=== PATIENT | male | born 1965 | race Caucasian/White ===

== ENCOUNTER → 2017-03-05 | Outpatient (CLI) | payer BC, OTHER ==
--- NOTE | 2017-03-05 16:08 | XR ---
EXAMINATION TYPE: XR chest 2V DATE OF EXAM: 03/05/2017 COMPARISON: None HISTORY: 51 year-old male shortness of breath and cough TECHNIQUE: Frontal and lateral views FINDINGS: Heart is normal size. Aorta within normal limits. There is severe diffuse confluent nodular interstit ial opacities. Possible 4.1 cm mass in the right upper lobe. No pleural effusion. IMPRESSION: Severe diffuse nodular interstitial lung disease. Some differential considerations include diffuse me tastatic disease, acute pneumoconiosis/silicosis, and atypical infections including fungal infections and TB.
== END | disposition home or self-care (01) ==
LOC: RADXRYALE 15:21
PROVIDERS: ATTEND Internal Medicine Sleep Medicine
DX: J84.9 Interstitial pulmonary disease, unspecified (principal)
CPT/HCPCS: 71020

== ENCOUNTER 2017-03-27 09:54 | Day surgery (SDC) | payer BC, OTHER ==
[2017-03-26 10:23] VITALS: BMI 23.4
[~2017-03-27 09:54] MED LIST: LACTATED RINGERS 1,000 ML IV SCH
[2017-03-27 10:10] VITALS: TEMP 98.3
[2017-03-27] MEDS ORDERED: LIDOCAINE 1% 20 ML VIAL (10MG/ML) FOR IV START INTRADERMA ONE (10:20)
[2017-03-27] MEDS ORDERED: PROPOFOL 10 MG/ML 20 ML VIAL IV ONE (10:27)
[2017-03-27 10:44] LABS: Glucose,Whole Blood 105 mg/dL (75-99)
[2017-03-27] MEDS ORDERED: LIDOCAINE 2% INJ 20 MG/ML INTRATRACH ONE (10:55)
[2017-03-27] MEDS ORDERED: LIDOCAINE 2%-EPI 1:100,000 20 ML VIAL SUBMUCOSAL ONE (10:57)
--- NOTE | 2017-03-27 11:22 | XR ---
EXAMINATION TYPE: XR chest 1V, FL bronchoscopy DATE OF EXAM: 03/27/2017 HISTORY: Status post of bronchoscopy COMPARISON: None. TECHNIQUE: Single view of the chest is submitted. FINDINGS: There is no evidence for pneumothorax. Diffuse airspace infiltrates persist throughout both lung parker which could be related to diffuse pn eumonia however sarcoidosis is an additional possibility. The heart is stable. Hilar and mediastinal structures are within normal limits. Degenerative changes are seen of the dorsal spine. IMPRESSION: 1. No evidence for pneumothorax. Fluoroscopy: 1MIN12 SEC FL, 1 FILM SCANNED
[2017-03-27 11:27] VITALS: RESP 24
[2017-03-27 11:53] VITALS: BP 146/90; PULSE 120
--- NOTE | 2017-04-20 10:22 | P.PCN ---
Date of Procedure: 03/27/17 (late entry note) Preoperative Diagnosis: ILD, Sarcoidosis, Neoplasm/lung cancer Postoperative Diagnosis: as above Procedure(s) Performed: Bronchoscopy, BAL, Transbronchial lung biopsy under fluroscopy Surgeon: Masood Cheung Estimated Blood Loss (ml): 5 Condition: stable Disposition: same day Indications for Procedure: Abnormal cxr, ILD, Operative Findings: DIFFUSE EDEMA AND ERYTHEMA NOTED ALLOVER TRACHEOBRONCHIAL TREE Description of Procedure: FOB passed thru right nares, vocal cords normal, both right and left broncial tree and subsegments inspected no endobronchial mass noted, but diffuse bilateral edema noted with erythema. BAL performed RUL and RLL followed by lung biopsy of RUL under fluroscopy, pt. tolerated well no complication noted
== END 2017-03-27 12:21 | disposition home or self-care (01) ==
LOC: ORWHC2ENDO 09:54
PROVIDERS: ATTEND Internal Medicine Sleep Medicine
DX: C34.11 Malignant neoplasm of upper lobe, right bronchus or lung (principal); Z87.01 Personal history of pneumonia (recurrent); D86.9 Sarcoidosis, unspecified; J96.01 Acute respiratory failure with hypoxia; Z83.6 Family history of other diseases of the respiratory system; Z79.52 Long term (current) use of systemic steroids; Z79.899 Other long term (current) drug therapy; Z91.040 Latex allergy status
CPT/HCPCS: 87798 ×5; 87541; 87496; 87498; 87529 ×2; 88108; 88305; 88342; 87252; 87502; 88341; 87070; 87205; 87116; 87102; 87206; 87299; 71010; 31628; 31624; J2001; J2704; 31622

== ENCOUNTER → 2017-04-14 | Outpatient (CLI) | payer BC, OTHER ==
--- NOTE | 2017-04-14 22:20 | PE ---
EXAMINATION TYPE: PET CT fusion skull to thigh DATE OF EXAM: 04/14/2017 COMPARISON: Chest x-ray March 27, 2017 HISTORY: Lung cancer initial staging study after bronchosco py positive bilateral biopsy 2 weeks ago per patient. TECHNIQUE: Following the intravenous administration of 12.82 mCi of F-18 FDG, whole body images are performed from the skull base to the midthigh. Images are reviewed on the computer in the coronal, a xial, and sagittal planes. Reconstructed rotating images are created on independent workstation and reviewed on the computer. A noncontrast CT is performed in conjunction with the PET scan. SCAN: Initial Scan FINDINGS: SKULL BASE AND NECK: There is suspicious right supraclavicular subcentimeter hypermetabolic focus axi al image 65, max SUV is 3.96 adjacent to right thyroid lobe. CHEST, MEDIASTINUM, AND HILAR REGION: Correlating with x-ray there is irregular consolidation bilater ally involving upper and lower lungs with abnormal hypermetabolic uptake throughout. Areas of nodular ity are present seen better in the lower lungs. Due to confluent appearance accurate measurements are and possible. Max SUV is 6.09 posterior right lung base axial image 117. Max SUV right upper lung is 7.54 near axial image 85. Max SUV anterior left upper lobe is 5.64 on axial image 92. Max SUV in the left lower lobe is 5.32 axial image 114. There is no suspicious hypermetabolic thoracic lymph nodes clearly seen. There are borderline in size ametabolic prevascular lymph node lymph nodes for reference near axial image 87 there is 11 x 9 mm l ymph node noted. There is some abnormal hypermetabolic uptake in the posterior inferior diaphragmatic crux for referen ce axial image 151. Max SUV is 4.6 at this level. Etiology uncertain? ABDOMEN AND PELVIS: No suspicious hypermetabolic uptake is seen in the abdomen or pelvis. No concerni ng adrenal masses are noted. OSSEOUS STRUCTURES: No suspicious hypermetabolic uptake is seen. OTHER CT: There is 2 cm mucous retention cyst or polyp posterior inferior right maxillary sinus. Ther e is suspicious air-fluid level seen superior to this. Some mild coronary artery calcification is present which is noted marker for coronary artery disease. There are scattered pelvic phleboliths. Prostate gland is enlarged underlying BPH is suspected. Arsalan elate clinically. There is multilevel facet arthropathy in the mid to lower lumbar spine. IMPRESSION: Very unusual study with diffuse consolidation and hypermetabolic uptake in both lungs, ne oplastic involvement involving bilateral upper and lower lungs cannot be excluded. Combination of inf lammatory/infectious etiology and neoplasm is possible. Nonspecific right supraclavicular lymph node otherwise no adenopathy identified. No metastatic disease otherwise is seen.
== END | disposition home or self-care (01) ==
LOC: RADPETMAIN 12:04
PROVIDERS: ATTEND Internal Medicine Hematology & Oncology
DX: C34.11 Malignant neoplasm of upper lobe, right bronchus or lung (principal)
CPT/HCPCS: 78815; A9552

== ENCOUNTER 2017-04-23 10:31 | Day surgery (SDC) | payer BC, OTHER ==
[2017-04-20 09:04] VITALS: BMI 22.6
[~2017-04-23 10:31] MED LIST changes: -LACTATED RINGERS 1,000 ML IV SCH; +Pre Op ABX Message 1 EACH MISC MISCELLANE ONE
[2017-04-23 11:03] VITALS: PULSE 110; RESP 20; TEMP 98
[2017-04-23 12:55] VITALS: BP 152/91
--- NOTE | 2017-04-23 13:34 | IR ---
PICC LINE PLACEMENT: HISTORY: Infection requiring long-term antibiotic therapy PROCEDURE: Ultrasound and fluoroscopic guidance of PICC line placement. COMPLICATIONS: None ANESTHESIA: 1. 1% Lidocaine locally. FINDINGS/TECHNIQUE: The procedure was explained to the patient. The risks, complications, benefits and alternatives were discussed and any questions were answered. Informed consent was obtained. The patient was placed supine on the fluoroscopic table and prepped and draped in the usual sterile [facility] ion. Utilizing a 21 gauge needle and sonographic and fluoroscopic guidance, access in the vein was achieved and there is placement of a 0.018 guidewire. The vein is patent. A 4-F sheath was placed o bebe the guidewire. The guidewire and dilator were removed and a 4-F. PICC line was placed through th e sheath with the tip at the level of the SVC. The sheath was removed, the catheter was flushed and sutured into position. The patient was stable throughout the procedure and remained stable upon disc harge from the Department of Radiology. The vein puncture was patent under ultrasound. A schrader scale image was obtained to document patency of the vein punctured. All elements of the maximal barrier technique were utilized. FLUOROSCOPY TIME: 0.8 minutes and one image submitted IMPRESSION: Successful PICC line placement under ultrasound and fluoroscopic guidance.
== END 2017-04-23 12:35 | disposition home or self-care (01) ==
LOC: CATHCVL 10:31
PROVIDERS: ATTEND Radiology Diagnostic Radiology
DX: C34.81 Malignant neoplasm of overlapping sites of right bronchus and lung (principal); I87.2 Venous insufficiency (chronic) (peripheral)
CPT/HCPCS: 36569; 76937; 77001; C1751; C1769

== ENCOUNTER → 2017-06-11 | Outpatient (CLI) | payer OTHER ==
--- NOTE | 2017-06-11 12:10 | XR ---
EXAMINATION TYPE: XR chest 2V DATE OF EXAM: 06/11/2017 COMPARISON: PET/CT April 14, 2017. Chest x-ray March 27, 2017 HISTORY: Lung carcinoma. TECHNIQUE: Frontal and lateral views of the chest are obtained. FINDINGS: There is new right-sided PICC line with tip in SVC. Bilateral reticulonodular opacities re main present correlate with diffuse hypermetabolic uptake on PET/CT. Some improvement in bilateral op acities since prior chest x-ray is identified particularly towards the periphery. Cardiac silhouette size is stable and within normal limits. Osseous structures are intact. IMPRESSION: Improving bilateral hypermetabolic reticulonodular infiltrates.
== END | disposition home or self-care (01) ==
LOC: RADXRMAIN 11:45
PROVIDERS: ATTEND Internal Medicine Hematology & Oncology
DX: C34.81 Malignant neoplasm of overlapping sites of right bronchus and lung (principal); R91.8 Other nonspecific abnormal finding of lung field
CPT/HCPCS: 71046

== ENCOUNTER 2017-07-15 17:11 | Inpatient (IN) | payer OTHER ==
[2017-07-15] MEDS ORDERED: methylPREDNISolone SOD SUCCI 125 MG/2 ML VIAL IV STA (17:36)
--- NOTE | 2017-07-15 17:51 | XR ---
EXAMINATION TYPE: XR chest 1V portable DATE OF EXAM: 07/15/2017 COMPARISON: 06/11/2017 INDICATION: Pain, respiratory distress TECHNIQUE: Single frontal view of the chest is obtained. FINDINGS: The heart size is normal. . There may be some shift of the mediastinum towards the right with trache al deviation. There is a complete collapse of the left lung with a very large pneumothorax. Correlate for tension pneumothorax. Report was medially called to the emergency room physician by Dr. Amador. Patient is being treated for the suspected tension pneumothorax. The pulmonary vasculature is normal. There is likely some underlying pulmonary fibrosis. IMPRESSION: 1. Left-sided tension pneumothorax. This was being treated at the time of notification. 1740 hours 07/15/2017.
[2017-07-15 18:06] LABS: Anisocytosis Slight; Basophils % (A) 0 %; Eosinophils % (A) 0 %; HCT 41.1 % (39.0-53.0); HGB 13.7 gm/dL (13.0-17.5); Lymphocytes # (A) 0.8 k/uL (1.0-4.8); Lymphocytes % (A) 5 %; MCH 32.1 pg (25.0-35.0); MCHC 33.3 g/dL (31.0-37.0); MCV 96.3 fL (80.0-100.0); Macrocytosis Slight; Mean Platelet Volume 7.1; Monocytes # (A) 0.9 k/uL (0-1.0); Monocytes % (A) 5 %; Neutrophils # (A) 14.8 k/uL (1.3-7.7); Neutrophils % (A) 89 %; Platelet Count 225 k/uL (150-450); RBC 4.27 m/uL (4.30-5.90); RDW 16.3 % (11.5-15.5); WBC 16.7 k/uL (3.8-10.6)
[2017-07-15 18:15] LABS: ALT 59 U/L (21-72); AST 35 U/L (17-59); Albumin 4.1 g/dL (3.5-5.0); Alkaline Phosphatase 61 U/L (38-126); Anion Gap 16 mmol/L; Blood Urea Nitrogen 14 mg/dL (9-20); Calcium 9.8 mg/dL (8.4-10.2); Carbon Dioxide 21 mmol/L (22-30); Chloride 99 mmol/L (98-107); Glucose 211 mg/dL (74-99); Potassium 5.1 mmol/L (3.5-5.1); Sodium 136 mmol/L (137-145); Total Bilirubin 0.9 mg/dL (0.2-1.3); Total Protein 7.3 g/dL (6.3-8.2)
[2017-07-15 18:25] LABS: Creatine Kinase 59 U/L (55-170)
--- NOTE | 2017-07-15 18:30 | P.HPIM ---
History of Present Illness 51-year-old gentleman with known history of non-metastatic lung cancer and history of smoking possibly history of COPD came in with complaints of shortness of breath started today morning progressively gotten worse and the she came to ER found to have aches tensive pneumothorax on the left side of the chest with mediastinal shift patient had a thoravent with the significant relief in his shortness of breath patient although still tachypneic I do not have any full lab data available at this point of time. Patient has some chronic changes in the right lung from his lung cancer. For which she recently completed chemotherapy about 10 days ago. Patient appears to have history of COPD and emphysema may have had a bladder rupture. Patient denied any fever chills no significant pneumonic process. Patient the chest x-ray on the right side is actually better compared to his previous x-rays. Review of Systems REVIEW OF SYSTEMS: CONSTITUTIONAL: No fever, no malaise, no fatigue. HEENT: No recent visual problems or hearing problems. Denied any sore throat. CARDIOVASCULAR: No chest pain, orthopnea, PND, no palpitations, no syncope. PULMONARY: As mentioned in HPI GASTROINTESTINAL: No diarrhea, no nausea, no vomiting, no abdominal pain. Normoactive bowel sounds. NEUROLOGICAL: No headaches, no weakness, no numbness. HEMATOLOGICAL: Denies any bleeding or petechiae. GENITOURINARY: Denies any burning micturition, frequency, or urgency. MUSCULOSKELETAL/RHEUMATOLOGICAL: Denies any joint pain, swelling, or any muscle pain. ENDOCRINE: Denies any polyuria or polydipsia. The rest of the 14-point review of systems is negative. Past Medical History Past Medical History: Cancer, Hypertension Additional Past Medical History / Comment(s): LUNG CA; O2 @5 L NC ATC,increased SOB,sinus tachycardia (states resting heart rate is 125 -130),does not take anything for heart rate or b/p,current steroids History of Any Multi-Drug Resistant Organisms: None Reported Past Surgical History: Adenoidectomy, Tonsillectomy Past Anesthesia/Blood Transfusion Reactions: No Reported Reaction Past Psychological History: No Psychological Hx Reported Smoking Status: Former smoker Past Alcohol Use History: None Reported Past Drug Use History: None Reported - Past Family History Mother Family Medical History: COPD Medications and Allergies Home Medications Medication Instructions Recorded Confirmed Type Ipratropium-Albuterol Nebulize 3 ml INHALATION RT-Q4H PRN 03/26/17 07/15/17 History [Duoneb 0.5 mg-3 mg/3 ml Soln] predniSONE 20 mg PO DAILY 03/26/17 07/15/17 History Budesonide/Formoterol Fumarate 2 puff INHALATION RT-BID 07/15/17 07/15/17 History [Symbicort 160-4.5 Mcg Inhaler] Codeine Phosphate/Guaifenesin 5 ml PO QID PRN 07/15/17 07/15/17 History [Cheratussin AC Syrup] Erlotinib HCl [Tarceva] 150 mg PO DAILY 07/15/17 07/15/17 History Folic Acid 1 mg PO DAILY 07/15/17 07/15/17 History Ibuprofen [Motrin] 600 mg PO BID PRN 07/15/17 07/15/17 History Nystatin 100,000 Unit/ml Susp 5 ml PO QID 07/15/17 07/15/17 History [Mycostatin Oral Susp] Omeprazole 20 mg PO DAILY 07/15/17 07/15/17 History Allergies Allergy/AdvReac Type Severity Reaction Status Date / Time latex Allergy itching Verified 07/15/17 18:08 eyes Physical Exam Vitals: Vital Signs Temp Pulse Resp BP Pulse Ox 07/15/17 17:53 131 H 26 H 146/99 99 07/15/17 17:46 30 H 96 07/15/17 17:40 84 L 07/15/17 17:13 97.6 F 135 H 34 H 206/110 76 L Intake and Output 07/15/17 07/15/17 07/15/17 06:59 14:59 22:59 Other: Weight 72.575 kg PHYSICAL EXAMINATION: GENERAL: The patient is alert and oriented x3, not in any acute distress. Well developed, well nourished. HEENT: Pupils are round and equally reacting to light. EOMI. No scleral icterus. No conjunctival pallor. Normocephalic, atraumatic. No pharyngeal erythema. No thyromegaly. CARDIOVASCULAR: S1 and S2 present. No murmurs, rubs, or gallops. PULMONARY: Mildly diminished air entry into bilateral lung parker no wheezing or crackles were appreciated ABDOMEN: Soft, nontender, nondistended, normoactive bowel sounds. No palpable organomegaly. MUSCULOSKELETAL: No joint swelling or deformity. EXTREMITIES: No cyanosis, clubbing, or pedal edema. NEUROLOGICAL: Gross neurological examination did not reveal any focal deficits. SKIN: No rashes. Results CBC & Chem 7: 07/15/17 17:30 07/15/17 17:30 Labs: Abnormal Lab Results - Last 24 Hours (Table) 07/15/17 07/15/17 Range/Units 17:30 17:30 WBC 16.7 H (3.8-10.6) k/uL RBC 4.27 L (4.30-5.90) m/uL RDW 16.3 H (11.5-15.5) % Neutrophils # 14.8 H (1.3-7.7) k/uL Lymphocytes # 0.8 L (1.0-4.8) k/uL Sodium 136 L (137-145) mmol/L Carbon Dioxide 21 L (22-30) mmol/L Glucose 211 H (74-99) mg/dL Assessment and Plan Plan: -Tension pneumothorax on the left side status post Thoravent placement. Probably secondary to bleeding or rupture. His [employer] this is Dr. Boucher who will be consulted. -COPD without any significant exacerbation -lung cancer recently completed chemotherapy. And patient is presently on biologic agents
--- NOTE | 2017-07-15 18:30 | XR ---
EXAMINATION TYPE: XR chest 1V portable DATE OF EXAM: 07/15/2017 COMPARISON: 07/15/2017 INDICATION: Tension pneumothorax post catheter placement TECHNIQUE: Single frontal view of the chest is obtained. FINDINGS: The heart size is normal. Mediastinal silhouette is in normal position. The pulmonary vasculature is normal. Tension pneumothorax has largely resolved. There is a moderate left apical pneumothorax remaining pre sent. Catheter is directed into the left apex. A large consolidation is in the right upper lobe. There is tenting of the right diaphragm. Some subse gmental atelectasis may be at the left base. IMPRESSIONS: 1. Resolution of the tension pneumothorax. Small to moderate residual left apical pneumothorax is pre sent. 2. Large consolidation right upper lobe. 3. Bibasilar atelectasis
[2017-07-15 18:37] LABS: Creatine Kinase MB 1.1 ng/mL (0.0-2.4); Troponin I <0.012 ng/mL (0.000-0.034)
[2017-07-15] MEDS ORDERED: NALOXONE 0.4 MG/ML 1 ML VIAL IV PRN (19:08)
--- NOTE | 2017-07-15 19:22 | ED ---
General Adult HPI - General Chief complaint: Shortness of Breath Stated complaint: DENISE Time Seen by Provider: 07/15/17 17:22 Source: patient, family, RN notes reviewed, old records reviewed Mode of arrival: wheelchair Limitations: no limitations - History of Present Illness Initial comments: 51-year-old male presenting in severe respiratory distress. History obtained from patient's friend who states that since approximately lunchtime patient has had progressively worsening dyspnea. There was concern for ALLERGIC reaction to a medication that was started in the past 4 days. No history obtained from the patient secondary to severe respiratory distress. - Related Data Home Medications Medication Instructions Recorded Confirmed Ipratropium-Albuterol Nebulize 3 ml INHALATION RT-Q4H PRN 03/26/17 07/15/17 [Duoneb 0.5 mg-3 mg/3 ml Soln] predniSONE 20 mg PO DAILY 03/26/17 07/15/17 Budesonide/Formoterol Fumarate 2 puff INHALATION RT-BID 07/15/17 07/15/17 [Symbicort 160-4.5 Mcg Inhaler] Codeine Phosphate/Guaifenesin 5 ml PO QID PRN 07/15/17 07/15/17 [Cheratussin AC Syrup] Erlotinib HCl [Tarceva] 150 mg PO DAILY 07/15/17 07/15/17 Folic Acid 1 mg PO DAILY 07/15/17 07/15/17 Ibuprofen [Motrin] 600 mg PO BID PRN 07/15/17 07/15/17 Nystatin 100,000 Unit/ml Susp 5 ml PO QID 07/15/17 07/15/17 [Mycostatin Oral Susp] Omeprazole 20 mg PO DAILY 07/15/17 07/15/17 Allergies Allergy/AdvReac Type Severity Reaction Status Date / Time latex Allergy itching Verified 07/15/17 18:08 eyes Review of Systems ROS Statement: Those systems with pertinent positive or pertinent negative responses have been documented in the HPI. ROS Other: All systems not noted in ROS Statement are negative. Past Medical History Past Medical History: Cancer, Hypertension Additional Past Medical History / Comment(s): LUNG CA; O2 @5 L NC ATC,increased SOB,sinus tachycardia (states resting heart rate is 125 -130),does not take anything for heart rate or b/p,current steroids History of Any Multi-Drug Resistant Organisms: None Reported Past Surgical History: Adenoidectomy, Tonsillectomy Past Anesthesia/Blood Transfusion Reactions: No Reported Reaction Past Psychological History: No Psychological Hx Reported Smoking Status: Former smoker Past Alcohol Use History: None Reported Past Drug Use History: None Reported - Past Family History Mother Family Medical History: COPD General Exam Limitations: no limitations General appearance: alert, in distress Head exam: Present: atraumatic, normocephalic Eye exam: Present: normal appearance, PERRL ENT exam: Present: normal exam Respiratory exam: Present: accessory muscle use, decreased breath sounds ( Decreased breath sounds over the left lung field). Absent: respiratory distress Cardiovascular Exam: Present: normal rhythm, tachycardia GI/Abdominal exam: Present: soft. Absent: distended, tenderness Extremities exam: Present: normal inspection, normal capillary refill. Absent: pedal edema, calf tenderness Neurological exam: Present: alert, oriented X3, CN II-XII intact. Absent: motor sensory deficit Psychiatric exam: Present: normal affect, normal mood Skin exam: Present: cyanosis, diaphoretic. Absent: warm, normal color Course Vital Signs 07/15/17 07/15/17 07/15/17 17:13 17:21 17:30 Temperature 97.6 F Pulse Rate 135 H 138 H 140 H Respiratory 34 H 36 H 36 H Rate Blood Pressure 206/110 206/129 208/120 O2 Sat by Pulse 76 L 82 L 96 Oximetry 07/15/17 07/15/17 07/15/17 17:40 17:46 17:53 Temperature Pulse Rate 131 H Respiratory 30 H 26 H Rate Blood Pressure 146/99 O2 Sat by Pulse 84 L 96 99 Oximetry 07/15/17 18:42 Temperature Pulse Rate 115 H Respiratory 20 Rate Blood Pressure 144/100 O2 Sat by Pulse 100 Oximetry EKG Findings - EKG Comments: EKG Findings:: EKG obtained at 1848, sinus tachycardia, ventricular rate 113, [place] interval 226, QRS duration 78, QTC 4:30, peaked T waves in the precordium no ST segment elevation Procedures - Chest Tube Insertion Consent Obtained: verbal consent Time Out Performed: Yes Side of Procedure: right Indication: Pneumothorax Placed on monitor/pulse oximetry: Yes Site Prep: Chloroprep Local Anesthesia: Lidocaine 1% Insertion Site: Other (Midclavicular, second intercostal space) Scalpel: #11 Open into Pleural Space Using: Trocar Tube Size (Slovak): Other (Thoravent) Returns: Air Sutured in Place: No Repeat X-ray Results: Lung Inflated Patient Tolerated Procedure: well Medical Decision Making - Medical Decision Making 51-year-old male presenting in severe respiratory distress. Patient is hypoxic , cyanotic tachycardic with tracheal deviation and decreased lung sounds on the left. Portal chest x-ray obtained, does show tension pneumothorax. Thoravent is placed, repeat chest x-ray shows small to moderate residual pneumothorax. Patient's vital signs improved significant, color improves, he is 100% on 6 L nasal cannula. Laboratory studies reveal white blood cell count 16.7 may be reactive, will trend. Hemoglobin stable. Alleged lites within normal limits. Case discussed with Dr. Sloan who will accept admission and is able to evaluate the patient emergency department. Patient's account analyst will be placed on consult. - Lab Data Result diagrams: 07/15/17 17:30 07/15/17 17:30 Lab Results 07/15/17 07/15/17 07/15/17 Range/Units 17:30 17:30 17:30 WBC 16.7 H (3.8-10.6) k/uL RBC 4.27 L (4.30-5.90) m/uL Hgb 13.7 (13.0-17.5) gm/dL Hct 41.1 (39.0-53.0) % MCV 96.3 (80.0-100.0) fL MCH 32.1 (25.0-35.0) pg MCHC 33.3 (31.0-37.0) g/dL RDW 16.3 H (11.5-15.5) % Plt Count 225 (150-450) k/uL Neutrophils % 89 % Lymphocytes % 5 % Monocytes % 5 % Eosinophils % 0 % Basophils % 0 % Neutrophils # 14.8 H (1.3-7.7) k/uL Lymphocytes # 0.8 L (1.0-4.8) k/uL Monocytes # 0.9 (0-1.0) k/uL Eosinophils # 0.0 (0-0.7) k/uL Basophils # 0.0 (0-0.2) k/uL Anisocytosis Slight Macrocytosis Slight Sodium 136 L (137-145) mmol/L Potassium 5.1 (3.5-5.1) mmol/L Chloride 99 (98-107) mmol/L Carbon Dioxide 21 L (22-30) mmol/L Anion Gap 16 mmol/L BUN 14 (9-20) mg/dL Creatinine 0.80 (0.66-1.25) mg/dL Est GFR (CKD-EPI)AfAm >90 (>60 ml/min/1.73 sqM) Est GFR (CKD-EPI)NonAf >90 (>60 ml/min/1.73 sqM) Glucose 211 H (74-99) mg/dL Calcium 9.8 (8.4-10.2) mg/dL Total Bilirubin 0.9 (0.2-1.3) mg/dL AST 35 (17-59) U/L ALT 59 (21-72) U/L Alkaline Phosphatase 61 (38-126) U/L Total Creatine Kinase 59 (55-170) U/L CK-MB (CK-2) 1.1 (0.0-2.4) ng/mL CK-MB (CK-2) Rel Index 1.9 Troponin I <0.012 (0.000-0.034) ng/mL Total Protein 7.3 (6.3-8.2) g/dL Albumin 4.1 (3.5-5.0) g/dL Critical Care Time Critical Care Time: Yes Total Critical Care Time: 35 Disposition Clinical Impression: Spontaneous tension pneumothorax Disposition: ADMITTED IP TO THIS [facility] Condition: Serious Referrals: Althea Jimenes MD [Primary Care Provider] - 1-2 days Decision to Admit Reason: Admit from EC Decision Date: 07/15/17 Decision Time: 19:22
[2017-07-15] MEDS: SYMBICORT 160-4.5 MCG INHALER INHALATION SCH (20:14)
[2017-07-15] MEDS: IPRATROPIUM-ALBUTEROL 3 ML NEB INHALATION PRN (20:14)
[2017-07-15 20:17] LABS: Prothrombin Time 10.2 sec (9.0-12.0)
[2017-07-15 20:21] LABS: Partial Thromboplastin Time 18.5 sec (22.0-30.0)
[2017-07-15] MEDS: guaiFENesin-Coden 100-10MG/5ML 10 ML CUP PO PRN (23:25)
[2017-07-16] MEDS: IBUPROFEN 600 MG TAB PO PRN ×3 (00:41→21:14)
--- NOTE | 2017-07-16 07:28 | XR ---
EXAMINATION TYPE: XR chest 1V DATE OF EXAM: 07/16/2017 HISTORY: Follow-up pneumothorax. COMPARISON: 07/15/2017 TECHNIQUE: Single view of the chest is submitted. FINDINGS: There is an enlarging left-sided pneumothorax estimated at least 50%. Left pleural catheter appears s omewhat changed in position although this may be related to overall patient positioning. Persistent a irspace consolidation throughout the right lung as well as the left compressed perihilar and left bas ilar regions. There is tracheal deviation from left to right and tension component is not excluded. IMPRESSION: 1. Enlarging left-sided pneumothorax estimated at least 50% with underlying tension component suspec miryam. A [place] level critical message alert has been initiated for Braeden Sloan via the [facility] Critical Results System on 07/16/2017 7:25 AM. This message alert has been sent to Braeden Sloan v ia the preferences provided by the clinician for the receipt of Radiology Critical Findings. Message ID [id number].
[2017-07-16] MEDS: SYMBICORT 160-4.5 MCG INHALER INHALATION SCH (08:09)
[2017-07-16] MEDS: IPRATROPIUM-ALBUTEROL 3 ML NEB INHALATION PRN ×4 (08:09→21:21)
[2017-07-16] MEDS: FOLIC ACID 1 MG TAB PO SCH (10:02)
[2017-07-16] MEDS: predniSONE 20 MG TAB PO SCH (10:02)
[2017-07-16] MEDS: PANTOPRAZOLE 40 MG TABLET PO SCH ×2 (10:02→10:05)
[2017-07-16] MEDS: ERLOTINIB HCL 150 MG PO SCH (10:03)
[2017-07-16] MEDS: NYSTATIN 100,000 UNIT/ML SUSP 500,000 UNIT/5 ML CUP PO SCH ×4 (10:03→23:14)
[2017-07-16] MEDS: guaiFENesin-Coden 100-10MG/5ML 10 ML CUP PO PRN (10:07)
--- NOTE | 2017-07-16 14:29 | P.PN ---
Subjective 51-year-old that admitted after tension pneumothorax patient's permanent is nonfunctional today chest tube will be placed on the left side today. Patient respiratory status is fairly stable., Denied any pain in the chest today. -Constitutional: Denied any fatigue denied any fever. Cardio vascular: denied any chest pain, palpitations Gastrointestinal denied any nausea vomiting Pulmonary: as mentioned in HPI Neurologic denied any new focal deficits Objective - Vital Signs Vital signs: Vital Signs Temp 97.3 F L 07/16/17 04:00 Pulse 120 H 07/16/17 12:15 Resp 18 07/16/17 12:15 BP 139/89 07/16/17 12:15 Pulse Ox 98 07/16/17 12:15 Intake & Output 07/15/17 07/16/17 07/16/17 18:59 06:59 18:59 Intake Total 480 Balance 480 Weight 72.575 kg 69.3 kg Intake: Oral 480 Other: Voiding Method Toilet Toilet # Voids 1 1 - Exam PHYSICAL EXAMINATION: GENERAL: The patient is alert and oriented x3, not in any acute distress. Well developed, well nourished. HEENT: Pupils are round and equally reacting to light. EOMI. No scleral icterus. No conjunctival pallor. Normocephalic, atraumatic. No pharyngeal erythema. No thyromegaly. CARDIOVASCULAR: S1 and S2 present. No murmurs, rubs, or gallops. PULMONARY: Mildly diminished air entry into bilateral lung parker no wheezing or crackles were appreciated ABDOMEN: Soft, nontender, nondistended, normoactive bowel sounds. No palpable organomegaly. MUSCULOSKELETAL: No joint swelling or deformity. EXTREMITIES: No cyanosis, clubbing, or pedal edema. NEUROLOGICAL: Gross neurological examination did not reveal any focal deficits. SKIN: No rashes. - Labs CBC & Chem 7: 07/15/17 17:30 07/15/17 17:30 Labs: Abnormal Lab Results - Last 24 Hours (Table) 07/15/17 07/15/17 07/15/17 Range/Units 17:30 17:30 19:51 WBC 16.7 H (3.8-10.6) k/uL RBC 4.27 L (4.30-5.90) m/uL RDW 16.3 H (11.5-15.5) % Neutrophils # 14.8 H (1.3-7.7) k/uL Lymphocytes # 0.8 L (1.0-4.8) k/uL APTT 18.5 L (22.0-30.0) sec Sodium 136 L (137-145) mmol/L Carbon Dioxide 21 L (22-30) mmol/L Glucose 211 H (74-99) mg/dL Assessment and Plan Plan: -Tension pneumothorax on the left side status post Thoravent placement. Probably secondary to bleeding or rupture. at bedtime she will probably place a today -COPD without any significant exacerbation -lung cancer recently completed chemotherapy. And patient is presently on biologic agents -acute hypoxic respiratory failure secondary to tension pneumothorax patient is still on 6 L of patient has 50% resolution in his pneumothorax. His respiratory status is expected to improve after chest tube -Leukocytosis reactive
[2017-07-16] MEDS ORDERED: MORPHINE SULFATE 4MG/4ML SYRG IVP STA (17:10)
[2017-07-16] MEDS ORDERED: MORPHINE SULF 5MG/10ML VL IVP STA (17:19)
[2017-07-16] MEDS ORDERED: LIDOCAINE 2% INJ 20 MG/ML (20 ML MDV) ONE (17:39)
--- NOTE | 2017-07-16 17:41 | P.CNPUL ---
History of Present Illness Consult date: 07/16/17 Reason for consult: dyspnea, cough, chest pain, pneumothorax Chief complaint: Shortness of breath and severe chest pain and progressive for the2 days History of present illness: 51-year-old male who was seen evaluated examined patient has a history of the adenocarcinoma of the lung has been on chemotherapy with Tarceva patient for the last 2 or 3 days has been having increasing shortness of breath and left- sided chest pain came into the hospital was found to her tension pneumothorax on the left side a left thoracic vent has been placed in the emergency department some expansion of the lung was noted and pain was relieved but however today x-ray shows worsening of pneumothorax on the left side with the some component of early tension and evaluated this patient this morning he is on 6 L oxygen he is short of breath complaining of left-sided chest pain he was eating his supper plan is to reevaluate later on today continued to have similar symptoms the chest x-rays and radiographic studies is been reviewed and plan is to put a left-sided chest tube procedure has been explained to the patient at length including risk alternative and complications. This patient has been found to have a lung cancer on transbronchial lung biopsy patient has bilateral interstitial lung disease Petrin biopsy came back positive for adenocarcinoma patient is being treated with chemotherapy he has chronic hypoxic respirator failure he has been on home oxygen as well as nebulizer therapy with history of severe COPD emphysema Review of Systems All systems: negative Past Medical History Past Medical History: Cancer, Hypertension Additional Past Medical History / Comment(s): LUNG CA; O2 @5 L NC ATC,increased SOB,sinus tachycardia (states resting heart rate is 125 -130),does not take anything for heart rate or b/p,current steroids History of Any Multi-Drug Resistant Organisms: None Reported Past Surgical History: Adenoidectomy, Tonsillectomy Past Anesthesia/Blood Transfusion Reactions: No Reported Reaction Past Psychological History: No Psychological Hx Reported Smoking Status: Former smoker Past Alcohol Use History: None Reported Additional Past Alcohol Use History / Comment(s): quit smoking 2013,smoked approx on and off since age 27,1ppd Past Drug Use History: None Reported - Past Family History Mother Family Medical History: COPD Medications and Allergies Home Medications Medication Instructions Recorded Confirmed Type Ipratropium-Albuterol Nebulize 3 ml INHALATION RT-Q4H PRN 03/26/17 07/15/17 History [Duoneb 0.5 mg-3 mg/3 ml Soln] predniSONE 20 mg PO DAILY 03/26/17 07/15/17 History Budesonide/Formoterol Fumarate 2 puff INHALATION RT-BID 07/15/17 07/15/17 History [Symbicort 160-4.5 Mcg Inhaler] Codeine Phosphate/Guaifenesin 5 ml PO QID PRN 07/15/17 07/15/17 History [Cheratussin AC Syrup] Erlotinib HCl [Tarceva] 150 mg PO DAILY 07/15/17 07/15/17 History Folic Acid 1 mg PO DAILY 07/15/17 07/15/17 History Ibuprofen [Motrin] 600 mg PO BID PRN 07/15/17 07/15/17 History Nystatin 100,000 Unit/ml Susp 5 ml PO QID 07/15/17 07/15/17 History [Mycostatin Oral Susp] Omeprazole 20 mg PO DAILY 07/15/17 07/15/17 History Allergies Allergy/AdvReac Type Severity Reaction Status Date / Time latex Allergy itching Verified 07/15/17 18:08 eyes Physical Exam Vitals: Vital Signs Temp Pulse Pulse Resp BP BP Pulse Ox 07/16/17 16:33 116 H 07/16/17 16:23 121 H 07/16/17 15:25 97 F L 125 H 18 143/88 93 L 07/16/17 12:15 120 H 18 139/89 98 07/16/17 11:37 100 07/16/17 11:26 104 H 07/16/17 08:26 100 07/16/17 08:11 108 H 94 L 07/16/17 08:00 110 H 18 134/95 96 07/16/17 04:00 97.3 F L 105 H 22 134/96 94 L 07/16/17 00:00 97.2 F L 117 H 22 163/107 96 07/15/17 21:15 117 H 20 163/107 96 07/15/17 20:25 112 H 07/15/17 20:20 97.2 F L 117 H 22 134/82 94 L 07/15/17 20:16 108 H 07/15/17 19:11 98.7 F 110 H 18 147/98 97 07/15/17 18:42 115 H 20 144/100 100 07/15/17 17:53 131 H 26 H 146/99 99 07/15/17 17:46 30 H 96 07/15/17 17:40 84 L Intake and Output 07/16/17 07/16/17 07/16/17 06:59 14:59 22:59 Intake Total 480 Balance 480 Intake: Oral 480 Other: Voiding Method Toilet Toilet Toilet # Voids 1 1 Weight 69.3 kg GENERAL: The patient is alert and oriented x3, mild respiratory acute distress. Well developed, well nourished. HEENT: Pupils are round and equally reacting to light. EOMI. No scleral icterus. No conjunctival pallor. Normocephalic, atraumatic. No pharyngeal erythema. No thyromegaly. CARDIOVASCULAR: S1 and S2 present. No murmurs, rubs, or gallops. PULMONARY: Mildly diminished air entry into bilateral lung parker no wheezing or crackles were appreciated very poor air entry on the left side with tympanic resonance on percussion ABDOMEN: Soft, nontender, nondistended, normoactive bowel sounds. No palpable organomegaly. MUSCULOSKELETAL: No joint swelling or deformity. EXTREMITIES: No cyanosis, clubbing, or pedal edema. NEUROLOGICAL: Gross neurological examination did not reveal any focal deficits. SKIN: Early rash on shoulder have been noted likely Tarceva related chronic rash Results - Laboratory Findings CBC and BMP: 07/15/17 17:30 07/15/17 17:30 PT/INR, D-dimer PT 10.2 sec (9.0-12.0) 07/15/17 19:51 INR 1.0 (<1.2) 07/15/17 19:51 Abnormal lab findings: Abnormal Labs 07/15/17 07/15/17 07/15/17 17:30 17:30 19:51 WBC 16.7 H RBC 4.27 L RDW 16.3 H Neutrophils # 14.8 H Lymphocytes # 0.8 L APTT 18.5 L Sodium 136 L Carbon Dioxide 21 L Glucose 211 H - Diagnostic Findings Chest x-ray: report reviewed, image reviewed (All serial chest x-ray reviewed and compared worsening of left-sided pneumothorax with early tension component is noted) Assessment and Plan Assessment: Acute on chronic hypoxic respirator failure Large left-sided 50% pneumothorax with tension component with nonfunctioning Thoravent 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 Adenocarcinoma of the lung Leukocytosis likely related to stress response and Sirs-like process versus related to chronic use of steroids Plan: Bronchodilators in the form of nebulizer therapy Pulmicort Duo neb Continue maintenance prednisone Continue home medications including Tarceva Procedure left-sided tube thoracostomy and chest tube placement explained to the patient will proceed Time with Patient: Greater than 30
[2017-07-16] MEDS: oxyCODONE-APAP 7.5-325MG 1 EACH TAB PO PRN ×2 (18:45→23:13)
--- NOTE | 2017-07-16 18:47 | P.PCN ---
Date of Procedure: 07/16/17 Preoperative Diagnosis: Left-sided pneumothorax, tension pneumothorax, adenocarcinoma lung, acute on chronic hypoxic respirator failure Postoperative Diagnosis: As above Procedure(s) Performed: Left tube thoracostomy and left-sided chest tube placement Anesthesia: local Surgeon: Masood Cheung Estimated Blood Loss (ml): 10 Pathology: none sent Condition: stable Disposition: floor Indications for Procedure: As above Operative Findings: As below Description of Procedure: Procedure explained to the patient at length side effect complication and alternative explained he understood and would like to proceed with the procedure. 2 mg of morphine were given prior to the procedure IV, 2 cm incision was done at posterior axillary line at eighth intercostal level followed by blunt dissection into the intercostal muscles and fascia which was escalated up worse one percent lidocaine was infiltrated periodically and adequate anesthesia obtained pleural space was approached stab incision was done with the Kellys clamp and #28-Macanese chest tube was inserted imaging up towards backwards trocar was withdrawn chest tube was secured with #3 in #1 silk Vaseline and dry gauze 4 x 4 applied followed by placement of a dry dressing chest tube was connected to November 20 centimeters suction, post procedure chest x-ray reviewed chest tube in a stable position in pleural VAC intermittent bubbles were noted suggestive of air leak no effusion drained patient tolerated procedure well no complication noted
--- NOTE | 2017-07-16 18:55 | XR ---
EXAMINATION TYPE: XR chest 1V portable DATE OF EXAM: 07/16/2017 COMPARISON: 07/16/2017, 6:00 AM. HISTORY: Chest tube placement TECHNIQUE: Single frontal view of the chest is obtained. FINDINGS: There is a left chest tube that appears in good position. There is clearing of the pneumot horax compared to exam earlier today at 6:00 AM. There are extensive bilateral pulmonary infiltrates in the right upper lobe and left lung. There is no gross heart failure. IMPRESSION: Significant clearing of the left pneumothorax. Extensive bilateral pulmonary infiltrates are unchanged.
[2017-07-16] MEDS: BUDESONIDE 0.5 MG/2 ML NEBU INHALATION SCH (21:20)
[2017-07-17] MEDS: oxyCODONE-APAP 7.5-325MG 1 EACH TAB PO PRN ×5 (05:22→23:17)
[2017-07-17] MEDS: IBUPROFEN 600 MG TAB PO PRN ×3 (06:05→21:55)
[2017-07-17] MEDS: PANTOPRAZOLE 40 MG TABLET PO SCH (06:05)
[2017-07-17 06:41] LABS: Anion Gap 10 mmol/L; Anisocytosis Slight; Blood Urea Nitrogen 19 mg/dL (9-20); Carbon Dioxide 32 mmol/L (22-30); Chloride 100 mmol/L (98-107); Glucose 87 mg/dL (74-99); HCT 34.5 % (39.0-53.0); HGB 11.4 gm/dL (13.0-17.5); MCH 32.2 pg (25.0-35.0); MCHC 33.1 g/dL (31.0-37.0); MCV 97.4 fL (80.0-100.0); Macrocytosis Slight; Mean Platelet Volume 6.8; Platelet Count 171 k/uL (150-450); Potassium 4.1 mmol/L (3.5-5.1); RBC 3.54 m/uL (4.30-5.90); RDW 16.9 % (11.5-15.5); Sodium 142 mmol/L (137-145); WBC 8.3 k/uL (3.8-10.6)
[2017-07-17 06:42] LABS: Calcium 9.5 mg/dL (8.4-10.2)
[2017-07-17] MEDS: IPRATROPIUM-ALBUTEROL 3 ML NEB INHALATION PRN ×4 (08:07→19:33)
--- NOTE | 2017-07-17 08:07 | XR ---
EXAMINATION TYPE: XR chest 1V portable DATE OF EXAM: 07/17/2017 Comparison: 07/16/2017 Clinical History: 51-year-old male left chest Tube placement/pneumothorax Findings: Apically directed left-sided chest tube remains in place. No appreciable pneumothorax. Multifocal con solidation remains, greatest in the right upper lobe. There is some tenting of the right hemidiaphrag m and upward retraction of the right hilum suggesting right upper lung volume loss. There may be a tr azeem right effusion. Impression: 1. Left-sided chest tube in place without appreciable pneumothorax. 2. Consolidation and volume loss particularly in the right upper lobe but with additional multifocal infiltrates remaining stable.
[2017-07-17] MEDS: BUDESONIDE 0.5 MG/2 ML NEBU INHALATION SCH ×2 (08:08→19:33)
[2017-07-17] MEDS: ERLOTINIB HCL 150 MG PO SCH ×2 (08:14→22:03)
[2017-07-17] MEDS: FOLIC ACID 1 MG TAB PO SCH (08:16)
[2017-07-17] MEDS: NYSTATIN 100,000 UNIT/ML SUSP 500,000 UNIT/5 ML CUP PO SCH ×4 (08:16→22:03)
[2017-07-17] MEDS: predniSONE 20 MG TAB PO SCH (08:16)
[2017-07-17] MEDS ORDERED: HYDROCORTISONE 1% CREAM 30 GM TUBE TOPICAL PRN (11:02)
[2017-07-17] MEDS ORDERED: PETROLATUM, WHITE OINT 50 GM TUBE TOPICAL PRN (11:02)
--- NOTE | 2017-07-17 11:11 | P.CONS ---
History of Present Illness - Reason for Consult Consult date: 07/17/17 Adenocarcinoma of lung Requesting physician: Alanis Davis - Chief Complaint Spontaneous Pneumothorax - History of Present Illness Ritesh originally presented to see Dr. morales with rapidly progressive SOB, R shoulder pain, weight loss (50 lbs in 4-6 months). He had CXR with bilateral lungs reticulododular interstitial pattern confirmed by CT Scan without definate mediastinal lymphadenopathy. He had bronchoscopy with washings fro RUL and RLL revealing poorly-differentiated Adenocarcinoma. 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 PET Scan : Bilateral upper & lower lungs involvements, no mediastinal disease nor distant mets. 05/16/17: Tolerated cycle#1 of Carboplatinum+Alimta well > NO side effects. he is breathing a bit easier. 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 After he completed his intial IV chemotherapy he was switched to Tarceva for his EGFR mutation. He started this on July 08. He presented to the Emergency department on July 15 with complaints of increasing Shortness of Breath that continued to become progressively worse. He was taking the Tarcea for approx 4- 5 days when he noted his SOB was starting to become more difficult, he was concerned this was a side effect or caused from new Tarceva treatment so he stopped the tarceva, although the breathing continued to worsen and now he is present for further assessment of the dyspnea. Diagnostic testing showed left sided-tensive pneumothorax with mediastinal shift. He is status Post left thoracostomy and chest tube. He did have some chronic changes noted on the scan in his right lung. He is due to have restaging scans at the end of this month or early August. He still eels his breathing is labored but has improved since admission. Review of Systems A 14 point review of systems assessed and completed and all negative except HPI Past Medical History Past Medical History: Cancer, Hypertension Additional Past Medical History / Comment(s): LUNG CA; O2 @5 L NC ATC,increased SOB,sinus tachycardia (states resting heart rate is 125 -130),does not take anything for heart rate or b/p,current steroids History of Any Multi-Drug Resistant Organisms: None Reported Past Surgical History: Adenoidectomy, Tonsillectomy Past Anesthesia/Blood Transfusion Reactions: No Reported Reaction Past Psychological History: No Psychological Hx Reported Smoking Status: Former smoker Past Alcohol Use History: None Reported Additional Past Alcohol Use History / Comment(s): quit smoking 2013,smoked approx on and off since age 27,1ppd Past Drug Use History: None Reported - Past Family History Mother Family Medical History: COPD Medications and Allergies Home Medications Medication Instructions Recorded Confirmed Type Ipratropium-Albuterol Nebulize 3 ml INHALATION RT-Q4H PRN 03/26/17 07/15/17 History [Duoneb 0.5 mg-3 mg/3 ml Soln] predniSONE 20 mg PO DAILY 03/26/17 07/15/17 History Budesonide/Formoterol Fumarate 2 puff INHALATION RT-BID 07/15/17 07/15/17 History [Symbicort 160-4.5 Mcg Inhaler] Codeine Phosphate/Guaifenesin 5 ml PO QID PRN 07/15/17 07/15/17 History [Cheratussin AC Syrup] Erlotinib HCl [Tarceva] 150 mg PO DAILY 07/15/17 07/15/17 History Folic Acid 1 mg PO DAILY 07/15/17 07/15/17 History Ibuprofen [Motrin] 600 mg PO BID PRN 07/15/17 07/15/17 History Nystatin 100,000 Unit/ml Susp 5 ml PO QID 07/15/17 07/15/17 History [Mycostatin Oral Susp] Omeprazole 20 mg PO DAILY 07/15/17 07/15/17 History Allergies Allergy/AdvReac Type Severity Reaction Status Date / Time latex Allergy itching Verified 07/15/17 18:08 eyes Physical Exam Vitals: Vital Signs Temp Pulse Pulse Resp BP Pulse Ox 07/17/17 08:19 100 07/17/17 08:08 92 96 07/17/17 08:05 16 07/17/17 08:04 97.7 F 92 16 139/91 96 07/17/17 04:10 97.5 F L 93 18 139/100 98 07/17/17 00:00 98.0 F 110 H 20 136/90 97 07/16/17 21:43 112 H 07/16/17 21:22 116 H 07/16/17 20:00 98.2 F 116 H 22 136/98 97 07/16/17 18:56 114 H 20 137/91 98 07/16/17 16:33 116 H 07/16/17 16:23 121 H 07/16/17 15:25 97 F L 125 H 18 143/88 93 L 07/16/17 12:15 120 H 18 139/89 98 07/16/17 11:37 100 07/16/17 11:26 104 H Intake and Output 07/16/17 07/17/17 07/17/17 22:59 06:59 14:59 Intake Total 120 Output Total 95 45 Balance -95 75 Intake: Oral 120 Output: Chest Tube Drainage 50 45 Chest Tube Left Lateral 50 45 Chest Drainage 45 Left Chest 45 Other: Voiding Method Toilet Toilet Toilet # Voids 1 1 Weight 69.9 kg - Constitutional General appearance: cooperative, mild distress, thin - EENT Eyes: EOMI, poor dentition, normal appearance ENT: NA/AT, normal oropharynx - Neck Supple, Trachea Midline Neck: lymphadenopathy - Respiratory Respiratory: bilateral: diminished (Diminished throughout left greater right), wheezing (Throughout) - Cardiovascular Heart rate: 112 Rhythm: regular - Gastrointestinal General gastrointestinal: normal bowel sounds, soft - Integumentary Integumentary: pale - Neurologic No focal Defects Neurologic: CNII-XII intact - Musculoskeletal Musculoskeletal: generalized weakness - Psychiatric Psychiatric: A&O x's 3, appropriate affect, intact judgment & insight Results CBC & Chem 7: 07/17/17 06:01 07/17/17 06:01 Labs: Abnormal Lab Results - Last 24 Hours (Table) 07/17/17 07/17/17 Range/Units 06:01 06:01 RBC 3.54 L (4.30-5.90) m/uL Hgb 11.4 L (13.0-17.5) gm/dL Hct 34.5 L (39.0-53.0) % RDW 16.9 H (11.5-15.5) % Carbon Dioxide 32 H (22-30) mmol/L Chest x-ray: report reviewed Assessment and Plan (1) Adenocarcinoma of lung Current Visit: Yes Status: Acute Code(s): C34.90 - MALIGNANT NEOPLASM OF UNSP PART OF UNSP BRONCHUS OR LUNG SNOMED Code(s): 532842016 (2) EGFR-related lung cancer Current Visit: Yes Status: Acute Code(s): C34.90 - MALIGNANT NEOPLASM OF UNSP PART OF UNSP BRONCHUS OR LUNG SNOMED Code(s): 324413637 Plan: Assessment and Recommendations: 1. Spontaneous Left sided Pneumothorax Status Post Thoracotomy and Left Chest Tube 2. Adenocarcinoma of Bilateral Lungs:EGFR Positive Mutation - Status Post 4 cycles of Carboplatin and Almta, completed 07/03/17 - Continue Folic Acid PO daily - Recently started Tarceva (PO anti-EGFR cancer therapy on July 08, 2017) - Patient took for 5 days and stopped as he thought it may have contributed to his increased SOB, discussed in detail again with patient and ok to restart while inpatient. - Common side effects on Tarceva include hand-foot, acne like facial and scalp rash: Will order aquaphor and hydrocortisone cream to bedside for patient to assist in prevention. May also give prophylactic doxycycline. - Will Follow-up as outpatient for continue treatment plan. May benefit from CT while inpatient, will have PET in August Physician Attest: I have completed the full history and physical of this patient, discussed in detail and agree with above dictation by Leslie Marie NP. Documented as a scribe.
--- NOTE | 2017-07-17 13:14 | P.PN ---
Subjective Progress Note Date: 07/17/17 Principal diagnosis: Right upper lobe pneumonia, tension pneumothorax on the left side, stage IV lung cancer adenocarcinoma, severe COPD and acute on chronic hypoxic respirator failure 07/17/2017, patient seen eval evaluated examined during the rounds clinically has been doing well in terms of breathing is still remains on 6 L oxygen shortness was stable some discomfort locally a chest tube site is present otherwise tolerating very well, chest x-ray from today reviewed there is more confluence and developing infiltrate in the right upper lobe is seen which has evolved in the last 24 hours patient does have cough unable to produce any sputum, pleural VAC. Revealed presence of very intermittent air leak about 100 mL of clear transparent pleural fluid has been noted Objective - Vital Signs Vital signs: Vital Signs Temp 97.7 F 07/17/17 08:04 Pulse 102 H 07/17/17 11:50 Resp 16 07/17/17 11:50 BP 141/98 07/17/17 11:50 Pulse Ox 98 07/17/17 11:50 Intake & Output 07/16/17 07/17/17 07/17/17 18:59 06:59 18:59 Intake Total 480 360 Output Total 95 45 Balance 480 -95 315 Weight 69.9 kg Intake: Oral 480 360 Output: Chest Tube Drainage 50 45 Chest Tube Left Lateral 50 45 Chest Drainage 45 Left Chest 45 Other: Voiding Method Toilet Toilet Toilet # Voids 1 1 - Exam GENERAL: The patient is alert and oriented x3, mild respiratory acute distress. Well developed, well nourished. HEENT: Pupils are round and equally reacting to light. EOMI. No scleral icterus. No conjunctival pallor. Normocephalic, atraumatic. No pharyngeal erythema. No thyromegaly. CARDIOVASCULAR: S1 and S2 present. No murmurs, rubs, or gallops. PULMONARY: Mildly diminished air entry into bilateral lung parker no wheezing or crackles were appreciated relatively improved bilateral air entry has been noted ABDOMEN: Soft, nontender, nondistended, normoactive bowel sounds. No palpable organomegaly. MUSCULOSKELETAL: No joint swelling or deformity. EXTREMITIES: No cyanosis, clubbing, or pedal edema. NEUROLOGICAL: Gross neurological examination did not reveal any focal deficits. SKIN: Early rash on shoulder have been noted likely Tarceva related chronic rash - Labs CBC & Chem 7: 07/17/17 06:01 07/17/17 06:01 Labs: Abnormal Lab Results - Last 24 Hours (Table) 07/17/17 07/17/17 Range/Units 06:01 06:01 RBC 3.54 L (4.30-5.90) m/uL Hgb 11.4 L (13.0-17.5) gm/dL Hct 34.5 L (39.0-53.0) % RDW 16.9 H (11.5-15.5) % Carbon Dioxide 32 H (22-30) mmol/L Assessment and Plan Assessment: Acute on chronic hypoxic respirator failure Right upper lobe pneumonia Large left-sided 50% pneumothorax with tension component with nonfunctioning Thoravent, status post left-sided 28-Citizen Of [place] chest tube with evacuation of pneumothorax 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 Adenocarcinoma of the lung Leukocytosis likely related to stress response and Sirs-like process versus related to chronic use of steroids Plan: Bronchodilators in the form of nebulizer therapy Pulmicort Duo neb Continue maintenance prednisone Continue home medications including Tarceva Status post left-sided tube thoracostomy and chest tube placement Initiate antibiotics with Zosyn 3.375 every 8 hourly patient may need a bronchoscopy if unable to obtain a sputum Time with Patient: Greater than 30
--- NOTE | 2017-07-17 14:17 | P.PN ---
Subjective 51-year-old that admitted after tension pneumothorax patient's permanent is nonfunctional today chest tube will be placed on the left side today. Patient respiratory status is fairly stable., Denied any pain in the chest today. 07/17/2017 Patient is breathing well still on 6 L of oxygen patient was started on antibiotics by pulmonology and maintenance steroids with pulmonology as they believe patient has a right upper lobe pneumonia. Patient has a left chest tube in place. -Constitutional: Denied any fatigue denied any fever. Cardio vascular: denied any chest pain, palpitations Gastrointestinal denied any nausea vomiting Pulmonary: as mentioned in HPI Neurologic denied any new focal deficits Objective - Vital Signs Vital signs: Vital Signs Temp 97.7 F 07/17/17 08:04 Pulse 102 H 07/17/17 11:50 Resp 16 07/17/17 11:50 BP 141/98 07/17/17 11:50 Pulse Ox 98 07/17/17 11:50 Intake & Output 07/16/17 07/17/17 07/17/17 18:59 06:59 18:59 Intake Total 480 360 Output Total 95 70 Balance 480 -95 290 Weight 69.9 kg Intake: Oral 480 360 Output: Chest Tube Drainage 50 70 Chest Tube Left Lateral 50 70 Chest Drainage 45 Left Chest 45 Other: Voiding Method Toilet Toilet Toilet # Voids 1 1 2 - Exam PHYSICAL EXAMINATION: GENERAL: The patient is alert and oriented x3, not in any acute distress. Well developed, well nourished. HEENT: Pupils are round and equally reacting to light. EOMI. No scleral icterus. No conjunctival pallor. Normocephalic, atraumatic. No pharyngeal erythema. No thyromegaly. CARDIOVASCULAR: S1 and S2 present. No murmurs, rubs, or gallops. PULMONARY: Mildly diminished air entry into bilateral lung parker no wheezing or crackles were appreciated, left-sided chest tube in place ABDOMEN: Soft, nontender, nondistended, normoactive bowel sounds. No palpable organomegaly. MUSCULOSKELETAL: No joint swelling or deformity. EXTREMITIES: No cyanosis, clubbing, or pedal edema. NEUROLOGICAL: Gross neurological examination did not reveal any focal deficits. SKIN: No rashes. - Labs CBC & Chem 7: 07/17/17 06:01 07/17/17 06:01 Labs: Abnormal Lab Results - Last 24 Hours (Table) 07/17/17 07/17/17 Range/Units 06:01 06:01 RBC 3.54 L (4.30-5.90) m/uL Hgb 11.4 L (13.0-17.5) gm/dL Hct 34.5 L (39.0-53.0) % RDW 16.9 H (11.5-15.5) % Carbon Dioxide 32 H (22-30) mmol/L Assessment and Plan Plan: -Tension pneumothorax on the left side status post Thoravent placement. Probably secondary to bullae rupture. Patient had a chest tube in place -Possible right upper lobe pneumonia patient was started on antibiotics possibility of COPD exacerbation -COPD with exacerbation -lung cancer recently completed chemotherapy. And patient is presently on biologic agents -acute hypoxic respiratory failure secondary to tension pneumothorax patient is still on 6 L of patient has 50% resolution in his pneumothorax. His respiratory status is expected to improve after chest tube -Leukocytosis reactive
[2017-07-17] MEDS: PIPERACILLIN-TAZOBACTAM 3.375 GM in DEXTROSE/WATER 1 50ML.BAG IVPB SCH ×2 (15:26→21:57)
[2017-07-18] MEDS: IPRATROPIUM-ALBUTEROL 3 ML NEB INHALATION PRN ×4 (00:22→16:17)
[2017-07-18] MEDS: oxyCODONE-APAP 7.5-325MG 1 EACH TAB PO PRN ×4 (04:11→22:16)
[2017-07-18] MEDS: PIPERACILLIN-TAZOBACTAM 3.375 GM in DEXTROSE/WATER 1 50ML.BAG IVPB SCH ×3 (06:03→22:20)
[2017-07-18] MEDS: PANTOPRAZOLE 40 MG TABLET PO SCH (06:09)
[2017-07-18] MEDS: IBUPROFEN 600 MG TAB PO PRN ×3 (06:10→19:52)
[2017-07-18] MEDS: BUDESONIDE 0.5 MG/2 ML NEBU INHALATION SCH ×2 (08:12→20:14)
--- NOTE | 2017-07-18 08:57 | XR ---
EXAMINATION TYPE: XR chest 1V portable DATE OF EXAM: 07/18/2017 COMPARISON: 07/17/2017 INDICATION: Left pneumothorax, previous abnormal chest TECHNIQUE: Single frontal view of the chest is obtained. FINDINGS: The heart size is normal. The pulmonary vasculature is indistinct. Consolidations are within the right upper lobe and through the left lung. Left lung findings. Similar to slightly increased. Right basilar atelectasis evident with tenting of the diaphragm. There is min imal blunting of the right costophrenic angle which could indicate very minimal fluid. There is a left-sided chest tube. Small residual left medial apical pneumothorax may be present. IMPRESSION: 1. Minimal residual left apical pneumothorax. Left-sided chest tube remains stable in position. 2. Scattered infiltrates in the left lung and in the right upper lobe. Continued follow-up is recomme nded
[2017-07-18] MEDS: FOLIC ACID 1 MG TAB PO SCH (09:53)
[2017-07-18] MEDS: NYSTATIN 100,000 UNIT/ML SUSP 500,000 UNIT/5 ML CUP PO SCH ×4 (09:53→22:16)
[2017-07-18] MEDS: predniSONE 20 MG TAB PO SCH (09:53)
--- NOTE | 2017-07-18 11:50 | P.PN ---
Subjective Progress Note Date: 07/18/17 Principal diagnosis: Right upper lobe pneumonia, tension pneumothorax on the left side, stage IV lung cancer adenocarcinoma, severe COPD and acute on chronic hypoxic respirator failure 07/18/2017, patient seen eval reexamined during on's care plan discussed with the patient at length patient remains on broad-spectrum antibiotics E a episode of congestion and difficulty breathing last night and resolved and improved patient remains on supplemental oxygen x-rays laboratory data and medications reviewed very is minimal a small apical pneumo thorax on the left side questionable may be present however lungs are fully well expanded pleural VAC shows another 100 mL of clear yellow pleural fluid no air leak has been noted plan is to DC the thoracic vent leave the left-sided chest tube in for now 07/17/2017, patient seen eval evaluated examined during the rounds clinically has been doing well in terms of breathing is still remains on 6 L oxygen shortness was stable some discomfort locally a chest tube site is present otherwise tolerating very well, chest x-ray from today reviewed there is more confluence and developing infiltrate in the right upper lobe is seen which has evolved in the last 24 hours patient does have cough unable to produce any sputum, pleural VAC. Revealed presence of very intermittent air leak about 100 mL of clear transparent pleural fluid has been noted Objective - Vital Signs Vital signs: Vital Signs Temp 97.5 F L 07/18/17 04:00 Pulse 100 07/18/17 08:38 Resp 18 07/18/17 08:00 BP 129/88 07/18/17 08:00 Pulse Ox 95 07/18/17 04:00 Intake & Output 07/17/17 07/18/17 07/18/17 18:59 06:59 18:59 Intake Total 600 340 240 Output Total 70 65 Balance 530 275 240 Weight 69.8 kg Intake: Intake, IV Titration 100 Amount Piperacillin-Tazobactam 3 100 .375 gm In Dextrose/Water 1 50ml.bag @ 12.5 mls/hr IVPB Q8H [facility] Rx#: [id number] Oral 600 240 240 Output: Chest Tube Drainage 70 Chest Tube Left Lateral 70 Chest Drainage 65 Left Chest 65 Other: Voiding Method Toilet Toilet Toilet # Voids 2 0 - Exam GENERAL: The patient is alert and oriented x3, mild respiratory acute distress. Well developed, well nourished. HEENT: Pupils are round and equally reacting to light. EOMI. No scleral icterus. No conjunctival pallor. Normocephalic, atraumatic. No pharyngeal erythema. No thyromegaly. CARDIOVASCULAR: S1 and S2 present. No murmurs, rubs, or gallops. PULMONARY: Mildly diminished air entry into bilateral lung parker no wheezing or crackles were appreciated relatively improved bilateral air entry has been noted ABDOMEN: Soft, nontender, nondistended, normoactive bowel sounds. No palpable organomegaly. MUSCULOSKELETAL: No joint swelling or deformity. EXTREMITIES: No cyanosis, clubbing, or pedal edema. NEUROLOGICAL: Gross neurological examination did not reveal any focal deficits. 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
--- NOTE | 2017-07-18 11:56 | P.PCN ---
Date of Procedure: 07/18/17 Preoperative Diagnosis: Spontaneous tension pneumothorax left side, chest pain, stage IV adenocarcinoma of the lung Postoperative Diagnosis: As above Procedure(s) Performed: Removal of thoracic vent/chest tube Anesthesia: none Surgeon: Masood Cheung Estimated Blood Loss (ml): 1 Condition: stable Disposition: floor Indications for Procedure: As above Operative Findings: As below Description of Procedure: Procedure explained to the patient at length, the area was cleaned the tape which was covering the thoracic vent removed, the chest tube pulled out without any difficulty pressure applied to the area and dry dressing applied patient lost 1 mL of blood during removal of tube otherwise tolerated the procedure well no complication noted denies any pain or shortness of breath
[2017-07-18] MEDS ORDERED: predniSONE 20 MG TAB PO ONE (12:30)
--- NOTE | 2017-07-18 12:34 | P.PN ---
Subjective Progress Note Date: 07/18/17 Principal diagnosis: EGFR Lung Cancer Ritesh seen in follow-up today, he remains on 6L of oxygen, breathing appears about the same. He is getting ready to have chest tube vent removed. He complains of some local pain in area of tube. Objective - Vital Signs Vital signs: Vital Signs Temp 97.5 F L 07/18/17 04:00 Pulse 100 07/18/17 12:02 Resp 18 07/18/17 08:00 BP 129/88 07/18/17 08:00 Pulse Ox 95 07/18/17 04:00 Intake & Output 07/17/17 07/18/17 07/18/17 18:59 06:59 18:59 Intake Total 600 340 240 Output Total 70 65 Balance 530 275 240 Weight 69.8 kg Intake: Intake, IV Titration 100 Amount Piperacillin-Tazobactam 3 100 .375 gm In Dextrose/Water 1 50ml.bag @ 12.5 mls/hr IVPB Q8H [facility] Rx#: [id number] Oral 600 240 240 Output: Chest Tube Drainage 70 Chest Tube Left Lateral 70 Chest Drainage 65 Left Chest 65 Other: Voiding Method Toilet Toilet Toilet # Voids 2 0 - Constitutional General appearance: Present: cooperative, mild distress, thin - EENT Eyes: Present: dentition normal, normal appearance ENT: Present: NA/AT, normal oropharynx - Neck Details: Supple, Trachea midline Neck: Present: normal ROM - Respiratory Respiratory: bilateral: diminished (Mild increased effort) - Cardiovascular Heart rate: 114 Rhythm: regular - Gastrointestinal General gastrointestinal: Present: normal bowel sounds, soft, tenderness - Neurologic Neurologic: Present: CNII-XII intact - Musculoskeletal Musculoskeletal: Present: generalized weakness - Psychiatric Psychiatric: Present: A&O x's 3, appropriate affect, intact judgment & insight - Labs CBC & Chem 7: 07/17/17 06:01 07/17/17 06:01 Assessment and Plan (1) Adenocarcinoma of lung Current Visit: Yes Status: Acute Code(s): C34.90 - MALIGNANT NEOPLASM OF UNSP PART OF UNSP BRONCHUS OR LUNG SNOMED Code(s): 355119110 (2) EGFR-related lung cancer Current Visit: Yes Status: Acute Code(s): C34.90 - MALIGNANT NEOPLASM OF UNSP PART OF UNSP BRONCHUS OR LUNG SNOMED Code(s): 823631058 Plan: Assessment and Recommendations: 1. Spontaneous Left sided Pneumothorax Status Post Thoracotomy and Left Chest Tube insertion and about to undergo removal 2. Adenocarcinoma of Bilateral Lungs:EGFR Positive Mutation - Status Post 4 cycles of Carboplatin and Alm[place], completed 07/03/17 - Continue Folic Acid PO daily - Recently started Tarceva (PO anti-EGFR cancer therapy on July 08, 2017) - Patient took for 5 days and stopped as he thought it may have contributed to his increased SOB, discussed in detail again with patient and ok to restart while inpatient. - Common side effects on Tarceva include hand-foot, acne like facial and scalp rash: Will order aquaphor and hydrocortisone cream to bedside for patient to assist in prevention. May also give prophylactic doxycycline. - Will Follow-up as outpatient for continue treatment plan. May benefit from CT while inpatient, will have PET in August - Would check CBC and renal function in morning, recently started tarceva Physician Attest: I have completed the full history and physical of this patient, discussed in detail and agree with above dictation by Leslie Marie NP. Documented as a scribe.
--- NOTE | 2017-07-18 14:48 | P.PN ---
Subjective 51-year-old that admitted after tension pneumothorax patient's permanent is nonfunctional today chest tube will be placed on the left side today. Patient respiratory status is fairly stable., Denied any pain in the chest today. 07/17/2017 Patient is breathing well still on 6 L of oxygen patient was started on antibiotics by pulmonology and maintenance steroids with pulmonology as they believe patient has a right upper lobe pneumonia. Patient has a left chest tube in place. 07/18/2017 Patient remains in 6 infarction patient does have significant wheezing on the right side actually bilaterally. Patient was started on systemic steroids patient on antibiotics but the patient has this infiltrate on the right side which is chronic actually bilateral infiltrate which is chronic appears to be better than before compared to previous x-rays. -Constitutional: Denied any fatigue denied any fever. Cardio vascular: denied any chest pain, palpitations Gastrointestinal denied any nausea vomiting Pulmonary: as mentioned in HPI Neurologic denied any new focal deficits Objective - Vital Signs Vital signs: Vital Signs Temp 97.5 F L 07/18/17 04:00 Pulse 100 07/18/17 12:02 Resp 18 07/18/17 08:00 BP 129/88 07/18/17 08:00 Pulse Ox 95 07/18/17 04:00 Intake & Output 07/17/17 07/18/17 07/18/17 18:59 06:59 18:59 Intake Total 600 340 480 Output Total 70 65 Balance 530 275 480 Weight 69.8 kg Intake: Intake, IV Titration 100 Amount Piperacillin-Tazobactam 3 100 .375 gm In Dextrose/Water 1 50ml.bag @ 12.5 mls/hr IVPB Q8H [facility] Rx#: [id number] Oral 600 240 480 Output: Chest Tube Drainage 70 Chest Tube Left Lateral 70 Chest Drainage 65 Left Chest 65 Other: Voiding Method Toilet Toilet Toilet # Voids 2 0 1 - Exam PHYSICAL EXAMINATION: GENERAL: The patient is alert and oriented x3, not in any acute distress. Well developed, well nourished. HEENT: Pupils are round and equally reacting to light. EOMI. No scleral icterus. No conjunctival pallor. Normocephalic, atraumatic. No pharyngeal erythema. No thyromegaly. CARDIOVASCULAR: S1 and S2 present. No murmurs, rubs, or gallops. PULMONARY: Mildly diminished air entry into bilateral lung pakrer no wheezing or crackles were appreciated, left-sided chest tube in place ABDOMEN: Soft, nontender, nondistended, normoactive bowel sounds. No palpable organomegaly. MUSCULOSKELETAL: No joint swelling or deformity. EXTREMITIES: No cyanosis, clubbing, or pedal edema. NEUROLOGICAL: Gross neurological examination did not reveal any focal deficits. SKIN: No rashes. - Labs CBC & Chem 7: 07/17/17 06:01 07/17/17 06:01 Assessment and Plan Plan: -Tension pneumothorax on the left side status post Thoravent placement. Probably secondary to bullae rupture. Patient had a chest tube in place -Possible right upper lobe pneumonia patient was started on antibiotics possibility of COPD exacerbation -COPD with exacerbation -lung cancer recently completed chemotherapy. And patient is presently on biologic agents -acute hypoxic respiratory failure secondary to tension pneumothorax patient is still on 6 L of patient has 50% resolution in his pneumothorax. His respiratory status is expected to improve after chest tube -Leukocytosis reactive
[2017-07-18] MEDS: ERLOTINIB HCL 150 MG PO SCH (19:53)
[2017-07-19] MEDS: IBUPROFEN 600 MG TAB PO PRN ×4 (03:58→17:00)
[2017-07-19 06:03] LABS: Anisocytosis Slight; HCT 29.6 % (39.0-53.0); HGB 10.4 gm/dL (13.0-17.5); MCH 32.9 pg (25.0-35.0); MCHC 34.9 g/dL (31.0-37.0); MCV 94.3 fL (80.0-100.0); Macrocytosis Slight; Platelet Count 147 k/uL (150-450); RBC 3.14 m/uL (4.30-5.90); RDW 17.1 % (11.5-15.5); WBC 4.7 k/uL (3.8-10.6)
[2017-07-19 06:10] LABS: Anion Gap 8 mmol/L; Blood Urea Nitrogen 14 mg/dL (9-20); Calcium 8.9 mg/dL (8.4-10.2); Carbon Dioxide 30 mmol/L (22-30); Chloride 102 mmol/L (98-107); Glucose 106 mg/dL (74-99); Potassium 3.8 mmol/L (3.5-5.1); Sodium 140 mmol/L (137-145)
[2017-07-19] MEDS: PANTOPRAZOLE 40 MG TABLET PO SCH (06:52)
[2017-07-19] MEDS: oxyCODONE-APAP 7.5-325MG 1 EACH TAB PO PRN ×5 (06:52→23:23)
[2017-07-19] MEDS: PIPERACILLIN-TAZOBACTAM 3.375 GM in DEXTROSE/WATER 1 50ML.BAG IVPB SCH ×3 (06:54→21:35)
--- NOTE | 2017-07-19 07:19 | XR ---
EXAMINATION TYPE: XR chest 1V portable DATE OF EXAM: 07/19/2017 CLINICAL HISTORY: Difficulty breathing and left-sided chest tube progress study. TECHNIQUE: Single AP portable upright view of the chest is obtained. COMPARISON: Chest x-ray from one day earlier and older studies. FINDINGS: There is persistent left apical chest tube with tiny left apical pneumothorax. There is ch ronic parenchymal change bilaterally with diffuse right upper lung and patchy left lung opacities red emonstrated. Cardiac silhouette size is stable and mildly enlarged. Tracheal deviation to the right d ue to ectatic aorta is redemonstrated. Right apical lateral pleural thickening is redemonstrated. Vis ualized osseous structures are intact. IMPRESSION: Overall stable findings, persistent tiny left apical pneumothorax despite chest tube pl acement. Chronic parenchymal change and cardiomegaly with multifocal areas of infiltrate and/or atele ctasis redemonstrated most prominent in the right lung apex.
[2017-07-19] MEDS: BUDESONIDE 0.5 MG/2 ML NEBU INHALATION SCH ×2 (08:22→20:39)
[2017-07-19] MEDS: IPRATROPIUM-ALBUTEROL 3 ML NEB INHALATION PRN ×3 (08:22→20:39)
[2017-07-19] MEDS: predniSONE 20 MG TAB PO SCH (09:15)
[2017-07-19] MEDS: FOLIC ACID 1 MG TAB PO SCH (09:16)
[2017-07-19] MEDS: NYSTATIN 100,000 UNIT/ML SUSP 500,000 UNIT/5 ML CUP PO SCH ×4 (09:16→21:35)
--- NOTE | 2017-07-19 10:30 | P.PN ---
Subjective Progress Note Date: 07/19/17 Principal diagnosis: Right upper lobe pneumonia, tension pneumothorax on the left side, stage IV lung cancer adenocarcinoma, severe COPD and acute on chronic hypoxic respirator failure 07/19/2017, patient seen eval examined during the rounds his cuff congestion shortness of breath slightly better patient has been on 4 L oxygen and terms to lower down the oxygen to 3 L has been unsuccessful he still have dry nonproductive cough but severity has improved today's chest x-ray reviewed and compared with the prior x-ray, the chest tube is being clamped we'll do a chest x-ray after one hour and then released the clamp and keep the chest tube on suction, discussed with nursing staff at length 07/18/2017, patient seen eval reexamined during on's care plan discussed with the patient at length patient remains on broad-spectrum antibiotics E a episode of congestion and difficulty breathing last night and resolved and improved patient remains on supplemental oxygen x-rays laboratory data and medications reviewed very is minimal a small apical pneumo thorax on the left side questionable may be present however lungs are fully well expanded pleural VAC shows another 100 mL of clear yellow pleural fluid no air leak has been noted plan is to DC the thoracic vent leave the left-sided chest tube in for now 07/17/2017, patient seen eval evaluated examined during the rounds clinically has been doing well in terms of breathing is still remains on 6 L oxygen shortness was stable some discomfort locally a chest tube site is present otherwise tolerating very well, chest x-ray from today reviewed there is more confluence and developing infiltrate in the right upper lobe is seen which has evolved in the last 24 hours patient does have cough unable to produce any sputum, pleural VAC. Revealed presence of very intermittent air leak about 100 mL of clear transparent pleural fluid has been noted Objective - Vital Signs Vital signs: Vital Signs Temp 96.5 F L 07/19/17 08:00 Pulse 112 H 07/19/17 08:42 Resp 24 07/19/17 08:00 BP 161/97 07/19/17 08:00 Pulse Ox 96 07/19/17 08:00 Intake & Output 07/18/17 07/19/17 07/19/17 18:59 06:59 18:59 Intake Total 720 50 240 Output Total 0 30 Balance 720 50 210 Weight 73.2 kg Intake: IV 50 Piperacillin-Tazobactam 3 50 .375 gm In Dextrose/Water 1 50ml.bag @ 12.5 mls/hr IVPB Q8H [facility] Rx#: [id number] Oral 720 240 Output: Chest Tube Drainage 0 30 Chest Tube Left Lateral 0 30 Chest Other: Voiding Method Toilet Toilet Toilet # Voids 1 1 # Bowel Movements 0 - Exam GENERAL: The patient is alert and oriented x3, mild respiratory acute distress. Well developed, well nourished. HEENT: Pupils are round and equally reacting to light. EOMI. No scleral icterus. No conjunctival pallor. Normocephalic, atraumatic. No pharyngeal erythema. No thyromegaly. CARDIOVASCULAR: S1 and S2 present. No murmurs, rubs, or gallops. PULMONARY: Mildly diminished air entry into bilateral lung parker no wheezing or crackles were appreciated relatively improved bilateral air entry has been noted ABDOMEN: Soft, nontender, nondistended, normoactive bowel sounds. No palpable organomegaly. MUSCULOSKELETAL: No joint swelling or deformity. EXTREMITIES: No cyanosis, clubbing, or pedal edema. NEUROLOGICAL: Gross neurological examination did not reveal any focal deficits. SKIN: Early rash on shoulder have been noted likely Tarceva related chronic rash - Labs CBC & Chem 7: 07/19/17 05:47 07/19/17 05:47 Labs: Abnormal Lab Results - Last 24 Hours (Table) 07/19/17 07/19/17 Range/Units 05:47 05:47 RBC 3.14 L (4.30-5.90) m/uL Hgb 10.4 L (13.0-17.5) gm/dL Hct 29.6 L (39.0-53.0) % RDW 17.1 H (11.5-15.5) % Plt Count 147 L (150-450) k/uL Glucose 106 H (74-99) mg/dL Assessment and Plan Assessment: Acute on chronic hypoxic respirator failure Right upper lobe pneumonia, left lower lobe pneumonia Large left-sided 50% pneumothorax with tension component with nonfunctioning Thoravent, status post left-sided 28-Malay chest tube with evacuation of pneumothorax 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 Adenocarcinoma of the lung Leukocytosis likely related to stress response and Sirs-like process versus related to chronic use of steroids Plan: Chest x-ray after one hour of clamping chest tube then released the clamp and connected to the suction if no recurrent pneumothorax is seen likely chest tube to be removed later on today or tomorrow Bronchodilators in the form of nebulizer therapy Pulmicort Duo neb Continue maintenance prednisone Continue home medications including Tarceva Status post left-sided tube thoracostomy and chest tube placement will DC the thoracic went Initiate and maintain antibiotics with Zosyn 3.375 every 8 hourly patient may need a bronchoscopy if unable to obtain a sputum Time with Patient: Greater than 30
--- NOTE | 2017-07-19 10:51 | P.PN ---
Subjective Progress Note Date: 07/19/17 Principal diagnosis: EGFR Lung Cancer Ritesh is feeling better today, he appears to be breathing with less efort and doing well. Objective - Vital Signs Vital signs: Vital Signs Temp 96.5 F L 07/19/17 08:00 Pulse 112 H 07/19/17 08:42 Resp 24 07/19/17 08:00 BP 161/97 07/19/17 08:00 Pulse Ox 96 07/19/17 08:00 Intake & Output 07/18/17 07/19/17 07/19/17 18:59 06:59 18:59 Intake Total 720 50 240 Output Total 0 30 Balance 720 50 210 Weight 73.2 kg Intake: IV 50 Piperacillin-Tazobactam 3 50 .375 gm In Dextrose/Water 1 50ml.bag @ 12.5 mls/hr IVPB Q8H [facility] Rx#: [id number] Oral 720 240 Output: Chest Tube Drainage 0 30 Chest Tube Left Lateral 0 30 Chest Other: Voiding Method Toilet Toilet Toilet # Voids 1 1 # Bowel Movements 0 - Constitutional General appearance: Present: cooperative, no acute distress, thin - EENT Eyes: Present: EOMI, dentition normal, normal appearance ENT: Present: NA/AT, normal oropharynx - Neck Details: Supple, Trachea Midline Neck: Present: normal ROM - Respiratory Respiratory: right: CTA, left: diminished (Chest tube intact) - Cardiovascular Heart rate: 112 Rhythm: regular Heart sounds: normal: S1, S2 - Gastrointestinal General gastrointestinal: Present: normal bowel sounds, soft - Integumentary Integumentary: Present: normal - Neurologic Neurologic Comment(s): No focal Defects Neurologic: Present: CNII-XII intact - Musculoskeletal Musculoskeletal: Present: gait normal, generalized weakness, strength equal bilaterally - Psychiatric Psychiatric: Present: A&O x's 3, appropriate affect, intact judgment & insight - Labs CBC & Chem 7: 07/19/17 05:47 07/19/17 05:47 Labs: Abnormal Lab Results - Last 24 Hours (Table) 07/19/17 07/19/17 Range/Units 05:47 05:47 RBC 3.14 L (4.30-5.90) m/uL Hgb 10.4 L (13.0-17.5) gm/dL Hct 29.6 L (39.0-53.0) % RDW 17.1 H (11.5-15.5) % Plt Count 147 L (150-450) k/uL Glucose 106 H (74-99) mg/dL Assessment and Plan (1) Adenocarcinoma of lung Current Visit: Yes Status: Acute Code(s): C34.90 - MALIGNANT NEOPLASM OF UNSP PART OF UNSP BRONCHUS OR LUNG SNOMED Code(s): 797770754 (2) EGFR-related lung cancer Current Visit: Yes Status: Acute Code(s): C34.90 - MALIGNANT NEOPLASM OF UNSP PART OF UNSP BRONCHUS OR LUNG SNOMED Code(s): 884875118 Plan: Assessment and Recommendations: 1. Spontaneous Left sided Pneumothorax Status Post Thoracotomy and Left Chest Tube insertion 2. Adenocarcinoma of Bilateral Lungs:EGFR Positive Mutation - Status Post 4 cycles of Carboplatin and Almta, completed 07/03/17 - Continue Folic Acid PO daily - Recently started Tarceva (PO anti-EGFR cancer therapy on July 08, 2017) - Patient took for 5 days and stopped as he thought it may have contributed to his increased SOB, discussed in detail again with patient and ok to restart while inpatient. - Common side effects on Tarceva include hand-foot, acne like facial and scalp rash: Will order aquaphor and hydrocortisone cream to bedside for patient to assist in prevention. May also give prophylactic doxycycline. - Will Follow-up as outpatient for continue treatment plan. May benefit from CT while inpatient, will have PET in August - Would check CBC and renal function in morning, recently started tarceva - RE-discussed and education on possible side effects, tolerating the tarceva well since restarting. Physician Attest: I have completed the full history and physical of this patient, discussed in detail and agree with above dictation by Leslie Marie NP. Documented as a scribe.
--- NOTE | 2017-07-19 11:13 | XR ---
EXAMINATION TYPE: XR chest 1V DATE OF EXAM: 07/19/2017 CLINICAL HISTORY: Left-sided chest tube progress study, clamping the tube noted TECHNIQUE: Single AP portable upright view of the chest is obtained. COMPARISON: Chest x-ray from earlier today and older studies FINDINGS: Left apical projecting chest tube is redemonstrated perhaps slightly retracted in the inte rval. There is tiny residual apical pneumothorax not significantly changed in size after clamping. There is persistent mild cardiomegaly with ectatic aorta and tracheal deviation to the right. There i s chronic parenchymal change with right hemidiaphragm juxtaphrenic peaking, diffuse left lung and mor e prominent right upper lung opacities. No large pleural effusion is present bilaterally. Visualized osseous structures are intact. IMPRESSION: Slight retraction of chest tube. Tiny apical pneumothorax redemonstrated without change i n size after chest tube clamping. Other findings stable as there is cardiomegaly with chronic parench ymal change and scattered areas of scarring and/or infiltrate most prominent right upper lung all red emonstrated.
--- NOTE | 2017-07-19 13:46 | P.PN ---
Subjective 51-year-old that admitted after tension pneumothorax patient's permanent is nonfunctional today chest tube will be placed on the left side today. Patient respiratory status is fairly stable., Denied any pain in the chest today. 07/17/2017 Patient is breathing well still on 6 L of oxygen patient was started on antibiotics by pulmonology and maintenance steroids with pulmonology as they believe patient has a right upper lobe pneumonia. Patient has a left chest tube in place. 07/18/2017 Patient remains in 6 infarction patient does have significant wheezing on the right side actually bilaterally. Patient was started on systemic steroids patient on antibiotics but the patient has this infiltrate on the right side which is chronic actually bilateral infiltrate which is chronic appears to be better than before compared to previous x-rays. 07/19/2017 Patient is saturating 90% on 4 L patient up and uses 5 L at home patient appears to have some anxiety episodes his wheezing completely resolved and the patient the chest tube was clamped without any significant worsening of pneumothorax. -Constitutional: Denied any fatigue denied any fever. Cardio vascular: denied any chest pain, palpitations Gastrointestinal denied any nausea vomiting Pulmonary: as mentioned in HPI Neurologic denied any new focal deficits Objective - Vital Signs Vital signs: Vital Signs Temp 96.6 F L 07/19/17 11:06 Pulse 102 H 07/19/17 11:08 Resp 20 07/19/17 11:08 BP 161/97 07/19/17 08:00 Pulse Ox 99 07/19/17 11:06 Intake & Output 07/18/17 07/19/17 07/19/17 18:59 06:59 18:59 Intake Total 720 50 480 Output Total 0 350 Balance 720 50 130 Weight 73.2 kg Intake: IV 50 Piperacillin-Tazobactam 3 50 .375 gm In Dextrose/Water 1 50ml.bag @ 12.5 mls/hr IVPB Q8H [facility] Rx#: [id number] Oral 720 480 Output: Chest Tube Drainage 0 50 Chest Tube Left Lateral 0 50 Chest Urine 300 Other: Voiding Method Toilet Toilet Toilet # Voids 1 1 1 # Bowel Movements 0 1 - Exam PHYSICAL EXAMINATION: GENERAL: The patient is alert and oriented x3, not in any acute distress. Well developed, well nourished. HEENT: Pupils are round and equally reacting to light. EOMI. No scleral icterus. No conjunctival pallor. Normocephalic, atraumatic. No pharyngeal erythema. No thyromegaly. CARDIOVASCULAR: S1 and S2 present. No murmurs, rubs, or gallops. PULMONARY: Good air entry into bilateral lung parker no wheezing was appreciated today. ABDOMEN: Soft, nontender, nondistended, normoactive bowel sounds. No palpable organomegaly. MUSCULOSKELETAL: No joint swelling or deformity. EXTREMITIES: No cyanosis, clubbing, or pedal edema. NEUROLOGICAL: Gross neurological examination did not reveal any focal deficits. SKIN: No rashes. - Labs CBC & Chem 7: 07/19/17 05:47 07/19/17 05:47 Labs: Abnormal Lab Results - Last 24 Hours (Table) 07/19/17 07/19/17 Range/Units 05:47 05:47 RBC 3.14 L (4.30-5.90) m/uL Hgb 10.4 L (13.0-17.5) gm/dL Hct 29.6 L (39.0-53.0) % RDW 17.1 H (11.5-15.5) % Plt Count 147 L (150-450) k/uL Glucose 106 H (74-99) mg/dL Assessment and Plan Plan: -Tension pneumothorax on the left side status post Thoravent placement. Probably secondary to bullae rupture. Patient had a chest tube in place -Possible right upper lobe pneumonia patient was started on antibiotics possibility of COPD exacerbation -COPD with exacerbation patient was started on systemic steroids significant improvement saturating 100% on 4 L of oxygen, chest tube still in place which is clamped -lung cancer recently completed chemotherapy. And patient is presently on biologic agents -acute hypoxic respiratory failure secondary to tension pneumothorax -Leukocytosis reactive
[2017-07-19] MEDS: ERLOTINIB HCL 150 MG PO SCH (20:29)
[2017-07-20] MEDS: oxyCODONE-APAP 7.5-325MG 1 EACH TAB PO PRN ×5 (03:23→21:29)
[2017-07-20] MEDS: PIPERACILLIN-TAZOBACTAM 3.375 GM in DEXTROSE/WATER 1 50ML.BAG IVPB SCH ×3 (05:52→21:30)
--- NOTE | 2017-07-20 07:22 | XR ---
EXAMINATION TYPE: XR chest 1V portable DATE OF EXAM: 07/20/2017 HISTORY: Shortness of breath. COMPARISON: 07/19/2017 TECHNIQUE: Single view of the chest is submitted. FINDINGS: Left-sided chest tube is in place. Small left apical pneumothorax persists. Demonstrated are scattered senescent parenchymal change. Left perihilar and upper lobe infiltrates are unchanged. The heart is stable. Hilar and mediastinal structures are within normal limits. Degenerative changes are seen of the dorsal spine. IMPRESSION: 1. Stable chest.
[2017-07-20 07:45] LABS: Anisocytosis Slight; Basophils % (A) 0 %; Eosinophils % (A) 1 %; HCT 30.5 % (39.0-53.0); HGB 10.2 gm/dL (13.0-17.5); Lymphocytes # (A) 0.9 k/uL (1.0-4.8); Lymphocytes % (A) 22 %; MCH 32.5 pg (25.0-35.0); MCHC 33.4 g/dL (31.0-37.0); MCV 97.2 fL (80.0-100.0); Macrocytosis Slight; Mean Platelet Volume 7.1; Monocytes # (A) 0.4 k/uL (0-1.0); Monocytes % (A) 10 %; Neutrophils # (A) 2.5 k/uL (1.3-7.7); Neutrophils % (A) 64 %; Platelet Count 164 k/uL (150-450); RBC 3.14 m/uL (4.30-5.90)
[2017-07-20 08:13] LABS: ALT 37 U/L (21-72); AST 16 U/L (17-59); Alkaline Phosphatase 41 U/L (38-126); Anion Gap 7 mmol/L; Blood Urea Nitrogen 17 mg/dL (9-20); Calcium 9.1 mg/dL (8.4-10.2); Carbon Dioxide 34 mmol/L (22-30); Chloride 99 mmol/L (98-107); Glucose 87 mg/dL (74-99); Magnesium 1.7 mg/dL (1.6-2.3); Potassium 3.7 mmol/L (3.5-5.1); Sodium 140 mmol/L (137-145); Total Bilirubin 0.4 mg/dL (0.2-1.3); Total Protein 5.4 g/dL (6.3-8.2)
[2017-07-20] MEDS: NYSTATIN 100,000 UNIT/ML SUSP 500,000 UNIT/5 ML CUP PO SCH ×4 (08:23→21:30)
[2017-07-20] MEDS: FOLIC ACID 1 MG TAB PO SCH (08:23)
[2017-07-20] MEDS: predniSONE 20 MG TAB PO SCH (08:23)
[2017-07-20] MEDS: BUDESONIDE 0.5 MG/2 ML NEBU INHALATION SCH ×2 (08:50→20:33)
[2017-07-20] MEDS: IPRATROPIUM-ALBUTEROL 3 ML NEB INHALATION PRN ×4 (08:50→20:33)
[2017-07-20] MEDS: IBUPROFEN 600 MG TAB PO PRN (11:35)
--- NOTE | 2017-07-20 12:36 | P.PN ---
Subjective 51-year-old that admitted after tension pneumothorax patient's permanent is nonfunctional today chest tube will be placed on the left side today. Patient respiratory status is fairly stable., Denied any pain in the chest today. 07/17/2017 Patient is breathing well still on 6 L of oxygen patient was started on antibiotics by pulmonology and maintenance steroids with pulmonology as they believe patient has a right upper lobe pneumonia. Patient has a left chest tube in place. 07/18/2017 Patient remains in 6 infarction patient does have significant wheezing on the right side actually bilaterally. Patient was started on systemic steroids patient on antibiotics but the patient has this infiltrate on the right side which is chronic actually bilateral infiltrate which is chronic appears to be better than before compared to previous x-rays. 07/19/2017 Patient is saturating 90% on 4 L patient up and uses 5 L at home patient appears to have some anxiety episodes his wheezing completely resolved and the patient the chest tube was clamped without any significant worsening of pneumothorax. 07/20/2017 Patient can use to have chest 2 no cigarette and change in his esophagus after compared to yesterday patient solids and requirements have come down patient is presently on 3 L of oxygen saturating well. -Constitutional: Denied any fatigue denied any fever. Cardio vascular: denied any chest pain, palpitations Gastrointestinal denied any nausea vomiting Pulmonary: as mentioned in HPI Neurologic denied any new focal deficits Objective - Vital Signs Vital signs: Vital Signs Temp 97.5 F L 07/20/17 11:33 Pulse 102 H 07/20/17 12:08 Resp 20 07/20/17 11:33 BP 165/99 07/20/17 11:33 Pulse Ox 93 L 07/20/17 11:33 Intake & Output 07/19/17 07/20/17 07/20/17 18:59 06:59 18:59 Intake Total 1180 550 340 Output Total 370 10 320 Balance 810 540 20 Weight 74.8 kg 74.8 kg Intake: Intake, IV Titration 100 50 100 Amount Piperacillin-Tazobactam 3 100 50 100 .375 gm In Dextrose/Water 1 50ml.bag @ 12.5 mls/hr IVPB Q8H [facility] Rx#: [id number] Oral 1080 500 240 Output: Chest Tube Drainage 70 10 20 Chest Tube Left Lateral 70 10 20 Chest Urine 300 300 Other: Voiding Method Toilet Toilet Toilet # Voids 1 1 1 # Bowel Movements 1 - Exam PHYSICAL EXAMINATION: GENERAL: The patient is alert and oriented x3, not in any acute distress. Well developed, well nourished. HEENT: Pupils are round and equally reacting to light. EOMI. No scleral icterus. No conjunctival pallor. Normocephalic, atraumatic. No pharyngeal erythema. No thyromegaly. CARDIOVASCULAR: S1 and S2 present. No murmurs, rubs, or gallops. PULMONARY: Good air entry into bilateral lung parker no wheezing was appreciated today. ABDOMEN: Soft, nontender, nondistended, normoactive bowel sounds. No palpable organomegaly. MUSCULOSKELETAL: No joint swelling or deformity. EXTREMITIES: No cyanosis, clubbing, or pedal edema. NEUROLOGICAL: Gross neurological examination did not reveal any focal deficits. SKIN: No rashes. - Labs CBC & Chem 7: 07/20/17 07:24 07/20/17 07:24 Labs: Abnormal Lab Results - Last 24 Hours (Table) 07/20/17 07/20/17 Range/Units 07:24 07:24 RBC 3.14 L (4.30-5.90) m/uL Hgb 10.2 L (13.0-17.5) gm/dL Hct 30.5 L (39.0-53.0) % RDW 17.0 H (11.5-15.5) % Lymphocytes # 0.9 L (1.0-4.8) k/uL Carbon Dioxide 34 H (22-30) mmol/L AST 16 L (17-59) U/L Total Protein 5.4 L (6.3-8.2) g/dL Albumin 3.0 L (3.5-5.0) g/dL Assessment and Plan Plan: -Tension pneumothorax on the left side status post Thoravent placement. Probably secondary to bullae rupture. Patient had a chest tube in place -Possible right upper lobe pneumonia patient was started on antibiotics possibility of COPD exacerbation -COPD with exacerbation patient was started on systemic steroids significant improvement saturating 100% on 4 L of oxygen, chest tube still in place which is clamped -lung cancer recently completed chemotherapy. And patient is presently on biologic agents -acute hypoxic respiratory failure secondary to tension pneumothorax -Leukocytosis reactive
--- NOTE | 2017-07-20 13:05 | P.PN ---
Subjective Progress Note Date: 07/20/17 Principal diagnosis: Right upper lobe pneumonia, tension pneumothorax on the left side, stage IV lung cancer adenocarcinoma, severe COPD and acute on chronic hypoxic respirator failure 07/20/2017, patient seen eval examined during the rounds care plan discussed with the primary service as well as nursing staff at length as well as the patient. He has a sudden episode of shortness breath earlier this morning resolve and improve still left cough which is dry and nonproductive the chest x- rays performed this morning reviewed and compared with the prior x-ray overall infiltrate remains stable and very minimal to apical questionable pneumothorax is present chest tube is in a stable condition no air leak is present in the last 24 hour less than 110 220 mL of pleural fluid came out in the chest tube 07/19/2017, patient seen eval examined during the rounds his cuff congestion shortness of breath slightly better patient has been on 4 L oxygen and terms to lower down the oxygen to 3 L has been unsuccessful he still have dry nonproductive cough but severity has improved today's chest x-ray reviewed and compared with the prior x-ray, the chest tube is being clamped we'll do a chest x-ray after one hour and then released the clamp and keep the chest tube on suction, discussed with nursing staff at length 07/18/2017, patient seen eval reexamined during on's care plan discussed with the patient at length patient remains on broad-spectrum antibiotics E a episode of congestion and difficulty breathing last night and resolved and improved patient remains on supplemental oxygen x-rays laboratory data and medications reviewed very is minimal a small apical pneumo thorax on the left side questionable may be present however lungs are fully well expanded pleural VAC shows another 100 mL of clear yellow pleural fluid no air leak has been noted plan is to DC the thoracic vent leave the left-sided chest tube in for now 07/17/2017, patient seen eval evaluated examined during the rounds clinically has been doing well in terms of breathing is still remains on 6 L oxygen shortness was stable some discomfort locally a chest tube site is present otherwise tolerating very well, chest x-ray from today reviewed there is more confluence and developing infiltrate in the right upper lobe is seen which has evolved in the last 24 hours patient does have cough unable to produce any sputum, pleural VAC. Revealed presence of very intermittent air leak about 100 mL of clear transparent pleural fluid has been noted Objective - Vital Signs Vital signs: Vital Signs Temp 97.5 F L 07/20/17 11:33 Pulse 102 H 07/20/17 12:08 Resp 20 07/20/17 11:33 BP 165/99 07/20/17 11:33 Pulse Ox 93 L 07/20/17 11:33 Intake & Output 07/19/17 07/20/17 07/20/17 18:59 06:59 18:59 Intake Total 1180 550 580 Output Total 370 10 320 Balance 810 540 260 Weight 74.8 kg 74.8 kg Intake: Intake, IV Titration 100 50 100 Amount Piperacillin-Tazobactam 3 100 50 100 .375 gm In Dextrose/Water 1 50ml.bag @ 12.5 mls/hr IVPB Q8H [facility] Rx#: [id number] Oral 1080 500 480 Output: Chest Tube Drainage 70 10 20 Chest Tube Left Lateral 70 10 20 Chest Urine 300 300 Other: Voiding Method Toilet Toilet Toilet # Voids 1 1 1 # Bowel Movements 1 - Exam GENERAL: The patient is alert and oriented x3, mild respiratory acute distress. Well developed, well nourished. HEENT: Pupils are round and equally reacting to light. EOMI. No scleral icterus. No conjunctival pallor. Normocephalic, atraumatic. No pharyngeal erythema. No thyromegaly. CARDIOVASCULAR: S1 and S2 present. No murmurs, rubs, or gallops. PULMONARY: Mildly diminished air entry into bilateral lung parker no wheezing or crackles were appreciated relatively improved bilateral air entry has been noted ABDOMEN: Soft, nontender, nondistended, normoactive bowel sounds. No palpable organomegaly. MUSCULOSKELETAL: No joint swelling or deformity. EXTREMITIES: No cyanosis, clubbing, or pedal edema. NEUROLOGICAL: Gross neurological examination did not reveal any focal deficits. SKIN: Early rash on shoulder have been noted likely Tarceva related chronic rash - Labs CBC & Chem 7: 07/20/17 07:24 07/20/17 07:24 Labs: Abnormal Lab Results - Last 24 Hours (Table) 07/20/17 07/20/17 Range/Units 07:24 07:24 RBC 3.14 L (4.30-5.90) m/uL Hgb 10.2 L (13.0-17.5) gm/dL Hct 30.5 L (39.0-53.0) % RDW 17.0 H (11.5-15.5) % Lymphocytes # 0.9 L (1.0-4.8) k/uL Carbon Dioxide 34 H (22-30) mmol/L AST 16 L (17-59) U/L Total Protein 5.4 L (6.3-8.2) g/dL Albumin 3.0 L (3.5-5.0) g/dL Assessment and Plan Assessment: Acute on chronic hypoxic respirator failure Right upper lobe pneumonia, left lower lobe pneumonia Large left-sided 50% pneumothorax with tension component with nonfunctioning Thoravent, status post left-sided 28-Danish chest tube with evacuation of pneumothorax 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 Adenocarcinoma of the lung Leukocytosis likely related to stress response and Sirs-like process versus related to chronic use of steroids Plan: We will proceed with discontinuation/volar the chest tube from the left side Chest x-ray after removal of chest tube, procedure explained to the patient at length Bronchodilators in the form of nebulizer therapy Pulmicort Duo neb Continue maintenance prednisone Continue home medications including Tarceva Status post left-sided tube thoracostomy and chest tube placement will DC the thoracic went Initiate and maintain antibiotics with Zosyn 3.375 every 8 hourly patient may need a bronchoscopy if unable to obtain a sputum prescription provided for oral Augmentin can be discharged home later on today or tomorrow Time with Patient: Greater than 30
--- NOTE | 2017-07-20 13:10 | P.PCN ---
Date of Procedure: 07/20/17 Preoperative Diagnosis: Left-sided tension pneumothorax, stage IV adenocarcinoma of the lung, right upper lobe aspiration pneumonia Postoperative Diagnosis: As above Procedure(s) Performed: Removal of left-sided chest tube Anesthesia: none Surgeon: Masood Cheung Estimated Blood Loss (ml): 0 Pathology: none sent Condition: stable Disposition: floor Indications for Procedure: As above Operative Findings: As below Description of Procedure: Procedure explained to the patient, the dressing removed from the chest tube insertion site the sutures anchoring the chest U Zhao removed area was thoroughly cleaned the 28-Armenian chest tube removed without any difficulty dry dressing applied taped post procedure chest x-ray checked no significant change noted compared to pre-removal the right upper lobe infiltrate have improved significantly in no sizable pneumothorax seen ocean able left apical pneumothorax remains unchanged and cannot be excluded
--- NOTE | 2017-07-20 13:11 | XR ---
EXAMINATION TYPE: XR chest 1V DATE OF EXAM: 07/20/2017 HISTORY: Shortness of breath. COMPARISON: 07/20/2017 TECHNIQUE: Single view of the chest is submitted. FINDINGS: Left-sided chest tube has been removed. Tiny left apical pneumothorax persists. Stable postinflammato ry changes within the perihilar and upper lobe regions with hilar retraction and probable underlying fibrosis. The heart is stable. Hilar and mediastinal structures are within normal limits. Degenerative changes are seen of the dorsal spine. IMPRESSION: 1. Removal of left-sided chest tube. Otherwise stable examination.
[2017-07-20] MEDS: ERLOTINIB HCL 150 MG PO SCH (20:14)
[2017-07-21] MEDS: PIPERACILLIN-TAZOBACTAM 3.375 GM in DEXTROSE/WATER 1 50ML.BAG IVPB SCH ×3 (06:02→21:16)
--- NOTE | 2017-07-21 06:52 | XR ---
EXAMINATION TYPE: XR chest 1V portable DATE OF EXAM: 07/21/2017 HISTORY: left chest Tube placement/pntx. REFERENCE: Previous study dated 07/20/2017. FINDINGS: There are worsening changes of pulmonary edema. There are small, bilateral effusions. A def inite pneumothorax is not seen at this time. Heart size is upper limits of normal. IMPRESSION: WORSENING CHANGES OF PULMONARY EDEMA.
[2017-07-21] MEDS: NYSTATIN 100,000 UNIT/ML SUSP 500,000 UNIT/5 ML CUP PO SCH ×4 (07:51→21:14)
[2017-07-21] MEDS: predniSONE 20 MG TAB PO SCH (07:51)
[2017-07-21] MEDS: FOLIC ACID 1 MG TAB PO SCH (07:51)
[2017-07-21] MEDS: oxyCODONE-APAP 7.5-325MG 1 EACH TAB PO PRN ×3 (07:58→21:15)
[2017-07-21] MEDS: IPRATROPIUM-ALBUTEROL 3 ML NEB INHALATION PRN ×4 (08:56→19:55)
[2017-07-21] MEDS: BUDESONIDE 0.5 MG/2 ML NEBU INHALATION SCH ×2 (08:56→19:55)
--- NOTE | 2017-07-21 13:47 | CT ---
EXAMINATION TYPE: CT chest and abdomen wo con DATE OF EXAM: 07/21/2017 COMPARISON: NONE HISTORY: Possbile pneumothorax. Shortness of breath CT DLP: 261.3 mGycm. Automated Exposure Control for Dose Reduction was Utilized. TECHNIQUE: CT scan of the thorax and abdomen is performed without IV contrast. FINDINGS: There is a left-sided pneumothorax approximately 30% by volume. There is confluent perihila r airspace disease present bilaterally, worse on the right than the left and coarse interstitial beth ge in the lower lobes bilaterally. No parenchymal mass is seen. There is no significant axillary, mediastinal or hilar adenopathy. There are small, bilateral effusions, slightly larger on the left than right. There is no pericardial fluid seen. The heart is not enlarged. Within the abdomen, the liver and gallbladder appear normal. The spleen is unremarkable. Both adrenal glands are normal. There is no evidence of hydronephrosis or nephrolithiasis. Limited views of the pancreas are normal. Visualized portions of the large and small bowel are unremarkable. No bony destructive lesion is seen. IMPRESSION: 1. 30% BY VOLUME PNEUMOTHORAX ON THE LEFT. 2. CONFLUENT PERIHILAR AIRSPACE DISEASE MAY REPRESENT ATYPICAL EDEMA OR PNEUMONIA. 3. COARSE INTERSTITIAL CHANGE IN THE LUNG BASES BILATERALLY. 4. SMALL, BILATERAL EFFUSIONS, LARGER ON THE LEFT THAN THE RIGHT.
--- NOTE | 2017-07-21 14:50 | P.PN ---
Subjective 51-year-old that admitted after tension pneumothorax patient's permanent is nonfunctional today chest tube will be placed on the left side today. Patient respiratory status is fairly stable., Denied any pain in the chest today. 07/17/2017 Patient is breathing well still on 6 L of oxygen patient was started on antibiotics by pulmonology and maintenance steroids with pulmonology as they believe patient has a right upper lobe pneumonia. Patient has a left chest tube in place. 07/18/2017 Patient remains in 6 infarction patient does have significant wheezing on the right side actually bilaterally. Patient was started on systemic steroids patient on antibiotics but the patient has this infiltrate on the right side which is chronic actually bilateral infiltrate which is chronic appears to be better than before compared to previous x-rays. 07/19/2017 Patient is saturating 90% on 4 L patient up and uses 5 L at home patient appears to have some anxiety episodes his wheezing completely resolved and the patient the chest tube was clamped without any significant worsening of pneumothorax. 07/20/2017 Patient can use to have chest 2 no cigarette and change in his esophagus after compared to yesterday patient solids and requirements have come down patient is presently on 3 L of oxygen saturating well. 07/21/2017 Patient had a CAT scan of the chest today which did show continued 30% of pneumothorax although there is good air entry into bilateral lung parker no wheezing was appreciated some bibasilar crackles were appreciated CT also showed some bilateral pleural effusions and nonspecific bilateral diffuse infiltrate which I believe was present On the previous chest x-rays -Constitutional: Denied any fatigue denied any fever. Cardio vascular: denied any chest pain, palpitations Gastrointestinal denied any nausea vomiting Pulmonary: as mentioned in HPI Neurologic denied any new focal deficits Objective - Vital Signs Vital signs: Vital Signs Temp 97.4 F L 07/21/17 11:18 Pulse 88 07/21/17 12:15 Resp 18 07/21/17 11:18 BP 163/107 07/21/17 11:18 Pulse Ox 98 07/21/17 11:18 Intake & Output 07/20/17 07/21/17 07/21/17 18:59 06:59 18:59 Intake Total 700 480 Output Total 320 Balance 380 480 Weight 74.8 kg 73.9 kg Intake: Intake, IV Titration 100 Amount Piperacillin-Tazobactam 3 100 .375 gm In Dextrose/Water 1 50ml.bag @ 12.5 mls/hr IVPB Q8H [facility] Rx#: [id number] Oral 600 480 Output: Chest Tube Drainage 20 Chest Tube Left Lateral 20 Chest Urine 300 Other: Voiding Method Toilet Toilet # Voids 1 4 - Exam PHYSICAL EXAMINATION: GENERAL: The patient is alert and oriented x3, not in any acute distress. Well developed, well nourished. HEENT: Pupils are round and equally reacting to light. EOMI. No scleral icterus. No conjunctival pallor. Normocephalic, atraumatic. No pharyngeal erythema. No thyromegaly. CARDIOVASCULAR: S1 and S2 present. No murmurs, rubs, or gallops. PULMONARY: Good air entry into bilateral lung parker no wheezing was appreciated today. Chest tube was removed ABDOMEN: Soft, nontender, nondistended, normoactive bowel sounds. No palpable organomegaly. MUSCULOSKELETAL: No joint swelling or deformity. EXTREMITIES: No cyanosis, clubbing, or pedal edema. NEUROLOGICAL: Gross neurological examination did not reveal any focal deficits. SKIN: No rashes. - Labs CBC & Chem 7: 07/20/17 07:24 07/20/17 07:24 Assessment and Plan Plan: -Tension pneumothorax on the left side status post Thoravent placement. Probably secondary to bullae rupture. Patient had a chest tube in place CAT scan showing 30% of pneumothorax -Possible right upper lobe pneumonia patient was started on antibiotics possibility of COPD exacerbation -COPD with exacerbation patient was started on systemic steroids significant improvement saturating well on 3 L -lung cancer recently completed chemotherapy. And patient is presently on biologic agents -acute hypoxic respiratory failure secondary to tension pneumothorax -Leukocytosis reactive
--- NOTE | 2017-07-21 14:53 | PN ---
PROGRESS NOTE DATE OF SERVICE: 07/21/17 He was seen on July2017. He is hemodynamically stable. He has been complaining of increasing shortness of breath. He had a chest tube on the left side, which was removed yesterday. He denies any fever or chills. PHYSICAL EXAMINATION: Blood pressure is 163/107, respiratory rate of 18, pulse rate of 116, temperature 97.4 degrees Fahrenheit. HEENT reveals pupils equal. Chest reveals decrease in breath sounds on the left side compared to the right side with poor air entry. Cardiovascular system is S1, S2. ABDOMEN: Soft. There is no pedal edema. LABS: Revealed a white count of 4, hemoglobin of 10.2. IMPRESSION: 1. Stage IV adenocarcinoma of the lung. 2. Chronic obstructive pulmonary disease. 3. Pneumothorax on the left. At this point in time. CT scan of the chest was ordered. Subsequently, a CT of the chest was reviewed which showed the left-sided pneumothorax 30% by volume. Coarse interstitial changes with small bilateral effusions, larger on the left than the right. At this point in time from a pulmonary standpoint, would have thoracic surgery to further evaluate the patient. Continue bronchodilators, aerosolized steroids and antibiotics. May require reinstitution of the chest tube by thoracic surgery. Depending on how he does, we should make further changes to his care. MMODL / IJN: [id number] /
[2017-07-21] MEDS ORDERED: FUROSEMIDE 10 MG/ML 4 ML VIAL IV STA (17:29)
[2017-07-21] MEDS: ALPRAZolam 0.25 MG TAB PO STA ×2 (17:34→17:35)
[2017-07-21] MEDS: ERLOTINIB HCL 150 MG PO SCH (20:52)
[2017-07-22] MEDS: PIPERACILLIN-TAZOBACTAM 3.375 GM in DEXTROSE/WATER 1 50ML.BAG IVPB SCH ×3 (06:04→22:59)
--- NOTE | 2017-07-22 06:32 | XR ---
EXAMINATION TYPE: XR chest 1V portable DATE OF EXAM: 07/22/2017 HISTORY: shortness of breath. REFERENCE: Previous study dated 07/21/2017. FINDINGS: Heart size upper limits of normal. There is slight improved aeration in both lungs. I could not exclude a small right effusion. IMPRESSION: SLIGHT IMPROVEMENT IN THE PATIENT'S PULMONARY EDEMA.
[2017-07-22] MEDS: IPRATROPIUM-ALBUTEROL 3 ML NEB INHALATION PRN ×2 (07:38→17:18)
[2017-07-22] MEDS: BUDESONIDE 0.5 MG/2 ML NEBU INHALATION SCH ×2 (07:38→21:17)
[2017-07-22] MEDS: predniSONE 20 MG TAB PO SCH (07:40)
[2017-07-22] MEDS: FOLIC ACID 1 MG TAB PO SCH (07:40)
[2017-07-22] MEDS: NYSTATIN 100,000 UNIT/ML SUSP 500,000 UNIT/5 ML CUP PO SCH ×4 (07:40→22:35)
[2017-07-22] MEDS: oxyCODONE-APAP 7.5-325MG 1 EACH TAB PO PRN ×3 (07:44→22:58)
--- NOTE | 2017-07-22 12:27 | P.PN ---
Subjective 51-year-old that admitted after tension pneumothorax patient's permanent is nonfunctional today chest tube will be placed on the left side today. Patient respiratory status is fairly stable., Denied any pain in the chest today. 07/17/2017 Patient is breathing well still on 6 L of oxygen patient was started on antibiotics by pulmonology and maintenance steroids with pulmonology as they believe patient has a right upper lobe pneumonia. Patient has a left chest tube in place. 07/18/2017 Patient remains in 6 infarction patient does have significant wheezing on the right side actually bilaterally. Patient was started on systemic steroids patient on antibiotics but the patient has this infiltrate on the right side which is chronic actually bilateral infiltrate which is chronic appears to be better than before compared to previous x-rays. 07/19/2017 Patient is saturating 90% on 4 L patient up and uses 5 L at home patient appears to have some anxiety episodes his wheezing completely resolved and the patient the chest tube was clamped without any significant worsening of pneumothorax. 07/20/2017 Patient can use to have chest 2 no cigarette and change in his esophagus after compared to yesterday patient solids and requirements have come down patient is presently on 3 L of oxygen saturating well. 07/21/2017 Patient had a CAT scan of the chest today which did show continued 30% of pneumothorax although there is good air entry into bilateral lung parker no wheezing was appreciated some bibasilar crackles were appreciated CT also showed some bilateral pleural effusions and nonspecific bilateral diffuse infiltrate which I believe was present On the previous chest x-rays 07/22/2017 Patient appears to have pneumothorax about 30% on the left side because of which cardio thoracic surgery was consulted. Chest x-ray is being obtain for tomorrow depending on the chest x-ray results cardiothoracic surgery will decide about further intervention although. Patient is clinically doing much better is only on 2 L of oxygen saturating well. Patient requested to be DO NOT RESUSCITATE today after discussion with the patient today no aggressive measures or interventions. -Constitutional: Denied any fatigue denied any fever. Cardio vascular: denied any chest pain, palpitations Gastrointestinal denied any nausea vomiting Pulmonary: as mentioned in HPI Neurologic denied any new focal deficits Objective - Vital Signs Vital signs: Vital Signs Temp 98 F 07/22/17 11:05 Pulse 108 H 07/22/17 11:05 Resp 18 07/22/17 11:05 BP 154/102 07/22/17 11:05 Pulse Ox 97 04/15/18 11:05 Intake & Output 07/21/17 07/22/17 07/22/17 18:59 06:59 18:59 Intake Total 350 290 585 Balance 350 290 585 Intake: IV 50 Piperacillin-Tazobactam 3 50 .375 gm In Dextrose/Water 1 50ml.bag @ 12.5 mls/hr IVPB Q8H COUNTS INCLUDE 234 BEDS AT THE [facility] Rx#: [id number] Oral 350 240 585 Other: Voiding Method Toilet # Voids 1 3 # Bowel Movements 1 - Exam PHYSICAL EXAMINATION: GENERAL: The patient is alert and oriented x3, not in any acute distress. Well developed, well nourished. HEENT: Pupils are round and equally reacting to light. EOMI. No scleral icterus. No conjunctival pallor. Normocephalic, atraumatic. No pharyngeal erythema. No thyromegaly. CARDIOVASCULAR: S1 and S2 present. No murmurs, rubs, or gallops. PULMONARY: Good air entry into bilateral lung parker no wheezing was appreciated today. Chest tube was removed ABDOMEN: Soft, nontender, nondistended, normoactive bowel sounds. No palpable organomegaly. MUSCULOSKELETAL: No joint swelling or deformity. EXTREMITIES: No cyanosis, clubbing, or pedal edema. NEUROLOGICAL: Gross neurological examination did not reveal any focal deficits. SKIN: No rashes. - Labs CBC & Chem 7: 07/20/17 07:24 07/20/17 07:24 Assessment and Plan Plan: -Tension pneumothorax on the left side status post Thoravent placement. Probably secondary to bullae rupture. Patient had a chest tube in place CAT scan showing 30% of pneumothorax. Lasix surgery was consulted for any further intervention. Patient's lungs are clear today -Possible right upper lobe pneumonia patient was started on antibiotics possibility of COPD exacerbation -COPD with exacerbation patient was started on systemic steroids significant improvement saturating well on 2 L -lung cancer recently completed chemotherapy. And patient is presently on biologic agents -acute hypoxic respiratory failure secondary to tension pneumothorax , improved now still has 30% pneumothorax as mentioned above -Leukocytosis reactive
[2017-07-22] MEDS ORDERED: ceFAZolin IN SWFI 2 GM/20 ML SYRINGE IVP ONE (13:00)
--- NOTE | 2017-07-22 13:36 | P.GSCN ---
History of Present Illness Consult date: 07/22/17 Reason for Consult: Left pneumothorax. Requesting physician: Erik Ruiz History of present illness: This is a 64-year-old gentleman who is followed by Dr. Jimenes on an outpatient basis. The patient has a medical history significant for adenocarcinoma of the lung which was diagnosed in December 2016, hypertension, history of remote nicotine dependence quit smoking 3-4 years ago, and GERD. He was recently diagnosed with adenocarcinoma of his lungs and has been undergoing treatment with Traceva for 2-3 days prior to his presentation to the emergency department. After taking the Traceva the patient became progressively more short of breath and felt he was having a side effect from the medication. On presentation to the emergency department he reports that he was so short of breath he couldn't complete a sentence. He denies any complaints of pain, nausea, vomiting, dizziness or syncope. He does report that he did lose bladder and bowel function at home. In the emergency room a chest x-ray was completed which revealed a left-sided tension pneumothorax. Subsequently a left -sided Thoravent was placed in the emergency department. A follow-up chest x- ray was completed which demonstrated a persistent left-sided 50% pneumothorax with tension component and the patient underwent a left-sided chest tube placement performed by Dr. Cheung from pulmonary medicine. On 07/20/2017 the chest tube removed by Dr. Cheung due to resolution of the pneumothorax. A computed tomography scan of his chest was completed on 07/21/2017 which demonstrated a persistent left-sided pneumothorax of 30%. Due to the persistent left-sided pneumothorax a consult was placed for Dr. Menard from cardiothoracic surgery to see the patient for recommendations on treatment of the left pneumothorax. Review of Systems A 14 point review of system was completed and was negative except as mentioned in the HPI. Past Medical History Past Medical History: Cancer, GERD/Reflux, Hypertension Additional Past Medical History / Comment(s): Adenocarcinoma of the lung; home oxygen use @5 L [place] ATC,increased SOB, sinus tachycardia (states resting heart rate is 125 -130),does not take anything for heart rate or b/p, takes prednisone 20 mg by mouth daily at home. History of Any Multi-Drug Resistant Organisms: None Reported Past Surgical History: Adenoidectomy, Tonsillectomy Additional Past Surgical History / Comment(s): History of bronchoscopy. Past Anesthesia/Blood Transfusion Reactions: No Reported Reaction Past Psychological History: No Psychological Hx Reported Smoking Status: Former smoker (Quit 3-4 years ago.) Past Alcohol Use History: None Reported Additional Past Alcohol Use History / Comment(s): quit smoking 2013,smoked approx on and off since age 27,1ppd Past Drug Use History: None Reported - Past Family History Mother Family Medical History: COPD Medications and Allergies Home Medications Medication Instructions Recorded Confirmed Type Ipratropium-Albuterol Nebulize 3 ml INHALATION RT-Q4H PRN 03/26/17 07/15/17 History [Duoneb 0.5 mg-3 mg/3 ml Soln] predniSONE 20 mg PO DAILY 03/26/17 07/15/17 History Budesonide/Formoterol Fumarate 2 puff INHALATION RT-BID 07/15/17 07/15/17 History [Symbicort 160-4.5 Mcg Inhaler] Codeine Phosphate/Guaifenesin 5 ml PO QID PRN 07/15/17 07/15/17 History [Cheratussin AC Syrup] Erlotinib HCl [Tarceva] 150 mg PO DAILY 07/15/17 07/15/17 History Folic Acid 1 mg PO DAILY 07/15/17 07/15/17 History Ibuprofen [Motrin] 600 mg PO BID PRN 07/15/17 07/15/17 History Nystatin 100,000 Unit/ml Susp 5 ml PO QID 07/15/17 07/15/17 History [Mycostatin Oral Susp] Omeprazole 20 mg PO DAILY 07/15/17 07/15/17 History Allergies Allergy/AdvReac Type Severity Reaction Status Date / Time latex Allergy itching Verified 07/15/17 18:08 eyes Surgical - Exam Vital Signs Temp Pulse Resp BP Pulse Ox 97.6 F 135 H 34 H 206/110 76 L 07/15/17 17:13 07/15/17 17:13 07/15/17 17:13 07/15/17 17:13 07/15/17 17:13 - General no distress, no pain, cachectic - Eyes PERRL, normal ocular movement - ENT normal pinna, normal nares, normal mucosa, no hearing loss, no congestion, poor mcc - Neck No lymphadenopathy. no masses, no bruits, trachea midline, no venous distension - Respiratory Lungs sounds essentially clear to his bilateral upper lobes, diminished to his bilateral bases. Respirations are symmetrical and nonlabored. Oxygen saturation is 97%. - Cardiovascular Regular rhythm with tachycardic rate. S1 and S2 present, negative for S3, gallop or murmur. Remote telemetry showing sinus tachycardia heart rate 122. No edema present. - Abdomen Abdomen is soft, nontender nondistended. Active bowel sounds all 4 abdominal quadrants. No guarding or rigidity. No organomegaly. - Genitourinary Deferred - Rectum Deferred - Integumentary no rash, no growths, no abnormal pigmentation - Neurologic normal coordination, normal sensation - Musculoskeletal normal gait, normal posture - Psychiatric oriented to time, oriented to person, oriented to place, speech is normal, memory intact Results - Labs 07/20/17 07:24 07/20/17 07:24 - Imaging Chest x-ray: report reviewed, image reviewed CT scan - chest: report reviewed, image reviewed Assessment and Plan (1) GERD (gastroesophageal reflux disease) Current Visit: Yes Status: Acute Code(s): K21.9 - GASTRO-ESOPHAGEAL REFLUX DISEASE WITHOUT ESOPHAGITIS SNOMED Code(s): 461293329 (2) Hypertension Current Visit: Yes Status: Acute Code(s): I10 - ESSENTIAL (PRIMARY) HYPERTENSION SNOMED Code(s): 85102594 (3) Adenocarcinoma of lung Current Visit: Yes Status: Acute Code(s): C34.90 - MALIGNANT NEOPLASM OF UNSP PART OF UNSP BRONCHUS OR LUNG SNOMED Code(s): 442139051 (4) EGFR-related lung cancer Current Visit: Yes Status: Acute Code(s): C34.90 - MALIGNANT NEOPLASM OF UNSP PART OF UNSP BRONCHUS OR LUNG SNOMED Code(s): 471654001 (5) Spontaneous tension pneumothorax Current Visit: Yes Status: Acute Code(s): J93.0 - SPONTANEOUS TENSION PNEUMOTHORAX SNOMED Code(s): 963908712 Plan: The patient was seen and examined. His chart and diagnostics were reviewed. His case was discussed with Dr. Menard. He will be placed nothing by mouth after midnight, and he will be scheduled for a left-sided VATS with talc pleurodesis tomorrow 07/23/2017. Consent will be obtained. Pulmonary recommendations per Dr. Cheung. Further recommendations to follow based on his clinical course. Thank you Dr. BAO Ruiz for this consult and we look forward to working with you in the care of your patient. Time with Patient: Greater than 30
--- NOTE | 2017-07-22 21:20 | PN ---
PROGRESS NOTE He continues to have shortness of breath. He was seen by cardiothoracic surgery and is being scheduled for a VATS pleurodesis tomorrow on the left side. He continues to have shortness of breath. On physical examination vital is stable. He is afebrile. His chest reveals decreased breath sounds on the left. Fair air entry on the right. Occasional scattered Velcro type crackles. Cardiovascular system is S1, S2. Abdomen is soft. There is no pedal edema. IMPRESSION: At this time is: 1. Left-sided pneumothorax. 2. Stage IV lung cancer. 3. Bilateral interstitial infiltrates, most likely secondary to Tarceva versus other etiology. 4. Doubt primary infectious disease. At this point in time, would agree with consideration for VATS pleurodesis. I would have ID further evaluate the patient and would recommend considering Oncology evaluation to decide if he would require Tarceva. Depending on how he does, further workup may need to be done. His prognosis is guarded. MMODL / IJN: [id number] /
[2017-07-22] MEDS: ERLOTINIB HCL 150 MG PO SCH (22:34)
[2017-07-23 06:23] LABS: Anisocytosis Slight; HCT 32.6 % (39.0-53.0); HGB 10.8 gm/dL (13.0-17.5); MCH 32.6 pg (25.0-35.0); MCHC 33.2 g/dL (31.0-37.0); MCV 98.2 fL (80.0-100.0); Macrocytosis Slight; Platelet Count 186 k/uL (150-450); RBC 3.32 m/uL (4.30-5.90); RDW 17.3 % (11.5-15.5); WBC 4.4 k/uL (3.8-10.6)
[2017-07-23 06:34] LABS: Anion Gap 8 mmol/L; Blood Urea Nitrogen 20 mg/dL (9-20); Calcium 9.5 mg/dL (8.4-10.2); Carbon Dioxide 33 mmol/L (22-30); Chloride 99 mmol/L (98-107); Glucose 92 mg/dL (74-99); Potassium 3.9 mmol/L (3.5-5.1); Sodium 140 mmol/L (137-145)
[2017-07-23] MEDS: PIPERACILLIN-TAZOBACTAM 3.375 GM in DEXTROSE/WATER 1 50ML.BAG IVPB SCH ×3 (07:03→21:43)
--- NOTE | 2017-07-23 07:24 | XR ---
EXAMINATION TYPE: XR chest 1V portable DATE OF EXAM: 07/23/2017 Comparison: 07/22/2017 Clinical History: 51-year-old male shortness of breath Findings: Heart upper limits of normal in size. Elongation/ectasia of the thoracic aorta. Some volume loss note d along the right suprahilar region. Interstitial densities persist throughout the left mid and lower lung and in the right upper and midlung. Small left apical pneumothorax redemonstrated. The pleural edge is difficult to clearly delineate but estimated at approximately 3.0 cm from the apical margin. Impression: 1. Thickened continued diffuse interstitial lung disease and multifocal patchy infiltrates. 2. Redemonstrated small left apical pneumothorax. This measures 3.0 cm from the apical margin.
[2017-07-23] MEDS: IPRATROPIUM-ALBUTEROL 3 ML NEB INHALATION PRN ×3 (08:12→21:28)
[2017-07-23] MEDS: BUDESONIDE 0.5 MG/2 ML NEBU INHALATION SCH ×2 (08:13→21:29)
[2017-07-23] MEDS: predniSONE 20 MG TAB PO SCH (09:10)
[2017-07-23] MEDS: FOLIC ACID 1 MG TAB PO SCH (09:10)
[2017-07-23] MEDS: NYSTATIN 100,000 UNIT/ML SUSP 500,000 UNIT/5 ML CUP PO SCH ×4 (09:11→20:41)
--- NOTE | 2017-07-23 11:38 | P.PN ---
Subjective Progress Note Date: 07/23/17 Principal diagnosis: Right upper lobe pneumonia, tension pneumothorax on the left side, stage IV lung cancer adenocarcinoma, severe COPD and acute on chronic hypoxic respirator failure 07/23/2017, patient seen eval examined during the rounds patient continued to have problems associated with shortness of breath which is not much different from baseline does have cough congestion cough is predominantly and dry and nonproductive patient had a CAT scan done over the weekend which revealed a small left-sided pneumothorax cardiothoracic surgery is following this patient plan is for VATS procedure later on today and chemical pleurodesis for more definitive resolution of residual pneumothorax 07/20/2017, patient seen eval examined during the rounds care plan discussed with the primary service as well as nursing staff at length as well as the patient. He has a sudden episode of shortness breath earlier this morning resolve and improve still left cough which is dry and nonproductive the chest x- rays performed this morning reviewed and compared with the prior x-ray overall infiltrate remains stable and very minimal to apical questionable pneumothorax is present chest tube is in a stable condition no air leak is present in the last 24 hour less than 110 220 mL of pleural fluid came out in the chest tube 07/19/2017, patient seen eval examined during the rounds his cuff congestion shortness of breath slightly better patient has been on 4 L oxygen and terms to lower down the oxygen to 3 L has been unsuccessful he still have dry nonproductive cough but severity has improved today's chest x-ray reviewed and compared with the prior x-ray, the chest tube is being clamped we'll do a chest x-ray after one hour and then released the clamp and keep the chest tube on suction, discussed with nursing staff at length 07/18/2017, patient seen eval reexamined during on's care plan discussed with the patient at length patient remains on broad-spectrum antibiotics E a episode of congestion and difficulty breathing last night and resolved and improved patient remains on supplemental oxygen x-rays laboratory data and medications reviewed very is minimal a small apical pneumo thorax on the left side questionable may be present however lungs are fully well expanded pleural VAC shows another 100 mL of clear yellow pleural fluid no air leak has been noted plan is to DC the thoracic vent leave the left-sided chest tube in for now 07/17/2017, patient seen eval evaluated examined during the rounds clinically has been doing well in terms of breathing is still remains on 6 L oxygen shortness was stable some discomfort locally a chest tube site is present otherwise tolerating very well, chest x-ray from today reviewed there is more confluence and developing infiltrate in the right upper lobe is seen which has evolved in the last 24 hours patient does have cough unable to produce any sputum, pleural VAC. Revealed presence of very intermittent air leak about 100 mL of clear transparent pleural fluid has been noted Objective - Vital Signs Vital signs: Vital Signs Temp 97.7 F 07/23/17 04:30 Pulse 102 H 07/23/17 08:25 Resp 18 07/23/17 04:30 BP 167/100 07/23/17 04:30 Pulse Ox 96 07/23/17 04:30 Intake & Output 07/22/17 07/23/17 07/23/17 18:59 06:59 18:59 Intake Total 825 530 0 Balance 825 530 0 Weight 72.8 kg Intake: IV 50 Piperacillin-Tazobactam 3 50 .375 gm In Dextrose/Water 1 50ml.bag @ 12.5 mls/hr IVPB Q[facility]H [facility] Rx#: [id number] Oral 825 480 0 Other: Voiding Method Toilet Toilet # Voids 3 3 # Bowel Movements 1 - Exam GENERAL: The patient is alert and oriented x3, mild respiratory acute distress. Well developed, well nourished. HEENT: Pupils are round and equally reacting to light. EOMI. No scleral icterus. No conjunctival pallor. Normocephalic, atraumatic. No pharyngeal erythema. No thyromegaly. CARDIOVASCULAR: S1 and S2 present. No murmurs, rubs, or gallops. PULMONARY: Mildly diminished air entry into bilateral lung parker no wheezing or crackles were appreciated relatively improved bilateral air entry has been noted ABDOMEN: Soft, nontender, nondistended, normoactive bowel sounds. No palpable organomegaly. MUSCULOSKELETAL: No joint swelling or deformity. EXTREMITIES: No cyanosis, clubbing, or pedal edema. NEUROLOGICAL: Gross neurological examination did not reveal any focal deficits. SKIN: Early rash on shoulder have been noted likely Tarceva related chronic rash - Labs CBC & Chem 7: 07/23/17 06:04 07/23/17 06:04 Labs: Abnormal Lab Results - Last 24 Hours (Table) 04/16/18 04/16/18 Range/Units 06:04 06:04 RBC 3.32 L (4.30-5.90) m/uL Hgb 10.8 L (13.0-17.5) gm/dL Hct 32.6 L (39.0-53.0) % RDW 17.3 H (11.5-15.5) % Carbon Dioxide 33 H (22-30) mmol/L - Imaging and Cardiology Chest x-ray: report reviewed, image reviewed CT scan - chest: report reviewed, image reviewed (Hard copies reviewed, small residual pneumothorax on the left side, patchy bilateral infiltrate more so on the right upper lobe) Assessment and Plan Assessment: Persistent the residual small left-sided pneumothorax Acute on chronic hypoxic respirator failure Right upper lobe pneumonia, left lower lobe pneumonia Large left-sided 50% pneumothorax with tension component with nonfunctioning Thoravent, status post left-sided 28-Moroccan chest tube with evacuation of pneumothorax 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 Adenocarcinoma of the lung Leukocytosis likely related to stress response and Sirs-like process versus related to chronic use of steroids Plan: VATS and pleurodesis later on today Continue Bronchodilators in the form of nebulizer therapy Pulmicort Duo neb Continue maintenance prednisone Continue home medications including Tarceva Status post left-sided tube thoracostomy and chest tube placement will DC the thoracic went Initiate and maintain antibiotics with Zosyn 3.375 every 8 hourly patient may need a bronchoscopy if unable to obtain a sputum prescription provided for oral Augmentin can be discharged home later on today or tomorrow Time with Patient: Greater than 30
[2017-07-23] MEDS ORDERED: ceFAZolin IN SWFI 2 GM/20 ML SYRINGE IVP ONE (13:00)
[2017-07-23] MEDS ORDERED: ceFAZolin 2,000 MG in DEXTROSE/WATER 1 50ML.BAG IVPB ONE (13:00)
[2017-07-23] MEDS ORDERED: LACTATED RINGERS 1,000 ML IV ONE (13:41)
--- NOTE | 2017-07-23 13:51 | P.PN ---
Subjective 51-year-old that admitted after tension pneumothorax patient's permanent is nonfunctional today chest tube will be placed on the left side today. Patient respiratory status is fairly stable., Denied any pain in the chest today. 07/17/2017 Patient is breathing well still on 6 L of oxygen patient was started on antibiotics by pulmonology and maintenance steroids with pulmonology as they believe patient has a right upper lobe pneumonia. Patient has a left chest tube in place. 07/18/2017 Patient remains in 6 infarction patient does have significant wheezing on the right side actually bilaterally. Patient was started on systemic steroids patient on antibiotics but the patient has this infiltrate on the right side which is chronic actually bilateral infiltrate which is chronic appears to be better than before compared to previous x-rays. 07/19/2017 Patient is saturating 90% on 4 L patient up and uses 5 L at home patient appears to have some anxiety episodes his wheezing completely resolved and the patient the chest tube was clamped without any significant worsening of pneumothorax. 07/20/2017 Patient can use to have chest 2 no cigarette and change in his esophagus after compared to yesterday patient solids and requirements have come down patient is presently on 3 L of oxygen saturating well. 07/21/2017 Patient had a CAT scan of the chest today which did show continued 30% of pneumothorax although there is good air entry into bilateral lung parker no wheezing was appreciated some bibasilar crackles were appreciated CT also showed some bilateral pleural effusions and nonspecific bilateral diffuse infiltrate which I believe was present On the previous chest x-rays 07/22/2017 Patient appears to have pneumothorax about 30% on the left side because of which cardio thoracic surgery was consulted. Chest x-ray is being obtain for tomorrow depending on the chest x-ray results cardiothoracic surgery will decide about further intervention although. Patient is clinically doing much better is only on 2 L of oxygen saturating well. Patient requested to be DO NOT RESUSCITATE today after discussion with the patient today no aggressive measures or interventions. 07/23/2017 Patient will undergo pleurodesis procedure patient the has mild worsening in pneumothorax with tachycardia today. -Constitutional: Denied any fatigue denied any fever. Cardio vascular: denied any chest pain, palpitations Gastrointestinal denied any nausea vomiting Pulmonary: as mentioned in HPI Neurologic denied any new focal deficits Objective - Vital Signs Vital signs: Vital Signs Temp 98.6 F 07/23/17 13:34 Pulse 107 H 07/23/17 13:34 Resp 16 07/23/17 13:34 BP 135/95 07/23/17 13:34 Pulse Ox 99 07/23/17 13:34 Intake & Output 07/22/17 07/23/17 07/23/17 18:59 06:59 18:59 Intake Total 825 530 0 Output Total 300 Balance 825 530 -300 Weight 72.8 kg Intake: IV 50 Piperacillin-Tazobactam 3 50 .375 gm In Dextrose/Water 1 50ml.bag @ 12.5 mls/hr IVPB Q8H [facility] Rx#: [id number] Oral 825 480 0 Output: Urine 300 Other: Voiding Method Toilet Toilet Toilet # Voids 3 3 3 # Bowel Movements 1 - Exam PHYSICAL EXAMINATION: GENERAL: The patient is alert and oriented x3, not in any acute distress. Well developed, well nourished. HEENT: Pupils are round and equally reacting to light. EOMI. No scleral icterus. No conjunctival pallor. Normocephalic, atraumatic. No pharyngeal erythema. No thyromegaly. CARDIOVASCULAR: S1 and S2 present. No murmurs, rubs, or gallops. PULMONARY: Good air entry into bilateral lung parker no wheezing was appreciated today. Chest tube was removed ABDOMEN: Soft, nontender, nondistended, normoactive bowel sounds. No palpable organomegaly. MUSCULOSKELETAL: No joint swelling or deformity. EXTREMITIES: No cyanosis, clubbing, or pedal edema. NEUROLOGICAL: Gross neurological examination did not reveal any focal deficits. SKIN: No rashes. - Labs CBC & Chem 7: 07/23/17 06:04 07/23/17 06:04 Labs: Abnormal Lab Results - Last 24 Hours (Table) 07/23/17 07/23/17 Range/Units 06:04 06:04 RBC 3.32 L (4.30-5.90) m/uL Hgb 10.8 L (13.0-17.5) gm/dL Hct 32.6 L (39.0-53.0) % RDW 17.3 H (11.5-15.5) % Carbon Dioxide 33 H (22-30) mmol/L Assessment and Plan Plan: -Tension pneumothorax on the left side status post Thoravent placement. Probably secondary to bullae rupture. Patient had a chest tube in place CAT scan showing 30% of pneumothorax. Possible pleurodesis today -Possible right upper lobe pneumonia patient was started on antibiotics possibility of COPD exacerbation -COPD with exacerbation patient was started on systemic steroids significant improvement saturating well on 2 L -lung cancer recently completed chemotherapy. And patient is presently on biologic agents -acute hypoxic respiratory failure secondary to tension pneumothorax , worsening pneumothorax -Pulmonary infiltrate is probably related to Tarceva
[2017-07-23] MEDS ORDERED: HYDROCORTISONE SUCCINATE 100 MG/2 ML VIAL IV ONE (14:04)
[2017-07-23] MEDS ORDERED: ONDANSETRON 4 MG/2 ML VIAL ONE (14:08)
[2017-07-23] MEDS ORDERED: ONDANSETRON 4 MG/2 ML VIAL IVP ONE (14:19)
[2017-07-23] MEDS ORDERED: ROCURONIUM BROMIDE 10 MG/ML 10 ML VIAL IV ONE (14:21)
[2017-07-23] MEDS ORDERED: PROPOFOL 10 MG/ML 20 ML VIAL IV ONE (14:21)
[2017-07-23] MEDS ORDERED: fentaNYL (PF) 50 MCG/ML 2 ML AMP ONE (14:21)
[2017-07-23] MEDS ORDERED: MIDAZOLAM 2 MG/2 ML VIAL ONE (14:21)
[2017-07-23] MEDS ORDERED: NEOSTIGMINE 1 MG/ML 10 ML VIAL ONE (14:21)
[2017-07-23] MEDS ORDERED: LIDOCAINE 1% INJ 10MG/ML (20 ML MDV) ONE (14:21)
[2017-07-23] MEDS ORDERED: GLYCOPYRROLATE 0.2 MG/ML 2 ML VIAL ONE (14:21)
[2017-07-23] MEDS ORDERED: SUCCINYLCHOLINE CHLORIDE 100 MG/5 ML SYR IV ONE (14:21)
[2017-07-23] MEDS ORDERED: TALC POWDER 30 GM AERO.POWD INTRAPLEUR ONE (14:50)
[2017-07-23] MEDS ORDERED: MORPHINE SULFATE 4MG/4ML SYRG IVP ONE (15:22)
[2017-07-23] MEDS: fentaNYL (PF) 50 MCG/ML 2 ML AMP IVP ONE ×4 (15:29→16:00)
--- NOTE | 2017-07-23 16:02 | XR ---
EXAMINATION TYPE: XR chest 1V portable DATE OF EXAM: 07/23/2017 Comparison: 07/23/2017, earlier today Clinical History: 51-year-old male chest tube insertion Findings: Interval placement of apical redirect a left-sided chest tube and reexpansion of the left lung. Bilat eral patchy interstitial and airspace opacifications show slight interval worsening. Heart upper limi ts of normal in size with elongation/ectasia of the thoracic aorta. Impression: 1. Interval placement of left-sided chest tube. Resolution of previous left sided pneumothorax. 2. Worsening bilateral diffuse interstitial and airspace disease.
[2017-07-23] MEDS: oxyCODONE-APAP 7.5-325MG 1 EACH TAB PO PRN ×2 (16:40→20:41)
[2017-07-23] MEDS: IBUPROFEN 600 MG TAB PO PRN ×2 (16:40→21:30)
--- NOTE | 2017-07-23 19:40 | OP ---
OPERATIVE REPORT DATE OF THE OPERATION: 07/23/2017. ATTENDING SURGEON: Dr. Kennedy Menard. PREOP DIAGNOSIS: Left recurrent apical pneumothorax. POSTOPERATIVE: Left recurrent apical pneumothorax. PROCEDURE PERFORMED: 1. Video-assisted thoracoscopy of the left pleural space. 2. Talc pleurodesis using aerosolized talc. 3. Placement of a chest tube. ANESTHESIA: General. BLOOD LOSS: Scant. SUMMARY: The patient brought to the operative room and placed in supine position. Administration of a general endotracheal anesthetic and a placement of arterial line adequate IV access, Ross catheter. The patient was positioned in the right lateral decubitus position exposing the left chest. The left chest was then prepped and draped in normal sterile fashion using Betadine paint and sterile towels. The previous chest tube insertion site was identified, was very clean. This was cleaned again using Betadine solution. At this point, the video-assisted thoracoscopy was then performed through this opening after port was placed. The pleura appeared to be within normal limits as did the visceral pleura. At this point, the lung was deflated. 8 g of sterile talc were used to spray on the parietal pleura at which point, the lung was then reinflated. At this point a #32-Slovak chest tube was placed through the same opening up to the apex. It was then secured at skin level. This was confirmed by thoracoscopy. The incision was then closed. Chest tube placed to suction. The patient was extubated and taken to the recovery room in stable condition. MMODL / IJN: [id number] /
[2017-07-23] MEDS: ERLOTINIB HCL 150 MG PO SCH (20:37)
[2017-07-24] MEDS: oxyCODONE-APAP 7.5-325MG 1 EACH TAB PO PRN ×2 (00:28→04:41)
[2017-07-24] MEDS: HEPARIN SODIUM,PORCINE 5,000 UNIT/ML 1 ML VIAL SQ SCH ×4 (00:28→21:56)
[2017-07-24] MEDS: PIPERACILLIN-TAZOBACTAM 3.375 GM in DEXTROSE/WATER 1 50ML.BAG IVPB SCH ×3 (06:05→21:56)
[2017-07-24] MEDS: IBUPROFEN 600 MG TAB PO PRN (06:08)
--- NOTE | 2017-07-24 06:29 | CONS ---
CONSULTATION DATE OF SERVICE: 07/23/2017 REASON FOR CONSULTATION: Infection versus inflammation and need for antibiotic therapy. HISTORY OF PRESENT ILLNESS: The patient is a 51-year-old male with past medical history significant for adenocarcinoma of the lung and has been on chemotherapy, presenting to the ER at [facility] on 07/15/2017 with chief complaints of increasing shortness of breath, left-sided chest pain. The patient noticed to have a tension pneumothorax on the left side and the patient did have a left placed in the emergency department: Subsequently did have a chest tube placement by Pulmonary that was subsequently discontinued. The patient has been afebrile throughout his hospital stay: Did have slightly elevated white count on admission of 16.7 that has subsequently normalized. The patient have no cultures done during this admission, neither blood nor sputum. Patient did have a CT of the chest on the that has been suggestive of a 30% by volume pneumothorax on the left, confluent perihilar airspace disease may represent atypical edema or pneumonia and coarse interstitial changes bilaterally. Infectious Disease was consulted last evening for further recommendation regarding the need for antibiotic therapy as the patient has been on piperacillin tazobactam since the 17 of July. The patient when seen on rounds this morning has been afebrile. He seemed to be breathing slightly comfortably. He did have very minimal cough, but not bringing up any sputum. Minimal chest pain, more of a dull aching pain 2 to 3 out of 10, and no radiation. Denies having any choking on the food. No nausea, no vomiting. No abdominal pain. No diarrhea. REVIEW OF SYSTEMS: CONSTITUTIONAL: Positive for weakness with no fever. EYES: No complaint. ENT: No complaint. RESPIRATORY: As per HPI. CARDIOVASCULAR: No complaint. GENITOURINARY: No complaint. GASTROINTESTINAL: No complaint. MUSCULOSKELETAL: No complaint. INTEGUMENTARY: No complaint. PSYCHOLOGICAL: No complaint. ENDOCRINE: No complaint. NEUROLOGICAL: No complaint. PAST MEDICAL HISTORY: Significant for adenocarcinoma of the lung and hypertension. PAST SURGICAL HISTORY: Adenoidectomy, tonsillectomy, bronchoscopy with biopsy. SOCIAL HISTORY: Remote history of smoking. No drinking or drug use. FAMILY HISTORY: Mother with history of COPD. ALLERGIES: LATEX. MEDICATIONS: Medications include the patient is currently on DuoNeb, Pulmicort, folic acid, Robitussin, heparin, hydrocortisone cream, Motrin, Narcan, Percocet, Aquaphor, piperacillin tazobactam and prednisone. PHYSICAL EXAMINATION: On examination, blood pressure is 140/97 with a pulse of 104, temperature 97.5. He is 96% on 6 L nasal cannula. General description is a middle-aged male lying in bed in no distress. No tachypnea or accessory muscle of respiration use. HEENT examination shows pallor, no scleral icterus. Oral mucous membrane is dry. NECK: Trachea central. No thyromegaly. LUNGS: Unlabored breathing, decreased breath sounds in the bases. No wheeze or crackle. HEART: S1, S2. Regular rate and rhythm. ABDOMEN: Soft, no tenderness. No guarding or rigidity. EXTREMITIES: No edema of feet. SKIN EXAMINATION: No rashes or masses palpable. NEUROLOGICAL: Patient is awake, alert, oriented x3. Mood and affect normal. LABS: Hemoglobin is 10.8, white count 4.4. BUN of 20, creatinine 0.80. Electrolytes have been normal. Liver enzymes are normal. No culture during this admission. CT and x-ray report as mentioned above. DIAGNOSTIC IMPRESSION AND PLAN: Patient admitted to the hospital, a patient who does has a history of adenocarcinoma of the lung and the patient presented to the hospital with increasing shortness of breath diagnosed with tension pneumothorax status post chest tube placement, has subsequently discontinued now with repeat CT did show evidence of 30% of the pneumothorax as well as some confluent areas of consolidation with question of possible pneumonia versus atypical edema. most atypical edema. As patient currently not behaving like a pneumonia in a patient who did not have any fever during this morning or no elevated white count. PLAN: 1. Recommend antibiotic can be safely discontinued as clinical remains to be low for underlying pneumonia. 2. If the patient spikes any fever or any change in clinical condition to obtain appropriate cultures before starting him on any antibiotic therapy. Thank you for this consultation. Will follow this patient along with you. MMODL / IJN: [id number] /
--- NOTE | 2017-07-24 07:18 | XR ---
EXAMINATION TYPE: XR chest 1V DATE OF EXAM: 07/24/2017 CLINICAL HISTORY: Post VATS with chest tube progress study. TECHNIQUE: Single AP portable upright view of the chest is obtained. COMPARISON: Chest x-ray from one day earlier and older studies. CT chest from 3 days ago. FINDINGS: There is persistent left apical chest tube. No sizable pneumothorax is seen. There is background chronic emphysematous change with bilateral central opacities with right basilar scarring. Cardiac silhouette size is stable and upper limits of normal. There is ectatic thoracic aor ta causing tracheal deviation redemonstrated. Visualized osseous structures are intact. IMPRESSION: Overall stable findings, chronic emphysematous change with bilateral multifocal centra l areas of infiltrate and/or edema. Persistent left sided chest tube without sizable pneumothorax.
[2017-07-24] MEDS ORDERED: HYDROcodone/APAP 7.5-325MG 1 EACH TAB PO PRN (07:53)
[2017-07-24] MEDS: FOLIC ACID 1 MG TAB PO SCH (08:40)
[2017-07-24] MEDS: predniSONE 20 MG TAB PO SCH (08:41)
[2017-07-24] MEDS: KETOROLAC 30 MG/ML 1 ML VIAL IVP SCH ×3 (08:53→17:04)
[2017-07-24] MEDS: HYDROcodone/APAP 7.5-325MG 1 EACH TAB PO PRN ×4 (08:54→21:48)
[2017-07-24] MEDS: IPRATROPIUM-ALBUTEROL 3 ML NEB INHALATION PRN ×3 (09:15→19:35)
[2017-07-24] MEDS: BUDESONIDE 0.5 MG/2 ML NEBU INHALATION SCH ×2 (09:15→19:35)
[2017-07-24] MEDS: NYSTATIN 100,000 UNIT/ML SUSP 500,000 UNIT/5 ML CUP PO SCH ×4 (09:54→21:56)
--- NOTE | 2017-07-24 11:34 | P.PN ---
Subjective Progress Note Date: 07/24/17 Principal diagnosis: Left-sided recurrent apical pneumothorax. Previous medical history and no carcinoma of the lung, hypertension, remote nicotine dependence, GERD. POD #9 placement of thoravent by emergency room physicians. POD #8 placement of left-sided chest tube by Dr. Cheung POD #1 video-assisted thoracoscopy of the left pleural space. Talc pleurodesis using aerosolized talc. Placement of chest tube. The patient is currently sitting up in bed. Complains of significant pain uncontrolled with current medications. Unable to take deep breaths because of the pain. Objective - Vital Signs Vital signs: Vital Signs Temp 97.5 F L 07/24/17 07:23 Pulse 108 H 07/24/17 09:29 Resp 18 07/24/17 07:23 BP 150/99 07/24/17 07:23 Pulse Ox 94 L 07/24/17 09:15 Intake & Output 07/23/17 07/24/17 07/24/17 18:59 06:59 18:59 Intake Total 990 200 120 Output Total 305 1010 Balance 685 -810 120 Weight 76.5 kg Intake: IV 750 Oral 240 200 120 Output: Chest Tube Drainage 60 Chest Tube Left Lateral 60 Chest Urine 300 950 Estimated Blood Loss 5 Other: Voiding Method Toilet Urinal # Voids 3 1 - Constitutional General appearance: Present: cooperative, mild distress - Respiratory Details: Lungs sounds diminished bilaterally. Respirations even but shallow. Currently on 5 L nasal cannula with oxygen saturation 98%. Left-sided pleural chest tube to continuous wall suction, 30 mL serous drainage overnight, 320 mL since surgery. Minimal air leak present with coughing. - Cardiovascular Details: S1, S2 present. Regular rate and rhythm, sinus rhythm to sinus tach on telemetry. Palpable peripheral pulses bilaterally. No edema present. No calf pain or tenderness noted. - Gastrointestinal Gastrointestinal Comment(s): Abdomen soft, nontender, nondistended. Active bowel sounds 4 quadrants. Tolerating diet. - Genitourinary Genitourinary Comment(s): Continues to void clear, yellow urine. - Integumentary Integumentary Comment(s): Skin is warm and dry with evidence of good perfusion. - Neurologic Neurologic: Present: CNII-XII intact - Musculoskeletal Musculoskeletal: Present: gait normal, strength equal bilaterally - Psychiatric Psychiatric: Present: A&O x's 3, appropriate affect, intact judgment & insight - Allied health notes Allied health notes reviewed: nursing - Labs CBC & Chem 7: 07/23/17 06:04 07/23/17 06:04 - Imaging and Cardiology Chest x-ray: report reviewed, image reviewed Assessment and Plan (1) Tobacco dependence in remission Current Visit: No Status: Resolved Code(s): F17.201 - NICOTINE DEPENDENCE, UNSPECIFIED, IN REMISSION SNOMED Code(s): 691510275 (2) Adenocarcinoma of lung Current Visit: Yes Status: Chronic Code(s): C34.90 - MALIGNANT NEOPLASM OF UNSP PART OF UNSP BRONCHUS OR LUNG SNOMED Code(s): 019338816 (3) GERD (gastroesophageal reflux disease) Current Visit: Yes Status: Chronic Code(s): K21.9 - GASTRO-ESOPHAGEAL REFLUX DISEASE WITHOUT ESOPHAGITIS SNOMED Code(s): 988400331 (4) Hypertension Current Visit: Yes Status: Chronic Code(s): I10 - ESSENTIAL (PRIMARY) HYPERTENSION SNOMED Code(s): 03827288 (5) Spontaneous tension pneumothorax Current Visit: Yes Status: Acute Code(s): J93.0 - SPONTANEOUS TENSION PNEUMOTHORAX SNOMED Code(s): 261202650 Plan: 1. Continue pleural chest tube to continuous suction for another 24 hours. Will monitor for suspicion of air leak and drainage amounts. 2. Encourage continued smoking cessation. 3. Encourage incentive spirometry use 10 times every hour. 4. GI/DVT prophylaxis. SCDs ordered, patient refusing to wear despite adequate teaching. 5. Toradol added, oral pain medication increased for better pain control. 6. Steroids, bronchodilators per pulmonology. 7. Daily chest x-rays. 8. More recommendations to follow. Time with Patient: Greater than 30
--- NOTE | 2017-07-24 15:42 | P.PN ---
Subjective 51-year-old that admitted after tension pneumothorax patient's permanent is nonfunctional today chest tube will be placed on the left side today. Patient respiratory status is fairly stable., Denied any pain in the chest today. 07/17/2017 Patient is breathing well still on 6 L of oxygen patient was started on antibiotics by pulmonology and maintenance steroids with pulmonology as they believe patient has a right upper lobe pneumonia. Patient has a left chest tube in place. 07/18/2017 Patient remains in 6 infarction patient does have significant wheezing on the right side actually bilaterally. Patient was started on systemic steroids patient on antibiotics but the patient has this infiltrate on the right side which is chronic actually bilateral infiltrate which is chronic appears to be better than before compared to previous x-rays. 07/19/2017 Patient is saturating 90% on 4 L patient up and uses 5 L at home patient appears to have some anxiety episodes his wheezing completely resolved and the patient the chest tube was clamped without any significant worsening of pneumothorax. 07/20/2017 Patient can use to have chest 2 no cigarette and change in his esophagus after compared to yesterday patient solids and requirements have come down patient is presently on 3 L of oxygen saturating well. 07/21/2017 Patient had a CAT scan of the chest today which did show continued 30% of pneumothorax although there is good air entry into bilateral lung parker no wheezing was appreciated some bibasilar crackles were appreciated CT also showed some bilateral pleural effusions and nonspecific bilateral diffuse infiltrate which I believe was present On the previous chest x-rays 07/22/2017 Patient appears to have pneumothorax about 30% on the left side because of which cardio thoracic surgery was consulted. Chest x-ray is being obtain for tomorrow depending on the chest x-ray results cardiothoracic surgery will decide about further intervention although. Patient is clinically doing much better is only on 2 L of oxygen saturating well. Patient requested to be DO NOT RESUSCITATE today after discussion with the patient today no aggressive measures or interventions. 07/23/2017 Patient will undergo pleurodesis procedure patient the has mild worsening in pneumothorax with tachycardia today. 07/24/2017 Patient underwent talc pleurodesis patient is clinically doing well is on file is causing patient is just in place. Infectious disease evaluated the patient and medics were discontinued. -Constitutional: Denied any fatigue denied any fever. Cardio vascular: denied any chest pain, palpitations Gastrointestinal denied any nausea vomiting Pulmonary: as mentioned in HPI Neurologic denied any new focal deficits Objective - Vital Signs Vital signs: Vital Signs Temp 98.8 F 07/24/17 11:30 Pulse 108 H 07/24/17 11:30 Resp 16 07/24/17 12:00 BP 134/90 07/24/17 11:30 Pulse Ox 97 07/24/17 11:30 Intake & Output 07/23/17 07/24/17 07/24/17 18:59 06:59 18:59 Intake Total 990 200 360 Output Total 305 1010 455 Balance 685 -810 -95 Weight 76.5 kg Intake: IV 750 Oral 240 200 360 Output: Chest Tube Drainage 60 80 Chest Tube Left Lateral 60 80 Chest Urine 300 950 375 Estimated Blood Loss 5 Other: Voiding Method Toilet Urinal Urinal # Voids 3 1 1 - Exam PHYSICAL EXAMINATION: GENERAL: The patient is alert and oriented x3, not in any acute distress. Well developed, well nourished. HEENT: Pupils are round and equally reacting to light. EOMI. No scleral icterus. No conjunctival pallor. Normocephalic, atraumatic. No pharyngeal erythema. No thyromegaly. CARDIOVASCULAR: S1 and S2 present. No murmurs, rubs, or gallops. PULMONARY: Good air entry into bilateral lung parker no wheezing was appreciated today. Chest tube was removed ABDOMEN: Soft, nontender, nondistended, normoactive bowel sounds. No palpable organomegaly. MUSCULOSKELETAL: No joint swelling or deformity. EXTREMITIES: No cyanosis, clubbing, or pedal edema. NEUROLOGICAL: Gross neurological examination did not reveal any focal deficits. SKIN: No rashes. - Labs CBC & Chem 7: 07/23/17 06:04 07/23/17 06:04 Assessment and Plan Plan: -Tension pneumothorax on the left side status post Thoravent placement on admission followed by a chest tube placement followed by talc pleurodesis postoperative day 1 tab pleurodesis. Patient has a chest tube in place -Possibility of pneumonia is low, and medics were discontinued infectious disease evaluated the patient -COPD with exacerbation patient was started on systemic steroids, patient doesn' t have any COPD exacerbation now lungs are clear to auscultation patient on 5 L status post talc pleurodesis -lung cancer recently completed chemotherapy. And patient is presently on biologic agents -Pulmonary infiltrate is probably related to Tarceva
--- NOTE | 2017-07-24 18:51 | P.PN ---
Subjective Progress Note Date: 07/24/17 Principal diagnosis: Right upper lobe pneumonia, tension pneumothorax on the left side, stage IV lung cancer adenocarcinoma, severe COPD and acute on chronic hypoxic respirator failure 07/24/2017, patient seen and evaluated examined during the rounds patient is status post VATS procedure and chemical pleurodesis postop day #1 left-sided chest tube is present no significant air leak has been noted some pleural fluid is and pleural VAC which is clear. 07/23/2017, patient seen eval examined during the rounds patient continued to have problems associated with shortness of breath which is not much different from baseline does have cough congestion cough is predominantly and dry and nonproductive patient had a CAT scan done over the weekend which revealed a small left-sided pneumothorax cardiothoracic surgery is following this patient plan is for VATS procedure later on today and chemical pleurodesis for more definitive resolution of residual pneumothorax 07/20/2017, patient seen eval examined during the rounds care plan discussed with the primary service as well as nursing staff at length as well as the patient. He has a sudden episode of shortness breath earlier this morning resolve and improve still left cough which is dry and nonproductive the chest x- rays performed this morning reviewed and compared with the prior x-ray overall infiltrate remains stable and very minimal to apical questionable pneumothorax is present chest tube is in a stable condition no air leak is present in the last 24 hour less than 110 220 mL of pleural fluid came out in the chest tube 07/19/2017, patient seen eval examined during the rounds his cuff congestion shortness of breath slightly better patient has been on 4 L oxygen and terms to lower down the oxygen to 3 L has been unsuccessful he still have dry nonproductive cough but severity has improved today's chest x-ray reviewed and compared with the prior x-ray, the chest tube is being clamped we'll do a chest x-ray after one hour and then released the clamp and keep the chest tube on suction, discussed with nursing staff at length 07/18/2017, patient seen eval reexamined during on's care plan discussed with the patient at length patient remains on broad-spectrum antibiotics E a episode of congestion and difficulty breathing last night and resolved and improved patient remains on supplemental oxygen x-rays laboratory data and medications reviewed very is minimal a small apical pneumo thorax on the left side questionable may be present however lungs are fully well expanded pleural VAC shows another 100 mL of clear yellow pleural fluid no air leak has been noted plan is to DC the thoracic vent leave the left-sided chest tube in for now 07/17/2017, patient seen eval evaluated examined during the rounds clinically has been doing well in terms of breathing is still remains on 6 L oxygen shortness was stable some discomfort locally a chest tube site is present otherwise tolerating very well, chest x-ray from today reviewed there is more confluence and developing infiltrate in the right upper lobe is seen which has evolved in the last 24 hours patient does have cough unable to produce any sputum, pleural VAC. Revealed presence of very intermittent air leak about 100 mL of clear transparent pleural fluid has been noted Objective - Vital Signs Vital signs: Vital Signs Temp 98.8 F 07/24/17 11:30 Pulse 115 H 07/24/17 16:00 Resp 16 07/24/17 17:25 BP 144/88 07/24/17 16:00 Pulse Ox 95 07/24/17 17:25 Intake & Output 07/23/17 07/24/17 07/24/17 18:59 06:59 18:59 Intake Total 990 200 720 Output Total 305 1010 555 Balance 685 -810 165 Weight 76.5 kg Intake: IV 750 Oral 240 200 720 Output: Chest Tube Drainage 60 180 Chest Tube Left Lateral 60 180 Chest Urine 300 950 375 Estimated Blood Loss 5 Other: Voiding Method Toilet Urinal Urinal # Voids 3 1 1 - Exam GENERAL: The patient is alert and oriented x3, mild respiratory acute distress. Well developed, well nourished. HEENT: Pupils are round and equally reacting to light. EOMI. No scleral icterus. No conjunctival pallor. Normocephalic, atraumatic. No pharyngeal erythema. No thyromegaly. CARDIOVASCULAR: S1 and S2 present. No murmurs, rubs, or gallops. PULMONARY: Mildly diminished air entry into bilateral lung parker no wheezing or crackles were appreciated relatively improved bilateral air entry has been noted, clear pale yellow pleural fluid present and pleural VAC no air bubble or air leak has been noted ABDOMEN: Soft, nontender, nondistended, normoactive bowel sounds. No palpable organomegaly. MUSCULOSKELETAL: No joint swelling or deformity. EXTREMITIES: No cyanosis, clubbing, or pedal edema. NEUROLOGICAL: Gross neurological examination did not reveal any focal deficits. SKIN: Early rash on shoulder have been noted likely Tarceva related chronic rash - Labs CBC & Chem 7: 07/23/17 06:04 07/23/17 06:04 Assessment and Plan Assessment: Persistent the residual small left-sided pneumothorax status post VATS and pleurodesis postop day #1 Acute on chronic hypoxic respirator failure Right upper lobe pneumonia, left lower lobe pneumonia Large left-sided 50% pneumothorax with tension component with nonfunctioning Thoravent, status post left-sided 28-Thai chest tube with evacuation of pneumothorax 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 Adenocarcinoma of the lung Leukocytosis likely related to stress response and Sirs-like process versus related to chronic use of steroids Plan: VATS and pleurodesis tolerated well Continue Bronchodilators in the form of nebulizer therapy Pulmicort Duo neb Continue maintenance prednisone and tapered slowly Continue home medications including Tarceva Status post left-sided tube thoracostomy and chest tube placement will DC the thoracic went Initiate and maintain antibiotics with Zosyn 3.375 every 8 hourly patient may need a bronchoscopy if unable to obtain a sputum prescription provided for oral Augmentin can be discharged home later on today or tomorrow Time with Patient: Greater than 30
[2017-07-24] MEDS: ERLOTINIB HCL 150 MG PO SCH (20:10)
--- NOTE | 2017-07-24 22:43 | PN ---
PROGRESS NOTE DATE OF SERVICE: 07/24/2017. REASON FOR FOLLOWUP: Pulmonary infiltrate with question of pneumonia. INTERVAL HISTORY: The patient is afebrile. The patient is status post pleurodesis. Currently pain is controlled with pain medication. Denies any significant cough or sputum production. No abdominal pain or any diarrhea. EXAMINATION: Blood pressure 144/88 with a pulse of 111, temperature 98. He is 95% on 5 L nasal cannula. General description is a middle aged male up in the bed in no distress. Respiratory system: Unlabored breathing with decreased breath sounds in the bases. No wheeze. Heart S1, S2. Regular rate and rhythm. Abdomen soft. No tenderness. LABS: Hemoglobin is 10.2, white count 4.4 with a BUN of 26, creatinine 0.90. Blood culture during this admission. IMPRESSION/PLAN: Patient admitted to the hospital with pneumothorax status post chest tube placement with recurrence and is status post right in a patient who has no fever or elevated white count. Unfortunately no cultures were done. any pneumonia at this point and antibiotic may be safely discontinued. Continue supportive care. MMODL / IJN: [id number] /
[2017-07-25] MEDS: KETOROLAC 30 MG/ML 1 ML VIAL IVP SCH ×5 (01:00→23:52)
[2017-07-25] MEDS: PIPERACILLIN-TAZOBACTAM 3.375 GM in DEXTROSE/WATER 1 50ML.BAG IVPB SCH ×3 (05:55→21:10)
[2017-07-25] MEDS: HYDROcodone/APAP 7.5-325MG 1 EACH TAB PO PRN ×4 (07:03→21:08)
[2017-07-25] MEDS: HEPARIN SODIUM,PORCINE 5,000 UNIT/ML 1 ML VIAL SQ SCH ×3 (08:09→21:13)
[2017-07-25] MEDS: FOLIC ACID 1 MG TAB PO SCH (08:09)
[2017-07-25] MEDS: predniSONE 20 MG TAB PO SCH (08:10)
[2017-07-25] MEDS: NYSTATIN 100,000 UNIT/ML SUSP 500,000 UNIT/5 ML CUP PO SCH ×4 (08:10→21:13)
[2017-07-25] MEDS: IPRATROPIUM-ALBUTEROL 3 ML NEB INHALATION PRN ×3 (10:00→19:09)
[2017-07-25] MEDS: BUDESONIDE 0.5 MG/2 ML NEBU INHALATION SCH ×2 (10:01→19:09)
--- NOTE | 2017-07-25 10:15 | P.PN ---
Subjective Progress Note Date: 07/25/17 Principal diagnosis: Left-sided recurrent apical pneumothorax. Previous medical history and no carcinoma of the lung, hypertension, remote nicotine dependence, GERD. POD #10 placement of thoravent by emergency room physicians. POD #9 placement of left-sided chest tube by Dr. Cheung POD #2 video-assisted thoracoscopy of the left pleural space. Talc pleurodesis using aerosolized talc. Placement of chest tube. The patient is currently sitting up in bed. States his pain is much better controlled with change in pain medications. He has been up ambulating in the hallway. Objective - Vital Signs Vital signs: Vital Signs Temp 97.7 F 07/25/17 08:00 Pulse 115 H 07/25/17 08:00 Resp 20 07/25/17 08:00 BP 148/95 07/25/17 08:00 Pulse Ox 95 07/25/17 08:00 Intake & Output 07/24/17 07/25/17 07/25/17 18:59 06:59 18:59 Intake Total 720 482 Output Total 555 50 Balance 165 -50 482 Weight 74.2 kg Intake: Oral 720 482 Output: Chest Tube Drainage 180 Chest Tube Left Lateral 180 Chest Drainage 50 Left Chest 50 Urine 375 Other: Voiding Method Urinal Urinal Urinal # Voids 1 - Constitutional General appearance: Present: cooperative, no acute distress - Respiratory Details: Lungs sounds diminished bilaterally. Respirations even, nonlabored. Currently on 5 L nasal cannula with oxygen saturation 95%. Left-sided pleural chest tube to continuous wall suction, 50 mL serous drainage overnight, 120 mL the last 24 hours. No air leak. - Cardiovascular Details: S1, S2 present. Regular rate and rhythm, sinus rhythm to sinus tach on telemetry. Palpable peripheral pulses bilaterally. No edema present. No calf pain or tenderness noted. - Gastrointestinal Gastrointestinal Comment(s): Abdomen soft, nontender, nondistended. Active bowel sounds 4 quadrants. Tolerating diet. - Genitourinary Genitourinary Comment(s): Continues to void clear, yellow urine. - Integumentary Integumentary Comment(s): Skin is warm and dry with evidence of good perfusion. - Neurologic Neurologic: Present: CNII-XII intact - Musculoskeletal Musculoskeletal: Present: gait normal, strength equal bilaterally - Psychiatric Psychiatric: Present: A&O x's 3, appropriate affect, intact judgment & insight - Allied health notes Allied health notes reviewed: nursing - Labs CBC & Chem 7: 07/23/17 06:04 07/23/17 06:04 - Imaging and Cardiology Chest x-ray: report reviewed, image reviewed Assessment and Plan (1) Tobacco dependence in remission Current Visit: No Status: Resolved Code(s): F17.201 - NICOTINE DEPENDENCE, UNSPECIFIED, IN REMISSION SNOMED Code(s): 008877759 (2) Adenocarcinoma of lung Current Visit: Yes Status: Chronic Code(s): C34.90 - MALIGNANT NEOPLASM OF UNSP PART OF UNSP BRONCHUS OR LUNG SNOMED Code(s): 652690185 (3) GERD (gastroesophageal reflux disease) Current Visit: Yes Status: Chronic Code(s): K21.9 - GASTRO-ESOPHAGEAL REFLUX DISEASE WITHOUT ESOPHAGITIS SNOMED Code(s): 169998188 (4) Hypertension Current Visit: Yes Status: Chronic Code(s): I10 - ESSENTIAL (PRIMARY) HYPERTENSION SNOMED Code(s): 92767880 (5) Spontaneous tension pneumothorax Current Visit: Yes Status: Acute Code(s): J93.0 - SPONTANEOUS TENSION PNEUMOTHORAX SNOMED Code(s): 588622889 Plan: 1. Pleural chest tube to waterseal for 24 hours. Will monitor for air leak, drainage months. Likely will clamp tomorrow, repeat chest x-ray, if no pneumothorax likely will discontinue chest tube tomorrow. 2. Encourage continued smoking cessation. 3. Encourage incentive spirometry use 10 times every hour. 4. GI/DVT prophylaxis. SCDs ordered, patient refusing to wear despite adequate teaching. 5. Continue pain control with ordered regimen. 6. Steroids, bronchodilators per pulmonology. 7. Daily chest x-rays. 8. More recommendations to follow. Time with Patient: Greater than 30
--- NOTE | 2017-07-25 10:25 | XR ---
EXAMINATION TYPE: XR chest 1V portable DATE OF EXAM: 07/25/2017 COMPARISON: 07/24/2017 INDICATION: Post VATS TECHNIQUE: Single frontal view of the chest is obtained. FINDINGS: The heart size is normal. The pulmonary vasculature is normal. Diffuse increased lung markings are present bilaterally. This may have some slight improvement. Media stinal prominence is stable. Very subtle left apical pneumothorax, stable may be present. IMPRESSION: 1. Tiny left apical pneumothorax unchanged from prior study. 2. Diffuse increased lung markings may have slight improvement over the interval. 3. Left-sided chest tube remains in position.
--- NOTE | 2017-07-25 12:41 | P.PN ---
Subjective Progress Note Date: 07/25/17 Principal diagnosis: Right upper lobe pneumonia, tension pneumothorax on the left side, stage IV lung cancer adenocarcinoma, severe COPD and acute on chronic hypoxic respirator failure 07/25/2017, patient seen eval reexamined during the rounds the he is breathing K more comfortably does get short of breath on activity and exertion though he has been ambulating with some support he has the history do on the water seal with some intermittent air leak has been noted denies any cough or sputum production, his chest x-ray from today reviewed and compared tiny left apical pneumothorax remains unchanged confused interstitial lung markings are seen stable position of left-sided chest tube some improvement in infiltrate on the right upper lobe has been noted 07/24/2017, patient seen and evaluated examined during the rounds patient is status post VATS procedure and chemical pleurodesis postop day #1 left-sided chest tube is present no significant air leak has been noted some pleural fluid is and pleural VAC which is clear. 07/23/2017, patient seen eval examined during the rounds patient continued to have problems associated with shortness of breath which is not much different from baseline does have cough congestion cough is predominantly and dry and nonproductive patient had a CAT scan done over the weekend which revealed a small left-sided pneumothorax cardiothoracic surgery is following this patient plan is for VATS procedure later on today and chemical pleurodesis for more definitive resolution of residual pneumothorax 07/20/2017, patient seen eval examined during the rounds care plan discussed with the primary service as well as nursing staff at length as well as the patient. He has a sudden episode of shortness breath earlier this morning resolve and improve still left cough which is dry and nonproductive the chest x- rays performed this morning reviewed and compared with the prior x-ray overall infiltrate remains stable and very minimal to apical questionable pneumothorax is present chest tube is in a stable condition no air leak is present in the last 24 hour less than 110 220 mL of pleural fluid came out in the chest tube 07/19/2017, patient seen eval examined during the rounds his cuff congestion shortness of breath slightly better patient has been on 4 L oxygen and terms to lower down the oxygen to 3 L has been unsuccessful he still have dry nonproductive cough but severity has improved today's chest x-ray reviewed and compared with the prior x-ray, the chest tube is being clamped we'll do a chest x-ray after one hour and then released the clamp and keep the chest tube on suction, discussed with nursing staff at length 07/18/2017, patient seen eval reexamined during on's care plan discussed with the patient at length patient remains on broad-spectrum antibiotics E a episode of congestion and difficulty breathing last night and resolved and improved patient remains on supplemental oxygen x-rays laboratory data and medications reviewed very is minimal a small apical pneumo thorax on the left side questionable may be present however lungs are fully well expanded pleural VAC shows another 100 mL of clear yellow pleural fluid no air leak has been noted plan is to DC the thoracic vent leave the left-sided chest tube in for now 07/17/2017, patient seen eval evaluated examined during the rounds clinically has been doing well in terms of breathing is still remains on 6 L oxygen shortness was stable some discomfort locally a chest tube site is present otherwise tolerating very well, chest x-ray from today reviewed there is more confluence and developing infiltrate in the right upper lobe is seen which has evolved in the last 24 hours patient does have cough unable to produce any sputum, pleural VAC. Revealed presence of very intermittent air leak about 100 mL of clear transparent pleural fluid has been noted Objective - Vital Signs Vital signs: Vital Signs Temp 97.7 F 07/25/17 12:24 Pulse 112 H 07/25/17 12:24 Resp 20 07/25/17 12:24 BP 152/101 07/25/17 12:24 Pulse Ox 98 07/25/17 12:24 Intake & Output 07/24/17 07/25/17 07/25/17 18:59 06:59 18:59 Intake Total 720 482 Output Total 555 50 Balance 165 -50 482 Weight 74.2 kg Intake: Oral 720 482 Output: Chest Tube Drainage 180 Chest Tube Left Lateral 180 Chest Drainage 50 Left Chest 50 Urine 375 Other: Voiding Method Urinal Urinal Urinal # Voids 1 - Exam GENERAL: The patient is alert and oriented x3, mild respiratory acute distress. Well developed, well nourished. HEENT: Pupils are round and equally reacting to light. EOMI. No scleral icterus. No conjunctival pallor. Normocephalic, atraumatic. No pharyngeal erythema. No thyromegaly. CARDIOVASCULAR: S1 and S2 present. No murmurs, rubs, or gallops. PULMONARY: Mildly diminished air entry into bilateral lung parker no wheezing or crackles were appreciated relatively improved bilateral air entry has been noted, clear pale yellow pleural fluid present and pleural VAC no air bubble or air leak has been noted ABDOMEN: Soft, nontender, nondistended, normoactive bowel sounds. No palpable organomegaly. MUSCULOSKELETAL: No joint swelling or deformity. EXTREMITIES: No cyanosis, clubbing, or pedal edema. NEUROLOGICAL: Gross neurological examination did not reveal any focal deficits. SKIN: Early rash on shoulder have been noted likely Tarceva related chronic rash - Labs CBC & Chem 7: 07/23/17 06:04 07/23/17 06:04 Assessment and Plan Assessment: Persistent the residual small left-sided pneumothorax status post VATS and pleurodesis postop day # 2 Acute on chronic hypoxic respirator failure Right upper lobe pneumonia, left lower lobe pneumonia Large left-sided 50% pneumothorax with tension component with nonfunctioning Thoravent, status post left-sided 28-Slovak chest tube with evacuation of pneumothorax, patient continued to manifest small left-sided pneumothorax after removal of chest tube 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 Adenocarcinoma of the lung Leukocytosis likely related to stress response and Sirs-like process versus related to chronic use of steroids Plan: VATS and pleurodesis tolerated well Continue Bronchodilators in the form of nebulizer therapy Pulmicort Duo neb Monitor observe off of steroids Continue home medications including Tarceva Status post left-sided tube thoracostomy and chest tube placement will DC the thoracic went Initiate and maintain antibiotics with Zosyn 3.375 every 8 hourly patient may need a bronchoscopy if unable to obtain a sputum prescription provided for oral Augmentin can be discharged home later on today or tomorrow Time with Patient: Greater than 30
[2017-07-25] MEDS ORDERED: Potassium Replacement Protocol 1 EACH MISC MISCELLANE PRN (17:56)
--- NOTE | 2017-07-25 18:05 | P.PN ---
Subjective Progress Note Date: 07/25/17 Progress note being dictated for Dr. Anaya. Interval history:51-year-old that admitted after tension pneumothorax patient's permanent is nonfunctional today chest tube will be placed on the left side today. Patient respiratory status is fairly stable., Denied any pain in the chest today. 07/17/2017 Patient is breathing well still on 6 L of oxygen patient was started on antibiotics by pulmonology and maintenance steroids with pulmonology as they believe patient has a right upper lobe pneumonia. Patient has a left chest tube in place. 07/18/2017 Patient remains in 6 infarction patient does have significant wheezing on the right side actually bilaterally. Patient was started on systemic steroids patient on antibiotics but the patient has this infiltrate on the right side which is chronic actually bilateral infiltrate which is chronic appears to be better than before compared to previous x-rays. 07/19/2017 Patient is saturating 90% on 4 L patient up and uses 5 L at home patient appears to have some anxiety episodes his wheezing completely resolved and the patient the chest tube was clamped without any significant worsening of pneumothorax. 07/20/2017 Patient can use to have chest 2 no cigarette and change in his esophagus after compared to yesterday patient solids and requirements have come down patient is presently on 3 L of oxygen saturating well. 07/21/2017 Patient had a CAT scan of the chest today which did show continued 30% of pneumothorax although there is good air entry into bilateral lung parker no wheezing was appreciated some bibasilar crackles were appreciated CT also showed some bilateral pleural effusions and nonspecific bilateral diffuse infiltrate which I believe was present On the previous chest x-rays 07/22/2017 Patient appears to have pneumothorax about 30% on the left side because of which cardio thoracic surgery was consulted. Chest x-ray is being obtain for tomorrow depending on the chest x-ray results cardiothoracic surgery will decide about further intervention although. Patient is clinically doing much better is only on 2 L of oxygen saturating well. Patient requested to be DO NOT RESUSCITATE today after discussion with the patient today no aggressive measures or interventions. 07/23/2017 Patient will undergo pleurodesis procedure patient the has mild worsening in pneumothorax with tachycardia today. 07/24/2017 Patient underwent talc pleurodesis patient is clinically doing well is on file is causing patient is just in place. Infectious disease evaluated the patient and medics were discontinued. -Constitutional: Denied any fatigue denied any fever. Cardio vascular: denied any chest pain, palpitations Gastrointestinal denied any nausea vomiting Pulmonary: as mentioned in HPI Neurologic denied any new focal deficits 07/25/2017 no overnight events. Maintained on Zosyn. Continues to do well, afebrile. Pain controlled. Ambulating, tolerating exertion well. Maintaining O2 sats in the high 90s on 5 L nasal cannula. Chest x-ray reporting unchanged tiny left apical pneumothorax, slight improvement. Patient declining SCDs, refusing to wear, despite rationale been explained. Denies productive cough. Objective - Vital Signs Vital signs: Vital Signs Temp 97.7 F 07/25/17 14:49 Pulse 104 H 07/25/17 16:00 Resp 20 07/25/17 16:00 BP 144/110 07/25/17 14:49 Pulse Ox 99 07/25/17 14:49 Intake & Output 07/24/17 07/25/17 07/25/17 18:59 06:59 18:59 Intake Total 720 904 Output Total 555 50 Balance 165 -50 904 Weight 74.2 kg Intake: Oral 720 904 Output: Chest Tube Drainage 180 Chest Tube Left Lateral 180 Chest Drainage 50 Left Chest 50 Urine 375 Other: Voiding Method Urinal Urinal Urinal # Voids 1 - Exam GENERAL: The patient is alert and oriented x3, not in any acute distress. Well developed, well nourished. HEENT: Pupils are round and equally reacting to light. EOMI. No scleral icterus. No conjunctival pallor. Normocephalic, atraumatic. CARDIOVASCULAR: S1 and S2 present. Mild tachycardia, No murmurs, rubs, or gallops. PULMONARY: Good air entry into bilateral lung parker no wheezing was appreciated today. Left-sided pleural chest tube ABDOMEN: Soft, nontender, nondistended, normoactive bowel sounds. No palpable organomegaly. MUSCULOSKELETAL: No joint swelling or deformity. EXTREMITIES: No cyanosis, clubbing, or pedal edema. NEUROLOGICAL: Gross neurological examination did not reveal any focal deficits. SKIN: No rashes. - Labs CBC & Chem 7: 07/23/17 06:04 07/23/17 06:04 Assessment and Plan Assessment: -Tension pneumothorax on the left side status post Thoravent placement on admission followed by a chest tube placement followed by talc pleurodesis -Possibility of pneumonia is low, -COPD with exacerbation patient was started on systemic steroids, patient doesn' t have any COPD exacerbation now lungs are clear to auscultation patient on 5 L status post talc pleurodesis -lung cancer recently completed chemotherapy. -Pulmonary infiltrate is probably related to Tarceva Plan: Continue on current medication regime , nebulized bronchodilators, steroids ,monitoring and symptomatic treatment. Smoking cessation readdressed. Aggressive pulmonary toileting. Pleural chest tube to waterseal currently. Chest x-ray in a.m. Further recommendations to follow The impression and plan of care has been dictated as directed. : I performed a history and examination of this patient, discussed the same with the dictator. I agree with the dictator's note ,documented as a scribe. Any additional findings or plans will be noted.
[2017-07-25] MEDS: ERLOTINIB HCL 150 MG PO SCH (19:37)
--- NOTE | 2017-07-25 20:24 | PN ---
PROGRESS NOTE DATE OF SERVICE: 07/25/2017. REASON FOR FOLLOWUP: Abnormal CT and question of pneumonia. INTERVAL HISTORY: The patient is afebrile. He has been breathing comfortably. Still complaining of having difficulty taking a deep breath from the chest tube site. Denies any nausea, no vomiting. No abdominal pain and no diarrhea. EXAMINATION: Blood pressure is 144/100 with a pulse of 101, temperature of 97.7, he is 99% on 5 L nasal cannula. General description is a middle aged male up in the bed in no distress. Respiratory system: Unlabored breathing with decreased breath sounds in the bases. No wheeze. Heart S1, S2. Regular rate and rhythm. ABDOMEN: Soft, no tenderness. LABS: Hemoglobin is 10.8, white count 4.4 with a BUN of 20, creatinine 0.90. DIAGNOSTIC IMPRESSION AND PLAN: Patient with with lung cancer in a patient with recurrent pneumothorax status post chest tube x2 with pleurodesis. Abnormal CT for some infiltrate, low for pneumonia, in a patient white count. Continue with that can be safely discontinued. Continue supportive care. MMODL / IJN: [id number] /
[2017-07-26] MEDS: HYDROcodone/APAP 7.5-325MG 1 EACH TAB PO PRN ×5 (01:13→21:43)
[2017-07-26] MEDS: PIPERACILLIN-TAZOBACTAM 3.375 GM in DEXTROSE/WATER 1 50ML.BAG IVPB SCH ×3 (06:05→22:08)
[2017-07-26] MEDS: KETOROLAC 30 MG/ML 1 ML VIAL IVP SCH ×3 (06:05→17:16)
--- NOTE | 2017-07-26 07:17 | XR ---
EXAMINATION TYPE: XR chest 2V DATE OF EXAM: 07/26/2017 COMPARISON: 07/25/2017 HISTORY: Shortness of breath TECHNIQUE: Frontal view of the chest is submitted. FINDINGS: Left-sided chest tube is unchanged in position. Small left apical pneumothorax is stable. Diffuse increased lung markings are noted bilaterally without significant change. Heart size is stable. Mediastinal structures are stable and grossly unremarkable. No evidence for hilar prominence. Degenerative changes dorsal spine. IMPRESSION: 1. Stable chest.
[2017-07-26] MEDS: IPRATROPIUM-ALBUTEROL 3 ML NEB INHALATION PRN ×4 (07:42→18:52)
[2017-07-26] MEDS: BUDESONIDE 0.5 MG/2 ML NEBU INHALATION SCH ×2 (07:42→18:52)
[2017-07-26] MEDS: HEPARIN SODIUM,PORCINE 5,000 UNIT/ML 1 ML VIAL SQ SCH ×2 (08:55→20:55)
[2017-07-26] MEDS: predniSONE 20 MG TAB PO SCH (08:56)
[2017-07-26] MEDS: FOLIC ACID 1 MG TAB PO SCH (08:56)
[2017-07-26] MEDS: NYSTATIN 100,000 UNIT/ML SUSP 500,000 UNIT/5 ML CUP PO SCH ×4 (08:56→20:57)
--- NOTE | 2017-07-26 10:49 | P.PN ---
Subjective Progress Note Date: 07/26/17 Principal diagnosis: EGFR Lung Cancer Ritesh was seen in follow-up today. He is three days Post OP. His respiratory effort has improved. He stopped taking Tarceva again as he was concerned it would interfere with his recent surgery. A long discussion with him today. Objective - Vital Signs Vital signs: Vital Signs Temp 96.5 F L 07/25/17 23:50 Pulse 110 H 07/26/17 08:00 Resp 20 07/26/17 07:50 BP 154/95 07/26/17 07:50 Pulse Ox 96 07/26/17 07:50 Intake & Output 07/25/17 07/26/17 07/26/17 18:59 06:59 18:59 Intake Total 1144 480 Output Total 400 Balance 1144 -400 480 Weight 76 kg Intake: Oral 1144 480 Output: Drainage 25 Left Chest 25 Urine 375 Other: Voiding Method Urinal Urinal # Voids 1 - Constitutional General appearance: Present: cooperative, no acute distress, thin - EENT Eyes: Present: EOMI, fundus normal, dentition normal ENT: Present: NA/AT, normal oropharynx - Neck Details: supple, Trachea midline Neck: Present: normal ROM - Respiratory Respiratory: bilateral: diminished (No increased effore) - Cardiovascular Heart rate: 110 Rhythm: regular Heart sounds: normal: S1, S2 - Gastrointestinal General gastrointestinal: Present: normal bowel sounds, soft - Neurologic Neurologic: Present: CNII-XII intact - Musculoskeletal Musculoskeletal: Present: gait normal, generalized weakness - Psychiatric Psychiatric: Present: A&O x's 3, appropriate affect, intact judgment & insight - Labs CBC & Chem 7: 07/23/17 06:04 07/23/17 06:04 Assessment and Plan (1) Adenocarcinoma of lung Current Visit: Yes Status: Chronic Code(s): C34.90 - MALIGNANT NEOPLASM OF UNSP PART OF UNSP BRONCHUS OR LUNG SNOMED Code(s): 767638980 (2) EGFR-related lung cancer Current Visit: Yes Status: Acute Code(s): C34.90 - MALIGNANT NEOPLASM OF UNSP PART OF UNSP BRONCHUS OR LUNG SNOMED Code(s): 795098326 Plan: Assessment and Recommendations: 1. Spontaneous Left sided Pneumothorax Status Post Thoracotomy and Left Chest Tube insertion Status Posts VATS PLeurodesis 2. Adenocarcinoma of Bilateral Lungs:EGFR Positive Mutation - Status Post 4 cycles of Carboplatin and Almta, completed 07/03/17 - Continue Folic Acid PO daily - Recently started Tarceva (PO anti-EGFR cancer therapy on July 08, 2017) - Patient took for 5 days and stopped as he thought it may have contributed to his increased SOB, discussed in detail again with patient and ok to restart while inpatient. - Common side effects on Tarceva include hand-foot, acne like facial and scalp rash: Will order aquaphor and hydrocortisone cream to bedside for patient to assist in prevention. May also give prophylactic doxycycline. - Will Follow-up as outpatient for continue treatment plan. May benefit from CT while inpatient, will have PET in August - Would check CBC and renal function in morning, recently started tarceva - RE-discussed and education on possible side effects, tolerating the tarceva well since restarting. - Long Discussion today 07/26 with patient regarding restarting Tarceva. I feel the benefit of restarting does outweigh the risks, he had stopped while in hospital because he was concerned of it interfering with the recent procedure he had on his lung. I will set up an appointment for the patient to discuss further with Dr. Loyd as outpatient. Plan to resume at discharge. Physician Attest: I have completed the full history and physical of this patient, discussed in detail and agree with above dictation by Leslie Marie NP. Documented as a scribe.
--- NOTE | 2017-07-26 11:05 | XR ---
EXAMINATION TYPE: XR chest 2V DATE OF EXAM: 07/26/2017 COMPARISON: 07/26/2017 HISTORY: Shortness of breath TECHNIQUE: Frontal and lateral views of the chest are obtained. FINDINGS: Left-sided chest tube has been removed. Small residual pneumothorax does persist estimated at less th an 10%. Diffuse increased lung markings are again seen bilaterally. Heart size is stable. Mediastinal structures are stable and grossly unremarkable. No evidence for hilar prominence. Degenerative changes dorsal spine. IMPRESSION: 1. Removal of left-sided chest tube with small left persistent left apical pneumothorax. Remainder of the examination is stable
--- NOTE | 2017-07-26 12:16 | P.PN ---
Subjective Progress Note Date: 07/26/17 Principal diagnosis: Left-sided recurrent apical pneumothorax. Previous medical history and no carcinoma of the lung, hypertension, remote nicotine dependence, GERD. POD #11 placement of thoravent by emergency room physicians. POD #10 placement of left-sided chest tube by Dr. Cheung POD #3 video-assisted thoracoscopy of the left pleural space. Talc pleurodesis using aerosolized talc. Placement of chest tube. The patient is currently sitting up in bed. States his pain is much better controlled with change in pain medications. He has been up ambulating in the hallway. Objective - Vital Signs Vital signs: Vital Signs Temp 98.1 F 07/26/17 11:41 Pulse 110 H 07/26/17 11:56 Resp 18 07/26/17 11:41 BP 162/109 07/26/17 11:41 Pulse Ox 97 07/26/17 11:41 Intake & Output 07/25/17 07/26/17 07/26/17 18:59 06:59 18:59 Intake Total 1144 480 Output Total 400 Balance 1144 -400 480 Weight 76 kg Intake: Oral 1144 480 Output: Drainage 25 Left Chest 25 Urine 375 Other: Voiding Method Urinal Urinal Toilet # Voids 1 2 # Bowel Movements 1 - Constitutional General appearance: Present: cooperative, no acute distress - Respiratory Details: Lungs sounds diminished bilaterally. Respirations even, nonlabored. Currently on 4 L nasal cannula with oxygen saturation 96%. Left-sided pleural chest tube to waterseal, 25 mL serous drainage overnight, 50 mL the last 24 hours. No air leak. - Cardiovascular Details: S1, S2 present. Regular rate and rhythm, sinus rhythm to sinus tach on telemetry. Palpable peripheral pulses bilaterally. No edema present. No calf pain or tenderness noted. - Gastrointestinal Gastrointestinal Comment(s): Abdomen soft, nontender, nondistended. Active bowel sounds 4 quadrants. Tolerating diet. - Genitourinary Genitourinary Comment(s): Continues to void clear, yellow urine. - Integumentary Integumentary Comment(s): Skin is warm and dry with evidence of good perfusion. - Neurologic Neurologic: Present: CNII-XII intact - Musculoskeletal Musculoskeletal: Present: gait normal, strength equal bilaterally - Psychiatric Psychiatric: Present: A&O x's 3, appropriate affect, intact judgment & insight - Allied health notes Allied health notes reviewed: nursing - Labs CBC & Chem 7: 07/23/17 06:04 07/23/17 06:04 - Imaging and Cardiology Chest x-ray: report reviewed, image reviewed Assessment and Plan (1) Tobacco dependence in remission Current Visit: No Status: Resolved Code(s): F17.201 - NICOTINE DEPENDENCE, UNSPECIFIED, IN REMISSION SNOMED Code(s): 733357785 (2) Adenocarcinoma of lung Current Visit: Yes Status: Chronic Code(s): C34.90 - MALIGNANT NEOPLASM OF UNSP PART OF UNSP BRONCHUS OR LUNG SNOMED Code(s): 773247773 (3) GERD (gastroesophageal reflux disease) Current Visit: Yes Status: Chronic Code(s): K21.9 - GASTRO-ESOPHAGEAL REFLUX DISEASE WITHOUT ESOPHAGITIS SNOMED Code(s): 113461667 (4) Hypertension Current Visit: Yes Status: Chronic Code(s): I10 - ESSENTIAL (PRIMARY) HYPERTENSION SNOMED Code(s): 70713062 (5) Spontaneous tension pneumothorax Current Visit: Yes Status: Acute Code(s): J93.0 - SPONTANEOUS TENSION PNEUMOTHORAX SNOMED Code(s): 947123020 Plan: 1. Left pleural chest tube discontinued. Repeat chest x-ray demonstrates small but stable pneumothorax. 2. Encourage continued smoking cessation. 3. Encourage incentive spirometry use 10 times every hour. 4. GI/DVT prophylaxis. SCDs ordered, patient refusing to wear despite adequate teaching. 5. Continue pain control with ordered regimen. 6. Steroids, bronchodilators per pulmonology. 7. May discharge to home from our standpoint when okay with other service lines. Time with Patient: Greater than 30
[2017-07-26 14:37] VITALS: BMI 22.7
--- NOTE | 2017-07-26 15:19 | PN ---
PROGRESS NOTE DATE OF SERVICE: 07/26/2017. REASON FOR FOLLOWUP: Abnormal CT with question of pneumonia in a patient with underlying pneumothorax and underlying malignancy. INTERVAL HISTORY: The patient is afebrile. His chest tube has been removed. Breathing more deeper. Very minimal cough, not bringing sputum. No nausea, no vomiting. No abdominal pain, no diarrhea. EXAMINATION: Blood pressure 162/100 with a pulse of 110, temperature 98.1. He is 97% on 4 L nasal cannula. General description is a middle aged male up in his bed in no distress. RESPIRATORY SYSTEM: Unlabored breathing with decreased breath sounds in the bases. No wheeze. HEART: S1, S2. Regular rate and rhythm. ABDOMEN: soft, no tenderness. EXTREMITIES: No edema of the feet. LABS: Hemoglobin is 10.8, white count 4.4 with a BUN of 20, creatinine 0.80. DIAGNOSTIC IMPRESSION AND PLAN: Patient with lung cancer admitted to the hospital with recurrent pneumothorax status post chest tube followed by pleurodesis. Repeat chest tube has been discontinued. No cultures. Abnormality on the CT more likely related to underlying malignancy and less likely pneumonia and consider discontinuation of antibiotic therapy. Continue supportive care. MMODL / IJN: [id number] /
--- NOTE | 2017-07-26 17:56 | P.PN ---
Subjective Progress Note Date: 07/26/17 Progress note being dictated for Dr. Anaya. Interval history:51-year-old that admitted after tension pneumothorax patient's permanent is nonfunctional today chest tube will be placed on the left side today. Patient respiratory status is fairly stable., Denied any pain in the chest today. 07/17/2017 Patient is breathing well still on 6 L of oxygen patient was started on antibiotics by pulmonology and maintenance steroids with pulmonology as they believe patient has a right upper lobe pneumonia. Patient has a left chest tube in place. 07/18/2017 Patient remains in 6 infarction patient does have significant wheezing on the right side actually bilaterally. Patient was started on systemic steroids patient on antibiotics but the patient has this infiltrate on the right side which is chronic actually bilateral infiltrate which is chronic appears to be better than before compared to previous x-rays. 07/19/2017 Patient is saturating 90% on 4 L patient up and uses 5 L at home patient appears to have some anxiety episodes his wheezing completely resolved and the patient the chest tube was clamped without any significant worsening of pneumothorax. 07/20/2017 Patient can use to have chest 2 no cigarette and change in his esophagus after compared to yesterday patient solids and requirements have come down patient is presently on 3 L of oxygen saturating well. 07/21/2017 Patient had a CAT scan of the chest today which did show continued 30% of pneumothorax although there is good air entry into bilateral lung parker no wheezing was appreciated some bibasilar crackles were appreciated CT also showed some bilateral pleural effusions and nonspecific bilateral diffuse infiltrate which I believe was present On the previous chest x-rays 07/22/2017 Patient appears to have pneumothorax about 30% on the left side because of which cardio thoracic surgery was consulted. Chest x-ray is being obtain for tomorrow depending on the chest x-ray results cardiothoracic surgery will decide about further intervention although. Patient is clinically doing much better is only on 2 L of oxygen saturating well. Patient requested to be DO NOT RESUSCITATE today after discussion with the patient today no aggressive measures or interventions. 07/23/2017 Patient will undergo pleurodesis procedure patient the has mild worsening in pneumothorax with tachycardia today. 07/24/2017 Patient underwent talc pleurodesis patient is clinically doing well is on file is causing patient is just in place. Infectious disease evaluated the patient and medics were discontinued. -Constitutional: Denied any fatigue denied any fever. Cardio vascular: denied any chest pain, palpitations Gastrointestinal denied any nausea vomiting Pulmonary: as mentioned in HPI Neurologic denied any new focal deficits 07/25/2017 no overnight events. Maintained on Zosyn. Continues to do well, afebrile. Pain controlled. Ambulating, tolerating exertion well. Maintaining O2 sats in the high 90s on 5 L nasal cannula. Chest x-ray reporting unchanged tiny left apical pneumothorax, slight improvement. Patient declining SCDs, refusing to wear, despite rationale been explained. Denies productive cough. 07/26/2017 chest tube discontinued as per cardiothoracic surgery. Minimal nonproductive cough. Breathing improved, states was able to breathe deeper earlier today. CT abnormality most likely underlying malignancy, less likely pneumonia as per infectious disease with potential discontinuation of antibiotic therapy. Denies chest pain, palpitations or increasing shortness of breath. Objective - Vital Signs Vital signs: Vital Signs Temp 98.1 F 07/26/17 11:41 Pulse 119 H 07/26/17 16:00 Resp 16 07/26/17 16:00 BP 158/104 07/26/17 16:00 Pulse Ox 94 L 07/26/17 16:00 Intake & Output 07/25/17 07/26/17 07/26/17 18:59 06:59 18:59 Intake Total 1144 480 Output Total 400 Balance 1144 -400 480 Weight 76 kg 76 kg Intake: Oral 1144 480 Output: Drainage 25 Left Chest 25 Urine 375 Other: Voiding Method Urinal Urinal Toilet # Voids 1 2 # Bowel Movements 1 - Exam GENERAL: The patient is alert and oriented x3, not in any acute distress. HEENT: Pupils are round and equally reacting to light. EOMI. No scleral icterus. No conjunctival pallor. Normocephalic, atraumatic. CARDIOVASCULAR: S1 and S2 present. Mild tachycardia, No murmurs, rubs, or gallops. PULMONARY: Good air entry into bilateral lung parker no wheezing was appreciated today. ABDOMEN: Soft, nontender, nondistended, normoactive bowel sounds. No palpable organomegaly. MUSCULOSKELETAL: No joint swelling or deformity. EXTREMITIES: No cyanosis, clubbing, or pedal edema. NEUROLOGICAL: Gross neurological examination did not reveal any focal deficits. SKIN: No rashes. - Labs CBC & Chem 7: 07/23/17 06:04 07/23/17 06:04 Assessment and Plan Assessment: -Tension pneumothorax on the left side status post Thoravent placement on admission followed by a chest tube placement followed by talc pleurodesis. Repeat chest tube discontinued. -Possibility of pneumonia is low, -COPD with exacerbation patient was started on systemic steroids, patient doesn' t have any COPD exacerbation now -lung cancer recently completed chemotherapy. -Pulmonary infiltrate is probably related to Tarceva Plan: Continue on current medication regime , nebulized bronchodilators, steroids ,monitoring and symptomatic treatment. Patient expressing anxiety over being discharged home today. Continue monitoring overnight. Discharge planning in progress for tomorrow .Smoking cessation readdressed. Aggressive pulmonary toileting. Further recommendations to follow The impression and plan of care has been dictated as directed. : I performed a history and examination of this patient, discussed the same with the dictator. I agree with the dictator's note ,documented as a scribe. Any additional findings or plans will be noted.
[2017-07-26] MEDS: ERLOTINIB HCL 150 MG PO SCH (20:57)
[2017-07-27] MEDS: KETOROLAC 30 MG/ML 1 ML VIAL IVP SCH ×4 (00:03→17:29)
[2017-07-27] MEDS: HEPARIN SODIUM,PORCINE 5,000 UNIT/ML 1 ML VIAL SQ SCH ×3 (00:03→14:34)
[2017-07-27] MEDS: HYDROcodone/APAP 7.5-325MG 1 EACH TAB PO PRN ×5 (02:21→17:28)
[2017-07-27] MEDS: PIPERACILLIN-TAZOBACTAM 3.375 GM in DEXTROSE/WATER 1 50ML.BAG IVPB SCH ×2 (05:38→14:00)
--- NOTE | 2017-07-27 07:27 | XR ---
EXAMINATION TYPE: XR chest 2V DATE OF EXAM: 07/27/2017 COMPARISON: Chest x-ray from yesterday and older studies. CT chest July 21, 2017. HISTORY: Pneumothorax progress study. TECHNIQUE: Frontal and lateral views of the chest are obtained. FINDINGS: Cannot exclude tiny left apical pneumothorax versus prominent focal scarring, this is not significantly changed from chest x-ray yesterday, this is improved from CT 6 days ago. There is backg round emphysematous change with parenchymal fibrosis most prominent upper lungs as there is hilar ret raction and right-sided volume loss with tracheal shift. Underlying areas of acute infiltrate are dif ficult to exclude on background of chronic change. No pleural effusion is evident bilaterally. Cardia c silhouette size is stable and upper limits of normal. Osseous structures are intact. IMPRESSION: Overall stable findings, chronic emphysematous change and advanced bilateral fibrosis mo st prominent upper lungs, areas of acute infiltrate are difficult to exclude. No sizable pneumothorax is evident. Can't exclude residual tiny left apical pneumothorax versus focal scar tissue.
[2017-07-27] MEDS: NYSTATIN 100,000 UNIT/ML SUSP 500,000 UNIT/5 ML CUP PO SCH ×3 (07:52→17:26)
[2017-07-27] MEDS: FOLIC ACID 1 MG TAB PO SCH (07:52)
[2017-07-27] MEDS: predniSONE 20 MG TAB PO SCH (07:52)
[2017-07-27 07:58] VITALS: RESP 18
[2017-07-27] MEDS: BUDESONIDE 0.5 MG/2 ML NEBU INHALATION SCH (07:58)
[2017-07-27] MEDS: IPRATROPIUM-ALBUTEROL 3 ML NEB INHALATION PRN ×3 (07:58→16:36)
[2017-07-27 11:44] VITALS: BP 162/99; TEMP 97.6
--- NOTE | 2017-07-27 12:39 | P.PN ---
Subjective Progress Note Date: 07/27/17 Principal diagnosis: Left-sided recurrent apical pneumothorax. Previous medical history and no carcinoma of the lung, hypertension, remote nicotine dependence, GERD. POD #12 placement of thoravent by emergency room physicians. POD #11 placement of left-sided chest tube by Dr. Cheung POD #4 video-assisted thoracoscopy of the left pleural space. Talc pleurodesis using aerosolized talc. Placement of chest tube. The patient is currently sitting up in bed in no acute distress. States his pain is much better controlled since chest tube discontinued. He has been up ambulating in the hallway. Objective - Vital Signs Vital signs: Vital Signs Temp 97.6 F 07/27/17 11:43 Pulse 112 H 07/27/17 12:16 Resp 18 07/27/17 11:43 BP 162/99 07/27/17 11:43 Pulse Ox 98 07/27/17 11:43 Intake & Output 07/26/17 07/27/17 07/27/17 18:59 06:59 18:59 Intake Total 480 360 Balance 480 360 Weight 76 kg Intake: Oral 480 360 Other: Voiding Method Toilet Toilet # Voids 2 2 # Bowel Movements 1 - Constitutional General appearance: Present: cooperative, no acute distress - Respiratory Details: Lungs sounds diminished bilaterally. Respirations even, nonlabored. Currently on 4 L nasal cannula with oxygen saturation 98%. - Cardiovascular Details: S1, S2 present. Regular rate and rhythm, sinus rhythm to sinus tach on telemetry. Palpable peripheral pulses bilaterally. No edema present. No calf pain or tenderness noted. - Gastrointestinal Gastrointestinal Comment(s): Abdomen soft, nontender, nondistended. Active bowel sounds 4 quadrants. Tolerating diet. - Genitourinary Genitourinary Comment(s): Continues to void clear, yellow urine. - Integumentary Integumentary Comment(s): Skin is warm and dry with evidence of good perfusion. - Neurologic Neurologic: Present: CNII-XII intact - Musculoskeletal Musculoskeletal: Present: gait normal, strength equal bilaterally - Psychiatric Psychiatric: Present: A&O x's 3, appropriate affect, intact judgment & insight - Allied health notes Allied health notes reviewed: nursing - Labs CBC & Chem 7: 07/23/17 06:04 07/23/17 06:04 - Imaging and Cardiology Chest x-ray: report reviewed, image reviewed Assessment and Plan (1) Tobacco dependence in remission Current Visit: No Status: Resolved Code(s): F17.201 - NICOTINE DEPENDENCE, UNSPECIFIED, IN REMISSION SNOMED Code(s): 017976123 (2) Adenocarcinoma of lung Current Visit: Yes Status: Chronic Code(s): C34.90 - MALIGNANT NEOPLASM OF UNSP PART OF UNSP BRONCHUS OR LUNG SNOMED Code(s): 934469440 (3) GERD (gastroesophageal reflux disease) Current Visit: Yes Status: Chronic Code(s): K21.9 - GASTRO-ESOPHAGEAL REFLUX DISEASE WITHOUT ESOPHAGITIS SNOMED Code(s): 610967674 (4) Hypertension Current Visit: Yes Status: Chronic Code(s): I10 - ESSENTIAL (PRIMARY) HYPERTENSION SNOMED Code(s): 53993603 (5) Spontaneous tension pneumothorax Current Visit: Yes Status: Acute Code(s): J93.0 - SPONTANEOUS TENSION PNEUMOTHORAX SNOMED Code(s): 168958713 Plan: 1. Encourage continued smoking cessation. 2. Encourage incentive spirometry use 10 times every hour. 3. GI/DVT prophylaxis. SCDs ordered, patient refusing to wear despite adequate teaching. 4. Pain control at discharge per primary care services recommendations. 5. Steroids, bronchodilators per pulmonology. 6. May discharge to home from our standpoint when okay with other service lines. Time with Patient: Greater than 30
--- NOTE | 2017-07-27 12:48 | P.PN ---
Subjective Progress Note Date: 07/27/17 Principal diagnosis: Right upper lobe pneumonia, tension pneumothorax on the left side, stage IV lung cancer adenocarcinoma, severe COPD and acute on chronic hypoxic respirator failure 07/27/2017, patient seen and evaluated examined during the rounds clinically doing well awake and alert breathing comfortably has been ambulating chest x- ray performed earlier today reviewed and compared to prior x-ray and no evidence of recurrence of pneumothorax 07/26/2017, patient seen and evaluated examined care plan discussed with the patient and staff at length including primary service patient has very occasional air leak there has been noted however resolved chest tube has been removed patient to the able to ambulate cough congestion has improved denies any chest pain patient remains on supplemental oxygen breathing treatments remains stable likely will be discharged tomorrow, chest x-ray performed earlier today reviewed and compared with the prior x-ray 07/25/2017, patient seen eval reexamined during the rounds the he is breathing K more comfortably does get short of breath on activity and exertion though he has been ambulating with some support he has the history do on the water seal with some intermittent air leak has been noted denies any cough or sputum production, his chest x-ray from today reviewed and compared tiny left apical pneumothorax remains unchanged confused interstitial lung markings are seen stable position of left-sided chest tube some improvement in infiltrate on the right upper lobe has been noted 07/24/2017, patient seen and evaluated examined during the rounds patient is status post VATS procedure and chemical pleurodesis postop day #1 left-sided chest tube is present no significant air leak has been noted some pleural fluid is and pleural VAC which is clear. 07/23/2017, patient seen eval examined during the rounds patient continued to have problems associated with shortness of breath which is not much different from baseline does have cough congestion cough is predominantly and dry and nonproductive patient had a CAT scan done over the weekend which revealed a small left-sided pneumothorax cardiothoracic surgery is following this patient plan is for VATS procedure later on today and chemical pleurodesis for more definitive resolution of residual pneumothorax 07/20/2017, patient seen eval examined during the rounds care plan discussed with the primary service as well as nursing staff at length as well as the patient. He has a sudden episode of shortness breath earlier this morning resolve and improve still left cough which is dry and nonproductive the chest x- rays performed this morning reviewed and compared with the prior x-ray overall infiltrate remains stable and very minimal to apical questionable pneumothorax is present chest tube is in a stable condition no air leak is present in the last 24 hour less than 110 220 mL of pleural fluid came out in the chest tube 07/19/2017, patient seen eval examined during the rounds his cuff congestion shortness of breath slightly better patient has been on 4 L oxygen and terms to lower down the oxygen to 3 L has been unsuccessful he still have dry nonproductive cough but severity has improved today's chest x-ray reviewed and compared with the prior x-ray, the chest tube is being clamped we'll do a chest x-ray after one hour and then released the clamp and keep the chest tube on suction, discussed with nursing staff at length 07/18/2017, patient seen eval reexamined during on's care plan discussed with the patient at length patient remains on broad-spectrum antibiotics E a episode of congestion and difficulty breathing last night and resolved and improved patient remains on supplemental oxygen x-rays laboratory data and medications reviewed very is minimal a small apical pneumo thorax on the left side questionable may be present however lungs are fully well expanded pleural VAC shows another 100 mL of clear yellow pleural fluid no air leak has been noted plan is to DC the thoracic vent leave the left-sided chest tube in for now 07/17/2017, patient seen eval evaluated examined during the rounds clinically has been doing well in terms of breathing is still remains on 6 L oxygen shortness was stable some discomfort locally a chest tube site is present otherwise tolerating very well, chest x-ray from today reviewed there is more confluence and developing infiltrate in the right upper lobe is seen which has evolved in the last 24 hours patient does have cough unable to produce any sputum, pleural VAC. Revealed presence of very intermittent air leak about 100 mL of clear transparent pleural fluid has been noted Objective - Vital Signs Vital signs: Vital Signs Temp 97.6 F 07/27/17 11:43 Pulse 112 H 07/27/17 12:16 Resp 18 07/27/17 11:43 BP 162/99 07/27/17 11:43 Pulse Ox 98 07/27/17 11:43 Intake & Output 07/26/17 07/27/17 07/27/17 18:59 06:59 18:59 Intake Total 480 360 Balance 480 360 Weight 76 kg Intake: Oral 480 360 Other: Voiding Method Toilet Toilet # Voids 2 2 # Bowel Movements 1 - Exam GENERAL: The patient is alert and oriented x3, mild respiratory acute distress. Well developed, well nourished. HEENT: Pupils are round and equally reacting to light. EOMI. No scleral icterus. No conjunctival pallor. Normocephalic, atraumatic. No pharyngeal erythema. No thyromegaly. CARDIOVASCULAR: S1 and S2 present. No murmurs, rubs, or gallops. PULMONARY: Mildly diminished air entry into bilateral lung parker no wheezing or crackles were appreciated relatively improved bilateral air entry has been noted, ABDOMEN: Soft, nontender, nondistended, normoactive bowel sounds. No palpable organomegaly. MUSCULOSKELETAL: No joint swelling or deformity. EXTREMITIES: No cyanosis, clubbing, or pedal edema. NEUROLOGICAL: Gross neurological examination did not reveal any focal deficits. SKIN: Early rash on shoulder have been noted likely Tarceva related chronic rash - Labs CBC & Chem 7: 07/23/17 06:04 07/23/17 06:04 Assessment and Plan Assessment: Persistent the residual small left-sided pneumothorax status post VATS and pleurodesis Acute on chronic hypoxic respirator failure Right upper lobe pneumonia, left lower lobe pneumonia Large left-sided 50% pneumothorax with tension component with nonfunctioning Thoravent, status post left-sided 28-[place] chest tube with evacuation of pneumothorax, patient continued to manifest small left-sided pneumothorax after removal of chest tube, now status post left VATS procedure followed by chemical pleurodesis 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 Adenocarcinoma of the lung Leukocytosis likely related to stress response and Sirs-like process versus related to chronic use of steroids Plan: VATS and pleurodesis tolerated well Continue Bronchodilators in the form of nebulizer therapy Pulmicort Duo neb Monitor observe off of steroids Continue home medications including Tarceva Status post left-sided tube thoracostomy and chest tube placement will DC the thoracic went Patient can be latest on oral Augmentin can be discharged home later on today Time with Patient: Greater than 30
--- NOTE | 2017-07-27 14:32 | PN ---
PROGRESS NOTE DATE OF SERVICE: 07/27/2017. REASON FOR FOLLOWUP: Request for discharge antibiotic recommendation per discharging physician. INTERVAL HISTORY: The patient is afebrile. He has been breathing comfortably. Minimal cough, minimal chest pain though much improved from when he presented to the hospital. No nausea, no vomiting. No abdominal pain and no diarrhea. EXAMINATION: Blood pressure is 152/99 with a pulse of 112, temperature 97.6. He is 98% on room air. General description is a middle aged male up in the bed in no distress. RESPIRATORY SYSTEM: Unlabored breathing with decreased breath sounds in the base, no wheeze. HEART: S1, S2. Regular rate and rhythm. ABDOMEN: Soft, no tenderness. LABS: Hemoglobin 10.8, white count 4.4 with a BUN of 20, creatinine 0.80. No culture done on this admission. DIAGNOSTIC IMPRESSION AND PLAN: Patient admitted to the hospital and diagnosed with pneumothorax. The patient with underlying malignancy of the lung, status post chest tube x2 with pleurodesis. No cultures. Abnormal CT more likely representing underlying malignancy rather than infectious etiology as the patient has no fever and no elevated white count with this admission. There is a component of pneumonia. He received about 12 days of IV antibiotic and that should be more than enough. No need for antibiotic on discharge. Discussed with nurse practitioner for the admitting team as well as the patient's RN. TRINIDAD / TONYN: [id number] /
[2017-07-27 16:38] VITALS: PULSE 110
--- NOTE | 2017-07-27 20:53 | DS ---
DISCHARGE SUMMARY DATE OF SERVICE: 07/27/2017. FINAL DIAGNOSES: 1. Tension pneumothorax on the left side, status post Thoravent placement and talc pleurodesis. 2. Chronic obstructive pulmonary disease acute exacerbation with possible pneumonitis. 3. Lung cancer recently completed chemotherapy. 4. Pulmonary infiltrate, possibly related to Tarceva. DISCHARGE DISPOSITION: Patient is being discharged in stable condition with guarded prognosis. HISTORY OF PRESENT ILLNESS: This 51-year-old gentleman with a past medical history of multiple medical problems, tension pneumothorax, has multiple complex medical history, treated symptomatically. The patient had a thoravent insertion as well as talc pleurodesis. Chest tube removed and the patient improved significantly. Patient being discharged in stable condition with guarded prognosis. PHYSICAL EXAMINATION: On exam, vital signs are stable. Cardiovascular: S1, S2 muffled. Respiratory: A few scattered rhonchi. Breath sounds diminished in the left side. Abdomen: Soft. Nervous is no focal deficits. Total time taken 35 minutes. DISCHARGE ADVICE AND MEDICATIONS: 1. Diet is cardiac diet. 2. Activity limited until follow up. 3. Followup with Dr. Jimenes in 2-3 days. 4. Follow up with Dr. Menard, Dr. Cheung and Dr. Winston as recommended. MEDICATIONS ARE: 1. Symbicort 1-2 puffs b.i.d. 2. codieine phosphate q.i.d. p.r.n. 3. Tarceva 150 mg p.o. daily. 4. Folic acid 1 mg. 5. [place] 7.5 mg q.6h. 6. Hydrocortisone cream for local application. 7. Motrin 600 mg p.o. b.i.d. p.r.n. 8. DuoNeb q.i.d. and p.r.n. 9. Nystatin 5 mL q.i.d. 10.Omeprazole 20 mg. 11.Prednisone 20 mg p.o. 12.Steroid taper per Pulmonary. MMODL / IJN: [id number] / MTDD
== END 2017-07-27 19:45 | disposition home health service (06) | DRG 199 ==
LOC: EC 17:11 → 6SEL 19:08
PROVIDERS: ADMIT Internal Medicine; ATTEND Internal Medicine
PROC: 0W9B30Z Drainage of Left Pleural Cavity with Drainage Device, Percutaneous Approach (ICD-10-PCS; 2017-07-15)
PROC: 0W9B30Z Drainage of Left Pleural Cavity with Drainage Device, Percutaneous Approach (ICD-10-PCS; 2017-07-16)
PROC: 0WP8X0Z Removal of Drainage Device from Chest Wall, External Approach (ICD-10-PCS; 2017-07-18)
PROC: 0WPBX0Z Removal of Drainage Device from Left Pleural Cavity, External Approach (ICD-10-PCS; 2017-07-20)
PROC: 0W9B30Z Drainage of Left Pleural Cavity with Drainage Device, Percutaneous Approach (ICD-10-PCS; 2017-07-23)
PROC: 3E0L4GC Introduction of Other Therapeutic Substance into Pleural Cavity, Percutaneous Endoscopic Approach (ICD-10-PCS; principal; 2017-07-23 14:21)
DX: J93.0 Spontaneous tension pneumothorax (principal); J69.0 Pneumonitis due to inhalation of food and vomit; J96.21 Acute and chronic respiratory failure with hypoxia; J84.9 Interstitial pulmonary disease, unspecified; C34.91 Malignant neoplasm of unspecified part of right bronchus or lung; C34.92 Malignant neoplasm of unspecified part of left bronchus or lung; Z99.81 Dependence on supplemental oxygen; J93.82 Other air leak; K21.9 Gastro-esophageal reflux disease without esophagitis; R00.0 Tachycardia, unspecified; I10 Essential (primary) hypertension; Z66 Do not resuscitate; F41.9 Anxiety disorder, unspecified; F17.201 Nicotine dependence, unspecified, in remission; J43.9 Emphysema, unspecified; R53.1 Weakness; R91.8 Other nonspecific abnormal finding of lung field; T45.1X5A Adverse effect of antineoplastic and immunosuppressive drugs, initial encounter; Z71.6 Tobacco abuse counseling; Z91.040 Latex allergy status; Z79.899 Other long term (current) drug therapy; Z79.51 Long term (current) use of inhaled steroids; Z79.1 Long term (current) use of non-steroidal anti-inflammatories (NSAID); Z79.52 Long term (current) use of systemic steroids; Z82.5 Family history of asthma and other chronic lower respiratory diseases; Z90.89 Acquired absence of other organs; Z92.21 Personal history of antineoplastic chemotherapy
CPT/HCPCS: 32551; 36415; 71045; 71046; 71250; 80048; 80053; 82550; 82553; 83735; 84484; 85025; 85027; 85610; 85730; 86850; 86900; 86901; 93005; 94640; 94760; 96374; 99291

== ENCOUNTER → 2017-08-08 | Outpatient (CLI) | payer OTHER ==
--- NOTE | 2017-08-08 15:13 | XR ---
EXAMINATION TYPE: XR chest 2V DATE OF EXAM: 08/08/2017 COMPARISON: 07/27/2017 HISTORY: Known right lung carcinoma TECHNIQUE: Frontal and lateral views of the chest are obtained. FINDINGS: The probable residual less than 10% apical pneumothorax seen on prior exams persists with increasing density within, possibly related to fluid component. Prominence of the right hilum relates to the patient's known underlying carcinoma. Right upper lung more focal opacity may represent atele ctasis or early developing pneumonia. There is background COPD and suspicion for pulmonary fibrosis w ith coarsened interstitial lung markings throughout. Platelike left lower lung atelectasis is redemon strated. Cardiac silhouette is upper limits of normal. IMPRESSION: 1. Residual left apical pneumothorax appears similar in volume but has increasing density possibly re lated to accumulation of fluid (hydropneumothorax). 2. Increasing density within the right upper lung may represent early developing pneumonia or atelect asis. 3. Background emphysema, similar left basilar platelike atelectasis, and pulmonary fibrosis remain.
== END | disposition home or self-care (01) ==
LOC: RADXRMAIN 11:16
PROVIDERS: ATTEND Nurse Practitioner Adult Health
DX: C34.81 Malignant neoplasm of overlapping sites of right bronchus and lung (principal); J43.9 Emphysema, unspecified; J84.10 Pulmonary fibrosis, unspecified; R93.8 Abnormal findings on diagnostic imaging of other specified body structures
CPT/HCPCS: 71046

== ENCOUNTER → 2017-09-14 | Outpatient (CLI) | payer OTHER ==
--- NOTE | 2017-09-14 17:14 | XR ---
EXAMINATION TYPE: XR chest 2V DATE OF EXAM: 09/14/2017 COMPARISON: August 08, 2017 HISTORY: Left-sided chest pain TECHNIQUE: Frontal and lateral views of the chest are obtained. FINDINGS: There is extensive interstitial infiltrate in both lungs with coalescent density at the le ft lung base and elevated left diaphragm. Heart size is normal. Thoracic aorta is atheromatous. There is mild pleural thickening at the lung apices. There is slight blunting of costophrenic angles. IMPRESSION: Pulmonary moderate interstitial fibrosis and scarring. No adverse change compared to las t exam. No heart failure.
== END | disposition home or self-care (01) ==
LOC: RADXRMAIN 16:50
PROVIDERS: ATTEND Internal Medicine Hematology & Oncology
DX: C34.81 Malignant neoplasm of overlapping sites of right bronchus and lung (principal); J84.10 Pulmonary fibrosis, unspecified; J98.4 Other disorders of lung
CPT/HCPCS: 71046

== ENCOUNTER → 2018-01-28 | Outpatient (CLI) | payer OTHER ==
--- NOTE | 2018-01-28 15:42 | XR ---
EXAMINATION TYPE: XR hand limited RT DATE OF EXAM: 01/28/2018 CLINICAL HISTORY: pain TECHNIQUE: Frontal, lateral images of the right hand are obtained. COMPARISON: None. FINDINGS: There is no acute fracture/dislocation evident. The joint spaces appear within normal limi ts. The overlying soft tissue appears unremarkable. IMPRESSION: There is no acute fracture or dislocation ICD 10 NO FRACTURE, INITIAL EVALUATION
== END | disposition home or self-care (01) ==
LOC: RADXRYALE 15:20
PROVIDERS: ATTEND Internal Medicine
DX: M79.641 Pain in right hand (principal)

== ENCOUNTER → 2018-04-30 | Outpatient (CLI) | payer OTHER ==
--- NOTE | 2018-04-30 17:32 | ECHOF ---
Referral Reason:R00.1 Episodic Bradycardia, R00.00 Tachycardia MEASUREMENTS -------- HEIGHT: 182.9 cm WEIGHT: 73.5 kg BP: IVSd: 1.0 cm (0.6 - 1.1) LVIDd: 3.7 cm (3.9 - 5.3) LVPWd: 1.2 cm (0.6 - 1.1) IVSs: 1.3 cm LVIDs: 2.7 cm LVPWs: 1.3 cm LAESV Index (A-L): 19.06 ml/m Ao Diam: 4.5 cm (2.0 - 3.7) LA Diam: 1.6 cm (2.7 - 3.8) AV Cusp: 2.4 cm (1.5 - 2.6) MV E Josep: 0.73 m/s MV DecT: 311 ms MV A Josep: 0.94 m/s MV E/A Ratio: 0.78 RAP: 5.00 mmHg RVSP: 16.24 mmHg FINDINGS -------- Resting tachycardia (HR>100bpm). This was a technically good study. The left ventricular size is normal. Left ventricular wall thickness is normal. Overall left vent ricular systolic function is normal with, an EF between 55 - 60 %. The right ventricle is normal in size and function. Normal LA size by volume 22+/-6 ml/m2. The right atrium is normal in size. Aortic valve is trileaflet and is mildly thickened. Trace amount of aortic regurgitation. There is no evidence of aortic stenosis. The mitral valve leaflets are mildly thickened. There is trace to mild mitral regurgitation. Trace tricuspid regurgitation present. Right ventricular systolic pressure is normal at < 35 mmHg. There is no evidence of pulmonary hypertension. The pulmonic valve was not well visualized. The aortic root is mildy dilated up to 4.1 cm. Normal inferior vena cava with normal inspiratory collapse consistent with estimated right atrial pre ssure of 5 mmHg. There is no pericardial effusion. CONCLUSIONS -------- 1. Resting tachycardia (HR>100bpm). 2. This was a technically good study. 3. The left ventricular size is normal. 4. Left ventricular wall thickness is normal. 5. Overall left ventricular systolic function is normal with, an EF between 55 - 60 %. 6. Normal LA size by volume 22+/-6 ml/m2. 7. Aortic valve is trileaflet and is mildly thickened. 8. Trace amount of aortic regurgitation. 9. There is no evidence of aortic stenosis. 10. The mitral valve leaflets are mildly thickened. 11. There is trace to mild mitral regurgitation. 12. Trace tricuspid regurgitation present. 13. Right ventricular systolic pressure is normal at < 35 mmHg. 14. There is no evidence of pulmonary hypertension. 15. The pulmonic valve was not well visualized. 16. The aortic root is mildy dilated up to 4.1 cm. 17. There is no pericardial effusion. FUN HOUSE OPERATOR: Mike Richard RDCS
== END | disposition home or self-care (01) ==
LOC: RADECHMAIN 13:18
PROVIDERS: ATTEND Internal Medicine Hematology & Oncology
DX: I34.0 Nonrheumatic mitral (valve) insufficiency (principal); R00.0 Tachycardia, unspecified; I35.8 Other nonrheumatic aortic valve disorders; I77.819 Aortic ectasia, unspecified site
CPT/HCPCS: 93306

== ENCOUNTER → 2018-08-01 | Outpatient (CLI) | payer OTHER ==
--- NOTE | 2018-08-01 16:12 | XR ---
EXAMINATION TYPE: XR chest 2V DATE OF EXAM: 08/01/2018 COMPARISON: 02/20/2018 HISTORY: 53-year-old male with follow-up lung cancer TECHNIQUE: Frontal and lateral views FINDINGS: Heart normal size. Aorta within normal limits. Diffuse interstitial changes persist. Focal left basil ar opacity is unchanged, probably pleural parenchymal scarring. IMPRESSION: Diffuse interstitial changes persist. Correlate for possible underlying fibrosis or interstitial pneu monitis. No significant change seen.
== END | disposition home or self-care (01) ==
LOC: RADXRMAIN 12:35
PROVIDERS: ATTEND Nurse Practitioner Adult Health
DX: J84.9 Interstitial pulmonary disease, unspecified (principal); C34.90 Malignant neoplasm of unspecified part of unspecified bronchus or lung; C34.81 Malignant neoplasm of overlapping sites of right bronchus and lung; R19.7 Diarrhea, unspecified; Z99.81 Dependence on supplemental oxygen
CPT/HCPCS: 71046

== ENCOUNTER → 2018-09-16 | Outpatient (CLI) | payer OTHER ==
[2018-09-16 11:06] LABS: African American GFR (CKD) >90 (>60 ml/min/1.73 sqM); Blood Urea Nitrogen 18 mg/dL (9-20)
--- NOTE | 2018-09-18 09:00 | CT ---
EXAMINATION TYPE: CT chest w con DATE OF EXAM: 09/16/2018 COMPARISON: Prior chest CT 07/21/2017 HISTORY: Lung cancer CT DLP: 381 mGycm Automated exposure control for dose reduction was used. Helical acquisition through the chest CONTRAST: CT scan of the chest is performed with IV Contrast, patient injected with 100 ml mL of Isovue 300. FINDINGS: There are differences in technique. LUNGS: The lungs show a similar appearance with extensive interstitial changes, there is some improve ment in the pleural thickening and areas of consolidation in the upper lobes. There is a left upper l obe nodule on axial image 17 measuring approximately 6 mm with smooth margins, interval finding. Parminder tional smaller nodules in left upper lobe on coronal image 49, axial image 24 measures only 2 to 3 mm The pneumothorax has resolved on the left. There is extensive bleb formation as on prior. No endobro nchial lesion, pleural or pericardial effusion. Some minimal groundglass opacity in the right middle lobe. MEDIASTINUM: There are no greater than 1 cm hilar or mediastinal lymph nodes. No pericardial effusi on is seen. There is some mild coronary artery calcifications AORTA: Aorta is aneurysmal at 4.3 cm at the level of the root. OTHER: No additional significant abnormality is seen. IMPRESSION: 1 There are new pulmonary nodules in the left upper lobe. Interval resolution of patient 's left-sided pneumothorax. Some improvement in the consolidation seen in the upper lobes as describe dAdam
== END | disposition home or self-care (01) ==
LOC: RADCTMAIN 10:15
PROVIDERS: ATTEND Internal Medicine Hematology & Oncology
DX: C34.81 Malignant neoplasm of overlapping sites of right bronchus and lung (principal); R91.8 Other nonspecific abnormal finding of lung field
CPT/HCPCS: 82565; 84520; 71260; 36415; Q9967

== ENCOUNTER 2018-09-17 21:15 | Inpatient (IN) | payer OTHER ==
[2018-09-17] MEDS ORDERED: PANTOPRAZOLE 40 MG/10 ML VIAL IVP STA (22:37)
[2018-09-17] MEDS ORDERED: SODIUM CHLORIDE 0.9% 500 ML 500 ML IV STA (22:37)
[2018-09-17 23:28] LABS: ALT 23 U/L (21-72); AST 30 U/L (17-59); African American GFR (CKD) >90 (>60 ml/min/1.73 sqM); Albumin 2.8 g/dL (3.5-5.0); Alkaline Phosphatase 31 U/L (38-126); Anion Gap 5 mmol/L; Blood Urea Nitrogen 12 mg/dL (9-20); Calcium 8.3 mg/dL (8.4-10.2); Carbon Dioxide 23 mmol/L (22-30); Chloride 107 mmol/L (98-107); Glucose 77 mg/dL (74-99); Potassium 4.2 mmol/L (3.5-5.1); Sodium 135 mmol/L (137-145); Total Bilirubin 0.2 mg/dL (0.2-1.3); Total Protein 4.8 g/dL (6.3-8.2)
--- NOTE | 2018-09-17 23:49 | ED ---
General Adult HPI - General Source: patient Mode of arrival: ambulatory Limitations: no limitations <Candelaria Durham - Last Filed: 09/18/18 00:26> <Lam Joshi - Last Filed: 09/25/18 12:02> - General Chief complaint: GI Bleed Stated complaint: Sent by Dr-suspected intestinal bleeding Time Seen by Provider: 09/17/18 21:56 - History of Present Illness Initial comments: 53-year-old male patient with history significant for lung cancer and current treatment with chemotherapy presents to the emergency department today for evaluation of dark tarry stool. Patient states that he has been having lack stools for the last 2 weeks. Patient states that over the last week he has been having increasing shortness of breath, fatigue, and racing heart with activity. Patient states he was in to see his oncologist today who requested he presented to the emergency department for further evaluation of possible GI bleed. Patient states he has been having some mild discomfort on the periumbilical region. States his been having 1-2 loose black stools per day. Denies any history of GI bleed. Denies any consistent use of NSAIDs or aspirin. Denies any symptoms of reflux or heartburn. Patient denies any recent rash, fever, chills, shortness breath, chest pain, abdominal pain, nausea, vomiting, diarrhea, constipation, back pain, numbness, tingling, dizziness, weakness, hematuria, dysuria, urinary urgency, urinary frequency, headache, visual changes, or any other complaints. (Candelaria Durham) - Related Data Home Medications Medication Instructions Recorded Confirmed predniSONE 20 mg PO HS 03/26/17 09/17/18 Codeine Phosphate/Guaifenesin 5 ml PO QID PRN 07/15/17 09/17/18 [Cheratussin AC Syrup] Erlotinib HCl [Tarceva] 150 mg PO HS 07/15/17 09/17/18 Folic Acid 1 mg PO HS 07/15/17 09/17/18 Nystatin 100,000 Unit/ml Susp 4 ml PO QID 07/15/17 09/17/18 [Mycostatin Oral Susp] Cholestyramine (with Sugar) 4 gm PO HS 09/17/18 09/17/18 [Questran Packet] Clindamycin Topical Soln 1 applic TOPICAL BID 09/17/18 09/17/18 [Cleocin-T Topical Soln] Clotrimazole 10 mg MUCOUS MEM QID 09/17/18 09/17/18 Cools Solution 5 ml PO QID 09/17/18 09/17/18 Diphenox-Atrop 2.5-0.025 mg 1 - 2 tab PO QID PRN 09/17/18 09/17/18 [Lomotil] Dronabinol [Marinol] 5 mg PO HS 09/17/18 09/17/18 Fluconazole [Diflucan] 100 mg PO HS 09/17/18 09/17/18 HYDROcodone/APAP 10-325MG [[place] 1 tab PO Q6HR PRN 09/17/18 09/17/18 10-325] Ondansetron HCl [Zofran] 4 mg PO Q12H PRN 09/17/18 09/17/18 amLODIPine [Norvasc] 2.5 mg PO HS 09/17/18 09/17/18 valACYclovir HCL [Valtrex] 1,000 mg PO BID 09/17/18 09/17/18 Previous Rx's Medication Instructions Recorded Pantoprazole Sodium [Protonix] 40 mg PO BID #60 tablet. 09/20/18 Allergies Allergy/AdvReac Type Severity Reaction Status Date / Time latex Allergy itching Verified 09/17/18 21:34 eyes Review of Systems ROS Other: All systems not noted in ROS Statement are negative. <Candelaria Durham - Last Filed: 09/18/18 00:26> ROS Other: All systems not noted in ROS Statement are negative. <Lam Joshi - Last Filed: 09/25/18 12:02> ROS Statement: Those systems with pertinent positive or pertinent negative responses have been documented in the HPI. Past Medical History Past Medical History: Cancer, GERD/Reflux, Hypertension Additional Past Medical History / Comment(s): Adenocarcinoma of the lung; home oxygen use @2 L [place] ATC,increased SOB, sinus tachycardia (states resting heart rate is 125 -130),does not take anything for heart rate or b/p, takes prednisone 20 mg by mouth daily at home. History of Any Multi-Drug Resistant Organisms: None Reported Past Surgical History: Adenoidectomy, Tonsillectomy Additional Past Surgical History / Comment(s): History of bronchoscopy. Past Anesthesia/Blood Transfusion Reactions: No Reported Reaction Past Psychological History: No Psychological Hx Reported Smoking Status: Former smoker Past Alcohol Use History: None Reported Past Drug Use History: None Reported - Past Family History Mother Family Medical History: COPD <Candelaria Durham - Last Filed: 09/18/18 00:26> General Exam Limitations: no limitations Eye exam: Present: normal appearance, PERRL, EOMI. Absent: scleral icterus, conjunctival injection, periorbital swelling ENT exam: Present: normal exam, normal oropharynx, mucous membranes moist Respiratory exam: Present: normal lung sounds bilaterally. Absent: respiratory distress, wheezes, rales, rhonchi, stridor Cardiovascular Exam: Present: regular rate, normal rhythm, normal heart sounds. Absent: systolic murmur, diastolic murmur, rubs, gallop, clicks GI/Abdominal exam: Present: soft, normal bowel sounds. Absent: distended, tenderness, guarding, rebound, rigid Neurological exam: Present: alert, oriented X3, CN II-XII intact Psychiatric exam: Present: normal affect, normal mood Skin exam: Present: warm, dry, intact, normal color. Absent: rash <Candelaria Durham - Last Filed: 09/18/18 00:26> Course Vital Signs 09/17/18 09/18/18 09/18/18 21:17 00:46 00:49 Temperature 98.4 F 98 F 97.6 F Pulse Rate 110 H 104 H 100 Respiratory 18 20 20 Rate Blood Pressure 143/83 126/79 118/82 O2 Sat by Pulse 99 98 98 Oximetry 09/18/18 09/18/18 09/18/18 00:59 01:18 01:29 Temperature 97.4 F L 97.6 F Pulse Rate 101 H 96 Respiratory 18 18 Rate Blood Pressure 122/83 119/80 O2 Sat by Pulse 100 99 100 Oximetry EKG Findings - EKG Comments: EKG Findings:: EKG obtained at 2255 shows sinus rhythm with PACs. Ventricular rate is 93, DC interval 132, QRS duration 76, QT 356, QTc 442. No evidence of ST elevation or depression. <Candelaria Durham - Last Filed: 09/18/18 00:26> Medical Decision Making - Lab Data Result diagrams: 09/17/18 23:30 09/17/18 23:00 <Candelaria Durham - Last Filed: 09/18/18 00:26> - Lab Data Result diagrams: 09/20/18 08:42 09/20/18 08:42 <Lam Joshi - Last Filed: 09/25/18 12:02> - Medical Decision Making 53-year-old male patient with past medical history significant for lung cancer currently receiving oral chemotherapy presents to the emergency department today for evaluation of dark tarry stools. Patient states his been going on for the last 2 weeks. Over the last week he has become increasingly short of breath, fatigued, and has had racing heart with activity. Abdomen is soft and nontender. Labs reviewed and did reveal hemoglobin of 5.4, hematocrit 17. Stools positive for occult blood. We will transfuse 2 units packed red blood cells. He'll be admitted to the hospital we'll consult GI. We did start Protonix. (Candelaria Durham) I saw this patient in conjunction with the physician assistant district attorney. I performed independent history and physical exam. Agree with case management. (Lam Joshi) - Lab Data Lab Results 09/17/18 09/17/18 09/17/18 Range/Units 23:00 23:00 23:00 WBC (3.8-10.6) k/uL RBC (4.30-5.90) m/uL Hgb (13.0-17.5) gm/dL Hct (39.0-53.0) % MCV (80.0-100.0) fL MCH (25.0-35.0) pg MCHC (31.0-37.0) g/dL RDW (11.5-15.5) % Plt Count (150-450) k/uL Neutrophils % % Lymphocytes % % Monocytes % % Eosinophils % % Basophils % % Neutrophils # (1.3-7.7) k/uL Lymphocytes # (1.0-4.8) k/uL Monocytes # (0-1.0) k/uL Eosinophils # (0-0.7) k/uL Basophils # (0-0.2) k/uL Hypochromasia Poikilocytosis Anisocytosis Macrocytosis PT (9.0-12.0) sec INR (<1.2) APTT (22.0-30.0) sec Sodium 135 L (137-145) mmol/L Potassium 4.2 (3.5-5.1) mmol/L Chloride 107 (98-107) mmol/L Carbon Dioxide 23 (22-30) mmol/L Anion Gap 5 mmol/L BUN 12 (9-20) mg/dL Creatinine 0.87 (0.66-1.25) mg/dL Est GFR (CKD-EPI)AfAm >90 (>60 ml/min/1.73 sqM) Est GFR (CKD-EPI)NonAf >90 (>60 ml/min/1.73 sqM) Glucose 77 (74-99) mg/dL Calcium 8.3 L (8.4-10.2) mg/dL Total Bilirubin 0.2 (0.2-1.3) mg/dL AST 30 (17-59) U/L ALT 23 (21-72) U/L Alkaline Phosphatase 31 L (38-126) U/L Troponin I <0.012 (0.000-0.034) ng/mL Total Protein 4.8 L (6.3-8.2) g/dL Albumin 2.8 L (3.5-5.0) g/dL Stool Occult Blood Positive (Negative) Blood Type Blood Type Recheck Antibody Screen Crossmatch Spec Expiration Date 09/17/18 09/17/18 09/18/18 Range/Units 23:25 23:30 00:15 WBC 5.0 (3.8-10.6) k/uL RBC 1.60 L (4.30-5.90) m/uL Hgb 5.4 L* (13.0-17.5) gm/dL Hct 17.0 L* (39.0-53.0) % MCV 106.2 H (80.0-100.0) fL MCH 33.7 (25.0-35.0) pg MCHC 31.8 (31.0-37.0) g/dL RDW 16.5 H (11.5-15.5) % Plt Count 280 (150-450) k/uL Neutrophils % 67 % Lymphocytes % 19 % Monocytes % 8 % Eosinophils % 3 % Basophils % 0 % Neutrophils # 3.4 (1.3-7.7) k/uL Lymphocytes # 0.9 L (1.0-4.8) k/uL Monocytes # 0.4 (0-1.0) k/uL Eosinophils # 0.2 (0-0.7) k/uL Basophils # 0.0 (0-0.2) k/uL Hypochromasia Moderate Poikilocytosis Slight Anisocytosis Slight Macrocytosis Moderate PT 10.5 (9.0-12.0) sec INR 1.0 (<1.2) APTT 23.3 (22.0-30.0) sec Sodium (137-145) mmol/L Potassium (3.5-5.1) mmol/L Chloride (98-107) mmol/L Carbon Dioxide (22-30) mmol/L Anion Gap mmol/L BUN (9-20) mg/dL Creatinine (0.66-1.25) mg/dL Est GFR (CKD-EPI)AfAm (>60 ml/min/1.73 sqM) Est GFR (CKD-EPI)NonAf (>60 ml/min/1.73 sqM) Glucose (74-99) mg/dL Calcium (8.4-10.2) mg/dL Total Bilirubin (0.2-1.3) mg/dL AST (17-59) U/L ALT (21-72) U/L Alkaline Phosphatase (38-126) U/L Troponin I (0.000-0.034) ng/mL Total Protein (6.3-8.2) g/dL Albumin (3.5-5.0) g/dL Stool Occult Blood (Negative) Blood Type A Positive Blood Type Recheck No Antibody Screen NEGATIVE Crossmatch See Detail Spec Expiration Date 09/20/2018 3077 Disposition Decision to Admit Reason: Admit from EC Decision Date: 09/18/18 Decision Time: 00:28 <Candelaria Durham - Last Filed: 09/18/18 00:26> <Lam Joshi - Last Filed: 09/25/18 12:02> Clinical Impression: Upper GI bleed, Symptomatic anemia Disposition: ADMITTED IP TO THIS [facility] Condition: Serious
[2018-09-17 23:54] LABS: Anisocytosis Slight; Basophils % (A) 0 %; Eosinophils # (A) 0.2 k/uL (0-0.7); Eosinophils % (A) 3 %; Hypochromasia Moderate; Lymphocytes # (A) 0.9 k/uL (1.0-4.8); Lymphocytes % (A) 19 %; MCH 33.7 pg (25.0-35.0); MCHC 31.8 g/dL (31.0-37.0); MCV 106.2 fL (80.0-100.0); Macrocytosis Moderate; Mean Platelet Volume 6.9; Monocytes # (A) 0.4 k/uL (0-1.0); Monocytes % (A) 8 %; Neutrophils # (A) 3.4 k/uL (1.3-7.7); Neutrophils % (A) 67 %; Platelet Count 280 k/uL (150-450); Poikilocytosis Slight; RDW 16.5 % (11.5-15.5)
[2018-09-18 00:01] LABS: HGB 5.4 gm/dL (13.0-17.5)
[2018-09-18] MEDS ORDERED: ONDANSETRON 4 MG/2 ML VIAL IVP STA (00:24)
[2018-09-18] MEDS ORDERED: NALOXONE 0.4 MG/ML 1 ML VIAL IV PRN (00:29)
[2018-09-18 01:00] LABS: Partial Thromboplastin Time 23.3 sec (22.0-30.0); Prothrombin Time 10.5 sec (9.0-12.0)
[2018-09-18 02:13] LABS: Glucose,Whole Blood 80 mg/dL (75-99)
[2018-09-18 03:40] VITALS: BMI 21.0
[2018-09-18] MEDS ORDERED: ONDANSETRON 4 MG TAB PO PRN (07:47)
[2018-09-18] MEDS ORDERED: IPRATROPIUM-ALBUTEROL 3 ML NEB INHALATION PRN ×2 (07:49→11:42)
--- NOTE | 2018-09-18 07:51 | P.HPIM ---
History of Present Illness This is a pleasant 52 years old male with past medical history of GERD, hypertension, severe COPD, stage IV lung cancer on home oxygen at 2 L nasal cannula. History of tension pneumothorax on the left side and right upper lobe pneumonia Also he is on steroid dependent on 10 mg of prednisone daily , now he presents with tarry black stool of one week duration associated with mid abdomen pain across the umbilicus, nonspecific, about 6-7/10 in severity for 2 weeks. With no associated nausea vomiting. No fresh blood in stool. Patient also feels generally weak. He has occasional cough. No chest pain or dyspnea. No change in urine or bowel habits. No fever Patient follow-up with Dr. Cheung and oncology team for his history of lung cancer and COPD and he was asking to see his doctors while in-house. Patient denies smoking or alcohol or illicit tracts Patient is hemodynamically stable with a blood pressure 121/78, heart rate 84. On admission he has low hemoglobin at 5.4, compared to baseline of around 10. Platelets normal at 280, normal WBC. Normal INR is 1.0. Unremarkable BMP and liver enzymes. Troponins are negative. Positive occult blood in his stool. EKG showing normal sinus rhythm at 93 BPM with no significant ST-T changes In the emergency room patient received symptomatic treatment with Protonix and IV fluids and he got transfused with 1 unit of blood. Review of Systems CONSTITUTIONAL: No fever, no malaise, no fatigue. HEENT: No recent visual problems or hearing problems. Denied any sore throat. CARDIOVASCULAR: No orthopnea, PND, no palpitations, no syncope. PULMONARY: No shortness of breath, no cough, no hemoptysis. GASTROINTESTINAL:. Normoactive bowel sounds. NEUROLOGICAL: No headaches, no weakness, no numbness. HEMATOLOGICAL: Denies any bleeding or petechiae. GENITOURINARY: Denies any burning micturition, frequency, or urgency. MUSCULOSKELETAL/RHEUMATOLOGICAL: Denies any joint pain, swelling, or any muscle pain. ENDOCRINE: Denies any polyuria or polydipsia. Past Medical History Past Medical History: Cancer, GERD/Reflux, Hypertension Additional Past Medical History / Comment(s): Adenocarcinoma of the lung; home oxygen use @2 L [place] ATC,increased SOB, sinus tachycardia (states resting heart rate is 125 -130),does not take anything for heart rate or b/p, takes prednisone 20 mg by mouth daily at home. History of Any Multi-Drug Resistant Organisms: None Reported Past Surgical History: Adenoidectomy, Tonsillectomy Additional Past Surgical History / Comment(s): History of bronchoscopy. Past Anesthesia/Blood Transfusion Reactions: No Reported Reaction Past Psychological History: No Psychological Hx Reported Smoking Status: Former smoker Past Alcohol Use History: None Reported Additional Past Alcohol Use History / Comment(s): quit smoking 2013,smoked approx on and off since age 27,1ppd Past Drug Use History: None Reported - Past Family History Mother Family Medical History: COPD Medications and Allergies Home Medications Medication Instructions Recorded Confirmed Type predniSONE 20 mg PO HS 03/26/17 09/17/18 History Codeine Phosphate/Guaifenesin 5 ml PO QID PRN 07/15/17 09/17/18 History [Cheratussin AC Syrup] Erlotinib HCl [Tarceva] 150 mg PO HS 07/15/17 09/17/18 History Folic Acid 1 mg PO HS 07/15/17 09/17/18 History Nystatin 100,000 Unit/ml Susp 4 ml PO QID 07/15/17 09/17/18 History [Mycostatin Oral Susp] Cholestyramine (with Sugar) 4 gm PO HS 09/17/18 09/17/18 History [Questran] Clindamycin Topical Soln 1 applic TOPICAL BID 09/17/18 09/17/18 History [Cleocin-T Topical Soln] Clotrimazole 10 mg MUCOUS MEM QID 09/17/18 09/17/18 History Cools Solution 5 ml PO QID 09/17/18 09/17/18 History Diphenox-Atrop 2.5-0.025 mg 1 - 2 tab PO QID PRN 09/17/18 09/17/18 History [Lomotil] Dronabinol [Marinol] 5 mg PO HS 09/17/18 09/17/18 History Fluconazole [Diflucan] 100 mg PO HS 09/17/18 09/17/18 History HYDROcodone/APAP 10-325MG [[place] 1 tab PO Q6HR PRN 09/17/18 09/17/18 History 10-325] Ondansetron HCl [Zofran] 4 mg PO Q12H PRN 09/17/18 09/17/18 History amLODIPine [Norvasc] 2.5 mg PO HS 09/17/18 09/17/18 History valACYclovir HCL [Valtrex] 1,000 mg PO BID 09/17/18 09/17/18 History Allergies Allergy/AdvReac Type Severity Reaction Status Date / Time latex Allergy itching Verified 09/17/18 21:34 eyes Physical Exam Vitals: Vital Signs Temp Pulse Pulse Resp BP BP Pulse Ox 09/18/18 06:30 84 121/78 100 09/18/18 06:00 87 111/73 99 09/18/18 05:30 90 106/46 100 09/18/18 05:00 98.8 F 95 12 121/82 100 09/18/18 04:30 98.9 F 89 83 18 134/87 134/87 97 09/18/18 04:19 97.8 F 90 18 129/74 98 09/18/18 04:00 88 19 121/82 90 L 09/18/18 03:30 98.1 F 90 18 121/82 93 L 09/18/18 03:18 98 F 91 18 120/82 98 09/18/18 01:29 97.6 F 96 18 119/80 100 09/18/18 01:18 99 09/18/18 00:59 97.4 F L 101 H 18 122/83 100 09/18/18 00:49 97.6 F 100 20 118/82 98 09/18/18 00:46 98 F 104 H 20 126/79 98 09/17/18 21:17 98.4 F 110 H 18 143/83 99 Intake and Output 09/17/18 09/18/18 09/18/18 22:59 06:59 14:59 Intake Total 910 Balance 910 Intake: Blood Product 910 As-1 Unit 310 [id number] As-1 Unit 0 [id number] Other: # Voids 3 # Bowel Movements 1 Weight 71.668 kg 70.5 kg GENERAL: The patient is alert and oriented x3, not in any acute distress. Well developed, well nourished. HEENT: Pupils are round and equally reacting to light. EOMI. No scleral icterus. No conjunctival pallor. Normocephalic, atraumatic. No pharyngeal erythema. No thyromegaly. CARDIOVASCULAR: S1 and S2 present. No murmurs, rubs, or gallops. PULMONARY: Chest is clear to auscultation, no wheezing or crackles. ABDOMEN: Soft, nontender, nondistended, normoactive bowel sounds. No palpable organomegaly. MUSCULOSKELETAL: No joint swelling or deformity. EXTREMITIES: No cyanosis, clubbing, or pedal edema. NEUROLOGICAL: Gross neurological examination did not reveal any focal deficits. SKIN: No rashes. Results CBC & Chem 7: 09/17/18 23:30 09/17/18 23:00 Labs: Abnormal Lab Results - Last 24 Hours (Table) 09/17/18 09/17/18 09/17/18 Range/Units 23:00 23:25 23:30 RBC 1.60 L (4.30-5.90) m/uL Hgb 5.4 L* (13.0-17.5) gm/dL Hct 17.0 L* (39.0-53.0) % MCV 106.2 H (80.0-100.0) fL RDW 16.5 H (11.5-15.5) % Lymphocytes # 0.9 L (1.0-4.8) k/uL Sodium 135 L (137-145) mmol/L Calcium 8.3 L (8.4-10.2) mg/dL Alkaline Phosphatase 31 L (38-126) U/L Total Protein 4.8 L (6.3-8.2) g/dL Albumin 2.8 L (3.5-5.0) g/dL Crossmatch See Detail Thrombosis Risk Factor Assmnt - Choose All That Apply Any of the Below Risk Factors Present?: Yes Each Factor Represents 1 point: Age 41-60 years Thrombosis Risk Factor Assessment Total Risk Factor Score: 1 Thrombosis Risk Factor Assessment Level: Low Risk Assessment and Plan Assessment: Acute gastrointestinal bleeding Acute blood loss anemia secondary to above History of stage IV lung cancer History of severe COPD, not in acute exacerbation. Oxygen and steroid dependent Chronic hypoxic respiratory failure Hypertension History of GERD Plan: This is a pleasant 53 years old male who presents with GI bleed. Continue with Protonix and IV fluids as needed. Transfuse blood to keep hemoglobin more than 7. Call gastroenterology for consult. Monitor hemoglobin. Patient has been asking to see his wire inserter and oncologist while in-house were consulted. Continue with pain management. Patient on his prednisone 10 mg daily, I instructed patient to lower prednisone dose and he refused. Risks and benefits are explained Labs and medication were reviewed.. Continue same treatment. Continue with symptomatic treatment. Resume home medication. Monitor lytes and vitals. DVT and GI prophylaxis. Further recommendations of the clinical course of the patient DVT prophylaxis: No heparin in view of GI bleed, S CD GI Prophylaxis: Protonix Prognosis is guarded
[2018-09-18] MEDS: valACYclovir HCL 1,000 MG TABLET PO SCH ×2 (08:25→20:32)
[2018-09-18] MEDS: HYDROcodone/APAP 10-325MG 1 EACH TAB PO PRN ×3 (08:33→20:53)
[2018-09-18] MEDS: CLOTRIMAZOLE TROCHE 10 MG TROCHE MUCOUS MEM SCH ×4 (08:40→20:33)
[2018-09-18 09:00] LABS: Anisocytosis Slight; Basophils % (A) 0 %; Eosinophils # (A) 0.1 k/uL (0-0.7); Eosinophils % (A) 2 %; HCT 25.4 % (39.0-53.0); Hypochromasia Moderate; Lymphocytes # (A) 1.1 k/uL (1.0-4.8); Lymphocytes % (A) 19 %; MCH 31.6 pg (25.0-35.0); MCHC 31.3 g/dL (31.0-37.0); Macrocytosis Moderate; Mean Platelet Volume 7.3; Monocytes # (A) 0.5 k/uL (0-1.0); Monocytes % (A) 8 %; Neutrophils # (A) 3.7 k/uL (1.3-7.7); Neutrophils % (A) 67 %; Platelet Count 259 k/uL (150-450); Poikilocytosis Slight; RBC 2.51 m/uL (4.30-5.90); RDW 18.9 % (11.5-15.5); WBC 5.5 k/uL (3.8-10.6)
[2018-09-18] MEDS ORDERED: PANTOPRAZOLE 40 MG/10 ML VIAL IV SCH (09:00)
[2018-09-18 09:04] LABS: HGB 7.9 gm/dL (13.0-17.5)
[2018-09-18] MEDS: NYSTATIN 100,000 UNIT/ML SUSP 500,000 UNIT/5 ML CUP PO SCH ×4 (09:48→20:34)
[2018-09-18] MEDS: NON-FORMULARY DRUG (Clindamycin Topical Soln 1 APPLIC) TOPICAL SCH ×2 (10:26→20:35)
--- NOTE | 2018-09-18 11:48 | P.CONS ---
History of Present Illness - Reason for Consult Consult date: 09/18/18 GI bleed Requesting physician: Tommy Fair - Chief Complaint Melena - History of Present Illness 53-year-old gentleman history of pneumothorax, GERD, lung adenocarcinoma 2017 currently receiving oral chemotherapy O2 dependent 2 L, remote nicotine cigarette dependency, presented with melena 2 weeks 1-2 episodes daily with increased shortness of breath palpitations. Denies Alcohol aspirin. Patient's been taking 160 mg tablet of Motrin on a nightly basis for quite some time. He is also been on steroids for more than a year. Denies gross hematemesis, hematemesis or hematochezia. Colonoscopy 1 month ago at [facility] reported as normal. No history of GI bleed or EGD. Admission hemoglobin 5.4 presently 7.9. MCV 101. Platelet 259. INR 1.0. BUN 12. Creatinine 0.8. FOBT positive. Received 1 unit of blood and with one transfusing. Patient is still passing active black colored bowel movements 2 this morning. Previous hemoglobin 10.8 2 months ago. DT chest new pulmonary nodules in the left upper lobe. Review of Systems Constitutional: Denies fever, chills, sweats, weight gain, or loss. HEENT: Negative for migraines, blurred vision or loss, earaches, drainage, tinnitus, oral mucosal lesions, dysphagia, or odynophagia. Cardiac: Negative for chest pain, arrhythmias, positive for. Respiratory: Positive for shortness of breath denies of breath, hemoptysis, cough, or sputum production. Gastrointestinal: See HPI for pertinent findings. Genitourinary: Negative for hematuria, urgency, frequency, polyuria, dysuria, or penile discharge. Musculoskeletal: Negative for muscle aches, swelling, arthritis, and arth ralgias. Neurologic: Negative for stroke or TIA. Endocrine: Negative for thyroid problems. Skin: Negative for rash or itching. Psychiatric: Negative history for depression and anxiety Past Medical History Past Medical History: Cancer, GERD/Reflux, Hypertension Additional Past Medical History / Comment(s): Adenocarcinoma of the lung; home oxygen use @2 L NC ATC,increased SOB, sinus tachycardia (states resting heart ra te is 125 -130),does not take anything for heart rate or b/p, takes prednisone 20 mg by mouth daily at home. History of Any Multi-Drug Resistant Organisms: None Reported Past Surgical History: Adenoidectomy, Tonsillectomy Additional Past Surgical History / Comment(s): History of bronchoscopy. Past Anesthesia/Blood Transfusion Reactions: No Reported Reaction Past Psychological History: No Psychological Hx Reported Smoking Status: Former smoker Past Alcohol Use History: None Reported Additional Past Alcohol Use History / Comment(s): quit smoking 2013,smoked approx on and off since age 27,1ppd Past Drug Use History: None Reported - Past Family History Mother Family Medical History: COPD Medications and Allergies Home Medications Medication Instructions Recorded Confirmed Type predniSONE 20 mg PO HS 03/26/17 09/17/18 History Codeine Phosphate/Guaifenesin 5 ml PO QID PRN 07/15/17 09/17/18 History [Cheratussin AC Syrup] Erlotinib HCl [Tarceva] 150 mg PO HS 07/15/17 09/17/18 History Folic Acid 1 mg PO HS 07/15/17 09/17/18 History Nystatin 100,000 Unit/ml Susp 4 ml PO QID 07/15/17 09/17/18 History [Mycostatin Oral Susp] Cholestyramine (with Sugar) 4 gm PO HS 09/17/18 09/17/18 History [Questran] Clindamycin Topical Soln 1 applic TOPICAL BID 09/17/18 09/17/18 History [Cleocin-T Topical Soln] Clotrimazole 10 mg MUCOUS MEM QID 09/17/18 09/17/18 History Cools Solution 5 ml PO QID 09/17/18 09/17/18 History Diphenox-Atrop 2.5-0.025 mg 1 - 2 tab PO QID PRN 09/17/18 09/17/18 History [Lomotil] Dronabinol [Marinol] 5 mg PO HS 09/17/18 09/17/18 History Fluconazole [Diflucan] 100 mg PO HS 09/17/18 09/17/18 History HYDROcodone/APAP 10-325MG [[place] 1 tab PO Q6HR PRN 09/17/18 09/17/18 History 10-325] Ondansetron HCl [Zofran] 4 mg PO Q12H PRN 09/17/18 09/17/18 History amLODIPine [Norvasc] 2.5 mg PO HS 09/17/18 09/17/18 History valACYclovir HCL [Valtrex] 1,000 mg PO BID 09/17/18 09/17/18 History Allergies Allergy/AdvReac Type Severity Reaction Status Date / Time latex Allergy itching Verified 09/17/18 21:34 eyes Physical Exam Vitals: Vital Signs Temp Pulse Pulse Resp BP BP Pulse Ox 09/18/18 10:00 94 18 117/78 100 09/18/18 08:50 90 09/18/18 08:38 90 09/18/18 08:00 98.8 F 92 16 117/78 100 09/18/18 06:30 84 121/78 100 09/18/18 06:00 87 111/73 99 09/18/18 05:30 90 106/46 100 09/18/18 05:00 98.8 F 95 12 121/82 100 09/18/18 04:30 98.9 F 89 83 18 134/87 134/87 97 09/18/18 04:19 97.8 F 90 18 129/74 98 09/18/18 04:00 88 19 121/82 90 L 09/18/18 03:30 98.1 F 90 18 121/82 93 L 09/18/18 03:18 98 F 91 18 120/82 98 09/18/18 01:29 97.6 F 96 18 119/80 100 09/18/18 01:18 99 09/18/18 00:59 97.4 F L 101 H 18 122/83 100 09/18/18 00:49 97.6 F 100 20 118/82 98 09/18/18 00:46 98 F 104 H 20 126/79 98 09/17/18 21:17 98.4 F 110 H 18 143/83 99 Intake and Output 09/17/18 09/18/18 09/18/18 22:59 06:59 14:59 Intake Total 910 Balance 910 Intake: Blood Product 910 Rc As-1 Unit 310 [id number] Rc As-1 Unit 0 [id number] Other: # Voids 3 # Bowel Movements 1 Weight 71.668 kg 70.5 kg General appearance: The patient is alert, oriented, in no acute distress. HET: Head is normocephalic and atraumatic. Pupils are equal and reactive. Oropharynx is clear without lesions. Neck: Supple without lymphadenopathy. Trachea midline. Heart: S1 S2. Regular rate and rhythm. Lungs: No crackles or wheezes are heard. Abdomen: Soft, nontender, nondistended with bowel sounds. No peritoneal signs. No palpable organomegaly or masses. Extremities: Normal skin color and turgor. No cyanosis, rash, ulceration, clubbing, or edema. Radial and pedal pulses are 2/4 bilaterally. Neurological: No focal deficits. Strength and sensation are grossly intact. Results CBC & Chem 7: 09/18/18 08:25 09/17/18 23:00 Labs: Abnormal Lab Results - Last 24 Hours (Table) 09/17/18 09/17/18 09/17/18 Range/Units 23:00 23:25 23:30 RBC 1.60 L (4.30-5.90) m/uL Hgb 5.4 L* (13.0-17.5) gm/dL Hct 17.0 L* (39.0-53.0) % MCV 106.2 H (80.0-100.0) fL RDW 16.5 H (11.5-15.5) % Lymphocytes # 0.9 L (1.0-4.8) k/uL Sodium 135 L (137-145) mmol/L Calcium 8.3 L (8.4-10.2) mg/dL Alkaline Phosphatase 31 L (38-126) U/L Total Protein 4.8 L (6.3-8.2) g/dL Albumin 2.8 L (3.5-5.0) g/dL Crossmatch See Detail 09/18/18 Range/Units 08:25 RBC 2.51 L (4.30-5.90) m/uL Hgb 7.9 L D (13.0-17.5) gm/dL Hct 25.4 L (39.0-53.0) % MCV 101.0 H D (80.0-100.0) fL RDW 18.9 H (11.5-15.5) % Lymphocytes # (1.0-4.8) k/uL Sodium (137-145) mmol/L Calcium (8.4-10.2) mg/dL Alkaline Phosphatase (38-126) U/L Total Protein (6.3-8.2) g/dL Albumin (3.5-5.0) g/dL Crossmatch CT scan - chest: report reviewed (Dr. Walls) Assessment and Plan (1) Acute GI bleeding Current Visit: Yes Status: Acute Code(s): K92.2 - GASTROINTESTINAL HEMORRHAGE, UNSPECIFIED SNOMED Code(s): 10922162 (2) Melena Current Visit: Yes Status: Acute Code(s): K92.1 - MELENA SNOMED Code(s): 0901450 (3) Acute blood loss anemia Current Visit: Yes Status: Acute Code(s): D62 - ACUTE POSTHEMORRHAGIC ANEMIA SNOMED Code(s): 608344488 (4) Symptomatic anemia Current Visit: Yes Status: Acute Code(s): D64.9 - ANEMIA, UNSPECIFIED SNOMED Code(s): 742198855 (5) Adenocarcinoma of lung Current Visit: No Status: Chronic Code(s): C34.90 - MALIGNANT NEOPLASM OF UNSP PART OF UNSP BRONCHUS OR LUNG SNOMED Code(s): 614753075 (6) GERD (gastroesophageal reflux disease) Current Visit: No Status: Chronic Code(s): K21.9 - GASTRO-ESOPHAGEAL REFLUX DISEASE WITHOUT ESOPHAGITIS SNOMED Code(s): 486265208 (7) NSAID long-term use Current Visit: Yes Status: Acute Code(s): Z79.1 - KILN TESTER (CURRENT) USE OF NON-STEROIDAL NON-INFLAM (NSAID) SNOMED Code(s): 200338426 (8) On prednisone therapy Current Visit: Yes Status: Acute Code(s): Z79.52 - KILN TESTER (CURRENT) USE OF SYSTEMIC STEROIDS SNOMED Code(s): 643407002 (9) O2 dependent Current Visit: Yes Status: Acute Code(s): Z99.81 - DEPENDENCE ON SUPPLEMENTAL OXYGEN SNOMED Code(s): 470853083191 Plan: 1. Protonix 40 mg twice daily. EGD today. CBC monitoring. Blood transfusions as indicated. The microbiology manager has discussed the risks, benefits and alternative therapies for the above-mentioned procedure and for both sedation/analgesia as well as necessary blood product administration, if indicated, as they pertain to this patient. The patient has indicated understanding and acceptance of the risks and procedures discussed. Thank you for this kind referral and the opportunity to participate in the care of your patient. This consultation was discussed with Dr. Velocci. The impression and plan of care have been directed as dictated.
[2018-09-18] MEDS: guaiFENesin-Coden 100-10MG/5ML 10 ML CUP PO PRN (11:53)
[2018-09-18] MEDS: IPRATROPIUM-ALBUTEROL 3 ML NEB INHALATION SCH ×3 (12:15→20:03)
[2018-09-18] MEDS ORDERED: LIDOCAINE 1% INJ 10MG/ML (20 ML MDV) ONE (13:05)
[2018-09-18] MEDS ORDERED: PROPOFOL 10 MG/ML 20 ML VIAL IV ONE (13:05)
[2018-09-18] MEDS ORDERED: SODIUM CHLORIDE 0.9% 1,000 ML IV ONE (13:12)
--- NOTE | 2018-09-18 13:29 | P.PCN ---
Date of Procedure: 09/18/18 Description of Procedure: BRIEF HISTORY: 53-year-old gentleman history of pneumothorax, GERD, lung adenocarcinoma 2017 currently receiving oral chemotherapy O2 dependent 2 L, remote nicotine cigarette dependency, presented with melena 2 weeks 1-2 episodes daily with increased shortness of breath palpitations. Denies Alcohol aspirin. Patient's been taking 160 mg tablet of Motrin on a nightly basis for quite some time. He is also been on steroids for more than a year. Denies gross hematemesis, hematemesis or hematochezia. Colonoscopy 1 month ago at [facility] reported as normal. No history of GI bleed or EGD. Admission hemoglobin 5.4 presently 7.9. MCV 101. Platelet 259. INR 1.0. BUN 12. Creatinine 0.8. FOBT positive. Received 1 unit of blood and with one transfusing. Patient is still passing active black colored bowel movements 2 this morning. Previous hemoglobin 10.8 2 months ago. DT chest new pulmonary nodules in the left upper lobe. PROCEDURE PERFORMED: Esophagogastroduodenoscopy with biopsy. PREOPERATIVE DIAGNOSIS: Anemia acute blood loss, melena, stool positive for occult. ESTIMATED BLOOD LOSS: Minimal. IV sedation per anesthesia. PROCEDURE: After informed consent was obtained, the patient was brought into the endoscopy unit. IV sedation was administered by Anesthesia under continuous monitoring. Initially the Olympus GIF-190 video endoscope was inserted into the mouth. Esophagus intubated without any difficulty. It was gradually advanced into the stomach and duodenum and carefully examined. The bulb and the second part of the duodenum appeared normal with biopsies taken. The scope at this time was withdrawn to the stomach, adequately insufflated with air, and upon careful examination, mucosa of the antrum, body, cardia and the fundus appeared normal, except for some mild scattered erythema in the antrum and body, biopsied. The scope was then withdrawn into the esophagus. The GE junction was located at 40 cm from the incisors. The esophagus appeared normal. There were no erosions or ulcerations seen and the patient tolerated the procedure well. IMPRESSION: 1. Mild gastritis antrum and body, biopsied. Duodenal biopsies. 2. No active bleeding or old blood noted throughout entire upper endoscopy. RECOMMENDATIONS: The findings of this examination were discussed with the patient. Given recent colonoscopy would recommend video capsule endoscopy tomorrow for further evaluation. Continue to monitor hemoglobin and symptoms and transfuse as needed. Continue Protonix daily. Await pathology from biopsies. Further recommendations to follow.
[2018-09-18] MEDS ORDERED: MAGNESIUM CITRATE 296 ML BOTTLE PO ONE (13:30)
[2018-09-18] MEDS: FLUCONAZOLE 100 MG TAB PO SCH (14:26)
--- NOTE | 2018-09-18 14:31 | P.CONS ---
History of Present Illness - Reason for Consult Consult date: 09/18/18 EGFR Lung Cancer Requesting physician: Tommy E Sheet - Chief Complaint GI Bleeding - History of Present Illness Ritesh originally presented to see Dr. Loyd with rapidly progressive SOB, R shoulder pain, weight loss (50 lbs in 4-6 months). He had CXR with bilateral lungs reticulododular interstitial pattern confirmed by CT Scan without definate mediastinal lymphadenopathy. He had bronchoscopy with washings fro RUL and RLL revealing poorly-differentiated Adenocarcinoma. 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 PET Scan : Bilateral upper & lower lungs involvements, no mediastinal disease nor distant mets. 05/16/17: Tolerated cycle#1 of Carboplatinum+Alimta well > NO side effects. he is breathing a bit easier. 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 After he completed his intial IV chemotherapy he was switched to Tarceva for his EGFR mutation. He started this on July 08. He presented to the Emergency department on July 15 with complaints of increasing Shortness of Breath that continued to become progressively worse. He was taking the Tarcea for approx 4-5 days when he noted his SOB was starting to become more difficult, he was concerned this was a side effect or caused from new Tarceva treatment so he stopped the tarceva, although the breathing continued to worsen and now he is present for further assessment of the dyspnea. Diagnostic testing showed left sided-tensive pneumothorax with mediastinal shift. He is status Post left thoracostomy and chest tube. He did have some chronic changes noted on the scan in his right lung. Ritesh has been doing well, without evidence of progression since starting tarceva. ALthough over the past few weeks he stated his stomach has been "achy" and he has felt a little nauseated, he ignored it until it got bad enough he presented to emergency. He was found to have a hemoglobin of 5.4, transfusion given and he underwent scope today. Iron studies evidence of blood loss anemia, he has known B12 deficiency and is due for B12 therefore will give that while there as well. Patient undergoing GI evaluation during time of rounds. I did review CT Chest and identified new pulmonary nodules. If he is showing progression on tarceva, then will require a repeat biopsy to check EGFR mutation for the recommended targeted medication. Will Plan a PET scan as outpatient to further evaluate for progression. I spoke to patient later tonight and we reviewed the CT scan and the plan, will discuss further with pulmonary tomorrow as well. PLanning on capsule study in am. Review of Systems A 14 point review of systems assessed and completed and all negative except HPI Past Medical History Past Medical History: Cancer, GERD/Reflux, Hypertension Additional Past Medical History / Comment(s): Adenocarcinoma of the lung; home oxygen use @2 L [place] ATC,increased SOB, sinus tachycardia (states resting heart rate is 125 -130),does not take anything for heart rate or b/p, takes prednisone 20 mg by mouth daily at home. History of Any Multi-Drug Resistant Organisms: None Reported Past Surgical History: Adenoidectomy, Tonsillectomy Additional Past Surgical History / Comment(s): History of bronchoscopy. Past Anesthesia/Blood Transfusion Reactions: No Reported Reaction Past Psychological History: No Psychological Hx Reported Smoking Status: Former smoker Past Alcohol Use History: None Reported Additional Past Alcohol Use History / Comment(s): quit smoking 2013,smoked approx on and off since age 27,1ppd Past Drug Use History: None Reported - Past Family History Mother Family Medical History: COPD Medications and Allergies Home Medications Medication Instructions Recorded Confirmed Type predniSONE 20 mg PO HS 03/26/17 09/17/18 History Codeine Phosphate/Guaifenesin 5 ml PO QID PRN 07/15/17 09/17/18 History [Cheratussin AC Syrup] Erlotinib HCl [Tarceva] 150 mg PO HS 07/15/17 09/17/18 History Folic Acid 1 mg PO HS 07/15/17 09/17/18 History Nystatin 100,000 Unit/ml Susp 4 ml PO QID 07/15/17 09/17/18 History [Mycostatin Oral Susp] Cholestyramine (with Sugar) 4 gm PO HS 09/17/18 09/17/18 History [Questran] Clindamycin Topical Soln 1 applic TOPICAL BID 09/17/18 09/17/18 History [Cleocin-T Topical Soln] Clotrimazole 10 mg MUCOUS MEM QID 09/17/18 09/17/18 History Cools Solution 5 ml PO QID 09/17/18 09/17/18 History Diphenox-Atrop 2.5-0.025 mg 1 - 2 tab PO QID PRN 09/17/18 09/17/18 History [Lomotil] Dronabinol [Marinol] 5 mg PO HS 09/17/18 09/17/18 History Fluconazole [Diflucan] 100 mg PO HS 09/17/18 09/17/18 History HYDROcodone/APAP 10-325MG [[place] 1 tab PO Q6HR PRN 09/17/18 09/17/18 History 10-325] Ondansetron HCl [Zofran] 4 mg PO Q12H PRN 09/17/18 09/17/18 History amLODIPine [Norvasc] 2.5 mg PO HS 09/17/18 09/17/18 History valACYclovir HCL [Valtrex] 1,000 mg PO BID 09/17/18 09/17/18 History Allergies Allergy/AdvReac Type Severity Reaction Status Date / Time latex Allergy itching Verified 09/17/18 21:34 eyes Physical Exam Vitals: Vital Signs Temp Pulse Pulse Resp BP BP Pulse Ox 09/18/18 10:00 94 18 117/78 100 09/18/18 08:50 90 09/18/18 08:38 90 09/18/18 08:00 98.8 F 92 16 117/78 100 09/18/18 06:30 84 121/78 100 09/18/18 06:00 87 111/73 99 09/18/18 05:30 90 106/46 100 09/18/18 05:00 98.8 F 95 12 121/82 100 09/18/18 04:30 98.9 F 89 83 18 134/87 134/87 97 09/18/18 04:19 97.8 F 90 18 129/74 98 09/18/18 04:00 88 19 121/82 90 L 09/18/18 03:30 98.1 F 90 18 121/82 93 L 09/18/18 03:18 98 F 91 18 120/82 98 09/18/18 01:29 97.6 F 96 18 119/80 100 09/18/18 01:18 99 09/18/18 00:59 97.4 F L 101 H 18 122/83 100 09/18/18 00:49 97.6 F 100 20 118/82 98 09/18/18 00:46 98 F 104 H 20 126/79 98 09/17/18 21:17 98.4 F 110 H 18 143/83 99 Intake and Output 09/17/18 09/18/18 09/18/18 22:59 06:59 14:59 Intake Total 910 Balance 910 Intake: Blood Product 910 Rc As-1 Unit 310 [id number] Rc As-1 Unit 0 [id number] Other: # Voids 3 # Bowel Movements 1 Weight 71.668 kg 70.5 kg Gen: ALert and Oriented, SOB with conversation Neck supple Head: NCNT Lungs: Diminished throughout Heart Tachy, regular Abdomen: Tender Ext no edema Psych: calm and coorporative Results CBC & Chem 7: 09/19/18 13:13 09/19/18 04:32 Labs: Abnormal Lab Results - Last 24 Hours (Table) 09/17/18 09/17/18 09/17/18 Range/Units 23:00 23:25 23:30 RBC 1.60 L (4.30-5.90) m/uL Hgb 5.4 L* (13.0-17.5) gm/dL Hct 17.0 L* (39.0-53.0) % MCV 106.2 H (80.0-100.0) fL RDW 16.5 H (11.5-15.5) % Lymphocytes # 0.9 L (1.0-4.8) k/uL Sodium 135 L (137-145) mmol/L Calcium 8.3 L (8.4-10.2) mg/dL Alkaline Phosphatase 31 L (38-126) U/L Total Protein 4.8 L (6.3-8.2) g/dL Albumin 2.8 L (3.5-5.0) g/dL Crossmatch See Detail 09/18/18 Range/Units 08:25 RBC 2.51 L (4.30-5.90) m/uL Hgb 7.9 L D (13.0-17.5) gm/dL Hct 25.4 L (39.0-53.0) % MCV 101.0 H D (80.0-100.0) fL RDW 18.9 H (11.5-15.5) % Lymphocytes # (1.0-4.8) k/uL Sodium (137-145) mmol/L Calcium (8.4-10.2) mg/dL Alkaline Phosphatase (38-126) U/L Total Protein (6.3-8.2) g/dL Albumin (3.5-5.0) g/dL Crossmatch CT scan - chest: report reviewed Assessment and Plan Plan: Non-Small cell Lung Cancer - EGFR: - Has maintained stable disease on Tarceva. - No evidence of progression identified since starting on tarceva, although on CT scan from 09/16/18 appears to be some new sub-centimeter 6mm at largest left lung. If this is progressive disease on tarceva would need re-biopsy to check f or EGFR Resistant T790M. An outpatient PET has been ordered to re- evaluate/restage after discharge. Discussed CT and plan with patient in detail. Macrocytic Anemia: Acute severe drop secondary to Acute blood loss anemia - Status Post EGD/Colonoscopy - no vernon bleeding source identified - B12 and IV iron ordered - PLan Capsule study in am, GI following
[2018-09-18 14:50] LABS: Anisocytosis Slight; Basophils % (A) 0 %; Eosinophils # (A) 0.1 k/uL (0-0.7); Eosinophils % (A) 2 %; HCT 24.7 % (39.0-53.0); HGB 7.5 gm/dL (13.0-17.5); Hypochromasia Moderate; Lymphocytes # (A) 0.8 k/uL (1.0-4.8); Lymphocytes % (A) 17 %; MCHC 30.5 g/dL (31.0-37.0); MCV 101.8 fL (80.0-100.0); Macrocytosis Moderate; Mean Platelet Volume 6.8; Monocytes # (A) 0.4 k/uL (0-1.0); Monocytes % (A) 7 %; Neutrophils # (A) 3.5 k/uL (1.3-7.7); Neutrophils % (A) 71 %; Platelet Count 274 k/uL (150-450); Poikilocytosis Slight; RBC 2.43 m/uL (4.30-5.90); WBC 4.9 k/uL (3.8-10.6)
[2018-09-18 19:04] LABS: Iron Saturation 4.75 (15.00-50.00)
[2018-09-18] MEDS: amLODIPine 2.5 MG TAB PO SCH (20:33)
[2018-09-18] MEDS: DRONABINOL 2.5 MG CAP PO SCH ×2 (20:33→20:39)
[2018-09-18] MEDS: FOLIC ACID 1 MG TAB PO SCH (20:33)
[2018-09-18] MEDS: predniSONE 10 MG TAB PO SCH (20:33)
[2018-09-18] MEDS: PANTOPRAZOLE 40 MG/10 ML VIAL IV SCH (20:34)
[2018-09-18] MEDS: CHOLESTYRAMINE (WITH SUGAR) 4 GM PACKET PO SCH (20:34)
[2018-09-18] MEDS: ERLOTINIB HCL 150 MG PO SCH (20:35)
[2018-09-18 20:38] LABS: Anisocytosis Slight; Basophils % (A) 0 %; Eosinophils # (A) 0.1 k/uL (0-0.7); Eosinophils % (A) 2 %; HCT 22.7 % (39.0-53.0); HGB 7.1 gm/dL (13.0-17.5); Hypochromasia Moderate; Lymphocytes # (A) 0.9 k/uL (1.0-4.8); Lymphocytes % (A) 17 %; MCHC 31.4 g/dL (31.0-37.0); MCV 101.7 fL (80.0-100.0); Macrocytosis Moderate; Mean Platelet Volume 6.5; Monocytes # (A) 0.5 k/uL (0-1.0); Monocytes % (A) 9 %; Neutrophils # (A) 3.7 k/uL (1.3-7.7); Neutrophils % (A) 69 %; Platelet Count 278 k/uL (150-450); Poikilocytosis Slight; RBC 2.23 m/uL (4.30-5.90); RDW 18.2 % (11.5-15.5); WBC 5.3 k/uL (3.8-10.6)
[2018-09-18] MEDS ORDERED: CYANOCOBALAMIN 1,000 MCG/ML 1 ML VIAL IM ONE (21:26)
[2018-09-18] MEDS: SODIUM FERRIC GLUCONAT-SUCROSE 125 MG in SODIUM CHLORIDE 0.9% 100 ML IVPB SCH (22:21)
[2018-09-19 05:04] LABS: Anisocytosis Slight; Basophils % (A) 0 %; Eosinophils % (A) 0 %; HCT 23.2 % (39.0-53.0); HGB 7.4 gm/dL (13.0-17.5); Hypochromasia Moderate; Lymphocytes # (A) 0.6 k/uL (1.0-4.8); Lymphocytes % (A) 13 %; MCHC 31.7 g/dL (31.0-37.0); MCV 100.8 fL (80.0-100.0); Macrocytosis Moderate; Mean Platelet Volume 6.5; Monocytes # (A) 0.3 k/uL (0-1.0); Monocytes % (A) 6 %; Neutrophils # (A) 3.6 k/uL (1.3-7.7); Neutrophils % (A) 78 %; Platelet Count 283 k/uL (150-450); Poikilocytosis Slight; RDW 17.8 % (11.5-15.5); WBC 4.6 k/uL (3.8-10.6)
[2018-09-19 05:39] LABS: ALT 21 U/L (21-72); AST 19 U/L (17-59); African American GFR (CKD) >90 (>60 ml/min/1.73 sqM); Albumin 2.2 g/dL (3.5-5.0); Alkaline Phosphatase 29 U/L (38-126); Anion Gap 1 mmol/L; Blood Urea Nitrogen 4 mg/dL (9-20); Carbon Dioxide 24 mmol/L (22-30); Chloride 111 mmol/L (98-107); Glucose 136 mg/dL (74-99); LDH 341 U/L (313-618); Potassium 4.5 mmol/L (3.5-5.1); Sodium 136 mmol/L (137-145); Total Bilirubin 0.3 mg/dL (0.2-1.3); Total Protein 3.9 g/dL (6.3-8.2)
[2018-09-19] MEDS ORDERED: SIMETHICONE 40 MG/0.6 ML DROPS 2,000 MG/30 ML BOTTLE PO ONE (07:40)
--- NOTE | 2018-09-19 08:03 | P.PN ---
Subjective This is a pleasant 52 years old male with past medical history of GERD, hypertension, severe COPD, stage IV lung cancer on home oxygen at 2 L nasal cannula. History of tension pneumothorax on the left side and right upper lobe pneumonia Also he is on steroid dependent on 10 mg of prednisone daily , now he presents with tarry black stool of one week duration associated with mid abdomen pain across the umbilicus, nonspecific, about 6-7/10 in severity for 2 weeks. With no associated nausea vomiting. No fresh blood in stool. Patient also fee ls generally weak. He has occasional cough. No chest pain or dyspnea. No change in urine or bowel habits. No fever Patient follow-up with Dr. Cheung and oncology team for his history of lung cancer and COPD and he was asking to see his doctors while in-house. Patient denies smoking or alcohol or illicit tracts Patient is hemodynamically stable with a blood pressure 121/78, heart rate 84. On admission he has low hemoglobin at 5.4, compared to baseline of around 10. Platelets normal at 280, normal WBC. Normal INR is 1.0. Unremarkable BMP and liver enzymes. Troponins are negative. Positive occult blood in his stool. EKG showing normal sinus rhythm at [address] with no significant [address]-T changes In the emergency room patient received symptomatic treatment with Protonix and IV fluids and he got transfused with 1 unit of blood. 09/19/2018 Today patient is alert. No chest pain or dyspnea. He has mild abdominal pain in the periumbilical area, and a little bit more to the right side. Exam shows mild tenderness. He is still complaining of from black stool. Patient underwent EGD yesterday which was unremarkable except for mild gastritis. Plan is for capsule endoscopy today. Vitals stable and hemoglobin stable at 7.4. Patient was started on iron intravenously x1 as well as 1 dose of vitamin B12. Patient remains in the ICU for monitoring. CONSTITUTIONAL: No fever, no malaise, no fatigue. HEENT: No recent visual problems or hearing problems. Denied any sore throat. CARDIOVASCULAR: No orthopnea, PND, no palpitations, no syncope. PULMONARY: No shortness of breath, no cough, no hemoptysis. GASTROINTESTINAL: No diarrhea, no nausea, no vomiting, . Normoactive bowel sound s. NEUROLOGICAL: No headaches, no weakness, no numbness. HEMATOLOGICAL: Denies any bleeding or petechiae. GENITOURINARY: Denies any burning micturition, frequency, or urgency. MUSCULOSKELETAL/RHEUMATOLOGICAL: Denies any joint pain, swelling, or any muscle pain. ENDOCRINE: Denies any polyuria or polydipsia. Medication: Albuterol 0.5 mg, Norvasc 2.5 mg, clotrimazole 10 mg, dronabinol 5 mg, ferrous gluconate 125 mg, Diflucan 100 mg, folic acid 1 mg, Robitussin 5 mm, Manvel 10-325 mg, clindamycin topical, nystatin 400,000 units, Zofran 4 mg, Protonix 40 mg, prednisone 10 mg, valacyclovir 1000 mg. Objective - Vital Signs Vital signs: Vital Signs Temp 98.7 F 09/19/18 04:00 Pulse 80 09/19/18 04:00 Resp 18 09/19/18 04:00 BP 97/60 09/19/18 04:00 Pulse Ox 100 09/19/18 04:00 Intake & Output 09/18/18 09/19/18 09/19/18 18:59 06:59 18:59 Intake Total 1400 600 Balance 1400 600 Weight 71 kg Intake: IV 200 Oral 1200 600 Other: Voiding Method Toilet Toilet # Voids 2 2 # Bowel Movements 2 5 - Exam GENERAL: The patient is alert and oriented x3, not in any acute distress. Well developed, well nourished. HEENT: Pupils are round and equally reacting to light. EOMI. No scleral icterus. No conjunctival pallor. Normocephalic, atraumatic. No pharyngeal erythema. No thyromegaly. CARDIOVASCULAR: S1 and S2 present. No murmurs, rubs, or gallops. PULMONARY: Chest is clear to auscultation, no wheezing or crackles. -ABDOMEN: Soft, nontender, mild periumbilical tenderness with no rebound tenderness, normoactive bowel sounds. No palpable organomegaly. MUSCULOSKELETAL: No joint swelling or deformity. EXTREMITIES: No cyanosis, clubbing, or pedal edema. NEUROLOGICAL: Gross neurological examination did not reveal any focal deficits. SKIN: No rashes. - Labs CBC & Chem 7: 09/19/18 04:32 09/19/18 04:32 Labs: Abnormal Lab Results - Last 24 Hours (Table) 09/17/18 09/18/18 09/18/18 Range/Units 23:25 08:25 14:23 RBC 2.51 L 2.43 L (4.30-5.90) m/uL Hgb 7.9 L D 7.5 L (13.0-17.5) gm/dL Hct 25.4 L 24.7 L (39.0-53.0) % MCV 101.0 H D 101.8 H (80.0-100.0) fL MCHC 30.5 L (31.0-37.0) g/dL RDW 18.9 H 18.0 H (11.5-15.5) % Lymphocytes # 0.8 L (1.0-4.8) k/uL Sodium (137-145) mmol/L Chloride (98-107) mmol/L BUN (9-20) mg/dL Glucose (74-99) mg/dL Calcium (8.4-10.2) mg/dL Iron (65-175) ug/dL Iron Saturation (15.00-50.00) Alkaline Phosphatase (38-126) U/L Total Protein (6.3-8.2) g/dL Albumin (3.5-5.0) g/dL Vitamin B12 (200.0-944.0) pg/mL Crossmatch See Detail 09/18/18 09/18/18 09/19/18 Range/Units 14:23 20:06 04:32 RBC 2.23 L 2.30 L (4.30-5.90) m/uL Hgb 7.1 L 7.4 L (13.0-17.5) gm/dL Hct 22.7 L 23.2 L (39.0-53.0) % MCV 101.7 H 100.8 H (80.0-100.0) fL MCHC (31.0-37.0) g/dL RDW 18.2 H 17.8 H (11.5-15.5) % Lymphocytes # 0.9 L 0.6 L (1.0-4.8) k/uL Sodium (137-145) mmol/L Chloride (98-107) mmol/L BUN (9-20) mg/dL Glucose (74-99) mg/dL Calcium (8.4-10.2) mg/dL Iron 15 L (65-175) ug/dL Iron Saturation 4.75 L (15.00-50.00) Alkaline Phosphatase (38-126) U/L Total Protein (6.3-8.2) g/dL Albumin (3.5-5.0) g/dL Vitamin B12 123.0 L (200.0-944.0) pg/mL Crossmatch 09/19/18 Range/Units 04:32 RBC (4.30-5.90) m/uL Hgb (13.0-17.5) gm/dL Hct (39.0-53.0) % MCV (80.0-100.0) fL MCHC (31.0-37.0) g/dL RDW (11.5-15.5) % Lymphocytes # (1.0-4.8) k/uL Sodium 136 L (137-145) mmol/L Chloride 111 H (98-107) mmol/L BUN 4 L (9-20) mg/dL Glucose 136 H (74-99) mg/dL Calcium 8.0 L (8.4-10.2) mg/dL Iron (65-175) ug/dL Iron Saturation (15.00-50.00) Alkaline Phosphatase 29 L (38-126) U/L Total Protein 3.9 L (6.3-8.2) g/dL Albumin 2.2 L (3.5-5.0) g/dL Vitamin B12 (200.0-944.0) pg/mL Crossmatch Assessment and Plan Assessment: Acute gastrointestinal bleeding Acute blood loss anemia secondary to above History of stage IV lung cancer History of severe COPD, not in acute exacerbation. Oxygen and steroid dependent Chronic hypoxic respiratory failure Hypertension History of GERD Plan: This is a pleasant 53 years old male who presents with GI bleed. Continue with Protonix and IV fluids as needed. Transfuse blood to keep hemoglobin more than 7. Call gastroenterology for consult. Monitor hemoglobin. Patient has been asking to see his storeperson and oncologist while in-house were consulted. C ontinue with pain management. Patient on his prednisone 10 mg daily, I instructed patient to lower prednisone dose and he refused. Risks and benefits are explained Labs and medication were reviewed.. Continue same treatment. Continue with symptomatic treatment. Resume home medication. Monitor lytes and vitals. DVT and GI prophylaxis. Further recommendations of the clinical course of the pat ient DVT prophylaxis: No heparin in view of GI bleed, S CD GI Prophylaxis: Protonix Prognosis is guarded
[2018-09-19] MEDS: IPRATROPIUM-ALBUTEROL 3 ML NEB INHALATION SCH ×4 (08:21→20:12)
[2018-09-19] MEDS: HYDROcodone/APAP 10-325MG 1 EACH TAB PO PRN ×3 (08:24→21:26)
[2018-09-19] MEDS: PANTOPRAZOLE 40 MG/10 ML VIAL IV SCH ×2 (08:34→21:13)
[2018-09-19] MEDS: NON-FORMULARY DRUG (Clindamycin Topical Soln 1 APPLIC) TOPICAL SCH ×2 (08:38→21:16)
[2018-09-19] MEDS: FLUCONAZOLE 100 MG TAB PO SCH (11:25)
[2018-09-19] MEDS: NYSTATIN 100,000 UNIT/ML SUSP 500,000 UNIT/5 ML CUP PO SCH ×4 (11:25→21:16)
[2018-09-19] MEDS: CLOTRIMAZOLE TROCHE 10 MG TROCHE MUCOUS MEM SCH ×4 (11:25→21:15)
[2018-09-19] MEDS: valACYclovir HCL 1,000 MG TABLET PO SCH ×2 (11:26→21:15)
[2018-09-19] MEDS: SODIUM FERRIC GLUCONAT-SUCROSE 125 MG in SODIUM CHLORIDE 0.9% 100 ML IVPB SCH (11:32)
--- NOTE | 2018-09-19 12:35 | ECHOF ---
Referral Reason:evaluation on chemo MEASUREMENTS -------- HEIGHT: 180.3 cm WEIGHT: 70.8 kg BP: 97/60 RVIDd: 2.3 cm (< 3.3) IVSd: 1.6 cm (0.6 - 1.1) LVIDd: 3.4 cm (3.9 - 5.3) LVPWd: 1.4 cm (0.6 - 1.1) IVSs: 2.0 cm LVIDs: 2.6 cm LVPWs: 2.0 cm Ao Diam: 4.3 cm (2.0 - 3.7) AV Cusp: 2.5 cm (1.5 - 2.6) LA Diam: 1.6 cm (2.7 - 3.8) EPSS: 0.3 cm MV E Josep: 0.89 m/s MV DecT: 211 ms MV A Josep: 0.69 m/s MV E/A Ratio: 1.28 AR PHT: 494 ms RAP: 5.00 mmHg RVSP: 33.32 mmHg MV EF SLOPE: 61.43 mm/s (70 - 150) MV EXCURSION: 1.69 cm (> 18.000) FINDINGS -------- Sinus rhythm. This was a technically good study. The left ventricular size is normal. There is moderate concentric left ventricular hypertrophy. O verall left ventricular systolic function is normal with, an EF between 55 - 60 %. The right ventricle is normal in size. The left atrial size is normal. The right atrial size is normal. The aortic valve is trileaflet and appears structurally normal. There is mild aortic regurgitation. The mitral valve is normal. Mild mitral regurgitation is present. Mild tricuspid regurgitation present. There is no evidence of pulmonary hypertension. The right v entricular systolic pressure, as measured by Doppler, is 33.32mmHg. There is no pulmonic regurgitation present. The aortic root and ascending aorta are dilated measuring up to 4.5 mm. The inferior vena cava was not well visualized. There is no pericardial effusion. CONCLUSIONS -------- 1. Sinus rhythm. 2. This was a technically good study. 3. The left ventricular size is normal. 4. There is moderate concentric left ventricular hypertrophy. 5. Overall left ventricular systolic function is normal with, an EF between 55 - 60 %. 6. The left atrial size is normal. 7. The aortic valve is trileaflet and appears structurally normal. 8. There is mild aortic regurgitation. 9. Mild mitral regurgitation is present. 10. Mild tricuspid regurgitation present. 11. There is no evidence of pulmonary hypertension. 12. There is no pulmonic regurgitation present. 13. The aortic root and ascending aorta are dilated measuring up to 4.5 mm. 14. The inferior vena cava was not well visualized. 15. There is no pericardial effusion. [employer]ON S[employer] MECH[employer]IC: Reina Goodman RDCS
[2018-09-19 13:31] LABS: Anisocytosis Slight; Basophils % (A) 0 %; Eosinophils # (A) 0.1 k/uL (0-0.7); Eosinophils % (A) 1 %; HCT 25.7 % (39.0-53.0); Hypochromasia Marked; Lymphocytes # (A) 1.1 k/uL (1.0-4.8); Lymphocytes % (A) 18 %; MCH 31.7 pg (25.0-35.0); MCHC 31.2 g/dL (31.0-37.0); MCV 101.8 fL (80.0-100.0); Macrocytosis Moderate; Mean Platelet Volume 7.3; Monocytes # (A) 0.5 k/uL (0-1.0); Monocytes % (A) 8 %; Neutrophils # (A) 4.3 k/uL (1.3-7.7); Neutrophils % (A) 71 %; Platelet Count 283 k/uL (150-450); Poikilocytosis Slight; RBC 2.52 m/uL (4.30-5.90); RDW 18.9 % (11.5-15.5); WBC 6.1 k/uL (3.8-10.6)
--- NOTE | 2018-09-19 16:10 | P.PN ---
Subjective Progress Note Date: 09/19/18 Principal diagnosis: anemia GI bleed Status post EGD. Capsule endoscopy in progress. Still passing black bowel movement. Hemoglobin 8. Objective - Vital Signs Vital signs: Vital Signs Temp 98.2 F 09/19/18 12:00 Pulse 92 09/19/18 15:47 Resp 20 09/19/18 12:00 BP 125/83 09/19/18 12:00 Pulse Ox 97 09/19/18 12:00 Intake & Output 09/18/18 09/19/18 09/19/18 18:59 06:59 18:59 Intake Total 1400 600 250 Balance 1400 600 250 Weight 71 kg Intake: IV 200 Oral 1200 600 250 Other: Voiding Method Toilet Toilet Toilet # Voids 2 2 1 # Bowel Movements 2 5 1 - Exam General appearance: The patient is alert, oriented, in no acute distress. HET: Head is normocephalic and atraumatic. Pupils are equal and reactive. Oropharynx is clear without lesions. Neck: Supple without lymphadenopathy. Trachea midline. Heart: S1 S2. Regular rate and rhythm. Lungs: No crackles or wheezes are heard. Abdomen: Soft, nontender, nondistended with bowel sounds. No peritoneal signs. No palpable organomegaly or masses. Extremities: Normal skin color and turgor. No cyanosis, rash, ulceration, clubbing, or edema. Radial and pedal pulses are 2/4 bilaterally. Neurological: No focal deficits. Strength and sensation are grossly intact. - Labs CBC & Chem 7: 09/19/18 13:13 09/19/18 04:32 Labs: Abnormal Lab Results - Last 24 Hours (Table) 09/18/18 09/18/18 09/19/18 Range/Units 14:23 20:06 04:32 RBC 2.23 L 2.30 L (4.30-5.90) m/uL Hgb 7.1 L 7.4 L (13.0-17.5) gm/dL Hct 22.7 L 23.2 L (39.0-53.0) % MCV 101.7 H 100.8 H (80.0-100.0) fL RDW 18.2 H 17.8 H (11.5-15.5) % Lymphocytes # 0.9 L 0.6 L (1.0-4.8) k/uL Sodium (137-145) mmol/L Chloride (98-107) mmol/L BUN (9-20) mg/dL Glucose (74-99) mg/dL Calcium (8.4-10.2) mg/dL Iron 15 L (65-175) ug/dL Iron Saturation 4.75 L (15.00-50.00) Alkaline Phosphatase (38-126) U/L Total Protein (6.3-8.2) g/dL Albumin (3.5-5.0) g/dL Vitamin B12 123.0 L (200.0-944.0) pg/mL 09/19/18 09/19/18 Range/Units 04:32 13:13 RBC 2.52 L (4.30-5.90) m/uL Hgb 8.0 L (13.0-17.5) gm/dL Hct 25.7 L (39.0-53.0) % MCV 101.8 H (80.0-100.0) fL RDW 18.9 H (11.5-15.5) % Lymphocytes # (1.0-4.8) k/uL Sodium 136 L (137-145) mmol/L Chloride 111 H (98-107) mmol/L BUN 4 L (9-20) mg/dL Glucose 136 H (74-99) mg/dL Calcium 8.0 L (8.4-10.2) mg/dL Iron (65-175) ug/dL Iron Saturation (15.00-50.00) Alkaline Phosphatase 29 L (38-126) U/L Total Protein 3.9 L (6.3-8.2) g/dL Albumin 2.2 L (3.5-5.0) g/dL Vitamin B12 (200.0-944.0) pg/mL Assessment and Plan (1) Acute GI bleeding Current Visit: Yes Status: Acute Code(s): K92.2 - GASTROINTESTINAL HEMORRHAGE, UNSPECIFIED SNOMED Code(s): 81315622 (2) Melena Current Visit: Yes Status: Acute Code(s): K92.1 - MELENA SNOMED Code(s): 4353459 (3) Acute blood loss anemia Current Visit: Yes Status: Acute Code(s): D62 - ACUTE POSTHEMORRHAGIC ANEMIA SNOMED Code(s): 013196324 (4) Symptomatic anemia Current Visit: Yes Status: Acute Code(s): D64.9 - ANEMIA, UNSPECIFIED SNOMED Code(s): 018532418 (5) Adenocarcinoma of lung Current Visit: No Status: Chronic Code(s): C34.90 - MALIGNANT NEOPLASM OF UNSP PART OF UNSP BRONCHUS OR LUNG SNOMED Code(s): 230569676 (6) GERD (gastroesophageal reflux disease) Current Visit: No Status: Chronic Code(s): K21.9 - GASTRO-ESOPHAGEAL REFLUX DISEASE WITHOUT ESOPHAGITIS SNOMED Code(s): 174693503 (7) NSAID long-term use Current Visit: Yes Status: Acute Code(s): Z79.1 - JAIL (CURRENT) USE OF NON-STEROIDAL NON-INFLAM (NSAID) SNOMED Code(s): 417080972 (8) On prednisone therapy Current Visit: Yes Status: Acute Code(s): Z79.52 - JAIL (CURRENT) USE OF SYSTEMIC STEROIDS SNOMED Code(s): 626576423 (9) O2 dependent Current Visit: Yes Status: Acute Code(s): Z99.81 - DEPENDENCE ON SUPPLEMENTAL OXYGEN SNOMED Code(s): 871332849949 Plan: 1. Small bowel capsule endoscopy in progress. Continue CBC monitoring. Liquid diet. Protonix 40 mg twice daily. Assessment and plan a care discussed with Dr. Walls
--- NOTE | 2018-09-19 16:27 | P.PN ---
Subjective Progress Note Date: 09/19/18 Principal diagnosis: Metastatic EGFR Lung Cancer, GI bleed No significant complaints today, overall states feels better Objective - Vital Signs Vital signs: Vital Signs Temp 98.2 F 09/19/18 12:00 Pulse 92 09/19/18 15:47 Resp 20 09/19/18 12:00 BP 125/83 09/19/18 12:00 Pulse Ox 97 09/19/18 12:00 Intake & Output 09/18/18 09/19/18 09/19/18 18:59 06:59 18:59 Intake Total 1400 600 250 Balance 1400 600 250 Weight 71 kg Intake: IV 200 Oral 1200 600 250 Other: Voiding Method Toilet Toilet Toilet # Voids 2 2 1 # Bowel Movements 2 5 1 - Exam Gen: ALert and Oriented, SOB with conversation Neck supple Head: NCNT Lungs: Diminished throughout Heart Tachy, regular Abdomen: Tender Ext no edema Psych: calm and coorporative Skin dry, flaking - Labs CBC & Chem 7: 09/19/18 13:13 09/19/18 04:32 Labs: Abnormal Lab Results - Last 24 Hours (Table) 09/18/18 09/18/18 09/19/18 Range/Units 14:23 20:06 04:32 RBC 2.23 L 2.30 L (4.30-5.90) m/uL Hgb 7.1 L 7.4 L (13.0-17.5) gm/dL Hct 22.7 L 23.2 L (39.0-53.0) % MCV 101.7 H 100.8 H (80.0-100.0) fL RDW 18.2 H 17.8 H (11.5-15.5) % Lymphocytes # 0.9 L 0.6 L (1.0-4.8) k/uL Sodium (137-145) mmol/L Chloride (98-107) mmol/L BUN (9-20) mg/dL Glucose (74-99) mg/dL Calcium (8.4-10.2) mg/dL Iron 15 L (65-175) ug/dL Iron Saturation 4.75 L (15.00-50.00) Alkaline Phosphatase (38-126) U/L Total Protein (6.3-8.2) g/dL Albumin (3.5-5.0) g/dL Vitamin B12 123.0 L (200.0-944.0) pg/mL 09/19/18 09/19/18 Range/Units 04:32 13:13 RBC 2.52 L (4.30-5.90) m/uL Hgb 8.0 L (13.0-17.5) gm/dL Hct 25.7 L (39.0-53.0) % MCV 101.8 H (80.0-100.0) fL RDW 18.9 H (11.5-15.5) % Lymphocytes # (1.0-4.8) k/uL Sodium 136 L (137-145) mmol/L Chloride 111 H (98-107) mmol/L BUN 4 L (9-20) mg/dL Glucose 136 H (74-99) mg/dL Calcium 8.0 L (8.4-10.2) mg/dL Iron (65-175) ug/dL Iron Saturation (15.00-50.00) Alkaline Phosphatase 29 L (38-126) U/L Total Protein 3.9 L (6.3-8.2) g/dL Albumin 2.2 L (3.5-5.0) g/dL Vitamin B12 (200.0-944.0) pg/mL Assessment and Plan Plan: Non-Small cell Lung Cancer - EGFR: - Has maintained stable disease on Tarceva. - No evidence of progression identified since starting on tarceva, although on CT scan from 09/16/18 appears to be some new sub-centimeter 6mm at largest left lung. If this is progressive disease on tarceva would need re-biopsy to check for EGFR Resistant T790M. An outpatient PET has been ordered to re-e valuate/restage after discharge. Discussed CT and plan with patient in detail. Macrocytic Anemia: Acute severe drop secondary to Acute blood loss anemia - Status Post EGD/Colonoscopy - no vernon bleeding source identified - B12 and IV iron ordered - Status Post Capsule Study
[2018-09-19] MEDS: predniSONE 10 MG TAB PO SCH (21:13)
[2018-09-19] MEDS: CHOLESTYRAMINE (WITH SUGAR) 4 GM PACKET PO SCH (21:14)
[2018-09-19] MEDS: ERLOTINIB HCL 150 MG PO SCH (21:15)
[2018-09-19] MEDS: DRONABINOL 2.5 MG CAP PO SCH (21:15)
[2018-09-19] MEDS: amLODIPine 2.5 MG TAB PO SCH (21:16)
[2018-09-19 21:39] VITALS: RESP 18
[2018-09-19] MEDS: FOLIC ACID 1 MG TAB PO SCH (21:49)
[2018-09-20] MEDS: HYDROcodone/APAP 10-325MG 1 EACH TAB PO PRN ×3 (04:13→17:04)
[2018-09-20] MEDS: guaiFENesin-Coden 100-10MG/5ML 10 ML CUP PO PRN (07:51)
[2018-09-20] MEDS: NON-FORMULARY DRUG (Clindamycin Topical Soln 1 APPLIC) TOPICAL SCH (07:55)
[2018-09-20] MEDS: NYSTATIN 100,000 UNIT/ML SUSP 500,000 UNIT/5 ML CUP PO SCH ×2 (08:04→15:04)
[2018-09-20] MEDS: CLOTRIMAZOLE TROCHE 10 MG TROCHE MUCOUS MEM SCH ×2 (08:04→15:02)
[2018-09-20] MEDS: valACYclovir HCL 1,000 MG TABLET PO SCH (08:04)
[2018-09-20] MEDS: FLUCONAZOLE 100 MG TAB PO SCH (08:04)
[2018-09-20] MEDS: PANTOPRAZOLE 40 MG/10 ML VIAL IV SCH (08:05)
[2018-09-20] MEDS: IPRATROPIUM-ALBUTEROL 3 ML NEB INHALATION SCH ×3 (08:37→16:33)
[2018-09-20 09:08] LABS: Anisocytosis Slight; Basophils % (A) 0 %; Eosinophils # (A) 0.1 k/uL (0-0.7); Eosinophils % (A) 2 %; HCT 25.7 % (39.0-53.0); HGB 7.8 gm/dL (13.0-17.5); Hypochromasia Marked; Lymphocytes # (A) 0.5 k/uL (1.0-4.8); Lymphocytes % (A) 11 %; MCH 31.5 pg (25.0-35.0); MCHC 30.4 g/dL (31.0-37.0); MCV 103.7 fL (80.0-100.0); Macrocytosis Moderate; Mean Platelet Volume 6.8; Monocytes # (A) 0.3 k/uL (0-1.0); Monocytes % (A) 6 %; Neutrophils # (A) 3.7 k/uL (1.3-7.7); Neutrophils % (A) 78 %; Platelet Count 342 k/uL (150-450); Poikilocytosis Slight; RBC 2.48 m/uL (4.30-5.90); RDW 17.7 % (11.5-15.5); WBC 4.8 k/uL (3.8-10.6)
[2018-09-20 09:24] LABS: African American GFR (CKD) >90 (>60 ml/min/1.73 sqM); Anion Gap 2 mmol/L; Blood Urea Nitrogen 8 mg/dL (9-20); Calcium 8.6 mg/dL (8.4-10.2); Carbon Dioxide 28 mmol/L (22-30); Chloride 107 mmol/L (98-107); Glucose 105 mg/dL (74-99); Potassium 4.7 mmol/L (3.5-5.1); Sodium 137 mmol/L (137-145)
--- NOTE | 2018-09-20 09:30 | P.CNPUL ---
History of Present Illness Consult date: 09/18/18 Chief complaint: Anemia ICU care History of present illness: This is a 53-year-old male with prior history of multiple complex medical problems including adenocarcinoma of the lung also was complicated with pneumothorax diagnosed back in 2017 on supplemental oxygen initially was on 8 L oxygen now down to 2 L, patient has received chemotherapy has been doing well he was found to have dark stool for about one to 2 weeks progressively become short of breath denies any abdominal pain he does take Motrin off and on with those problem he came into the hospital for further evaluation he had a colonoscopy about 1 month ago at [facility] which was normal he was found to have hemoglobin of 5.4 with transfusion improved to 7.9 renal functions are normal, patient is still passing dark stools, EGD performed earlier this morning revealed minor gastritis biopsies were done no active bleeding was noted I EGD Review of Systems All systems: negative Past Medical History Past Medical History: Cancer, GERD/Reflux, Hypertension Additional Past Medical History / Comment(s): Adenocarcinoma of the lung; home oxygen use @2 L NC ATC,increased SOB, sinus tachycardia (states resting heart rate is 125 -130),does not take anything for heart rate or b/p, takes prednisone 20 mg by mouth daily at home. History of Any Multi-Drug Resistant Organisms: None Reported Past Surgical History: Adenoidectomy, Tonsillectomy Additional Past Surgical History / Comment(s): History of bronchoscopy. Past Anesthesia/Blood Transfusion Reactions: No Reported Reaction Past Psychological History: No Psychological Hx Reported Smoking Status: Former smoker Past Alcohol Use History: None Reported Additional Past Alcohol Use History / Comment(s): quit smoking 2013,smoked approx on and off since age 27,1ppd Past Drug Use History: None Reported - Past Family History Mother Family Medical History: COPD Medications and Allergies Home Medications Medication Instructions Recorded Confirmed Type predniSONE 20 mg PO HS 03/26/17 09/17/18 History Codeine Phosphate/Guaifenesin 5 ml PO QID PRN 07/15/17 09/17/18 History [Cheratussin AC Syrup] Erlotinib HCl [Tarceva] 150 mg PO HS 07/15/17 09/17/18 History Folic Acid 1 mg PO HS 07/15/17 09/17/18 History Nystatin 100,000 Unit/ml Susp 4 ml PO QID 07/15/17 09/17/18 History [Mycostatin Oral Susp] Cholestyramine (with Sugar) 4 gm PO HS 09/17/18 09/17/18 History [Questran] Clindamycin Topical Soln 1 applic TOPICAL BID 09/17/18 09/17/18 History [Cleocin-T Topical Soln] Clotrimazole 10 mg MUCOUS MEM QID 09/17/18 09/17/18 History Cools Solution 5 ml PO QID 09/17/18 09/17/18 History Diphenox-Atrop 2.5-0.025 mg 1 - 2 tab PO QID PRN 09/17/18 09/17/18 History [Lomotil] Dronabinol [Marinol] 5 mg PO HS 09/17/18 09/17/18 History Fluconazole [Diflucan] 100 mg PO HS 09/17/18 09/17/18 History HYDROcodone/APAP 10-325MG [Bryan 1 tab PO Q6HR PRN 09/17/18 09/17/18 History 10-325] Ondansetron HCl [Zofran] 4 mg PO Q12H PRN 09/17/18 09/17/18 History amLODIPine [Norvasc] 2.5 mg PO HS 09/17/18 09/17/18 History valACYclovir HCL [Valtrex] 1,000 mg PO BID 09/17/18 09/17/18 History Allergies Allergy/AdvReac Type Severity Reaction Status Date / Time latex Allergy itching Verified 09/17/18 21:34 eyes Physical Exam Vitals: Vital Signs Temp Pulse Pulse Resp BP BP Pulse Ox 09/18/18 16:11 87 09/18/18 16:02 75 09/18/18 16:00 98.0 F 85 20 129/75 98 09/18/18 14:00 86 29 H 128/85 98 09/18/18 13:30 96 H 09/18/18 12:26 90 09/18/18 12:15 92 09/18/18 12:00 98.8 F 90 86 12 117/78 128/85 100 09/18/18 11:45 98.8 F 99 100 H 128/85 09/18/18 10:00 94 18 117/78 100 09/18/18 08:50 90 09/18/18 08:38 90 09/18/18 08:00 98.8 F 92 16 117/78 100 09/18/18 06:30 84 121/78 100 09/18/18 06:00 87 111/73 99 09/18/18 05:30 90 106/46 100 09/18/18 05:00 98.8 F 95 12 121/82 100 09/18/18 04:30 98.9 F 89 83 18 134/87 134/87 97 09/18/18 04:19 97.8 F 90 18 129/74 98 09/18/18 04:00 88 19 121/82 90 L 09/18/18 03:30 98.1 F 90 18 121/82 93 L 09/18/18 03:18 98 F 91 18 120/82 98 09/18/18 01:29 97.6 F 96 18 119/80 100 09/18/18 01:18 99 09/18/18 00:59 97.4 F L 101 H 18 122/83 100 09/18/18 00:49 97.6 F 100 20 118/82 98 09/18/18 00:46 98 F 104 H 20 126/79 98 09/17/18 21:17 98.4 F 110 H 18 143/83 99 Intake and Output 09/18/18 09/18/18 09/18/18 06:59 14:59 22:59 Intake Total 1220 800 600 Balance 1220 800 600 Intake: IV 200 Oral 600 600 Blood Product 1220 As-1 Unit 310 [id number] As-1 Unit 310 [id number] Other: Voiding Method Toilet # Voids 3 3 2 # Bowel Movements 1 2 2 Weight 70.5 kg - Constitutional General appearance: average body habitus, cooperative, disheveled, mild distress, thin - EENT Eyes: EOMI, PERRLA, poor dentition, normal appearance ENT: normal oropharynx Ears: bilateral: normal - Neck Neck: normal ROM Carotids: bilateral: upstroke normal Thyroid: bilateral: normal size - Respiratory Respiratory: bilateral: diminished - Cardiovascular Rhythm: regular Heart sounds: normal: S1, S2 - Gastrointestinal General gastrointestinal: decreased bowel sounds, normal bowel sounds, soft - Neurologic Neurologic: CNII-XII intact - Musculoskeletal Musculoskeletal: gait normal, generalized weakness, strength equal bilaterally - Psychiatric Psychiatric: A&O x's 3, appropriate affect, intact judgment & insight Results - Laboratory Findings CBC and BMP: 09/20/18 08:42 09/19/18 04:32 PT/INR, D-dimer PT 10.5 sec (9.0-12.0) 09/18/18 00:15 INR 1.0 (<1.2) 09/18/18 00:15 Abnormal lab findings: Abnormal Labs 09/17/18 09/17/18 09/17/18 23:00 23:25 23:30 RBC 1.60 L Hgb 5.4 L* Hct 17.0 L* MCV 106.2 H MCHC RDW 16.5 H Lymphocytes # 0.9 L Sodium 135 L Calcium 8.3 L Iron Iron Saturation Alkaline Phosphatase 31 L Total Protein 4.8 L Albumin 2.8 L Vitamin B12 Crossmatch See Detail 09/18/18 09/18/18 09/18/18 08:25 14:23 14:23 RBC 2.51 L 2.43 L Hgb 7.9 L D 7.5 L Hct 25.4 L 24.7 L MCV 101.0 H D 101.8 H MCHC 30.5 L RDW 18.9 H 18.0 H Lymphocytes # 0.8 L Sodium Calcium Iron 15 L Iron Saturation 4.75 L Alkaline Phosphatase Total Protein Albumin Vitamin B12 123.0 L Crossmatch Assessment and Plan Assessment: GI bleed suspect upper GI even though is negative but likely a stress bleed Anemia Severe COPD Chronic hypoxic respiratory failure Adenocarcinoma of the lung Status post chemotherapy On maintenance chemotherapy History of pneumothorax spontaneous required chest tube followed by a VATS Plan: Monitor hemoglobin closely Rounds fusion as needed Increase activity as tolerated Can be moved out of the ICU Continue home oxygen Bronchodilator as needed Labs reviewed medications reviewed Time with Patient: Greater than 30
--- NOTE | 2018-09-20 09:35 | P.PN ---
Subjective Progress Note Date: 09/19/18 Principal diagnosis: Severe anemia symptomatic, GI bleed, lung cancer adenocarcinoma stage IV, history of pneumothorax spontaneous requiring VATS, severe COPD 09/19/2018, patient seen and evaluated examined during the rounds hemoglobin is stable, overall alert some mild abdominal discomfort is present findings on EGD noted patient is planned for Endoscopy, Patient Remains Stable Can Be Moved Out Of the ICU bedroom is available This is a 53-year-old male with prior history of multiple complex medical problems including adenocarcinoma of the lung also was complicated with pn eumothorax diagnosed back in 2017 on supplemental oxygen initially was on 8 L oxygen now down to 2 L, patient has received chemotherapy has been doing well he was found to have dark stool for about one to 2 weeks progressively become short of breath denies any abdominal pain he does take Motrin off and on with those problem he came into the hospital for further evaluation he had a colonoscopy about 1 month ago at [facility] which was normal he was found to have hemoglobin of 5.4 with transfusion improved to 7.9 renal functions are normal, patient is still passing dark stools, EGD performed earlier this morning revealed minor gastritis biopsies were done no active bleeding was noted I EGD Objective - Vital Signs Vital signs: Vital Signs Temp 98.2 F 09/19/18 12:00 Pulse 92 09/19/18 15:47 Resp 20 09/19/18 16:00 BP 125/83 09/19/18 12:00 Pulse Ox 97 09/19/18 12:00 Intake & Output 09/18/18 09/19/18 09/19/18 18:59 06:59 18:59 Intake Total 1400 600 250 Balance 1400 600 250 Weight 71 kg Intake: IV 200 Oral 1200 600 250 Other: Voiding Method Toilet Toilet Toilet # Voids 2 2 1 # Bowel Movements 2 5 1 - Exam - Constitutional General appearance: average body habitus, cooperative, disheveled, mild distress, thin - EENT Eyes: EOMI, PERRLA, poor dentition, normal appearance ENT: normal oropharynx Ears: bilateral: normal - Neck Neck: normal ROM Carotids: bilateral: upstroke normal Thyroid: bilateral: normal size - Respiratory Respiratory: bilateral: diminished - Cardiovascular Rhythm: regular Heart sounds: normal: S1, S2 - Gastrointestinal General gastrointestinal: decreased bowel sounds, normal bowel sounds, soft - Neurologic Neurologic: CNII-XII intact - Musculoskeletal Musculoskeletal: gait normal, generalized weakness, strength equal bilaterally - Psychiatric Psychiatric: A&O x's 3, appropriate affect, intact judgment & insight - Labs CBC & Chem 7: 09/20/18 08:42 09/20/18 08:42 Labs: Abnormal Lab Results - Last 24 Hours (Table) 09/18/18 09/18/18 09/19/18 Range/Units 14:23 20:06 04:32 RBC 2.23 L 2.30 L (4.30-5.90) m/uL Hgb 7.1 L 7.4 L (13.0-17.5) gm/dL Hct 22.7 L 23.2 L (39.0-53.0) % MCV 101.7 H 100.8 H (80.0-100.0) fL RDW 18.2 H 17.8 H (11.5-15.5) % Lymphocytes # 0.9 L 0.6 L (1.0-4.8) k/uL Sodium (137-145) mmol/L Chloride (98-107) mmol/L BUN (9-20) mg/dL Glucose (74-99) mg/dL Calcium (8.4-10.2) mg/dL Iron 15 L (65-175) ug/dL Iron Saturation 4.75 L (15.00-50.00) Alkaline Phosphatase (38-126) U/L Total Protein (6.3-8.2) g/dL Albumin (3.5-5.0) g/dL Vitamin B12 123.0 L (200.0-944.0) pg/mL 09/19/18 09/19/18 Range/Units 04:32 13:13 RBC 2.52 L (4.30-5.90) m/uL Hgb 8.0 L (13.0-17.5) gm/dL Hct 25.7 L (39.0-53.0) % MCV 101.8 H (80.0-100.0) fL RDW 18.9 H (11.5-15.5) % Lymphocytes # (1.0-4.8) k/uL Sodium 136 L (137-145) mmol/L Chloride 111 H (98-107) mmol/L BUN 4 L (9-20) mg/dL Glucose 136 H (74-99) mg/dL Calcium 8.0 L (8.4-10.2) mg/dL Iron (65-175) ug/dL Iron Saturation (15.00-50.00) Alkaline Phosphatase 29 L (38-126) U/L Total Protein 3.9 L (6.3-8.2) g/dL Albumin 2.2 L (3.5-5.0) g/dL Vitamin B12 (200.0-944.0) pg/mL Assessment and Plan Assessment: GI bleed suspect upper GI versus small bowel bleeding Severe symptomatic Anemia Severe COPD Chronic hypoxic respiratory failure Adenocarcinoma of the lung Status post chemotherapy On maintenance chemotherapy History of pneumothorax spontaneous required chest tube followed by a VATS Plan: Monitor hemoglobin closely Rounds fusion as needed Increase activity as tolerated Can be discharged home from pulmonary standpoint in next 24 hours Continue home oxygen Bronchodilator as needed Labs reviewed medications reviewed Time with Patient: Greater than 30
--- NOTE | 2018-09-20 09:36 | P.PN ---
Subjective Progress Note Date: 09/20/18 Principal diagnosis: Severe anemia symptomatic, GI bleed, lung cancer adenocarcinoma stage IV, history of pneumothorax spontaneous requiring VATS, severe COPD 09/20/2018, patient seen and evaluated examined during the rounds in good spirits breathing much better on 2 L oxygen patient is waiting for results of Endoscopy 09/19/2018, patient seen and evaluated examined during the rounds hemoglobin is stable, overall alert some mild abdominal discomfort is present findings on EGD noted patient is planned for Endoscopy, Patient Remains Stable Can Be Moved Out Of the ICU bedroom is available This is a 53-year-old male with prior history of multiple complex medical problems including adenocarcinoma of the lung also was complicated with pneumothorax diagnosed back in 2017 on supplemental oxygen initially was on 8 L oxygen now down to 2 L, patient has received chemotherapy has been doing well he was found to have dark stool for about one to 2 weeks progressively become short of breath denies any abdominal pain he does take Motrin off and on with those problem he came into the hospital for further evaluation he had a colonoscopy about 1 month ago at [facility] which was normal he was found to have hemoglobin of 5.4 with transfusion improved to 7.9 renal functions are normal, patient is still passing dark stools, EGD performed earlier this morning revealed minor gastritis biopsies were done no active bleeding was noted I EGD Objective - Vital Signs Vital signs: Vital Signs Temp 98.7 F 09/20/18 05:00 Pulse 84 09/20/18 05:00 Resp 18 09/20/18 05:00 BP 110/69 09/20/18 05:00 Pulse Ox 98 09/20/18 05:00 Intake & Output 09/19/18 09/20/18 09/20/18 18:59 06:59 18:59 Intake Total 450 540 Balance 450 540 Intake: Oral 450 540 Other: Voiding Method Toilet Toilet Toilet # Voids 1 1 # Bowel Movements 1 - Exam - Constitutional General appearance: average body habitus, cooperative, disheveled, mild distress, thin - EENT Eyes: EOMI, PERRLA, poor dentition, normal appearance ENT: normal oropharynx Ears: bilateral: normal - Neck Neck: normal ROM Carotids: bilateral: upstroke normal Thyroid: bilateral: normal size - Respiratory Respiratory: bilateral: diminished - Cardiovascular Rhythm: regular Heart sounds: normal: S1, S2 - Gastrointestinal General gastrointestinal: decreased bowel sounds, normal bowel sounds, soft - Neurologic Neurologic: CNII-XII intact - Musculoskeletal Musculoskeletal: gait normal, generalized weakness, strength equal bilaterally - Psychiatric Psychiatric: A&O x's 3, appropriate affect, intact judgment & insight - Labs CBC & Chem 7: 09/20/18 08:42 09/20/18 08:42 Labs: Abnormal Lab Results - Last 24 Hours (Table) 09/19/18 09/20/18 09/20/18 Range/Units 13:13 08:42 08:42 RBC 2.52 L 2.48 L (4.30-5.90) m/uL Hgb 8.0 L 7.8 L (13.0-17.5) gm/dL Hct 25.7 L 25.7 L (39.0-53.0) % MCV 101.8 H 103.7 H (80.0-100.0) fL MCHC 30.4 L (31.0-37.0) g/dL RDW 18.9 H 17.7 H (11.5-15.5) % Lymphocytes # 0.5 L (1.0-4.8) k/uL BUN 8 L (9-20) mg/dL Glucose 105 H (74-99) mg/dL Assessment and Plan Assessment: GI bleed suspect upper GI versus small bowel bleeding Severe symptomatic Anemia Severe COPD Chronic hypoxic respiratory failure Adenocarcinoma of the lung Status post chemotherapy On maintenance chemotherapy History of pneumothorax spontaneous required chest tube followed by a VATS Plan: Monitor hemoglobin closely Rounds fusion as needed Increase activity as tolerated Can be discharged home from pulmonary standpoint Continue home oxygen Bronchodilator as needed Labs reviewed medications reviewed Time with Patient: Greater than 30
--- NOTE | 2018-09-20 11:37 | P.PN ---
Subjective Progress Note Date: 09/20/18 Principal diagnosis: Metastatic EGFR Lung Cancer, GI bleed hemoglobin 7.8 today, still awaiting results from capsule study. Continue IV Iron and IM B12 in the interim Objective - Vital Signs Vital signs: Vital Signs Temp 98.7 F 09/20/18 05:00 Pulse 84 09/20/18 05:00 Resp 18 09/20/18 05:00 BP 110/69 09/20/18 05:00 Pulse Ox 98 09/20/18 05:00 Intake & Output 09/19/18 09/20/18 09/20/18 18:59 06:59 18:59 Intake Total 450 540 Balance 450 540 Intake: Oral 450 540 Other: Voiding Method Toilet Toilet Toilet # Voids 1 1 # Bowel Movements 1 - Exam Gen: ALert and Oriented, SOB with conversation Neck supple Head: NCNT Lungs: Diminished throughout Heart Tachy, regular Abdomen: Tender Ext no edema Psych: calm and coorporative Skin dry, flaking - Labs CBC & Chem 7: 09/20/18 08:42 09/20/18 08:42 Labs: Abnormal Lab Results - Last 24 Hours (Table) 09/19/18 09/20/18 09/20/18 Range/Units 13:13 08:42 08:42 RBC 2.52 L 2.48 L (4.30-5.90) m/uL Hgb 8.0 L 7.8 L (13.0-17.5) gm/dL Hct 25.7 L 25.7 L (39.0-53.0) % MCV 101.8 H 103.7 H (80.0-100.0) fL MCHC 30.4 L (31.0-37.0) g/dL RDW 18.9 H 17.7 H (11.5-15.5) % Lymphocytes # 0.5 L (1.0-4.8) k/uL BUN 8 L (9-20) mg/dL Glucose 105 H (74-99) mg/dL Assessment and Plan Plan: Non-Small cell Lung Cancer - EGFR: - Has maintained stable disease on Tarceva. - No evidence of progression identified since starting on tarceva, although on CT scan from 09/16/18 appears to be some new sub-centimeter 6mm at largest left lung. If this is progressive disease on tarceva would need re-biopsy to check for EGFR Resistant T790M. An outpatient PET has been ordered to re- evaluate/restage after discharge. Discussed CT and plan with patient in detail. Macrocytic Anemia: Acute severe drop secondary to Acute blood loss anemia - Status Post EGD/Colonoscopy - no vernon bleeding source identified - B12 and IV iron ordered - PLan Capsule study in am, GI following PLAN: DISPO - PEr Primary - Await results from full GI evaluation - Continue on PPI B12 and Iron as outpatient - F/U with Onc next week
[2018-09-20] MEDS ORDERED: CYANOCOBALAMIN 1,000 MCG/ML 1 ML VIAL IM SCH (11:45)
[2018-09-20] MEDS: SODIUM FERRIC GLUCONAT-SUCROSE 125 MG in SODIUM CHLORIDE 0.9% 100 ML IVPB SCH (12:19)
[2018-09-20 12:21] VITALS: BP 129/76; PULSE 92; TEMP 98.4
--- NOTE | 2018-09-20 14:27 | P.PN ---
Subjective Progress Note Date: 09/20/18 Principal diagnosis: anemia GI bleed Status post EGD. Capsule endoscopy no active bleeding sources and small bowel. Hemoglobin 7.8. Tolerating diet. No active bleeding. Objective - Vital Signs Vital signs: Vital Signs Temp 98.4 F 09/20/18 12:20 Pulse 92 09/20/18 12:20 Resp 18 09/20/18 12:20 BP 129/76 09/20/18 12:20 Pulse Ox 100 09/20/18 12:20 Intake & Output 09/19/18 09/20/18 09/20/18 18:59 06:59 18:59 Intake Total 450 540 Balance 450 540 Intake: Oral 450 540 Other: Voiding Method Toilet Toilet Toilet # Voids 1 1 # Bowel Movements 1 - Exam General appearance: The patient is alert, oriented, in no acute distress. HET: Head is normocephalic and atraumatic. Pupils are equal and reactive. Kelsi pharynx is clear without lesions. Neck: Supple without lymphadenopathy. Trachea midline. Heart: S1 S2. Regular rate and rhythm. Lungs: No crackles or wheezes are heard. Abdomen: Soft, nontender, nondistended with bowel sounds. No peritoneal signs. No palpable organomegaly or masses. Extremities: Normal skin color and turgor. No cyanosis, rash, ulceration, clubbing, or edema. Radial and pedal pulses are 2/4 bilaterally. Neurological: No focal deficits. Strength and sensation are grossly intact. - Labs CBC & Chem 7: 09/20/18 08:42 09/20/18 08:42 Labs: Abnormal Lab Results - Last 24 Hours (Table) 09/20/18 09/20/18 Range/Units 08:42 08:42 RBC 2.48 L (4.30-5.90) m/uL Hgb 7.8 L (13.0-17.5) gm/dL Hct 25.7 L (39.0-53.0) % MCV 103.7 H (80.0-100.0) fL MCHC 30.4 L (31.0-37.0) g/dL RDW 17.7 H (11.5-15.5) % Lymphocytes # 0.5 L (1.0-4.8) k/uL BUN 8 L (9-20) mg/dL Glucose 105 H (74-99) mg/dL Assessment and Plan (1) Acute GI bleeding Narrative/Plan: Status post unremarkable EGD. Small bowel capsule endoscopy reported no active bleeding sources. Recent colonoscopy in the outpatient setting 1-2 months ago unremarkable. Current Visit: Yes Status: Acute Code(s): K92.2 - GASTROINTESTINAL HEMORRHAGE, UNSPECIFIED SNOMED Code(s): 39710339 (2) Melena Current Visit: Yes Status: Acute Code(s): K92.1 - MELENA SNOMED Code(s): 3950865 (3) Acute blood loss anemia Current Visit: Yes Status: Acute Code(s): D62 - ACUTE POSTHEMORRHAGIC ANEMIA SNOMED Code(s): 036445149 (4) Symptomatic anemia Current Visit: Yes Status: Acute Code(s): D64.9 - ANEMIA, UNSPECIFIED SNOMED Code(s): 234220466 (5) Adenocarcinoma of lung Current Visit: No Status: Chronic Code(s): C34.90 - MALIGNANT NEOPLASM OF UNSP PART OF UNSP BRONCHUS OR LUNG SNOMED Code(s): 659887696 (6) GERD (gastroesophageal reflux disease) Current Visit: No Status: Chronic Code(s): K21.9 - GASTRO-ESOPHAGEAL REFLUX DISEASE WITHOUT ESOPHAGITIS SNOMED Code(s): 822724178 (7) NSAID long-term use Current Visit: Yes Status: Acute Code(s): Z79.1 - CORRECTION (CURRENT) USE OF NON-STEROIDAL NON-INFLAM (NSAID) SNOMED Code(s): 186127190 (8) On prednisone therapy Current Visit: Yes Status: Acute Code(s): Z79.52 - SOLE STITCHER HAND (CURRENT) USE OF SYSTEMIC STEROIDS SNOMED Code(s): 824776942 (9) O2 dependent Current Visit: Yes Status: Acute Code(s): Z99.81 - DEPENDENCE ON SUPPLEMENTAL OXYGEN SNOMED Code(s): 643960875885 Plan: 1. Agreeable for discharge follow-up with oncologist. CBC monitoring in the outpatient setting. No further workup from a GI standpoint. Most likely his bleeding presentation was from an intermittent angiectasia within the small bowel that has since resolved. Avoid NSAIDs. Assessment and plan a care discussed with Dr. Ng
== END 2018-09-20 16:50 | disposition home or self-care (01) | DRG 378 ==
LOC: EC 21:15 → 3SCARD 09-18 00:34 → 2SICU 09-18 01:23 → 3NMEDONC 09-19 18:21
PROVIDERS: ADMIT Internal Medicine; ATTEND Internal Medicine
PROC: 0DB78ZX Excision of Stomach, Pylorus, Via Natural or Artificial Opening Endoscopic, Diagnostic (ICD-10-PCS; 2018-09-18)
PROC: 30233N1 Transfusion of Nonautologous Red Blood Cells into Peripheral Vein, Percutaneous Approach (ICD-10-PCS; 2018-09-18)
PROC: 0DB98ZX Excision of Duodenum, Via Natural or Artificial Opening Endoscopic, Diagnostic (ICD-10-PCS; principal; 2018-09-18 07:45)
PROC: 0DJ07ZZ Inspection of Upper Intestinal Tract, Via Natural or Artificial Opening (ICD-10-PCS; 2018-09-19)
DX: K29.71 Gastritis, unspecified, with bleeding (principal); C34.90 Malignant neoplasm of unspecified part of unspecified bronchus or lung; D62 Acute posthemorrhagic anemia; J96.11 Chronic respiratory failure with hypoxia; Z87.891 Personal history of nicotine dependence; E53.8 Deficiency of other specified B group vitamins; I10 Essential (primary) hypertension; J44.9 Chronic obstructive pulmonary disease, unspecified; K21.9 Gastro-esophageal reflux disease without esophagitis; R93.89 Abnormal findings on diagnostic imaging of other specified body structures; Z79.1 Long term (current) use of non-steroidal anti-inflammatories (NSAID); Z79.52 Long term (current) use of systemic steroids; Z82.5 Family history of asthma and other chronic lower respiratory diseases; Z99.81 Dependence on supplemental oxygen; Z79.899 Other long term (current) drug therapy; Z79.51 Long term (current) use of inhaled steroids; Z91.040 Latex allergy status
CPT/HCPCS: 36415; 43239; 80048; 80053; 82272; 82607; 82728; 82746; 83540; 83550; 83615; 83735; 83921; 84484; 85025; 85610; 85730; 86850; 86900; 86901; 86920; 88305; 91110; 93005; 93306; 94640; 96361; 96374; 96375; 99285

== ENCOUNTER → 2019-01-06 | Outpatient (CLI) | payer OTHER ==
[2019-01-06 14:47] LABS: African American GFR (CKD) >90 (>60 ml/min/1.73 sqM); Blood Urea Nitrogen 14 mg/dL (9-20)
--- NOTE | 2019-01-08 08:19 | CT ---
EXAMINATION TYPE: CT chest w con DATE OF EXAM: 01/06/2019 COMPARISON: 09/16/2018 and 05/28/2018 HISTORY: 53-year-old male follow-up Lung cancer TECHNIQUE: Contiguous axial scanning of the chest after the administration of 100 mL of Isovue 300. Coronal/sagittal reconstructions performed. CT DLP: 388mGycm. Automatic exposure control utilized for a dose reduction. FINDINGS: Heart normal size without pericardial effusion. Aorta shows conventional arch vessel branching anatomy. Ectatic descending thoracic aorta measuring u p to 2.8 cm. No thoracic lymphadenopathy by CT size criteria. Mildly enlarged caliber to the main right and the pulmonary arteries at 2.6 and 2.9 cm, respectively, suggesting underlying pulmonary arterial hypertension. Moderate to advanced centrilobular emphysema with extensive areas of interstitial scarring. Pleural-b ased thickening especially in the left hemithorax with associated subtle nodularity remains unchanged . Masslike area of focal opacity right upper lobe extending to the right suprahilar region remains un changed. Scattered 4 mm and smaller areas of nodularity throughout the right upper lobe are unchanged . Patchy groundglass and airspace disease right middle lobe and peripheral right base is new from 2018 and increased from 09/16/2018. Gradually enlarging peripheral left upper lobe pulmonary nodule at 7 mm, axial image 17 versus 6 mm o n 09/16/2018 and 4 mm on 05/28/2018. 5 mm pulmonary nodule peripheral left upper lung, axial image 24 was punctate on the sixth 01/26/2019 exam and not seen on 05/28/2018. 5 mm anterior left midlung pulmonary nodule is unchanged, axial image 28. No pleural effusion. Visualized upper abdomen shows no gross abnormal body. Bones: No osseous destructive process. IMPRESSION: 1. COPD with moderately advanced emphysema and extensive interstitial scarring remains unchanged. Stephy pect chronic posttreatment change in the right upper lobe with scattered 4 mm and smaller right upper lobe nodularity, unchanged. 2. There are 2 gradually enlarging left upper lobe pulmonary nodules measuring 7 mm and 5 mm. Compare d to 05/28/2018, the first previously measured 4 mm and the second was not present. Early metastatic d isease or new primaries difficult to entirely exclude. Follow-up recommended. 3. New airspace disease right middle lobe and peripheral right base. Correlate for symptoms of pneumo kali. 4. Some minimal pleural-based thickening and subpleural nodularity in the left hemithorax noted to be hypermetabolic on recent PET/CT has an overall stable appearance dating back to at least the 05/28/[address]
== END | disposition home or self-care (01) ==
LOC: RADCTMAIN 13:51
PROVIDERS: ATTEND Internal Medicine Hematology & Oncology
DX: Z03.89 Encounter for observation for other suspected diseases and conditions ruled out (principal); C34.81 Malignant neoplasm of overlapping sites of right bronchus and lung; J43.9 Emphysema, unspecified; R91.8 Other nonspecific abnormal finding of lung field; J92.9 Pleural plaque without asbestos
CPT/HCPCS: 82565; 84520; 71260; 36415; Q9967

== ENCOUNTER → 2019-03-10 | Outpatient (CLI) | payer OTHER ==
[2019-03-10 13:56] LABS: African American GFR (CKD) >90 (>60 ml/min/1.73 sqM); Blood Urea Nitrogen 16 mg/dL (9-20); Non-African American GFR(CKD) 84 (>60 ml/min/1.73 sqM)
--- NOTE | 2019-03-10 15:19 | CT ---
EXAMINATION TYPE: CT chest w con DATE OF EXAM: 03/10/2019 COMPARISON: Chest CT January 06, [address] PET CT September 28, 2018 and older studies HISTORY: f/u lung ca CT DLP: 165.6 mGycm. Automated Exposure Control for Dose Reduction was Utilized. TECHNIQUE: CT scan of the thorax is performed following with IV Contrast, patient injected with 100 mL of Isovue 300. FINDINGS: LUNGS: Back from chronic emphysematous and parenchymal fibrotic changes bilaterally with some areas o f pleural-based thickening redemonstrated greater on the left. No new masses. No pleural effusion or pneumothorax. Scattered small nodules are slightly enlarged from most recent CT. For reference 5 mm l eft upper lung nodule axial image 23 is redemonstrated for reference 8 mm left upper lobe nodule axia l image 15 is noted. Stable right upper lung masslike consolidation axial image 14. Significant impro vement from older studies noted. MEDIASTINUM: There are no greater than 1 cm hilar or mediastinal lymph nodes. No pericardial effusi on is seen. Mild cardiomegaly with coronary artery calcification OTHER: Mild multilevel spurring in the spine. IMPRESSION: Background chronic emphysematous change with scattered pleural/parenchymal fibrosis. Jose ed improvement from older studies but there are felt continued enlarging left upper lung nodules felt present.
== END ==
LOC: RADCTMAIN 12:44
PROVIDERS: ATTEND Internal Medicine Hematology & Oncology
DX: J43.9 Emphysema, unspecified (principal); J94.1 Fibrothorax; C34.81 Malignant neoplasm of overlapping sites of right bronchus and lung
CPT/HCPCS: 82565; 84520; 71260; 36415; Q9967

== ENCOUNTER → 2019-07-24 | Outpatient (CLI) | payer OTHER ==
[2019-07-24 12:46] LABS: African American GFR (CKD) >90 (>60 ml/min/1.73 sqM); Blood Urea Nitrogen 14 mg/dL (9-20); Non-African American GFR(CKD) >90 (>60 ml/min/1.73 sqM)
--- NOTE | 2019-07-24 14:00 | CT ---
EXAMINATION TYPE: CT chest w con DATE OF EXAM: 07/24/2019 COMPARISON: 05/19/2019, 03/10/2019, 01/06/2019 HISTORY: 53-year-old male suspected metastases, follow-up Lung cancer. C34.81, Z03.89. TECHNIQUE: Contiguous axial scanning of the chest after the administration of 100 mL of Isovue M300. Coronal/sagittal reconstructions performed. CT DLP: 165.3mGycm. Automatic exposure control utilized for a dose reduction. FINDINGS: Heart normal size without pericardial effusion. Stable mildly aneurysmal aortic root at 4.1 cm an ectatic ascending aorta at 3.7 cm. Conventional arc h vessel branching anatomy. No thoracic lymphadenopathy by CT size criteria. Borderline to mild enlarged caliber to the main right and left pulmonary arteries up to 2.5 and 2.6 c m, respectively, may reflect underlying pulmonary artery hypertension. Extensive chronic parenchymal changes are redemonstrated with architectural distortion in the upper l ungs and confluent opacity right upper lobe measuring 2.6 cm, probable confluence scarring but should continue to be followed. Underlying moderate to advanced emphysema and extensive interstitial thicke lluvia throughout. Groundglass changes especially in the right lower lung remain unchanged and scattered tiny nodular an d tree-in-bud nodular densities particularly on the right are unchanged. Scattered areas of pleural-based nodularity/peripheral interstitial/perilymphatic thickening are unch anged. - Gradually enlarging left upper lobe pulmonary nodule axial image 17 currently measuring 1.2 cm vers us 9 mm, previously. - Gradually enlarging peripheral left midlung pulmonary nodule currently measuring 8 mm versus 5 mm o n 01/06/2019. - 8 mm subpleural pulmonary nodule anterior right upper lobe, axial image 15 seems to be enlarging fr om 01/06/2019. Stable 5 mm pulmonary nodule within the lingula, axial image 28. No pleural effusion. Visualized upper abdomen shows no gross adenopathy. Bones: No osseous destructive process. IMPRESSION: 1. Extensive chronic parenchymal changes with background of moderate to advanced emphysema, interstit ial thickening, scattered pleural-based nodularity, and confluent right upper lobe opacity with paren chymal distortion. Possible sequela of sarcoidosis, prior infection, or pneumoconiosis. Clinically co rrelate. 2. 3 gradually enlarging pulmonary nodules, largest measuring 1.2 cm within the left upper lobe (prev iously measuring 9 mm). Developing areas of lung cancer/metastases not excluded at this time. Close s urveillance recommended. 3. Stable mild aneurysm aortic root at 4.1 cm.
== END | disposition home or self-care (01) ==
LOC: RADCTMAIN 12:05
PROVIDERS: ATTEND Internal Medicine Hematology & Oncology
DX: J98.4 Other disorders of lung (principal); J43.9 Emphysema, unspecified; J84.9 Interstitial pulmonary disease, unspecified; R91.8 Other nonspecific abnormal finding of lung field; I71.9 Aortic aneurysm of unspecified site, without rupture; C34.81 Malignant neoplasm of overlapping sites of right bronchus and lung
CPT/HCPCS: 82565; 84520; 71260; 36415; Q9967

== ENCOUNTER → 2019-08-21 | Outpatient (CLI) | payer OTHER ==
--- NOTE | 2019-08-21 12:35 | MR ---
EXAMINATION TYPE: MR brain wo/w con DATE OF EXAM: 08/21/2019 COMPARISON: NONE HISTORY: Headaches, Unsteady gait. Hx of Lung Ca TECHNIQUE: Multiplanar, multisequence images of the brain and brainstem is performed without and with IV contras t, utilizing 6.5 mL intravenous Gadavist . FINDINGS: Diffusion weighted images demonstrate no evidence of a recent infarct or other diffusion ab normality. There is no worrisome extra-axial fluid collection. Mild ventricular and sulcal prominenc e greatest over bilateral frontal lobes. Occasional tiny focus of T2 hyperintensity scattered through out the white matter bilaterally. Roughly 5-7 tiny lesions all measuring under 4 mm in size. Midline structures demonstrate normal morphology. The craniocervical junction appears within normal limits. Post contrast images demonstrate no abnormal enhancement. The dural venous sinuses appear pa tent. There is 3.5 cm mucous retention cyst or polyp in the right maxillary sinus. Remainder paranasa l sinuses are clear. Globes are intact bilaterally. There is mild mucosal thickening involving ethmoi d sinuses bilaterally. IMPRESSION: No suspicious enhancing intraparenchymal masses to suggest metastatic disease to the brai n. Mild generalized atrophy greatest over bilateral frontal lobes with minimal chronic small vessel i schemic change. Chronic paranasal sinus disease noted.
== END | disposition home or self-care (01) ==
LOC: RADMRIMAIN 11:14
PROVIDERS: ATTEND Internal Medicine Hematology & Oncology
DX: G31.9 Degenerative disease of nervous system, unspecified (principal); I67.82 Cerebral ischemia; J32.4 Chronic pansinusitis
CPT/HCPCS: 70553; A9585

== ENCOUNTER → 2019-11-28 | Outpatient (CLI) | payer OTHER ==
[2019-11-28 10:05] LABS: African American GFR (CKD) >90 (>60 ml/min/1.73 sqM); Blood Urea Nitrogen 14 mg/dL (9-20); Non-African American GFR(CKD) >90 (>60 ml/min/1.73 sqM)
--- NOTE | 2019-11-28 11:09 | CT ---
EXAMINATION TYPE: CT chest w con DATE OF EXAM: 11/28/2019 COMPARISON: 07/24/2019 HISTORY: follow up lung cancer CT DLP: 173.6 mGycm Automated exposure control for dose reduction was used. CONTRAST: CT scan of the chest is performed with IV Contrast, patient injected with 100 mL of Isovue 300. FINDINGS: LUNGS: Right apical nodule persists however smaller in size and currently measures 1.9 cm in greatest dimension versus 2.6 cm previously. Additional smaller anterior pulmonary nodule in the right upper lobe is not clearly visualized at this time. There is biapical parenchymal scarring and distortion. L eft upper lobe pulmonary nodule image 16 measures 6 mm versus 1.2 cm previously. Additional left uppe r lobe pulmonary nodule measuring 5 mm image 28 is stable. Stable sub-3 mm pulmonary nodules right lo wer lobe. Underlying fibrotic changes. MEDIASTINUM: There are no greater than 1 cm hilar or mediastinal lymph nodes. No pericardial effusi on is seen. Mild cardiomegaly. Stable ascending thoracic aortic aneurysm at 4.1 cm versus 4.1 cm prev iously. UPPER ABDOMEN: No significant abnormality appreciated. OTHER: No additional significant abnormality is seen. IMPRESSION: 1. Pulmonary nodules have improved with regards to size. No new nodules are identified at this time. Pulmonary parenchymal distortion persists with underlying fibrosis. Moderate to advanced emphysematou s change.
== END | disposition home or self-care (01) ==
LOC: RADCTMAIN 09:25
PROVIDERS: ATTEND Internal Medicine Hematology & Oncology
DX: Z03.89 Encounter for observation for other suspected diseases and conditions ruled out (principal); C34.81 Malignant neoplasm of overlapping sites of right bronchus and lung; J84.10 Pulmonary fibrosis, unspecified; J43.9 Emphysema, unspecified; Q33.9 Congenital malformation of lung, unspecified
CPT/HCPCS: 82565; 84520; 71260; 36415; Q9967

== ENCOUNTER → 2020-02-19 | Outpatient (CLI) | payer OTHER ==
[2020-02-19 11:39] LABS: African American GFR (CKD) >90 (>60 ml/min/1.73 sqM); Blood Urea Nitrogen 16 mg/dL (9-20); Non-African American GFR(CKD) >90 (>60 ml/min/1.73 sqM)
--- NOTE | 2020-02-19 13:19 | CT ---
EXAMINATION TYPE: CT chest w con DATE OF EXAM: 02/19/2020 COMPARISON: Chest CT November 28, 2019 and older CTs. Prior PET/CT September 28, 2018 and April 14, 2017 HISTORY: Lung cancer progress study CT DLP: 220.9 mGycm. Automated Exposure Control for Dose Reduction was Utilized. TECHNIQUE: CT scan of the thorax is performed following with IV Contrast, patient injected with 100 mL of Isovue 300. FINDINGS: LUNGS: Background moderate to advanced chronic emphysematous and parenchymal fibrotic changes bilater ally with some areas of pleural-based thickening and reticulation redemonstrated. No pleural effusion or pneumothorax noted bilaterally. Right upper lung nodule or nodular consolidation measuring 2.1 x 1.6 cm axial image 15 unchanged from most recent studies. Stable 6 to 7 mm left upper lobe nodule as image 16 from prior studies. No definitive new greater than 5 mm nodules or masses. Persistent left-s ided volume loss. MEDIASTINUM: There are no new greater than 1 cm hilar or mediastinal lymph nodes. No cardiomegaly o r pericardial effusion is seen. Coronary artery calcification is redemonstrated. Enlarged right and left pulmonary arteries redemonstrated. Ascending aorta measures up to 3.8 cm in diameter unchanged f rom prior. OTHER: Slight scoliotic curvature. Mild multilevel spurring and disc space narrowing IMPRESSION: Chronic emphysematous and pulmonary fibrotic changes. No enlarging or new nodules or kesha opathy to suggest active neoplastic progression. Findings overall stable from most recent CT.
== END | disposition home or self-care (01) ==
LOC: RADCTMAIN 10:55
PROVIDERS: ATTEND Internal Medicine Hematology & Oncology
DX: Z03.89 Encounter for observation for other suspected diseases and conditions ruled out (principal); C34.81 Malignant neoplasm of overlapping sites of right bronchus and lung; J43.9 Emphysema, unspecified; J84.10 Pulmonary fibrosis, unspecified
CPT/HCPCS: 82565; 84520; 71260; 36415; Q9967

== ENCOUNTER 2020-03-15 09:11 | Day surgery (SDC) | payer OTHER ==
[2020-03-15 09:58] VITALS: BP 141/84; PULSE 96; RESP 18; TEMP 98.1
--- NOTE | 2020-03-15 11:09 | US ---
ULTRASOUND GUIDED LYMPH NODE BIOPSY SOFT TISSUE LEFT NECK: CLINICAL HISTORY: 54-year-old male with history of lung cancer, palpable abnormality left upper neck, referred for biopsy of Soft tissue left neck mass TECHNIQUE: Targeted ultrasound examination of the patient directed palpable site left upper neck in t he submandibular region. Correlation: 09/28/2018 PET/CT FINDINGS: Targeted scanning shows the submandibular gland with normal homogeneous appearance. Just anterior to the palpable site is an asymmetric area of nodular calcification located deep to the strap musculatur e. A couple tiny 2 mm benign lymph nodes are noted along the left side of the neck. No suspicious lym ph node or neck mass for biopsy. IMPRESSION: 1. No soft tissue mass or lymphadenopathy identified for biopsy along the left upper neck. Biopsy is canceled. 2. Note that just anterior to the palpable site is an asymmetric area of calcification. Correlation w ith patient's 09/28/2018 PET/CT shows this to correspond to a calcified stylohyoid ligament. Refer to axial CT image 49 from the 09/28/2018 PET/CT. Correlate as to if this corresponds to the palpable site . If any enlarging or new palpable area becomes apparent, the patient can be rescanned.
== END 2020-03-15 10:17 | disposition home or self-care (01) ==
LOC: RADPROMAIN 09:11
PROVIDERS: ATTEND Internal Medicine Hematology & Oncology
DX: R59.0 Localized enlarged lymph nodes (principal); M24.29 Disorder of ligament, other specified site
CPT/HCPCS: 76536

== ENCOUNTER → 2020-06-29 | Outpatient (CLI) | payer OTHER ==
[2020-06-29 11:33] LABS: African American GFR (CKD) >90 (>60 ml/min/1.73 sqM); Blood Urea Nitrogen 15 mg/dL (9-20); Non-African American GFR(CKD) >90 (>60 ml/min/1.73 sqM)
--- NOTE | 2020-06-29 12:23 | CT ---
EXAMINATION TYPE: CT chest w con DATE OF EXAM: 06/29/2020 COMPARISON: Chest CT February 19, 2020 and older studies. HISTORY: Lung cancer progress study. CT DLP: 473 mGycm. Automated Exposure Control for Dose Reduction was Utilized. TECHNIQUE: CT scan of the thorax is performed following with IV Contrast, patient injected with 100 mL of Isovue 300. FINDINGS: LUNGS: Background moderate underlying chronic emphysematous and parenchymal fibrotic changes bilatera lly with some areas of pleural-based thickening and reticulation bilaterally is redemonstrated. Trace left-sided pleural fluid collection. Right upper lung nodule or nodular consolidation measuring appr oximately 2.2 x 1.6 cm axial image 15 unchanged from most recent study. Slightly less prominent 6 mm left upper lobe nodule laterally axial image 15. Slightly more prominent 9 x 5 mm scarlike opacity p osterior left upper to midlung image 22. Persistent left-sided volume loss. Persistent scattered micr onodules bilaterally, for reference 4 mm posterior right mid to lower lung nodule axial image 36 is s table. MEDIASTINUM: There are no new greater than 1 cm hilar or mediastinal lymph nodes. No or pericardial effusion is seen. Heart size stable and upper limits of normal. Coronary artery calcification is re demonstrated. Ascending aorta measures up to 3.6 cm in diameter axial image 27 on current study. OTHER: Slight scoliotic curvature redemonstrated. Mild multilevel spurring and disc space narrowing. No new adrenal masses. IMPRESSION: Chronic emphysematous and pulmonary fibrotic changes. Slightly more prominent 9 x 5 mm sc arlike opacity posterior left upper and midlung can be followed. No additional suspicious enlarging n odules or new adenopathy. Findings overall stable from most recent CT.
== END | disposition home or self-care (01) ==
LOC: RADCTMAIN 10:59
PROVIDERS: ATTEND Internal Medicine Hematology & Oncology
DX: C34.90 Malignant neoplasm of unspecified part of unspecified bronchus or lung (principal); J43.9 Emphysema, unspecified
CPT/HCPCS: 82565; 84520; 71260; 36415; Q9967

== ENCOUNTER → 2020-07-03 | Outpatient (CLI) | payer OTHER ==
--- NOTE | 2020-07-04 08:20 | MR ---
EXAMINATION TYPE: MR brain wo/w con DATE OF EXAM: 07/03/2020 3:41 PM COMPARISON: 08/21/2019 HISTORY: Memory Loss, Hx of Cancer CONTRAST: Patient received 7 mL intravenous gadavist contrast. Multiplanar and multispin-echo imaging of the brain was performed . Pre and post contrast enhanced i mages are obtained. The ventricles, basal cisterns and sulci overlying the cerebral convexities are mildly enlarged. There is evidence of mild periventricular white matter ischemic demyelination. Remote deep white matter insults are also noted. No acute edema is seen on diffusion weighted imaging. There is no evidence for midline shift or mass effect. Acute intracranial hemorrhage or extra-axial collection is not evident. No enhancing lesions are seen. Chronic paranasal sinusitis redemonstrated. Well-aerated mastoid air cells. IMPRESSION: Age-related atrophic and chronic small vessel ischemic change. No acute intracranial process at this time. No enhancing lesions are seen.
== END | disposition home or self-care (01) ==
LOC: RADMRIMAIN 14:18
PROVIDERS: ATTEND Internal Medicine Hematology & Oncology
DX: I67.82 Cerebral ischemia (principal)
CPT/HCPCS: 70553; A9585

== ENCOUNTER → 2020-10-14 | Outpatient (CLI) | payer OTHER ==
[2020-10-14 11:53] LABS: Appearance,Urine Clear (Clear); Bilirubin,Urine Negative (Negative); Blood,Urine Negative (Negative); Color,Urine Yellow; Glucose,Urine (UA) Negative (Negative); Ketones,Urine Negative (Negative); Leukocyte Esterase,Urine Negative (Negative); Nitrite,Urine Negative (Negative); Protein,Urine Negative (Negative); Specific Gravity,Urine 1.016 (1.001-1.035); Urobilinogen,Urine <2.0 mg/dL (<2.0)
[2020-10-14 11:59] LABS: African American GFR (CKD) >90 (>60 ml/min/1.73 sqM); Blood Urea Nitrogen 14 mg/dL (9-20); Non-African American GFR(CKD) >90 (>60 ml/min/1.73 sqM)
--- NOTE | 2020-10-14 14:15 | CT ---
EXAMINATION TYPE: CT chest w con DATE OF EXAM: 10/14/2020 COMPARISON: 06/29/2020, 02/19/2020 HISTORY: 55-year-old male C34.31, Lung cancer. TECHNIQUE: Contiguous axial scanning of the chest after the administration of 100 mL of Isovue M300. Coronal/sagittal reconstructions performed. CT DLP: 224.3mGycm. Automatic exposure control utilized for a dose reduction. FINDINGS: Heart normal size without pericardial effusion. Scattered LAD coronary artery calcifications are pres ent. Mild aneurysm aortic root at 4.3 cm. Ectatic ascending aorta 3.9 cm. Conventional arch vessel branchi ng anatomy. No thoracic lymphadenopathy by CT size criteria. Redemonstrated is extensive emphysematous change and scattered fibrosis and interstitial thickening. Nodular pleural thickening along the periphery of the left upper to midlung slightly increased, perfo rates axial image 16 and 22 for example. There is a trace new left pleural effusion. Scattered small nodules are minimally increasing in bulk, for example: -left apex measuring 7 mm now versus barely apparent previously. -Posterior left upper lung nodule measuring 10 x 6 mm, increased by a couple millimeters, axial image 24. -8 mm posterior left midlung pulmonary nodule, axial image 28 versus 7 mm, previously. -A couple pulmonary nodule superior segment right lower lobe measuring 6 mm, axial image 37 and 38 ve rsus 5 mm, previously. -5 mm anterior right upper lobe pulmonary nodule axial image 21, vs 3 mm, previously. Other nodules are stable. Focal scarlike opacity left infrahilar region unchanged. Focal 2.2 x 1.4 cm opacity right upper lobe is unchanged. Visualized upper abdomen shows no gross abnormality. Bones: Mild degenerative disc disease mid to lower thoracic spine. No osseous destructive process. IMPRESSION: 1. Redemonstrated extensive emphysematous and fibrotic changes throughout the lungs. 2. Some nodular pleural thickening in the upper and mid left lung seems to have increased slightly an d there is a new trace left effusion. 3. A few scattered pulmonary nodules as outlined above show slight increase in bulk, for example, a 5 mm anterior right upper lobe pulmonary nodule versus 3 mm, previously. Subtle progression difficult to exclude and continued follow-up is recommended. 4. Other nodules and focal scarlike opacities are unchanged.
== END | disposition home or self-care (01) ==
LOC: RADCTMAIN 11:17
PROVIDERS: ATTEND Internal Medicine Hematology & Oncology
DX: J43.9 Emphysema, unspecified (principal); J84.10 Pulmonary fibrosis, unspecified; J92.9 Pleural plaque without asbestos; R91.8 Other nonspecific abnormal finding of lung field
CPT/HCPCS: 82565; 84520; 81003; 71260; 36415; Q9967

== ENCOUNTER 2020-11-06 17:48 | Emergency (ER) | payer OTHER ==
[2020-11-06 17:54] VITALS: BP 167/106; PULSE 109; RESP 20; TEMP 98
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
== END 2020-11-06 18:10 | disposition home or self-care (01) ==
LOC: EC 17:48
DX: C34.90 Malignant neoplasm of unspecified part of unspecified bronchus or lung (principal); G89.29 Other chronic pain; I10 Essential (primary) hypertension; Z99.81 Dependence on supplemental oxygen; Z76.0 Encounter for issue of repeat prescription; Z87.891 Personal history of nicotine dependence; Z91.040 Latex allergy status
CPT/HCPCS: 99281

== ENCOUNTER → 2020-11-11 | Outpatient (CLI) | payer OTHER ==
--- NOTE | 2020-11-11 12:34 | XR ---
EXAMINATION TYPE: XR abdomen acute w cxr DATE OF EXAM: 11/11/2020 CLINICAL HISTORY: History of lung cancer with pain and diarrhea. TECHNIQUE: Single frontal view of chest is obtained. Supine and upright views of the abdomen are acq uired. COMPARISON: Chest CT October 14, 2020. FINDINGS: Background chronic emphysematous and pulmonary fibrotic changes bilaterally redemonstrated with left-sided volume loss and mild to moderate bibasilar scarring. There is mild to moderate biapic al pleural thickening redemonstrated. Cardiac silhouette size appears stable and upper limits of norm al. Osseous structures are intact. Gas is noted in nondistended stomach bubble and scattered small and large bowel loops. A few scattere d air-fluid levels, nonspecific finding There are pelvic phleboliths right more numerous than left. N o free air. No suspicious calcifications. Osseous structures are intact. IMPRESSION: 1. Chronic changes without acute pulmonary process. 2. Overall nonspecific but likely nonobstructive bowel gas pattern.
== END | disposition home or self-care (01) ==
LOC: RADXRMAIN 11:47
PROVIDERS: ATTEND Internal Medicine Hematology & Oncology
DX: R59.0 Localized enlarged lymph nodes (principal); B37.0 Candidal stomatitis; C34.81 Malignant neoplasm of overlapping sites of right bronchus and lung; C34.90 Malignant neoplasm of unspecified part of unspecified bronchus or lung
CPT/HCPCS: 74022

== ENCOUNTER → 2021-01-18 | Outpatient (CLI) | payer OTHER ==
[2021-01-18 12:10] LABS: African American GFR (CKD) >90 (>60 ml/min/1.73 sqM); Blood Urea Nitrogen 18 mg/dL (9-20); Non-African American GFR(CKD) 87 (>60 ml/min/1.73 sqM)
--- NOTE | 2021-01-18 13:42 | CT ---
EXAMINATION TYPE: CT chest w con DATE OF EXAM: 01/18/2021 COMPARISON: Prior chest CT October 14, 2020 and older studies. PET/CT April 14, 2017 HISTORY: Lung Cancer CT DLP: 432 mGycm. Automated Exposure Control for Dose Reduction was Utilized. TECHNIQUE: CT scan of the thorax is performed following with IV Contrast, patient injected with 100 ml mL of Isovue 300. FINDINGS: LUNGS: Background moderate underlying chronic emphysematous and parenchymal fibrotic changes bilatera lly with some areas of pleural-based thickening and reticulation bilaterally is redemonstrated. Trace bilateral pleural effusions remain present. Stable Right upper lung nodule or nodular scarring measu ring approximately 2.1 x 1.7 cm axial image 14 unchanged from most recent studies. Stable 6 mm left upper lobe nodule laterally axial image 16. Stable 9 x 5 mm scarlike opacity posterior left upper to midlung axial image 22 current study. Persistent left-sided volume loss. Persistent scattered small b ilaterally, for reference 5-6 mm posterior right mid to lower lung nodule axial image 40 is redemonst rated. Moderate scattered parenchymal fibrotic changes bilaterally again seen without significant int erval change. MEDIASTINUM: There are no new greater than 1 cm hilar or mediastinal lymph nodes. No new pericardia l effusion is seen. Heart size stable and upper limits of normal. Coronary artery calcification is r edemonstrated. Ascending aorta measures up to 3.6 cm in diameter axial image 27 on current study. OTHER: Slight scoliotic curvature redemonstrated. Mild multilevel spurring and disc space narrowing. No new adrenal masses. IMPRESSION: Chronic emphysematous and pulmonary fibrotic changes. No obvious new or enlarging nodules or adenopathy. No significant change from most recent CTs.
== END | disposition home or self-care (01) ==
LOC: RADCTMAIN 11:16
PROVIDERS: ATTEND Internal Medicine Hematology & Oncology
DX: J84.10 Pulmonary fibrosis, unspecified (principal); Z85.118 Personal history of other malignant neoplasm of bronchus and lung
CPT/HCPCS: 82565; 84520; 71260; 36415; Q9967

== ENCOUNTER → 2021-04-01 | Outpatient (CLI) | payer OTHER ==
[2021-04-01 14:19] LABS: African American GFR (CKD) >90 (>60 ml/min/1.73 sqM); Blood Urea Nitrogen 15 mg/dL (9-20); Non-African American GFR(CKD) >90 (>60 ml/min/1.73 sqM)
--- NOTE | 2021-04-01 16:48 | CT ---
EXAMINATION TYPE: CT chest w con DATE OF EXAM: 04/01/2021 COMPARISON: 01/18/2021, 06/29/2020 HISTORY: 55-year-old male Lung cancer C34.90, C34.81 Lung/bronchus ca TECHNIQUE: Contiguous axial scanning of the chest after the administration of 100 mL of Isovue 300. Coronal/sagittal reconstructions performed. CT DLP: 213.6mGycm. Automatic exposure control utilized for a dose reduction. FINDINGS: Heart normal size without pericardial effusion. LAD coronary artery calcifications are present. Aortic root aneurysmal at 4.4 cm. Ascending aorta aneurysmal 4.0 cm. Conventional branching anatomy. No thoracic lymphadenopathy by CT size criteria. Redemonstrated is extensive emphysematous change and scattered fibrosis and interstitial thickening. Focal scarlike opacity right upper lobe measures 2.3 x 1.5 cm, not significantly changed. Scattered pulmonary nodules show slight increase in bulk of 1 to 2 mm or greater degree of soft tissu e fullness compared to 01/18/2021. Refer to the left lung, axial image 17, 23, 25, 28 (where nodules measure up to 10 mm versus 8 mm, pr eviously). Refer to the right lung, axial image 20, 36, and 38 (where nodules measure up to 7 mm versus 6 mm, pr eviously). No pleural effusion. The visualized upper abdomen shows clear adrenal glands and no discrete abnormality. Bones: Mild degenerative disc disease mid to lower thoracic spine. No osseous destructive process. IMPRESSION: 1. Redemonstrated extensive emphysematous and fibrotic changes throughout the lungs. 2. Scattered pulmonary nodules are either stable or show slight increase in bulk of 1 to 2 mm compare d to 01/18/2021. For example, left lower lobe axial image 28 measures 10 mm versus 8 mm, previously. Given the minimal changes, ongoing follow-up recommended. 3. Stable aneurysmal aortic root at 4.4 cm.
== END ==
LOC: RADCTMAIN 13:14
PROVIDERS: ATTEND Internal Medicine Hematology & Oncology
DX: C34.90 Malignant neoplasm of unspecified part of unspecified bronchus or lung (principal); C34.81 Malignant neoplasm of overlapping sites of right bronchus and lung; I71.9 Aortic aneurysm of unspecified site, without rupture
CPT/HCPCS: 82565; 84520; 71260; 36415; Q9967

== ENCOUNTER → 2021-06-22 | Outpatient (CLI) | payer OTHER ==
--- NOTE | 2021-06-22 14:42 | XR ---
EXAMINATION TYPE: XR elbow complete LT DATE OF EXAM: 06/22/2021 CLINICAL HISTORY: pain TECHNIQUE: Frontal, lateral and oblique images of the left elbow are obtained. COMPARISON: None. FINDINGS: There is no acute fracture/dislocation evident of the elbow. No abnormal fat pad signs ar e seen. The overlying soft tissue appears unremarkable. IMPRESSION: There is no acute fracture or dislocation of the elbow. ICD 10 NO FRACTURE, INITIAL EVALUATION
== END | disposition home or self-care (01) ==
LOC: RADXRMAIN 13:38
PROVIDERS: ATTEND Nurse Practitioner Adult Health
DX: M25.522 Pain in left elbow (principal)

== ENCOUNTER 2021-06-28 11:07 | Inpatient (IN) | payer OTHER ==
[2021-06-28] MEDS ORDERED: ACETAMINOPHEN TAB 500 MG TAB PO STA (11:16)
[2021-06-28] MEDS ORDERED: ONDANSETRON 4 MG/2 ML VIAL IVP STA (11:16)
[2021-06-28] MEDS ORDERED: IBUPROFEN 600 MG TAB PO STA (11:16)
[2021-06-28] MEDS ORDERED: DIPHENOX-ATROP 2.5-0.025 MG 1 EACH TAB PO STA (11:17)
--- NOTE | 2021-06-28 11:23 | ED ---
General Adult HPI - General Chief complaint: Nausea/Vomiting/Diarrhea Stated complaint: NVD Time Seen by Provider: 06/28/21 11:10 Source: patient, EMS, RN notes reviewed, old records reviewed Mode of arrival: EMS Limitations: no limitations - History of Present Illness Initial comments: This is a 55-year-old male who presents emergency department with past medical history significant for adenocarcinoma along. Patient states he was diagnosed 5 years ago and he again started chemotherapy last November. Patient comes in today because it o'clock last night he started having nausea vomiting diarrhea. Patient states she has some soreness in his abdomen because of all the vomiting. Patient denies any chest pain palpitations difficulty breathing. Patient denies any recent cough. Patient was unaware that he had a fever. Patient denies any back pain. Patient denies any dysuria hematuria urinary frequency. - Related Data Home Medications Medication Instructions Recorded Confirmed Folic Acid 1 mg PO HS 07/15/17 03/05/20 Fluconazole [Diflucan] 100 mg PO HS 09/17/18 03/05/20 HYDROcodone/APAP 10-325MG [[place] 1 tab PO Q6HR PRN 09/17/18 03/05/20 10-325] ondansetron HCL [Zofran] 4 mg PO Q12H PRN 09/17/18 03/05/20 Diphenox-Atrop 2.5-0.025 mg 1 - 2 tab PO QID PRN 03/05/20 03/15/20 [Lomotil] Osimertinib Mesylate [Tagrisso] 80 mg PO DAILY 03/05/20 03/05/20 Previous Rx's Medication Instructions Recorded Pantoprazole Sodium [Protonix] 40 mg PO BID #60 tablet. 09/20/18 HYDROcodone/APAP 10-325MG [[place] 1 tab PO Q6HR PRN 3 Days #12 tab 11/06/20 10-325] Morphine Sulfate ER [Ms Contin] 15 mg PO DIRECTED 3 Days #15 tab 11/06/20 Allergies Allergy/AdvReac Type Severity Reaction Status Date / Time latex Allergy itching Verified 06/28/21 11:13 eyes Review of Systems ROS Statement: Those systems with pertinent positive or pertinent negative responses have been documented in the HPI. ROS Other: All systems not noted in ROS Statement are negative. Past Medical History Past Medical History: Cancer, GERD/Reflux, Hypertension Additional Past Medical History / Comment(s): Adenocarcinoma of the lung; On oral chemo. home oxygen use @2 L [place] ATC,increased SOB, sinus tachycardia (states resting heart rate is 125 -130),does not take anything for heart rate or b/p, History of Any Multi-Drug Resistant Organisms: None Reported Past Surgical History: Adenoidectomy, Tonsillectomy Additional Past Surgical History / Comment(s): History of bronchoscopy. Past Anesthesia/Blood Transfusion Reactions: No Reported Reaction Past Psychological History: No Psychological Hx Reported Smoking Status: Former smoker Past Alcohol Use History: None Reported Past Drug Use History: None Reported - Past Family History Mother Family Medical History: COPD General Exam - General Exam Comments Initial Comments: GENERAL: Patient is well-developed and well-nourished. Patient is nontoxic and well- hydrated and is in mild distress. I took the patient's excellent temperature was 100.5. EMS reported 101. ENT: Neck is soft and supple. No significant lymphadenopathy is noted. Oropharynx is clear. Dry mucous membranes. Neck has full range of motion without eliciting any pain. EYES: The sclera were anicteric and conjunctiva were pink and moist. Extraocular move ments were intact and pupils were equal round and reactive to light. Eyelids were unremarkable. PULMONARY: Unlabored respirations. Good breath sounds bilaterally. No audible rales rhonchi or wheezing was noted. CARDIOVASCULAR: Patient is tachycardic. ABDOMEN: Soft and nontender with normal bowel sounds. SKIN: Patient is a slight reddish hue to his skin. It is a diffuse discoloration. NEUROLOGIC: Patient is alert and oriented x3. Cranial nerves II through XII are grossly intact. Motor and sensory are also intact. Normal speech, volume and content. Symmetrical smile. MUSCULOSKELETAL: Normal extremities with adequate strength and full range of motion. No lower extremity swelling or edema. No calf tenderness. LYMPHATICS: No significant lymphadenopathy is noted PSYCHIATRIC: Normal psychiatric evaluation. Limitations: no limitations Course Vital Signs 06/28/21 06/28/21 06/28/21 11:09 11:19 12:39 Temperature 98.9 F 100.5 F H 98.5 F Pulse Rate 125 H 112 H Respiratory 18 20 Rate Blood Pressure 95/75 101/76 O2 Sat by Pulse 93 L 96 Oximetry Medical Decision Making - Medical Decision Making EKG shows sinus tachycardia with an occasional PAC at a rate of 114 bpm [place] interval 122 QRS is 83 Q-T of 390 QTC is 377. Patient's EKG shows no ST segment elevation or depression. I gave the patient 1500 mL of fluid. Patient also received Zofran and Lomotil. Patient continued to have diarrhea in the emergency department. Patient will be admitted I spoke with the [facility] they agreed to admit the patient admitted the patient remaining orders. - Lab Data Result diagrams: 06/28/21 11:54 06/28/21 11:54 Lab Results 06/28/21 06/28/21 06/28/21 Range/Units 11:54 11:54 11:54 WBC 8.9 (3.8-10.6) k/uL RBC 4.82 (4.30-5.90) m/uL Hgb 16.2 (13.0-17.5) gm/dL Hct 48.7 (39.0-53.0) % MCV 101.0 H (80.0-100.0) fL MCH 33.6 (25.0-35.0) pg MCHC 33.2 (31.0-37.0) g/dL RDW 13.4 (11.5-15.5) % Plt Count 137 L (150-450) k/uL MPV 7.4 Neutrophils % 85 % Lymphocytes % 6 % Monocytes % 7 % Eosinophils % 1 % Basophils % 0 % Neutrophils # 7.6 (1.3-7.7) k/uL Lymphocytes # 0.5 L (1.0-4.8) k/uL Monocytes # 0.6 (0-1.0) k/uL Eosinophils # 0.1 (0-0.7) k/uL Basophils # 0.0 (0-0.2) k/uL Macrocytosis Slight PT (9.0-12.0) sec INR (<1.2) APTT (22.0-30.0) sec Sodium 128 L (137-145) mmol/L Potassium 3.8 (3.5-5.1) mmol/L Chloride 104 (98-107) mmol/L Carbon Dioxide 15 L (22-30) mmol/L Anion Gap 9 mmol/L BUN 15 (9-20) mg/dL Creatinine 1.05 (0.66-1.25) mg/dL Est GFR (CKD-EPI)AfAm >90 (>60 ml/min/1.73 sqM) Est GFR (CKD-EPI)NonAf 80 (>60 ml/min/1.73 sqM) Glucose 101 H (74-99) mg/dL Plasma Lactic Acid Dwayne 1.0 (0.7-2.0) mmol/L Calcium 8.8 (8.4-10.2) mg/dL Total Bilirubin 0.9 (0.2-1.3) mg/dL AST 35 (17-59) U/L ALT 21 (4-49) U/L Alkaline Phosphatase 36 L (38-126) U/L Total Protein 6.7 (6.3-8.2) g/dL Albumin 3.9 (3.5-5.0) g/dL Coronavirus (PCR) (Not Detectd) 06/28/21 06/28/21 Range/Units 11:54 11:55 WBC (3.8-10.6) k/uL RBC (4.30-5.90) m/uL Hgb (13.0-17.5) gm/dL Hct (39.0-53.0) % MCV (80.0-100.0) fL MCH (25.0-35.0) pg MCHC (31.0-37.0) g/dL RDW (11.5-15.5) % Plt Count (150-450) k/uL MPV Neutrophils % % Lymphocytes % % Monocytes % % Eosinophils % % Basophils % % Neutrophils # (1.3-7.7) k/uL Lymphocytes # (1.0-4.8) k/uL Monocytes # (0-1.0) k/uL Eosinophils # (0-0.7) k/uL Basophils # (0-0.2) k/uL Macrocytosis PT 10.5 (9.0-12.0) sec INR 1.0 (<1.2) APTT 23.9 (22.0-30.0) sec Sodium (137-145) mmol/L Potassium (3.5-5.1) mmol/L Chloride (98-107) mmol/L Carbon Dioxide (22-30) mmol/L Anion Gap mmol/L BUN (9-20) mg/dL Creatinine (0.66-1.25) mg/dL Est GFR (CKD-EPI)AfAm (>60 ml/min/1.73 sqM) Est GFR (CKD-EPI)NonAf (>60 ml/min/1.73 sqM) Glucose (74-99) mg/dL Plasma Lactic Acid Dwayne (0.7-2.0) mmol/L Calcium (8.4-10.2) mg/dL Total Bilirubin (0.2-1.3) mg/dL AST (17-59) U/L ALT (4-49) U/L Alkaline Phosphatase (38-126) U/L Total Protein (6.3-8.2) g/dL Albumin (3.5-5.0) g/dL Coronavirus (PCR) Not Detected (Not Detectd) Disposition Clinical Impression: Hyponatremia, Gastroenteritis Disposition: ADMITTED IP TO THIS HOSP Referrals: Masood Cheung MD [Primary Care Provider] - 1-2 days Time of Disposition: 14:43
[2021-06-28] MEDS: SODIUM CHLORIDE 0.9% 500 ML 500 ML IV SCH ×4 (11:58→19:16)
[2021-06-28 12:08] LABS: Basophils % (A) 0 %; Eosinophils # (A) 0.1 k/uL (0-0.7); Eosinophils % (A) 1 %; HCT 48.7 % (39.0-53.0); HGB 16.2 gm/dL (13.0-17.5); Lymphocytes # (A) 0.5 k/uL (1.0-4.8); Lymphocytes % (A) 6 %; MCH 33.6 pg (25.0-35.0); MCHC 33.2 g/dL (31.0-37.0); Macrocytosis Slight; Mean Platelet Volume 7.4; Monocytes # (A) 0.6 k/uL (0-1.0); Monocytes % (A) 7 %; Neutrophils # (A) 7.6 k/uL (1.3-7.7); Neutrophils % (A) 85 %; Platelet Count 137 k/uL (150-450); RBC 4.82 m/uL (4.30-5.90); RDW 13.4 % (11.5-15.5); WBC 8.9 k/uL (3.8-10.6)
[2021-06-28 12:19] LABS: ALT 21 U/L (4-49); AST 35 U/L (17-59); African American GFR (CKD) >90 (>60 ml/min/1.73 sqM); Albumin 3.9 g/dL (3.5-5.0); Alkaline Phosphatase 36 U/L (38-126); Anion Gap 9 mmol/L; Blood Urea Nitrogen 15 mg/dL (9-20); Calcium 8.8 mg/dL (8.4-10.2); Carbon Dioxide 15 mmol/L (22-30); Chloride 104 mmol/L (98-107); Glucose 101 mg/dL (74-99); Non-African American GFR(CKD) 80 (>60 ml/min/1.73 sqM); Potassium 3.8 mmol/L (3.5-5.1); Sodium 128 mmol/L (137-145); Total Bilirubin 0.9 mg/dL (0.2-1.3); Total Protein 6.7 g/dL (6.3-8.2)
--- NOTE | 2021-06-28 12:27 | XR ---
EXAMINATION TYPE: XR chest 2V DATE OF EXAM: 06/28/2021 COMPARISON: Chest CT April 01, 2021 HISTORY: History of lung cancer with fever and shortness of breath. TECHNIQUE: Frontal and lateral views of the chest are obtained. FINDINGS: Background chronic emphysematous and pulmonary fibrotic changes bilaterally with left-side d volume loss are redemonstrated. Areas of increased opacity favor fibrotic changes, some areas of un derlying edema and/or infiltrate cannot be excluded. Cardiac silhouette size is stable and upper limi ts of normal. The osseous structures are intact. IMPRESSION: Chronic emphysematous and parenchymal fibrotic changes with chronic left-sided volume lo ss. Difficult to exclude areas of acute edema and/or infiltrates bilaterally on background chronic ch anges.
[2021-06-28 12:41] LABS: Partial Thromboplastin Time 23.9 sec (22.0-30.0); Prothrombin Time 10.5 sec (9.0-12.0)
[2021-06-28] MEDS ORDERED: SODIUM CHLORIDE 0.9% 1,000 ML IV ONE (14:43)
[2021-06-28 15:23] LABS: Appearance,Urine Clear (Clear); Bilirubin,Urine Negative (Negative); Blood,Urine Negative (Negative); Color,Urine Yellow; Glucose,Urine (UA) Negative (Negative); Hyaline Casts,Urine 13 /lpf (0-2); Ketones,Urine 1+ (Negative); Leukocyte Esterase,Urine Negative (Negative); Mucus,Urine Many /hpf; Nitrite,Urine Negative (Negative); PH, Urine 5.5 (5.0-8.0); Protein,Urine 1+ (Negative); Specific Gravity,Urine 1.028 (1.001-1.035); Squamous Epithelial Cell,Urine 1 /hpf (0-4); Urobilinogen,Urine <2.0 mg/dL (<2.0); WBC,Urine 2 /hpf (0-5)
[2021-06-28] MEDS ORDERED: ALBUTEROL HFA INHALER INHALATION PRN (16:33)
[2021-06-28] MEDS ORDERED: ONDANSETRON 4 MG TAB PO PRN (16:33)
--- NOTE | 2021-06-28 16:37 | P.HPIM ---
History of Present Illness Patient was 50-year-old male came in with compensative nausea vomiting diarrhea restarted yesterday multiple episodes and constant. Patient attributes these symptoms to food poisoning from raw venison. Patient was having some abdominal discomfort from that. Patient had history of adenocarcinoma of the lung presently not on any chemotherapy this is in remission. Patient denied any fever chills patient appeared to be dehydrated patient appears sick and a bit hyponatremic was started on IV fluids, patient is unable to describe if patient has watery diarrhea mucousy diarrhea constraining of multiple episodes most probably patient has inflammatory diarrhea rather than infectious. Patient denied any fever chills. C. diff was ordered. REVIEW OF SYSTEMS: CONSTITUTIONAL: No fever, no malaise, no fatigue. HEENT: No recent visual problems or hearing problems. Denied any sore throat. CARDIOVASCULAR: No chest pain, orthopnea, PND, no palpitations, no syncope. PULMONARY: No shortness of breath, no cough, no hemoptysis. GASTROINTESTINAL: As mentioned in HPI. NEUROLOGICAL: No headaches, no weakness, no numbness. HEMATOLOGICAL: Denies any bleeding or petechiae. GENITOURINARY: Denies any burning micturition, frequency, or urgency. MUSCULOSKELETAL/RHEUMATOLOGICAL: Denies any joint pain, swelling, or any muscle pain. ENDOCRINE: Denies any polyuria or polydipsia. The rest of the 14-point review of systems is negative. PHYSICAL EXAMINATION: GENERAL: The patient is alert and oriented x3, patient appears to be in mild distress appears dehydrated. Well developed, well nourished. HEENT: Pupils are round and equally reacting to light. EOMI. No scleral icterus. No conjunctival pallor. Normocephalic, atraumatic. No pharyngeal erythema. No thyromegaly. CARDIOVASCULAR: S1 and S2 present. No murmurs, rubs, or gallops. PULMONARY: Chest is clear to auscultation, no wheezing or crackles. ABDOMEN: Soft, nontender, nondistended, normoactive bowel sounds. No palpable organomegaly. MUSCULOSKELETAL: No joint swelling or deformity. EXTREMITIES: No cyanosis, clubbing, or pedal edema. NEUROLOGICAL: Gross neurological examination did not reveal any focal deficits. SKIN: No rashes. Assessment and plan -Inflammatory diarrhea from food poisoning: Continue with IV fluids, pending C. diff IV fluids will be increased 1 25 mL per hour -Metabolic acidosis most probably anion gap and non-anion gap metabolic acidosis from lactic acidosis from dehydration and hyperchloremia from IV fluids respectively. -Hypovolemic hyponatremia can you with IV fluids as mentioned above -History of COPD without any acute exacerbation -History of adenocarcinoma of the lung which is in remission -Mild acute renal failure secondary to dehydration and an prerenal azotemia from nausea vomiting diarrhea DVT prophylaxis: Ambulation Past Medical History Past Medical History: Cancer, GERD/Reflux, Hypertension Additional Past Medical History / Comment(s): Adenocarcinoma of the lung; On oral chemo. home oxygen use @2 L [place] ATC,increased SOB, sinus tachycardia (states resting heart rate is 125 -130),does not take anything for heart rate or b/p, History of Any Multi-Drug Resistant Organisms: None Reported Past Surgical History: Adenoidectomy, Tonsillectomy Additional Past Surgical History / Comment(s): History of bronchoscopy. Past Anesthesia/Blood Transfusion Reactions: No Reported Reaction Past Psychological History: No Psychological Hx Reported Smoking Status: Former smoker Past Alcohol Use History: None Reported Past Drug Use History: None Reported - Past Family History Mother Family Medical History: COPD Medications and Allergies Home Medications Medication Instructions Recorded Confirmed Type Folic Acid 1 mg PO HS 07/15/17 03/05/20 History Fluconazole [Diflucan] 100 mg PO HS 09/17/18 03/05/20 History ondansetron HCL [Zofran] 4 mg PO Q12H PRN 09/17/18 03/05/20 History Diphenox-Atrop 2.5-0.025 mg 1 - 2 tab PO QID PRN 03/05/20 03/15/20 History [Lomotil] HYDROcodone/APAP 10-325MG [[place] 1 tab PO Q6HR PRN 3 Days #12 tab 11/06/20 Rx 10-325] Albuterol Sulfate [Proair Hfa] 2 puff INHALATION RT-Q6H PRN 06/28/21 06/28/21 History Budesonide/Formoterol Fumarate 2 puff INHALATION RT-BID 06/28/21 06/28/21 History [Symbicort 160-4.5 Mcg Inhaler] Cholestyramine (with Sugar) 4 gm PO BID 06/28/21 06/28/21 History [Cholestyramine Packet] Clotrimazole 10 mg MUCOUS MEM QID 06/28/21 06/28/21 History Furosemide [Lasix] 20 mg PO BID 06/28/21 06/28/21 History Hydrocortisone [Cortef] 20 mg PO BID 06/28/21 06/28/21 History Ipratropium-Albuterol Nebulize 3 ml INHALATION RT-Q6H PRN 06/28/21 06/28/21 Hi story [Duoneb 0.5 mg-3 mg/3 ml Soln] Morphine Sulfate ER [Ms Contin] 15 mg PO DAILY@1200 06/28/21 06/28/21 History Morphine Sulfate ER [Ms Contin] 30 mg PO BID 06/28/21 06/28/21 History Nystatin 100,000 Unit/ml Susp 4 ml PO QID 06/28/21 06/28/21 History [Mycostatin Oral Susp] Omeprazole 40 mg PO BID 06/28/21 06/28/21 History Potassium Chloride ER [K-Dur 10] 10 meq PO BID 06/28/21 06/28/21 History predniSONE 10 mg PO BID 06/28/21 06/28/21 History rOPINIRole HCL [Requip] 0.5 mg PO HS 06/28/21 06/28/21 History Allergies Allergy/AdvReac Type Severity Reaction Status Date / Time latex Allergy itching Verified 06/28/21 11:13 eyes Physical Exam Vitals: Vital Signs Temp Pulse Resp BP Pulse Ox 06/28/21 12:39 98.5 F 112 H 20 101/76 96 06/28/21 11:19 100.5 F H 06/28/21 11:09 98.9 F 125 H 18 95/75 93 L Intake and Output 06/28/21 06/28/21 06/28/21 06:59 14:59 22:59 Other: Weight 67.132 kg Results CBC & Chem 7: 06/28/21 11:54 06/28/21 11:54 Labs: Abnormal Lab Results - Last 24 Hours (Table) 06/28/21 06/28/21 06/28/21 Range/Units 11:54 11:54 14:52 MCV 101.0 H (80.0-100.0) fL Plt Count 137 L (150-450) k/uL Lymphocytes # 0.5 L (1.0-4.8) k/uL Sodium 128 L (137-145) mmol/L Carbon Dioxide 15 L (22-30) mmol/L Glucose 101 H (74-99) mg/dL Alkaline Phosphatase 36 L (38-126) U/L Urine Protein 1+ H (Negative) Urine Ketones 1+ H (Negative) Hyaline Casts 13 H (0-2) /lpf Urine Mucus Many H (None) /hpf
--- NOTE | 2021-06-28 18:54 | P.CNPUL ---
History of Present Illness Consult date: 06/28/21 Reason for consult: dyspnea Chief complaint: Progressive shortness of breath History of present illness: Patient is a 55-year-old well-known to me with end-stage COPD and history of adenocarcinoma stage IV with lymphangitic spread patient has been on oral chemotherapy and supplemental oxygen followed by oncology seen last several weeks ago stable with 4-6 L oxygen and bronchodilators in stable state of health. Around 8 PM yesterday started feeling nauseous with gastric fullness started throwing up and has loose stool which happened throughout the night because of progressive weakness decided to come into the hospital for further evaluation. Presented into emergency department was tachypneic tachycardic and hypertensive temperature spike to 101, heart rate went up to 125, blood pressure was soft 95/75 oxygen saturation was 90% on 4 L oxygen, patient guarded septic fluid bolus of 1.5 L also received symptomatic therapy with Zofran and Lomotil patient being admitted into hospital. On specific questioning denies any headache denies any loss of consciousness, denies any cough or chest pain shortness of breath slightly more than before, have ongoing nausea vomiting diarrhea some discomfort due to vomiting denies any bladder problem. Appetite has been poor. Chest x-ray chronic emphysematous changes and parenchymal fibrotic changes with left-sided chronic volume loss. Labs were significant for white cell count 8900 hemoglobin and hematocrit 16 and 48 platelet count 1 37,000. PT/INR and [place]. [place] [address].8 CO2 15 BUN and creatinine is 15/1.05. Lactic acid 1.0 liver functions within normal limit the urinalysis no bacteria leukocyte is trace and WBC negative, COVID-19 negative Review of Systems All systems: negative Past Medical History Past Medical History: Cancer, GERD/Reflux, Hypertension Additional Past Medical History / Comment(s): Adenocarcinoma of the lung; On oral chemo. home oxygen use @2 L [place] ATC,increased SOB, sinus tachycardia (states resting heart rate is 125 -130),does not take anything for heart rate or b/p, History of Any Multi-Drug Resistant Organisms: None Reported Past Surgical History: Adenoidectomy, Tonsillectomy Additional Past Surgical History / Comment(s): History of bronchoscopy. Past Anesthesia/Blood Transfusion Reactions: No Reported Reaction Past Psychological History: No Psychological Hx Reported Smoking Status: Former smoker Past Alcohol Use History: None Reported Past Drug Use History: None Reported - Past Family History Mother Family Medical History: COPD Medications and Allergies Home Medications Medication Instructions Recorded Confirmed Type Folic Acid 1 mg PO DAILY 07/15/17 06/28/21 History Fluconazole [Diflucan] 100 mg PO DAILY 09/17/18 06/28/21 History ondansetron HCL [Zofran] 4 mg PO Q18H PRN 09/17/18 06/28/21 History Diphenox-Atrop 2.5-0.025 mg 1 - 2 tab PO QID PRN 03/05/20 06/28/21 History [Lomotil] HYDROcodone/APAP 10-325MG [[place] 1 tab PO Q6HR PRN 3 Days #12 tab 11/06/2006/08 Rx 10-325] Albuterol Sulfate [Proair Hfa] 2 puff INHALATION RT-Q6H PRN 06/28/21 06/28/21 History Budesonide/Formoterol Fumarate 2 puff INHALATION RT-BID 06/28/21 06/28/21 History [Symbicort 160-4.5 Mcg Inhaler] Cholestyramine (with Sugar) 4 gm PO BID 06/28/21 06/28/21 History [Cholestyramine Packet] Clotrimazole 10 mg MUCOUS MEM QID 06/28/21 06/28/21 History Furosemide [Lasix] 20 mg PO BID 06/28/21 06/28/21 History Hydrocortisone [Cortef] 20 mg PO BID 06/28/21 06/28/21 History Ipratropium-Albuterol Nebulize 3 ml INHALATION RT-Q6H PRN 06/28/21 06/28/21 History [Duoneb 0.5 mg-3 mg/3 ml Soln] Morphine Sulfate ER [Ms Contin] 15 mg PO DAILY@1200 06/28/21 06/28/21 History Morphine Sulfate ER [Ms Contin] 30 mg PO BID 06/28/21 06/28/21 History Nystatin 100,000 Unit/ml Susp 4 ml PO QID 06/28/21 06/28/21 History [Mycostatin Oral Susp] Omeprazole 40 mg PO BID 06/28/21 06/28/21 History Potassium Chloride ER [K-Dur 10] 10 meq PO BID 06/28/21 06/28/21 History predniSONE 10 mg PO BID 06/28/21 06/28/21 History rOPINIRole HCL [Requip] 0.5 mg PO HS 06/28/21 06/28/21 History Allergies Allergy/AdvReac Type Severity Reaction Status Date / Time latex Allergy itching Verified 06/28/21 11:13 eyes Physical Exam Vitals: Vital Signs Temp Pulse Resp BP Pulse Ox 06/28/21 18:18 80 18 162/100 98 06/28/21 12:39 98.5 F 112 H 20 101/76 96 06/28/21 11:19 100.5 F H 06/28/21 11:09 98.9 F 125 H 18 95/75 93 L Intake and Output 06/28/21 06/28/21 06/28/21 06:59 14:59 22:59 Other: Weight 67.132 kg - Constitutional General appearance: average body habitus, disheveled, mild distress - EENT Eyes: EOMI, PERRLA ENT: normal oropharynx Ears: bilateral: normal - Neck Carotids: bilateral: upstroke normal Thyroid: bilateral: normal size - Respiratory Respiratory: bilateral: diminished - Cardiovascular Rhythm: regular Heart sounds: normal: S1, S2 - Gastrointestinal General gastrointestinal: normal bowel sounds - Integumentary Integumentary: flushed - Neurologic Neurologic: CNII-XII intact - Musculoskeletal Musculoskeletal: gait normal, generalized weakness - Psychiatric Psychiatric: A&O x's 3, appropriate affect, intact judgment & insight Results - Laboratory Findings CBC and BMP: 06/28/21 11:54 06/28/21 11:54 PT/INR, D-dimer PT 10.5 sec (9.0-12.0) 06/28/21 11:55 INR 1.0 (<1.2) 06/28/21 11:55 Abnormal lab findings: Abnormal Labs 06/28/21 06/28/21 06/28/21 11:54 11:54 14:52 MCV 101.0 H Plt Count 137 L Lymphocytes # 0.5 L Sodium 128 L Carbon Dioxide 15 L Glucose 101 H Alkaline Phosphatase 36 L Urine Protein 1+ H Urine Ketones 1+ H Hyaline Casts 13 H Urine Mucus Many H - Diagnostic Findings Chest x-ray: report reviewed, image reviewed (As noted above) Assessment and Plan Assessment: Sepsis Gastroenteritis Hyponatremia Hypovolemia Metastatic stage IV adenocarcinoma on oral chemotherapy End-stage COPD on bronchodilator therapy 2-4 times a day along with supplemental oxygen Chronic hypoxic respiratory failure at home 4-6 L nasal cannula Plan: Gently hydrate the patient Agree with Lomotil and Zofran as needed Send a stool for culture/C. diff/ Pain control Continue Protonix Continue bronchodilators Continue supplemental oxygen Follow clinical course closely further recommendations pending plan of care as per clinical response of the patient Time with Patient: Greater than 30
[2021-06-28] MEDS: SYMBICORT 160-4.5 MCG INHALER INHALATION SCH (19:29)
[2021-06-28] MEDS: IPRATROPIUM-ALBUTEROL 3 ML NEB INHALATION PRN (19:29)
[2021-06-28] MEDS: CLOTRIMAZOLE TROCHE 10 MG TROCHE MUCOUS MEM SCH (19:45)
[2021-06-28] MEDS: SODIUM CHLORIDE 0.9% 1,000 ML IV SCH (20:11)
[2021-06-28] MEDS: PANTOPRAZOLE 40 MG TABLET PO SCH (20:12)
[2021-06-28] MEDS: NYSTATIN 100,000 UNIT/ML SUSP 500,000 UNIT/5 ML CUP PO SCH (20:12)
[2021-06-28] MEDS: POTASSIUM CHLORIDE ER 10 MEQ TAB.ER.PRT PO SCH (20:13)
[2021-06-28] MEDS: predniSONE 10 MG TAB PO SCH (20:13)
[2021-06-28] MEDS: CHOLESTYRAMINE (WITH SUGAR) 4 GM PACKET PO SCH (20:13)
[2021-06-28] MEDS: HYDROCORTISONE 20 MG TAB PO SCH (20:14)
[2021-06-28] MEDS: MORPHINE SULFATE ER 30 MG TABLET PO SCH (20:14)
[2021-06-28] MEDS: HYDROcodone/APAP 10-325MG 1 EACH TAB PO PRN (20:22)
[2021-06-29] MEDS: NYSTATIN 100,000 UNIT/ML SUSP 500,000 UNIT/5 ML CUP PO SCH ×5 (00:21→20:31)
[2021-06-29] MEDS: CLOTRIMAZOLE TROCHE 10 MG TROCHE MUCOUS MEM SCH ×5 (00:21→20:32)
[2021-06-29] MEDS: HYDROcodone/APAP 10-325MG 1 EACH TAB PO PRN ×3 (06:00→20:38)
[2021-06-29 07:04] LABS: Glucose,Whole Blood 116 mg/dL (75-99)
[2021-06-29] MEDS: SODIUM CHLORIDE 0.9% 1,000 ML IV SCH ×3 (07:57→13:59)
[2021-06-29] MEDS: POTASSIUM CHLORIDE ER 10 MEQ TAB.ER.PRT PO SCH ×3 (08:22→20:26)
[2021-06-29] MEDS: MORPHINE SULFATE ER 30 MG TABLET PO SCH (08:22)
[2021-06-29] MEDS: predniSONE 10 MG TAB PO SCH ×2 (08:22→20:27)
[2021-06-29] MEDS: PANTOPRAZOLE 40 MG TABLET PO SCH ×2 (08:22→17:06)
[2021-06-29] MEDS: FOLIC ACID 1 MG TAB PO SCH (08:22)
[2021-06-29] MEDS: CHOLESTYRAMINE (WITH SUGAR) 4 GM PACKET PO SCH ×2 (08:25→20:31)
[2021-06-29] MEDS: HYDROCORTISONE 20 MG TAB PO SCH ×2 (08:26→20:31)
[2021-06-29] MEDS: IPRATROPIUM-ALBUTEROL 3 ML NEB INHALATION PRN (08:36)
[2021-06-29] MEDS: SYMBICORT 160-4.5 MCG INHALER INHALATION SCH ×2 (08:37→20:48)
[2021-06-29] MEDS: DIPHENOX-ATROP 2.5-0.025 MG 1 EACH TAB PO PRN ×2 (08:41→23:52)
[2021-06-29] MEDS: ONDANSETRON 4 MG/2 ML VIAL IVP PRN ×2 (08:41→20:27)
[2021-06-29] MEDS ORDERED: NON FORMULARY DRUG (Osimertinib Mesylate [Tagrisso] 80 MG Tablet) PO SCH (09:00)
[2021-06-29 09:35] LABS: HCT 43.6 % (39.6-50.0); HGB 14.1 g/dL (13.0-17.0); MCHC 32.3 g/dL (32.0-37.0); MCV 99.1 fL (80.0-97.0); Mean Platelet Volume 10.2 fL (9.5-12.2); NRBC Per 100 WBC 0 /100 WBCS (0.0-0.0); Platelet Count 107 X 10*3/uL (140-440); RDW 13.2 % (11.5-14.5); WBC 5.73 X 10*3/uL (4.50-10.00)
[2021-06-29 09:52] LABS: African American GFR (CKD) 112.4 (60.0-200.0); Anion Gap 12.7 mmol/L (10.00-18.00); BUN/Creat Ratio 12.01 Ratio (12.00-20.00); Blood Urea Nitrogen 10.5 mg/dL (9.0-27.0); Calcium 8.1 mg/dL (8.7-10.3); Carbon Dioxide 17.2 mmol/L (20.0-27.5); Potassium 4.4 mmol/L (3.5-5.5)
[2021-06-29 11:32] LABS: Glucose,Whole Blood 114 mg/dL (75-99)
--- NOTE | 2021-06-29 12:01 | P.PN ---
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 diff is negative, Patient is a 55-year-old well-known to me with end-stage COPD and history of adenocarcinoma stage IV with lymphangitic spread patient has been on oral chemotherapy and supplemental oxygen followed by oncology seen last several weeks ago stable with 4-6 L oxygen and bronchodilators in stable state of health. Around 8 PM yesterday started feeling nauseous with gastric fullness started throwing up and has loose stool which happened throughout the night because of progressive weakness decided to come into the hospital for further evaluation. Presented into emergency department was tachypneic tachycardic and hypertensive temperature spike to 101, heart rate went up to 125, blood pressure was soft 95/75 oxygen saturation was 90% on 4 L oxygen, patient guarded septic fluid bolus of 1.5 L also received symptomatic therapy with Zofran and Lomotil patient being admitted into hospital. On specific questioning denies any headache denies any loss of consciousness, denies any cough or chest pain shortness of breath slightly more than before, have ongoing nausea vomiting diarrhea some discomfort due to vomiting denies any bladder problem. Appetite has been poor. Chest x-ray chronic emphysematous changes and parenchymal fibrotic changes with left-sided chronic volume loss. Labs were significant for white cell count 8900 hemoglobin and hematocrit 16 and 48 platelet count 1 37,000. PT/INR [place]. [place] [address].8 CO2 15 BUN and creatinine is 15/1.05. Lactic acid 1.0 liver functions within normal limit the urinalysis no bacteria leukocyte is trace and WBC negative, COVID-19 negative Objective - Vital Signs Vital signs: Vital Signs Temp 98.6 F 06/29/21 07:17 Pulse 96 06/29/21 08:48 Resp 18 06/29/21 09:50 BP 128/83 06/29/21 07:17 Pulse Ox 99 06/29/21 07:17 Intake & Output 06/28/21 06/29/21 06/29/21 18:59 06:59 18:59 Output Total 0 Balance 0 Weight 67.132 kg 67.132 kg Output: Urine 0 Other: Voiding Method Bedside Commode # Voids 0 # Bowel Movements 1 - Exam - Constitutional General appearance: average body habitus, disheveled, mild distress - EENT Eyes: EOMI, PERRLA ENT: normal oropharynx Ears: bilateral: normal - Neck Carotids: bilateral: upstroke normal Thyroid: bilateral: normal size - Respiratory Respiratory: bilateral: diminished - Cardiovascular Rhythm: regular Heart sounds: normal: S1, S2 - Gastrointestinal General gastrointestinal: normal bowel sounds - Integumentary Integumentary: flushed - Neurologic Neurologic: CNII-XII intact - Musculoskeletal Musculoskeletal: gait normal, generalized weakness - Psychiatric Psychiatric: A&O x's 3, appropriate affect, intact judgment & insight - Labs CBC & Chem 7: 06/29/21 05:50 06/29/21 05:50 Labs: Abnormal Lab Results - Last 24 Hours (Table) 06/28/21 06/28/21 06/28/21 Range/Units 11:54 11:54 14:52 MCV 101.0 H (80.0-100.0) fL Plt Count 137 L (150-450) k/uL Lymphocytes # 0.5 L (1.0-4.8) k/uL Sodium 128 L (137-145) mmol/L Carbon Dioxide 15 L (22-30) mmol/L Glucose 101 H (74-99) mg/dL POC Glucose (mg/dL) (75-99) mg/dL Calcium (8.7-10.3) mg/dL Alkaline Phosphatase 36 L (38-126) U/L Urine Protein 1+ H (Negative) Urine Ketones 1+ H (Negative) Hyaline Casts 13 H (0-2) /lpf Urine Mucus Many H (None) /hpf 06/29/21 06/29/21 06/29/21 Range/Units 05:50 05:50 07:03 MCV 99.1 H (80.0-100.0) fL Plt Count 107 L (150-450) k/uL Lymphocytes # (1.0-4.8) k/uL Sodium (137-145) mmol/L Carbon Dioxide 17.2 L (22-30) mmol/L Glucose (74-99) mg/dL POC Glucose (mg/dL) 116 H (75-99) mg/dL Calcium 8.1 L (8.7-10.3) mg/dL Alkaline Phosphatase (38-126) U/L Urine Protein (Negative) Urine Ketones (Negative) Hyaline Casts (0-2) /lpf Urine Mucus (None) /hpf 06/29/21 Range/Units 11:30 MCV (80.0-100.0) fL Plt Count (150-450) k/uL Lymphocytes # (1.0-4.8) k/uL Sodium (137-145) mmol/L Carbon Dioxide (22-30) mmol/L Glucose (74-99) mg/dL POC Glucose (mg/dL) 114 H (75-99) mg/dL Calcium (8.7-10.3) mg/dL Alkaline Phosphatase (38-126) U/L Urine Protein (Negative) Urine Ketones (Negative) Hyaline Casts (0-2) /lpf Urine Mucus (None) /hpf Assessment and Plan Assessment: Sepsis Gastroenteritis Hyponatremia Hypovolemia Metastatic stage IV adenocarcinoma on oral chemotherapy End-stage COPD on bronchodilator therapy 2-4 times a day along with supplemental oxygen Chronic hypoxic respiratory failure at home 4-6 L nasal cannula Plan: Gently hydrate the patient Agree with Lomotil and Zofran as needed Noted his stool is negative for C. difficile Pain control Continue Protonix Continue bronchodilators Continue supplemental oxygen Follow clinical course closely further recommendations pending plan of care as per clinical response of the patient Time with Patient: Greater than 30
[2021-06-29] MEDS: MORPHINE SULFATE ER 15 MG TABLET PO SCH (12:04)
--- NOTE | 2021-06-29 15:37 | P.PN ---
Subjective Progress Note Date: 06/29/21 Patient was 50-year-old male came in with compensative nausea vomiting diarrhea restarted yesterday multiple episodes and constant. Patient attributes these symptoms to food poisoning from raw venison. Patient was having some abdominal discomfort from that. Patient had history of adenocarcinoma of the lung presently not on any chemotherapy this is in remission. Patient denied any fever chills patient appeared to be dehydrated patient appears sick and a bit hyponatremic was started on IV fluids, patient is unable to describe if patient has watery diarrhea mucousy diarrhea constraining of multiple episodes most probably patient has inflammatory diarrhea rather than infectious. Patient denied any fever chills. C. diff was ordered. 06/29/2021 Patient evaluated today resting in bed, continues with loose stools and abdominal pain. Otherwise labs have normalized, CDIF negative. Sodium 138. Can resume home oral chemo. Continue on questran and lomitol. Vitals stable. Monitor overnight, pending blood cultures. Plan will be for discharge in the morning. No acute events overnight. Review of Systems Constitutional: Denied any fatigue denied any fever. Cardio vascular: denied any chest pain, palpitations Gastrointestinal: Denies nausea vomiting reports diarrhea reports abdominal pain Pulmonary: Denied any shortness of breath cough Neurologic denied any new focal deficits All inpatient medications were reviewed and appropriate changes in these medications as dictated in the interval history and assessment and plan. PHYSICAL EXAMINATION: GENERAL: The patient is alert and oriented x3, patient appears to be in mild distress appears dehydrated. Well developed, well nourished. HEENT: Pupils are round and equally reacting to light. EOMI. No scleral icterus. No conjunctival pallor. Normocephalic, atraumatic. No pharyngeal erythema. No thyromegaly. CARDIOVASCULAR: S1 and S2 present. No murmurs, rubs, or gallops. PULMONARY: Chest is clear to auscultation, no wheezing or crackles. ABDOMEN: Soft, nontender, nondistended, normoactive bowel sounds. No palpable organomegaly. MUSCULOSKELETAL: No joint swelling or deformity. EXTREMITIES: No cyanosis, clubbing, or pedal edema. NEUROLOGICAL: Gross neurological examination did not reveal any focal deficits. SKIN: No rashes. Assessment and plan -Inflammatory diarrhea from food poisoning: Continue with IV fluids,CDIF negative, continue lomitol and questran -Metabolic acidosis most probably anion gap and non-anion gap metabolic acidosis from lactic acidosis from dehydration and hyperchloremia, resolved, continue IV fluids overnight increased diet as tolerated -Hypovolemic hyponatremia can you with IV fluids as mentioned above -History of COPD without any acute exacerbation -History of adenocarcinoma of the lung which is in remission, can continue on oral chemo -Mild acute renal failure secondary to dehydration and an prerenal azotemia from nausea vomiting diarrhea, resolved DVT prophylaxis: Ambulation Plan Monitor overnight Decreased IV fluids Oral intake as tolerated Discharge in the AM The impression and plan of care has been dictated by Roslyn Pritchard, Nurse Practitioner as directed. Dr. Luther MD I have performed a history and physical examination and medical decision making of this patient, discussed the same with the dictator, and agree with the dictators assessment and plan as written, documented as a scribe. Based on total visit time, I have performed more than 50% of this visit. Objective - Vital Signs Vital signs: Vital Signs Temp 98.6 F 06/29/21 07:17 Pulse 96 06/29/21 08:48 Resp 18 06/29/21 09:50 BP 128/83 06/29/21 07:17 Pulse Ox 99 06/29/21 07:17 Intake & Output 06/28/21 06/29/21 06/29/21 18:59 06:59 18:59 Output Total 0 Balance 0 Weight 67.132 kg 67.132 kg Output: Urine 0 Other: Voiding Method Bedside Commode # Voids 0 # Bowel Movements 1 - Labs CBC & Chem 7: 06/29/21 05:50 06/29/21 05:50 Labs: Abnormal Lab Results - Last 24 Hours (Table) 06/29/21 06/29/21 06/29/21 Range/Units 05:50 05:50 07:03 MCV 99.1 H (80.0-97.0) fL Plt Count 107 L (140-440) X 10*3/uL Carbon Dioxide 17.2 L (20.0-27.5) mmol/L POC Glucose (mg/dL) 116 H (75-99) mg/dL Calcium 8.1 L (8.7-10.3) mg/dL 06/29/21 Range/Units 11:30 MCV (80.0-97.0) fL Plt Count (140-440) X 10*3/uL Carbon Dioxide (20.0-27.5) mmol/L POC Glucose (mg/dL) 114 H (75-99) mg/dL Calcium (8.7-10.3) mg/dL Microbiology - Last 24 Hours (Table) 06/28/21 11:55 Blood Culture - Preliminary Blood No Growth after 24 hours 06/28/21 11:46 Blood Culture - Preliminary Blood No Growth after 24 hours Assessment and Plan Time with Patient: Less than 30
[2021-06-29 16:39] LABS: Glucose,Whole Blood 150 mg/dL (75-99)
[2021-06-29] MEDS ORDERED: MORPHINE SULFATE ER 15 MG TABLET PO SCH (18:30)
[2021-06-29] MEDS ORDERED: TAGRISSO 80 MG PO SCH (20:00)
[2021-06-29 20:21] LABS: Glucose,Whole Blood 101 mg/dL (75-99)
[2021-06-30] MEDS ORDERED: MORPHINE SULFATE ER 15 MG TABLET PO SCH
[2021-06-30 02:57] VITALS: RESP 16
[2021-06-30] MEDS: SODIUM CHLORIDE 0.9% 1,000 ML IV SCH (05:41)
[2021-06-30] MEDS: HYDROcodone/APAP 10-325MG 1 EACH TAB PO PRN ×2 (06:23→14:26)
[2021-06-30] MEDS: DIPHENOX-ATROP 2.5-0.025 MG 1 EACH TAB PO PRN (06:23)
[2021-06-30 06:50] LABS: Glucose,Whole Blood 126 mg/dL (75-99)
[2021-06-30] MEDS: SYMBICORT 160-4.5 MCG INHALER INHALATION SCH (08:41)
[2021-06-30] MEDS: IPRATROPIUM-ALBUTEROL 3 ML NEB INHALATION PRN (08:41)
[2021-06-30] MEDS ORDERED: MORPHINE SULFATE ER 30 MG TABLET PO SCH (09:00)
[2021-06-30] MEDS: FOLIC ACID 1 MG TAB PO SCH (09:48)
[2021-06-30] MEDS: PANTOPRAZOLE 40 MG TABLET PO SCH (09:48)
[2021-06-30] MEDS: predniSONE 10 MG TAB PO SCH (09:51)
[2021-06-30] MEDS: NYSTATIN 100,000 UNIT/ML SUSP 500,000 UNIT/5 ML CUP PO SCH ×2 (09:51→12:15)
[2021-06-30] MEDS: CLOTRIMAZOLE TROCHE 10 MG TROCHE MUCOUS MEM SCH ×2 (09:52→12:15)
[2021-06-30] MEDS: CHOLESTYRAMINE (WITH SUGAR) 4 GM PACKET PO SCH (09:52)
[2021-06-30] MEDS: HYDROCORTISONE 20 MG TAB PO SCH (09:52)
[2021-06-30 11:47] LABS: Glucose,Whole Blood 98 mg/dL (75-99)
--- NOTE | 2021-06-30 12:16 | CDI ---
Documentation Clarification Form Date: 06/30/2021 11:59:11 AM From: Roxie Kilpatrick CCS, CCDS Admit Date: 06/28/2021 02:43:00 PM Patient Name: Ritesh Olivo Visit Number: [id number] Discharge Date: ATTENTION: The Clinical Documentation Specialists (CDI) and [facility] Coding Staff appreciate your assistance in clarifying documentation. Please respond to the clarification below the line at the bottom and electronically sign. The CDI & [facility] Coding staff will review the response and follow-up if needed. Please note: Queries are made part of the Legal Health Record. If you have any questions, please contact the author of this message via ITS. Dr. Kelli Anaya: The patient presented with the following clinical indicators: Diarrhea, Nausea, Vomiting, Abdominal pain, Fever, in mild distress with possible food poisoning per the patient per the 06/28 H/P. Sepsis is documented in the 06/28 Pulmonary Consult. Additional clarification regarding the etiology/cause of the clinical indicators is requested. History/Risk Factors per the 06/28 H/P: Adenocarcinoma of the lung on oral chemotherapy, in remission, GERD, Hypertension, Home O2 2Lnc atc, Former smoker. Clinical Indicators: Presented to the ED on 06/28 via EMS with Nausea, Vomiting, Diarrhea, Fever and abdominal soreness. Appeared non-toxic in mild distress, Tachycardic, Alert/Oriented x3. Admit with Hyponatremia & Gastroenteritis Per the 06/28 H/P Impression: Inflammatory diarrhea from food poisoning, Metabolic acidosis & Lactic acidosis from Dehydration & Hyperchloremia, Hypovolemic Hyponatremia, Mild JESSICA. 06/28 VS: T 100.5 (101 per EMS), P 125, R 18 - 20, BP 95/75, PO 93 RA, BMI: 20.1 06/28 LAB: WBC 8.9, Pl Ct 137, Neut 7.6, Lymph 0.5; Na 128, CO2 15, Glucose 101, Alkaline Phos 36 06/28 UA: clear, 1+ Protein, 1+ Ketones, Hyaline Casts 13 06/28 Blood cultures x2: preliminary: No growth @ 24 hrs. 06/28: C Diff: Negative 06/28 COVID: Negative 06/28 CXR: Chronic emphysematous and parenchymal fibrotic changes with chronic left-sided volume loss. Difficult to exclude areas of acute edema and/or infiltrates bilaterally on background chronic changes. 06/28 EKG: R 114 w/occasional PACs, sinus tachycardia. Treatment 06/28: Blood cultures, O2 2Lnc, IV Rocephin 50 mls @ 100 mls/hr x1, IV Zofran 4 mg x1, IV Na Cl 500 mls @ 1000 mls/hr q35M, IV Na Cl 1,000 mls @ 75 mls/hr q13H Infectious Disease is not consulted. In your professional opinion, please clarify if these findings signify one of the following conditions: [ ] Sepsis POA [ ] Sepsis, Not POA [ ] Sepsis ruled out [ ] Severe Sepsis with organ failure [ ] SIRS without underlying infectious process. [ ] Other, please specify [ ] Unable to determine (Template Last Reviewed: May 2020) NOT my documentation MTDD
[2021-06-30] MEDS: MORPHINE SULFATE ER 15 MG TABLET PO SCH (12:19)
[2021-06-30 14:50] VITALS: BP 151/100; PULSE 92; TEMP 98
--- NOTE | 2021-07-01 12:33 | CDI ---
Documentation Clarification Form Date: 06/30/2021 11:59:00 AM From: Roxie Kilpatrick CCS, CCDS Admit Date: 06/28/2021 02:43:00 PM Patient Name: Ritesh Olivo Visit Number: [id number] Discharge Date: 06/30/2021 04:27:00 PM ATTENTION: The Clinical Documentation Specialists (CDI) and [facility] Coding Staff appreciate your assistance in clarifying documentation. Please respond to the clarification below the line at the bottom and electronically sign. The CDI & [facility] Coding staff will review the response and follow-up if needed. Please note: Queries are made part of the Legal Health Record. If you have any questions, please contact the author of this message via ITS. Dr. Braeden Sloan: The patient presented with the following clinical indicators: Diarrhea, Nausea, Vomiting, Abdominal pain, Fever, in mild distress with possible food poisoning per the patient per the 06/28 H/P. Sepsis is documented in the 06/28 Pulmonary Consult. Additional clarification regarding the etiology/cause of the clinical indicators is requested. History/Risk Factors per the 06/28 H/P: Adenocarcinoma of the lung on oral chemotherapy, in remission, GERD, Hypertension, Home O2 2Lnc atc, Former smoker. Clinical Indicators: Presented to the ED on 06/28 via EMS with Nausea, Vomiting, Diarrhea, Fever and abdominal soreness. Appeared non-toxic in mild distress, Tachycardic, Alert/Oriented x3. Admit with Hyponatremia & Gastroenteritis Per the 06/28 H/P Impression: Inflammatory diarrhea from food poisoning, Metabolic acidosis & Lactic acidosis from Dehydration & Hyperchloremia, Hypovolemic Hyponatremia, Mild JESSICA. 06/28 VS: T 100.5 (101 per EMS), P 125, R 18 - 20, BP 95/75, PO 93 RA, BMI: 20.1 06/28 LAB: WBC 8.9, Pl Ct 137, Neut 7.6, Lymph 0.5; Na 128, CO2 15, Glucose 101, Alkaline Phos 36 06/28 UA: clear, 1+ Protein, 1+ Ketones, Hyaline Casts 13 06/28 Blood cultures x2: preliminary: No growth @ 24 hrs. 06/28: C Diff: Negative 06/28 COVID: Negative 06/28 CXR: Chronic emphysematous and parenchymal fibrotic changes with chronic left-sided volume loss. Difficult to exclude areas of acute edema and/or infiltrates bilaterally on background chronic changes. 06/28 EKG: R 114 w/occasional PACs, sinus tachycardia. Treatment 06/28: Blood cultures, O2 2Lnc, IV Rocephin 50 mls @ 100 mls/hr x1, IV Zofran 4 mg x1, IV Na Cl 500 mls @ 1000 mls/hr q35M, IV Na Cl 1,000 mls @ 75 mls/hr q13H Infectious Disease is not consulted. In your professional opinion, please clarify if these findings signify one of the following conditions: [ ] Sepsis POA [ ] Sepsis, Not POA [ ] Sepsis ruled out [ ] Severe Sepsis with organ failure [ x ] SIRS without underlying infectious process. [ ] Other, please specify [ ] Unable to determine (Template Last Reviewed: May 2020) JAKED
--- NOTE | 2021-07-02 14:53 | P.DS ---
Providers Date of admission: 06/28/21 14:43 Attending physician: Kelli Anaya Primary care physician: Masood Cheung Hospital Course: -Inflammatory diarrhea from food poisoning, no evidence of sepsis, Continue with IV fluids, CDIF negative, continue lomitol and questran -Metabolic acidosis most probably anion gap and non-anion gap metabolic acidosis from lactic acidosis from dehydration and hyperchloremia, resolved, continue IV fluids overnight increased diet as tolerated -Hypovolemic hyponatremia can you with IV fluids as mentioned above -History of COPD without any acute exacerbation -History of adenocarcinoma of the lung which is in remission, can continue on o ral chemo -Mild acute renal failure secondary to dehydration and an prerenal azotemia from nausea vomiting diarrhea, resolved Discharge Disposition Patient stable for discharge today. Diarrhea and abdominal pain have improved electrolytes have normalized. Hospital Course This is a pleasant 55 year old male who presents with 24 hours history of severe nausea, vomiting, diarrhea after eating some venison that was prepared for him. Patient is unable to describe if patient has watery diarrhea mucousy diarrhea constraining of multiple episodes most probably patient has inflammatory diarrhea rather than infectious. Patient denied any fever chills. C. diff was also negative. Denies chest pain, dysuria. Patient has a history of adenocarcinoma of the lung maintained on Tagrisso and wears 4 L of oxygen via nasal cannula at home. Other chronic conditions include GERD, hypertension, sinus tachycardia, quit smoking in 2013. On admission patient was hyponatremia with a sodium level of 128, no white count, urinalysis negative, covid negative. Patient received a 2 L fluid bolus, given IV fluids in the EC and received 1 dose of IV rocephin. Sodium normalized to 138. 06/30/2021 Patient monitored one more night as yesterday his abdomen was still quite tender to palpation with ongoing diarrhea. Per patient he usually has looser stools form oral chemo. Today he feels much improved. Alert x4, no chest pain, no cough or shortness of breath. No nausea or vomiting. Diarrhea has improved somewhat continues on questran and lomitol which he states he has plenty of at home. Vitals stable, afebrile. He would like to be discharged home today. Lungs are clear, s1 s2 auscultated. Bowel sounds are hyperactive. Able to palpate abdomen today without patient guarding. Blood cultures are negative. Patient can be discharged home to follow up with PCP. Please see medication reconciliation for a list of current medications. Thank you for allowing us to participate in the care of this patient. The impression and plan of care has been dictated by Roslyn Pritchard, Nurse Practitioner as directed. Dr. Luther MD I have performed a history and physical examination and medical decision making of this patient, discussed the same with the dictator, and agree with the dictators assessment and plan as written, documented as a scribe. Based on total visit time, I have performed more than 50% of this visit. Patient Condition at Discharge: Stable Plan - Discharge Summary Discharge Rx Participant: No New Discharge Prescriptions: New Pantoprazole [Protonix] 40 mg PO DAILY #30 tab Osimertinib Mesylate [Tagrisso] 80 mg PO DAILY@2000 Continue Folic Acid 1 mg PO DAILY Fluconazole [Diflucan] 100 mg PO DAILY ondansetron HCL [Zofran] 4 mg PO Q18H PRN PRN Reason: Nausea And Vomiting Diphenox-Atrop 2.5-0.025 mg [Lomotil] 1 - 2 tab PO QID PRN PRN Reason: Diarrhea Budesonide/Formoterol Fumarate [Symbicort 160-4.5 Mcg Inhaler] 2 puff INHALATION RT-BID predniSONE 10 mg PO BID Albuterol Sulfate [Proair Hfa] 2 puff INHALATION RT-Q6H PRN PRN Reason: Shortness Of Breath Omeprazole 40 mg PO BID Nystatin 100,000 Unit/ml Susp [Mycostatin Oral Susp] 4 ml PO QID Morphine Sulfate ER [Ms Contin] 15 mg PO DAILY@1200 Morphine Sulfate ER [Ms Contin] 30 mg PO BID HYDROcodone/APAP 10-325MG [[place] 10-325] 1 tab PO Q6HR PRN 3 Days #12 tab PRN Reason: Pain rOPINIRole HCL [Requip] 0.5 mg PO HS Potassium Chloride ER [K-Dur 10] 10 meq PO BID Hydrocortisone [Cortef] 20 mg PO BID Furosemide [Lasix] 20 mg PO BID Clotrimazole 10 mg MUCOUS MEM QID Cholestyramine (with Sugar) [Cholestyramine Packet] 4 gm PO BID Ipratropium-Albuterol Nebulize [Duoneb 0.5 mg-3 mg/3 ml Soln] 3 ml INHALATION RT-Q6H PRN PRN Reason: Shortness Of Breath Discharge Medication List Folic Acid 1 mg PO DAILY 07/15/17 [History] Fluconazole [Diflucan] 100 mg PO DAILY 09/17/18 [History] ondansetron HCL [Zofran] 4 mg PO Q18H PRN 09/17/18 [History] Diphenox-Atrop 2.5-0.025 mg [Lomotil] 1 - 2 tab PO QID PRN 03/05/20 [History] HYDROcodone/APAP 10-325MG [[place] 10-325] 1 tab PO Q6HR PRN 3 Days #12 tab 11/06/20 [Rx] Albuterol Sulfate [Proair Hfa] 2 puff INHALATION RT-Q6H PRN 06/28/21 [History] Budesonide/Formoterol Fumarate [Symbicort 160-4.5 Mcg Inhaler] 2 puff INHALATION RT-BID 06/28/21 [History] Cholestyramine (with Sugar) [Cholestyramine Packet] 4 gm PO BID 06/28/21 [History] Clotrimazole 10 mg MUCOUS MEM QID 06/28/21 [History] Furosemide [Lasix] 20 mg PO BID 06/28/21 [History] Hydrocortisone [Cortef] 20 mg PO BID 06/28/21 [History] Ipratropium-Albuterol Nebulize [Duoneb 0.5 mg-3 mg/3 ml Soln] 3 ml INHALATION RT-Q6H PRN 06/28/21 [History] Morphine Sulfate ER [Ms Contin] 15 mg PO DAILY@1200 06/28/21 [History] Morphine Sulfate ER [Ms Contin] 30 mg PO BID 06/28/21 [History] Nystatin 100,000 Unit/ml Susp [Mycostatin Oral Susp] 4 ml PO QID 06/28/21 [History] Omeprazole 40 mg PO BID 06/28/21 [History] Potassium Chloride ER [K-Dur 10] 10 meq PO BID 06/28/21 [History] predniSONE 10 mg PO BID 06/28/21 [History] rOPINIRole HCL [Requip] 0.5 mg PO HS 06/28/21 [History] Osimertinib Mesylate [Tagrisso] 80 mg PO DAILY@2000 06/30/21 [Rx] Pantoprazole [Protonix] 40 mg PO DAILY #30 tab 06/30/21 [Rx] Follow up Appointment(s)/Referral(s): Chung Loyd MD [STAFF PHYSICIAN] - As Needed Masood Cheung MD [Primary Care Provider] - 07/14/21 12:45 pm (At [place] office) Ambulatory/Diagnostic Orders: Basic Metabolic Panel [LAB.AMB] Time Frame: 2 Days, Location: None Selected Patient Instructions/Handouts: Gastroenteritis (DC) Discharge Disposition: HOME SELF-CARE
== END 2021-06-30 16:27 | disposition home or self-care (01) | DRG 392 ==
LOC: EC 11:07 → 4SSUR 14:43
PROVIDERS: ADMIT Hospitalist; ATTEND Hospitalist
DX: A05.9 Bacterial foodborne intoxication, unspecified (principal); N17.9 Acute kidney failure, unspecified; C79.9 Secondary malignant neoplasm of unspecified site; E87.2 Acidosis; E87.1 Hypo-osmolality and hyponatremia; J96.11 Chronic respiratory failure with hypoxia; R65.10 Systemic inflammatory response syndrome (SIRS) of non-infectious origin without acute organ dysfunction; E87.8 Other disorders of electrolyte and fluid balance, not elsewhere classified; J44.9 Chronic obstructive pulmonary disease, unspecified; Z20.822 Contact with and (suspected) exposure to COVID-19; E86.1 Hypovolemia; E86.0 Dehydration; I10 Essential (primary) hypertension; K21.9 Gastro-esophageal reflux disease without esophagitis; Z79.51 Long term (current) use of inhaled steroids; Z79.891 Long term (current) use of opiate analgesic; Z79.52 Long term (current) use of systemic steroids; Z79.899 Other long term (current) drug therapy; Z85.118 Personal history of other malignant neoplasm of bronchus and lung; Z90.89 Acquired absence of other organs; Z87.891 Personal history of nicotine dependence; Z92.21 Personal history of antineoplastic chemotherapy; Z91.040 Latex allergy status; Z82.5 Family history of asthma and other chronic lower respiratory diseases
CPT/HCPCS: 36415; 71046; 80048; 80053; 81001; 83605; 83735; 85025; 85027; 85610; 85730; 87040; 87324; 87635; 93005; 94640; 96365; 96366; 96375; 99285

== ENCOUNTER → 2021-07-04 | Outpatient (CLI) | payer OTHER ==
[2021-07-04 14:07] LABS: African American GFR (CKD) >90 (>60 ml/min/1.73 sqM); Anion Gap 4 mmol/L; Blood Urea Nitrogen 17 mg/dL (9-20); Calcium 9.3 mg/dL (8.4-10.2); Carbon Dioxide 30 mmol/L (22-30); Chloride 101 mmol/L (98-107); Glucose 92 mg/dL (74-99); Non-African American GFR(CKD) >90 (>60 ml/min/1.73 sqM); Potassium 4.4 mmol/L (3.5-5.1); Sodium 135 mmol/L (137-145)
--- NOTE | 2021-07-04 21:21 | CT ---
EXAMINATION TYPE: CT chest w con DATE OF EXAM: 07/04/2021 COMPARISON: CT dated 04/01/2021 HISTORY: f/u lung ca CT DLP: 212.8 mGycm Automated exposure control for dose reduction was used. TECHNIQUE: CT scan of the chest is performed with IV Contrast, patient injected with 100 mL of Isovue 300. FINDINGS: LUNGS: Slightly larger right medial lower lobe nodule with spiculated margin measuring 12 mm compared to 8mm previously. The left midlung zone nodule (image #21, series 4) is also slightly prominent binh suring 9 mm compared to 8mm previously. The more superior posterior left upper lobe nodule is slightl y more prominent measuring 12 mm compared to 11 mm previously. The remainder of the previously seen s cattered bilateral pulmonary nodules are grossly stable. Persistent extensive pulmonary fibrotic beth ges and thick pulmonary infiltration, lymphangitis carcinomatosis or chronic infection cannot be excl uded. Associated COPD changes. Patent trachea and main bronchi. Small right pleural effusion. MEDIASTINUM: Unchanged heart and mediastinal vessels. The pulmonary trunk measures 3.3 cm suggestive of pulmonary hypertension. No pericardial effusion. No pathologically enlarged lymph nodes in the [address]. OTHER: No gross upper abdomen abnormality. No gross aggressive bone lesion. IMPRESSION: Minimal interval increase in the size of a few pulmonary nodules as described above concerning for mi nimal progression. Other interval changes and incidental findings as described above.
== END | disposition home or self-care (01) ==
LOC: RADCTMAIN 12:00
PROVIDERS: ATTEND Internal Medicine Hematology & Oncology
DX: C34.81 Malignant neoplasm of overlapping sites of right bronchus and lung (principal)
CPT/HCPCS: 80048; 71260; 36415; Q9967

== ENCOUNTER → 2021-08-31 | Outpatient (CLI) | payer OTHER ==
--- NOTE | 2021-08-31 15:43 | US ---
EXAMINATION TYPE: US venous doppler duplex LE DATE OF EXAM: 08/31/2021 3:09 PM COMPARISON: NONE CLINICAL HISTORY: M79.661 Pain in right limb M79.662 Pain in left li. Bilateral lower leg swelling SIDE PERFORMED: Bilateral TECHNIQUE: The lower extremity deep venous system is examined utilizing real time linear array sonog cece with graded compression, doppler sonography and color-flow sonography. VESSELS IMAGED: Common Femoral Vein Deep Femoral Vein Greater Saphenous Vein * Femoral Vein Popliteal Vein Small Saphenous Vein * Proximal Calf Veins (* superficial vessels) Right Leg: Appears negative for DVT Left Leg: Appears negative for DVT IMPRESSION: 1. Bilateral lower extremity ultrasound negative for deep venous thrombosis.
== END | disposition home or self-care (01) ==
LOC: RADUSWWP 13:54
PROVIDERS: ATTEND Internal Medicine Hematology & Oncology
DX: M79.89 Other specified soft tissue disorders (principal)
CPT/HCPCS: 93970

== ENCOUNTER 2021-09-29 12:59 | Inpatient (IN) | payer OTHER ==
[2021-09-29] MEDS ORDERED: SODIUM CHLORIDE 0.9% IVPB SCH (17:52)
[2021-09-29] MEDS ORDERED: VANCOMYCIN IVPB SCH (17:52)
[2021-09-29] MEDS ORDERED: HYDROcodone/APAP 7.5-325MG 1 EACH TAB PO ONE (17:54)
[2021-09-29] MEDS ORDERED: VANCOMYCIN IV PER PHARMACY 1 EACH MISC MISCELLANE PRN (17:57)
--- NOTE | 2021-09-29 18:11 | ED ---
Skin/Abscess/FB HPI - General Chief complaint: Skin/Abscess/Foreign Body Stated complaint: Possible Infection Time Seen by Provider: 09/29/21 17:44 Source: patient, RN notes reviewed Mode of arrival: wheelchair Limitations: no limitations - History of Present Illness Initial comments: This is a 56-year-old male who presents to the emergency department for an infection in the left calf. Patient is noted to have ulcerations in the bilateral lower extremities with eschar formation. The infection he reports is in the back of his left calf and has been present for around 3 days. Patient states that the pain has become so severe that he cannot walk or stand. He also has significant swelling in the left calf, however he does report a history of congestive heart failure and is unsure if this related to the infection or heart failure. He finished a 1 month course of Keflex 2 weeks ago for an infection in both legs, however this new wound was not present at that time. Over the weekend, he also scraped his leg on a canoe and his dog scratched him, which he believes contributed to the infection. Denies any fevers, chills, sore throat, cough, dyspnea, chest pain, palpitations, abdominal pain, nausea, vomiting, diarrhea, back pain, or headaches. MD complaint: other (Open wound) Location: LLE Worsens with: movement Treatments Prior to Arrival: none - Related Data Home Medications Medication Instructions Recorded Confirmed Folic Acid 1 mg PO DAILY 07/15/17 06/28/21 Fluconazole [Diflucan] 100 mg PO DAILY 09/17/18 06/28/21 ondansetron HCL [Zofran] 4 mg PO Q18H PRN 09/17/18 06/28/21 Diphenox-Atrop 2.5-0.025 mg 1 - 2 tab PO QID PRN 03/05/20 06/28/21 [Lomotil] Albuterol Sulfate [Proair Hfa] 2 puff INHALATION RT-Q6H PRN 06/28/21 06/28/21 Budesonide/Formoterol Fumarate 2 puff INHALATION RT-BID 06/28/21 06/28/21 [Symbicort 160-4.5 Mcg Inhaler] Cholestyramine (with Sugar) 4 gm PO BID 06/28/21 06/28/21 [Cholestyramine Packet] Clotrimazole 10 mg MUCOUS MEM QID 06/28/21 06/28/21 Furosemide [Lasix] 20 mg PO BID 06/28/21 06/28/21 Hydrocortisone [Cortef] 20 mg PO BID 06/28/21 06/28/21 Ipratropium-Albuterol Nebulize 3 ml INHALATION RT-Q6H PRN 06/28/21 06/28/21 [Duoneb 0.5 mg-3 mg/3 ml Soln] Morphine Sulfate ER [Ms Contin] 15 mg PO DAILY@119906/28/21 06/28/21 Morphine Sulfate ER [Ms Contin] 30 mg PO BID 06/28/21 06/28/21 Nystatin 100,000 Unit/ml Susp 4 ml PO QID 06/28/21 06/28/21 [Mycostatin Oral Susp] Omeprazole 40 mg PO BID 06/28/21 06/28/21 Potassium Chloride ER [K-Dur 10] 10 meq PO BID 06/28/21 06/28/21 predniSONE 10 mg PO BID 06/28/21 06/28/21 rOPINIRole HCL [Requip] 0.5 mg PO HS 06/28/21 06/28/21 Previous Rx's Medication Instructions Recorded HYDROcodone/APAP 10-325MG [[place] 1 tab PO Q6HR PRN 3 Days #12 tab 11/06/20 10-325] Osimertinib Mesylate [Tagrisso] 80 mg PO DAILY@199906/30/21 Pantoprazole [Protonix] 40 mg PO DAILY #30 tab 06/30/21 Allergies Allergy/AdvReac Type Severity Reaction Status Date / Time latex Allergy itching Verified 09/29/21 13:07 eyes Review of Systems ROS Statement: Those systems with pertinent positive or pertinent negative responses have been documented in the HPI. ROS Other: All systems not noted in ROS Statement are negative. Past Medical History Past Medical History: Cancer, GERD/Reflux, Hypertension Additional Past Medical History / Comment(s): Adenocarcinoma of the lung; On oral chemo. home oxygen use @ 4L [place] ATC,increased SOB, sinus tachycardia (sta hansel resting heart rate is around 100-120 BPM) History of Any Multi-Drug Resistant Organisms: None Reported Past Surgical History: Adenoidectomy, Tonsillectomy Additional Past Surgical History / Comment(s): History of bronchoscopy. Past Anesthesia/Blood Transfusion Reactions: No Reported Reaction Past Psychological History: No Psychological Hx Reported Smoking Status: Never smoker Past Alcohol Use History: None Reported Past Drug Use History: None Reported - Past Family History Mother Family Medical History: COPD General Exam Limitations: no limitations General appearance: alert, in no apparent distress Head exam: Present: atraumatic, normocephalic, normal inspection Respiratory exam: Present: wheezes (left upper lobe). Absent: rales, rhonchi, stridor Cardiovascular Exam: Present: regular rate, normal rhythm, normal heart sounds. Absent: systolic murmur, diastolic murmur, rubs, gallop, clicks Extremities exam: Present: other (Swelling, erythema, and increased heat beginning just inferior to the left knee and spreading distally. Open wound measuring 3-4cm on the posterior aspect of the left calf with active purulent drainage.) Neurological exam: Present: alert, oriented X3, CN II-XII intact Psychiatric exam: Present: normal affect, normal mood Skin exam: Present: warm, dry Course Vital Signs 09/29/21 13:05 Temperature 97.8 F Pulse Rate 113 H Respiratory 18 Rate Blood Pressure 164/90 O2 Sat by Pulse 99 Oximetry Medical Decision Making - Medical Decision Making This is a 56-year-old male who presents to the emergency department for cellulitis of the left lower extremity. The wound is open with purulent drainage. He also has multiple other poorly healing wounds on the lower extremity with eschar formation. Wound culture and blood cultures were obtained and the patient was started on vancomycin. Lab work was nonactionable and x- ray revealed no findings suggestive of osteomyelitis. The patient is in an immunocompromised state as he is currently on chemotherapy for lung cancer. Given that the patient is immunocompromised and has purulent drainage, we discussed that it would best to admit him for IV antibiotics. This case was discussed in detail with the attending ED physician. Presentation, findings, and treatment plan discussed in detail as well. - Lab Data Result diagrams: 09/29/21 18:22 09/29/21 18: Lab Results 09/29/21 09/29/21 09/29/21 Range/Units 18:22 18:22 18:22 WBC 9.1 (3.8-10.6) k/uL RBC 4.02 L (4.30-5.90) m/uL Hgb 13.6 (13.0-17.5) gm/dL Hct 41.8 (39.0-53.0) % MCV 103.8 H (80.0-100.0) fL MCH 33.8 (25.0-35.0) pg MCHC 32.5 (31.0-37.0) g/dL RDW 14.1 (11.5-15.5) % Plt Count 132 L (150-450) k/uL MPV 7.5 Neutrophils % 78 % Lymphocytes % 13 % Monocytes % 6 % Eosinophils % 1 % Basophils % 1 % Neutrophils # 7.1 (1.3-7.7) k/uL Lymphocytes # 1.2 (1.0-4.8) k/uL Monocytes # 0.5 (0-1.0) k/uL Eosinophils # 0.1 (0-0.7) k/uL Basophils # 0.1 (0-0.2) k/uL Macrocytosis Slight Sodium 135 L (137-145) mmol/L Potassium 4.3 (3.5-5.1) mmol/L Chloride 105 (98-107) mmol/L Carbon Dioxide 29 (22-30) mmol/L Anion Gap 1 mmol/L BUN 12 (9-20) mg/dL Creatinine 0.88 (0.66-1.25) mg/dL Est GFR (CKD-EPI)AfAm >90 (>60 ml/min/1.73 sqM) Est GFR (CKD-EPI)NonAf >90 (>60 ml/min/1.73 sqM) Glucose 98 (74-99) mg/dL Plasma Lactic Acid Dwayne 0.9 (0.7-2.0) mmol/L Calcium 8.6 (8.4-10.2) mg/dL Total Bilirubin 0.7 (0.2-1.3) mg/dL AST 33 (17-59) U/L ALT 32 (4-49) U/L Alkaline Phosphatase 42 (38-126) U/L NT-Pro-B Natriuret Pep pg/mL Total Protein 5.8 L (6.3-8.2) g/dL Albumin 3.4 L (3.5-5.0) g/dL 09/29/21 Range/Units 18:22 WBC (3.8-10.6) k/uL RBC (4.30-5.90) m/uL Hgb (13.0-17.5) gm/dL Hct (39.0-53.0) % MCV (80.0-100.0) fL MCH (25.0-35.0) pg MCHC (31.0-37.0) g/dL RDW (11.5-15.5) % Plt Count (150-450) k/uL MPV Neutrophils % % Lymphocytes % % Monocytes % % Eosinophils % % Basophils % % Neutrophils # (1.3-7.7) k/uL Lymphocytes # (1.0-4.8) k/uL Monocytes # (0-1.0) k/uL Eosinophils # (0-0.7) k/uL Basophils # (0-0.2) k/uL Macrocytosis Sodium (137-145) mmol/L Potassium (3.5-5.1) mmol/L Chloride (98-107) mmol/L Carbon Dioxide (22-30) mmol/L Anion Gap mmol/L BUN (9-20) mg/dL Creatinine (0.66-1.25) mg/dL Est GFR (CKD-EPI)AfAm (>60 ml/min/1.73 sqM) Est GFR (CKD-EPI)NonAf (>60 ml/min/1.73 sqM) Glucose (74-99) mg/dL Plasma Lactic Acid Dwayne (0.7-2.0) mmol/L Calcium (8.4-10.2) mg/dL Total Bilirubin (0.2-1.3) mg/dL AST (17-59) U/L ALT (4-49) U/L Alkaline Phosphatase (38-126) U/L NT-Pro-B Natriuret Pep 770 pg/mL Total Protein (6.3-8.2) g/dL Albumin (3.5-5.0) g/dL - Radiology Data Radiology results: report reviewed, image reviewed Disposition Clinical Impression: Cellulitis of left lower leg, Immunocompromised state Disposition: ADMITTED IP TO THIS HOSP
--- NOTE | 2021-09-29 18:25 | XR ---
EXAMINATION TYPE: XR tibia fibula LT DATE OF EXAM: 09/29/2021 6:05 PM INDICATION: Patient age:Male; 56 years old; Reason for study: Pain and swelling; COMPARISON: None TECHNIQUE: The left tibia/fibula was examined in AP and lateral projections. FINDINGS: No evidence of any acute osseous pathology. Mild pitting edema near the ankle. IMPRESSION: 1. No evidence of acute fracture. 2. Mild nonspecific pitting edema near the ankle.
[2021-09-29] MEDS ORDERED: VANCOMYCIN 1,500 MG in SODIUM CHLORIDE 0.9% 250 ML IVPB ONE (18:30)
[2021-09-29 18:48] LABS: ALT 32 U/L (4-49); AST 33 U/L (17-59); African American GFR (CKD) >90 (>60 ml/min/1.73 sqM); Albumin 3.4 g/dL (3.5-5.0); Alkaline Phosphatase 42 U/L (38-126); Anion Gap 1 mmol/L; Blood Urea Nitrogen 12 mg/dL (9-20); Calcium 8.6 mg/dL (8.4-10.2); Carbon Dioxide 29 mmol/L (22-30); Chloride 105 mmol/L (98-107); Glucose 98 mg/dL (74-99); Non-African American GFR(CKD) >90 (>60 ml/min/1.73 sqM); Potassium 4.3 mmol/L (3.5-5.1); Sodium 135 mmol/L (137-145); Total Bilirubin 0.7 mg/dL (0.2-1.3); Total Protein 5.8 g/dL (6.3-8.2)
[2021-09-29 18:51] LABS: Basophils # (A) 0.1 k/uL (0-0.2); Basophils % (A) 1 %; Eosinophils # (A) 0.1 k/uL (0-0.7); Eosinophils % (A) 1 %; HCT 41.8 % (39.0-53.0); HGB 13.6 gm/dL (13.0-17.5); Lymphocytes # (A) 1.2 k/uL (1.0-4.8); Lymphocytes % (A) 13 %; MCH 33.8 pg (25.0-35.0); MCHC 32.5 g/dL (31.0-37.0); MCV 103.8 fL (80.0-100.0); Macrocytosis Slight; Mean Platelet Volume 7.5; Monocytes # (A) 0.5 k/uL (0-1.0); Monocytes % (A) 6 %; Neutrophils # (A) 7.1 k/uL (1.3-7.7); Neutrophils % (A) 78 %; Platelet Count 132 k/uL (150-450); RBC 4.02 m/uL (4.30-5.90); RDW 14.1 % (11.5-15.5); WBC 9.1 k/uL (3.8-10.6)
[2021-09-29] MEDS ORDERED: IPRATROPIUM-ALBUTEROL 3 ML NEB INHALATION STA (19:43)
[2021-09-29] MEDS ORDERED: NALOXONE 0.4 MG/ML 1 ML VIAL IV PRN (20:04)
[2021-09-29] MEDS ORDERED: ONDANSETRON 4 MG/2 ML VIAL IVP PRN (20:04)
[2021-09-29] MEDS ORDERED: ACETAMINOPHEN TAB 325 MG TAB PO PRN (20:04)
[2021-09-29] MEDS ORDERED: oxyCODONE-APAP 5-325MG 1 EACH TAB PO PRN (20:04)
[2021-09-29] MEDS ORDERED: HYDROcodone/APAP 5-325MG 1 EACH TAB PO PRN (20:04)
[2021-09-29] MEDS: CHOLESTYRAMINE (WITH SUGAR) 4 GM PACKET PO SCH (23:04)
[2021-09-29] MEDS: IPRATROPIUM-ALBUTEROL 3 ML NEB INHALATION PRN (23:28)
[2021-09-30] MEDS: HYDROcodone/APAP 10-325MG 1 EACH TAB PO PRN ×3 (00:15→15:10)
--- NOTE | 2021-09-30 00:49 | P.HPIM ---
History of Present Illness H&P Date: 09/29/21 The patient is a 56-year-old male with a PMH of stage IV lung cancer diagnosed 5 years ago (currently on chemotherapy) who presents to the emergency room with complaints of nonhealing ulcers on his legs. The patient reports that he has been dealing with a right lower extremity mid calf ulcer for the past few weeks. He reports completing a course of Keflex 2 weeks ago which has failed to completely resolve the right lower extremity ulcer. He notes that he was [place] with his [place] with his dog when his dog accidentally scratched the back of his left leg. He reports that the wound gradually worsened, and his pain is now become intolerable and he is unable to ambulate. Reports worsening redness and swelling of the left leg. Denied experiencing fever, chills, chest pain, shortness of breath, nausea, vomiting, abdominal pain, diarrhea. Left leg x-rays were unremarkable with laboratory evaluation remarkable for lactic acid 0.9 and WBC count 9.1. Review of systems: Pertinent positives and negatives as discussed in HPI, a complete review of systems was performed and all other systems are negative. Physical examination: General: non toxic, no distress, appears at stated age, normal weight Derm: Left leg 4 cm ulcer overlying the left calf with surrounding erythema and purulent base, right lower extremity 3 cm ulcer with mild surrounding erythema, bilateral lower extremity chronic venous stasis changes noted Head: atraumatic, normocephalic, symmetric Eyes: EOMI, no lid lag, anicteric sclera, pupils equal round reactive to light ENT: Nose and ears atraumatic Neck: No cervical lymphadenopathy, trachea midline, supple Mouth: no lip lesion, mucus membranes moist Cardiovascular: S1S2 reg, no murmur, positive dorsalis pedis pulse bilateral Lungs: CTA bilateral, no rhonchi, no rales, no accessory muscle use Abdominal: soft, nontender to palpation, no guarding Ext: muscle strength 5 out of 5 in all 4 extremities grossly, no gross muscle atrophy, no contractures, Neuro: CN II-XI grossly intact, no gross focal neuro deficits Psych: Alert, oriented, appropriate affect Assessment/plan Left lower extremity cellulitis with ulcer in setting of ongoing chemotherapy -Continue with IV vancomycin -Follow up blood cultures -Wound care consult Thrombocytopenia -At baseline Macrocytosis -Check B12 and folate levels DVT prophylaxis -Heparin subq The patient is admitted with an anticipated less than 2 midnight stay for evaluation of cellulitis CODE STATUS: Full Code Discussed with: Patient Anticipated discharge date: in am Anticipated discharge place: Home Past Medical History Past Medical History: Cancer, GERD/Reflux, Hypertension Additional Past Medical History / Comment(s): Adenocarcinoma of the lung; On oral chemo. home oxygen use @ 4L [place] ATC,increased SOB, sinus tachycardia (states resting heart rate is around 100-120 BPM) History of Any Multi-Drug Resistant Organisms: None Reported Past Surgical History: Adenoidectomy, Tonsillectomy Additional Past Surgical History / Comment(s): History of bronchoscopy. Past Anesthesia/Blood Transfusion Reactions: No Reported Reaction Past Psychological History: No Psychological Hx Reported Smoking Status: Never smoker Past Alcohol Use History: None Reported Past Drug Use History: None Reported - Past Family History Mother Family Medical History: COPD Medications and Allergies Home Medications Medication Instructions Recorded Confirmed Type Folic Acid 1 mg PO DAILY 07/15/17 09/29/21 History ondansetron HCL [Zofran] 4 mg PO QID PRN 09/17/18 09/29/21 History Diphenox-Atrop 2.5-0.025 mg 1 tab PO QID 03/05/20 09/29/21 History [Lomotil] HYDROcodone/APAP 10-325MG [[place] 1 tab PO Q6HR PRN 3 Days #12 tab 11/06/20 09/29/21 Rx 10-325] Albuterol Sulfate [Proair Hfa] 2 puff INHALATION RT-Q6H PRN 06/28/21 09/29/21 History Budesonide/Formoterol Fumarate 2 puff INHALATION RT-BID 06/28/21 09/29/21 History [Symbicort 160-4.5 Mcg Inhaler] Cholestyramine (with Sugar) 4 gm PO HS 06/28/21 09/29/21 History [Cholestyramine Packet] Clotrimazole 10 mg MUCOUS MEM TID PRN 06/28/21 09/29/21 History Hydrocortisone [Cortef] 20 mg PO BID 06/28/21 09/29/21 History Ipratropium-Albuterol Nebulize 3 ml INHALATION RT-Q6H PRN 06/28/21 09/29/21 History [Duoneb 0.5 mg-3 mg/3 ml Soln] Morphine Sulfate ER [Ms Contin] 30 mg PO TID 06/28/21 09/29/21 History Nystatin 100,000 Unit/ml Susp 4 ml PO QID 06/28/21 09/29/21 History [Mycostatin Oral Susp] predniSONE 10 mg PO BID PRN 06/28/21 09/29/21 History Osimertinib Mesylate [Tagrisso] 80 mg PO DAILY@199906/30/21 09/29/21 Rx Clindamycin Phosphate 1 applic TOPICAL DAILY PRN 09/29/21 09/29/21 History Hydrocortisone Oint 1 applic TOPICAL BID PRN 09/29/21 09/29/21 History [Hydrocortisone 2.5% Oint] Pantoprazole [Protonix] 40 mg PO BID 09/29/21 09/29/21 History Allergies Allergy/AdvReac Type Severity Reaction Status Date / Time latex Allergy itching Verified 09/29/21 21:54 eyes Physical Exam Vitals: Vital Signs Temp Pulse Resp BP Pulse Ox 09/29/21 23:29 98 09/29/21 23:28 96 09/29/21 22:04 91 18 153/91 99 09/29/21 13:05 97.8 F 113 H 18 164/90 99 Intake and Output 09/29/21 09/29/21 09/30/21 14:59 22:59 06:59 Other: Weight 71.668 kg Results CBC & Chem 7: 09/29/21 18:22 09/29/21 18:22 Labs: Abnormal Lab Results - Last 24 Hours (Table) 09/29/21 09/29/21 Range/Units 18:22 18:22 RBC 4.02 L (4.30-5.90) m/uL MCV 103.8 H (80.0-100.0) fL Plt Count 132 L (150-450) k/uL Sodium 135 L (137-145) mmol/L Total Protein 5.8 L (6.3-8.2) g/dL Albumin 3.4 L (3.5-5.0) g/dL Microbiology - Last 24 Hours (Table) 09/29/21 18:22 Wound Culture - Preliminary Leg - Left
[2021-09-30] MEDS: VANCOMYCIN 1,250 MG in SODIUM CHLORIDE 0.9% 250 ML IVPB SCH ×3 (03:38→19:03)
[2021-09-30] MEDS: IPRATROPIUM-ALBUTEROL 3 ML NEB INHALATION PRN ×3 (07:23→15:29)
[2021-09-30] MEDS: SYMBICORT 160-4.5 MCG INHALER INHALATION SCH ×2 (07:23→19:37)
[2021-09-30] MEDS: HEPARIN SODIUM,PORCINE/PF 5,000 UNIT/0.5 ML SYRINGE SQ SCH ×3 (08:50→23:32)
[2021-09-30] MEDS: FOLIC ACID 1 MG TAB PO SCH (08:50)
[2021-09-30] MEDS: DIPHENOX-ATROP 2.5-0.025 MG 1 EACH TAB PO SCH ×4 (08:50→21:37)
[2021-09-30] MEDS: MORPHINE SULFATE ER 15 MG TABLET PO SCH ×3 (08:51→21:37)
[2021-09-30] MEDS: HYDROCORTISONE 20 MG TAB PO SCH ×2 (08:51→21:37)
[2021-09-30] MEDS: NYSTATIN 100,000 UNIT/ML SUSP 500,000 UNIT/5 ML CUP PO SCH ×4 (08:52→21:36)
[2021-09-30] MEDS: PANTOPRAZOLE 40 MG TABLET PO SCH ×2 (08:52→21:37)
--- NOTE | 2021-09-30 09:47 | P.CONS ---
History of Present Illness - Reason for Consult Consult date: 09/30/21 wound care - History of Present Illness This is a 56-year-old gentleman with past medical history significant for adenocarcinoma of the long currently on oral chemo, acid reflux and hypertension. Patient is a former smoker denies diabetes. Patient presents with bilateral lower extremities and cellulitis. The left lower extremity that her ulceration measures approximately 2.5 x 2 x 0.4 cm with rolled edges undermining and no tunneling. There is significant amount of nonviable tissue including eschar and slough noted within the wound bed with minimal granulation. The right lower extremity has a anterior ulceration with eschar Measuring approximately 1 x 1 x 0.1 cm, and lateral ulceration measuring approximately 1.5 x 1 x 0.3 cm with minimal to no granulation. The wound edges are attached to the wound base no tunneling or undermining noted to the site. Significant amount of slough and eschar noted within the wound bed. Review Of Systems: Constitutional: No fever, no chills, no night sweats. No weight change. No weakness, fatigue or lethargy. No daytime sleepiness. Integumentary:reports wounds, no lesions. No rash or pruritus. No unusual bruising. No change in hair or nails. Physical exam: General Appearance: Alert, cooperative, no distress, appears stated age. Skin: See HPI all other Skin color, texture, tugor normal, no rashes or lesions. Neurologic: Alert oriented x3 Assessment: 1. Nonhealing ulceration with fatty layer exposure left lower extremity 2. Nonhealing ulceration with fat layer exposure right lower extremity multiple sites Plan: 1. Apply Santyl, saline moistened gauze, dry gauze, rolled gauze and secure with paper tape. Change daily. Patient would benefit from advanced wound care and outpatient setting. Patient is agreeable to wound care. Thank you for the consultation any questions please contact the wound care center DNP note has been reviewed and discussed with Dr. Nicole and the impression and plan of care has been directed as dictated. Past Medical History Past Medical History: Cancer, GERD/Reflux, Hypertension Additional Past Medical History / Comment(s): Adenocarcinoma of the lung; On oral chemo. home oxygen use @ 4L [place] ATC,increased SOB, sinus tachycardia (states resting heart rate is around 100-120 BPM) History of Any Multi-Drug Resistant Organisms: None Reported Past Surgical History: Adenoidectomy, Tonsillectomy Additional Past Surgical History / Comment(s): History of bronchoscopy. Past Anesthesia/Blood Transfusion Reactions: No Reported Reaction Past Psychological History: No Psychological Hx Reported Smoking Status: Never smoker Past Alcohol Use History: None Reported Additional Past Alcohol Use History / Comment(s): quit smoking 2013,smoked approx on and off since age 27,1ppd Past Drug Use History: None Reported - Past Family History Mother Family Medical History: COPD Medications and Allergies Home Medications Medication Instructions Recorded Confirmed Type Folic Acid 1 mg PO DAILY 07/15/17 09/29/21 History ondansetron HCL [Zofran] 4 mg PO QID PRN 09/17/18 09/29/21 History Diphenox-Atrop 2.5-0.025 mg 1 tab PO QID 03/05/20 09/29/21 History [Lomotil] HYDROcodone/APAP 10-325MG [[place] 1 tab PO Q6HR PRN 3 Days #12 tab 11/06/20 09/29/21 Rx 10-325] Albuterol Sulfate [Proair Hfa] 2 puff INHALATION RT-Q6H PRN 06/28/21 09/29/21 History Budesonide/Formoterol Fumarate 2 puff INHALATION RT-BID 06/28/21 09/29/21 History [Symbicort 160-4.5 Mcg Inhaler] Cholestyramine (with Sugar) 4 gm PO HS 06/28/21 09/29/21 History [Cholestyramine Packet] Clotrimazole 10 mg MUCOUS MEM TID PRN 06/28/21 09/29/21 History Hydrocortisone [Cortef] 20 mg PO BID 06/28/21 09/29/21 History Ipratropium-Albuterol Nebulize 3 ml INHALATION RT-Q6H PRN 06/28/21 09/29/21 History [Duoneb 0.5 mg-3 mg/3 ml Soln] Morphine Sulfate ER [Ms Contin] 30 mg PO TID 06/28/21 09/29/21 History Nystatin 100,000 Unit/ml Susp 4 ml PO QID 06/28/21 09/29/21 History [Mycostatin Oral Susp] predniSONE 10 mg PO BID PRN 06/28/21 09/29/21 History Osimertinib Mesylate [Tagrisso] 80 mg PO DAILY@199906/30/21 09/29/21 Rx Clindamycin Phosphate 1 applic TOPICAL DAILY PRN 09/29/21 09/29/21 History Hydrocortisone Oint 1 applic TOPICAL BID PRN 09/29/21 09/29/21 History [Hydrocortisone 2.5% Oint] Pantoprazole [Protonix] 40 mg PO BID 09/29/21 09/29/21 History Allergies Allergy/AdvReac Type Severity Reaction Status Date / Time latex Allergy itching Verified 09/29/21 21:54 eyes Physical Exam Vitals: Vital Signs Temp Pulse Pulse Resp BP BP Pulse Ox 09/30/21 07:36 92 09/30/21 07:26 95 98 09/30/21 04:50 98.1 F 88 20 176/107 99 09/30/21 02:00 88 20 09/29/21 23:40 98 09/29/21 23:29 98 09/29/21 23:28 96 09/29/21 23:00 98.3 F 101 H 20 169/100 98 09/29/21 22:04 91 18 153/91 99 09/29/21 13:05 97.8 F 113 H 18 164/90 99 Intake and Output 09/29/21 09/30/21 09/30/21 22:59 06:59 14:59 Intake Total 250 Balance 250 Intake: Intake, IV Titration 250 Amount Vancomycin 1,250 mg In 250 Sodium Chloride 0.9% 250 ml @ 125 mls/hr IVPB Q8H [facility] Rx#:[id number] Other: Voiding Method Urinal # Voids 3 Weight 71.668 kg Results CBC & Chem 7: 09/29/21 18:22 09/29/21 18:22 Labs: Abnormal Lab Results - Last 24 Hours (Table) 09/29/21 09/29/21 Range/Units 18:22 18:22 RBC 4.02 L (4.30-5.90) m/uL MCV 103.8 H (80.0-100.0) fL Plt Count 132 L (150-450) k/uL Sodium 135 L (137-145) mmol/L Total Protein 5.8 L (6.3-8.2) g/dL Albumin 3.4 L (3.5-5.0) g/dL Microbiology - Last 24 Hours (Table) 09/29/21 18:22 Gram Stain - Preliminary Leg - Left Wound Culture - Preliminary Assessment and Plan (1) Non-pressure chronic ulcer of left calf with fat layer exposed Current Visit: Yes Status: Acute Code(s): L97.222 - NON-PRESSURE CHRONIC ULCER OF LEFT CALF W FAT LAYER EXPOSED SNOMED Code(s): 88818742662573375 (2) Non-pressure chronic ulcer of right calf with fat layer exposed Current Visit: Yes Status: Acute Code(s): L97.212 - NON-PRESSURE CHRONIC ULCER OF RIGHT CALF W FAT LAYER EXPOSED SNOMED Code(s): 96185543023366911
--- NOTE | 2021-09-30 16:21 | P.PN ---
Subjective Progress Note Date: 09/30/21 (delayed charting seen at 0930) Patient is a 56-year-old male stage IV lung. In the emergency department he underwent extensive evaluation. Left leg x-rays were unremarkable with laboratory evaluation remarkable for lactic acid 0.9 and WBC count 9.1. He was admitted and started on Vanco. Wound care was consulted he recommended continued outpatient follow-up as well as Santyl. Patient seen and examined at bedside. He recounts that he has had these ulcerations for several weeks and have not been getting better. Denies any chest pain, shortness breath, nausea, vomiting. General: nontoxic, no distress, appears at stated age Derm: multiple lesions in b/l LE with exposure to fat, errosions noted, +erythema without warmth in left LE Head: atraumatic, normocephalic, symmetric Eyes: EOMI, no lid lag, anicteric sclera Mouth: no lip lesion, mucus membranes moist Cardiovascular: S1S2 reg, no murmur, positive posterior tibial pulse bilateral, Lungs: CTA bilateral, no rhonchi, no rales , no accessory muscle use Abdominal: soft, nontender to palpation, no guarding, no appreciable orga nomegaly Ext: no gross muscle atrophy, no edema, no contractures Neuro: CN II-XI grossly intact, no focal neuro deficits Psych: Alert, oriented, appropriate affect Assessment/plan: Bilateral lower extremity venous stasis ulcers with possible cellulitis left lower extremity in the sciatic of chemotherapy -Continue Vanco add Unasyn -Await cultures -wound care recs Thrombocytopenia - as baseline - follow CBC Lung cancer - oncology follow-up Chronic steroid use - no signf of adrenal insufficiency - conitnue home doses. HTN - not on medications at home - follow BP GERD - PPI Likely home in AM Objective - Vital Signs Vital signs: Vital Signs Temp 97.6 F 09/30/21 13:00 Pulse 106 H 09/30/21 15:43 Resp 18 09/30/21 13:00 BP 173/100 09/30/21 13:00 Pulse Ox 98 09/30/21 13:00 FiO2 Intake & Output 09/29/21 09/30/21 09/30/21 18:59 06:59 18:59 Intake Total 250 Output Total 900 Balance 250 -900 Weight 71.668 kg 71.668 kg Intake: Intake, IV Titration 250 Amount Vancomycin 1,250 mg In 250 Sodium Chloride 0.9% 250 ml @ 125 mls/hr IVPB Q8H [facility] Rx#:[id number] Output: Urine 900 Other: Voiding Method Urinal # Voids 3 - Labs CBC & Chem 7: 09/29/21 18:22 09/29/21 18:22 Labs: Abnormal Lab Results - Last 24 Hours (Table) 09/29/21 09/29/21 Range/Units 18:22 18:22 RBC 4.02 L (4.30-5.90) m/uL MCV 103.8 H (80.0-100.0) fL Plt Count 132 L (150-450) k/uL Sodium 135 L (137-145) mmol/L Total Protein 5.8 L (6.3-8.2) g/dL Albumin 3.4 L (3.5-5.0) g/dL Microbiology - Last 24 Hours (Table) 09/29/21 18:22 Gram Stain - Preliminary Leg - Left Wound Culture - Preliminary
[2021-09-30] MEDS: COLLAGENASE 250 UNIT/GM OINTMENT 30 GM TUBE TOPICAL SCH (16:56)
[2021-09-30] MEDS: AMPICILLIN-SULBACTAM 3 GM in SODIUM CHLORIDE 0.9% 100 ML IVPB SCH ×2 (18:24→23:32)
[2021-09-30] MEDS ORDERED: OSIMERTINIB MESYLATE 80 MG PO SCH (20:00)
--- NOTE | 2021-09-30 21:07 | P.CONS ---
History of Present Illness - Reason for Consult Consult date: 09/30/21 EGFR Lung Cancer Requesting physician: Funmilayo Castillo - Chief Complaint BLE Venous insuffieicny and Cellulitis - History of Present Illness Ritesh is admitted with venous insuffiency ulcers and cellulititis, on antibiotics. He has been asked to hold off on his tagrisso at this time. His BP is running high. Oncologic History Ritesh presented with rapidly progressive SOB, R shoulder pain, weight loss (50 lbs in 4-6 months). He had CXR with bilateral lungs reticulododular interstitial pattern confirmed by CT Scan without definate mediastinal lymphadenopathy. He had bronchoscopy with washings fro RUL and RLL revealing poorly-differentiated Adenocarcinoma. 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 PET Scan : Bilateral upper & lower lungs involvements, no mediastinal disease nor distant mets. 05/16/17: Tolerated cycle#1 of Carboplatinum+Alimta well > NO side effects. he is breathing a bit easier. 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 06/13/17: Feels Ok, less dyspnea, ambulating better, completed 2 cycles of Chemotherapy (Carboplatinum+Alimta), followup CT Scan : Objective improvement. 10/03/17: Feels Ok, Continue to have R upper chest pain (Pancost tumor presentation), with chronic SOB. Tolerating Tarceva well. 11/01/17: Feels Ok, C/O anorexia/weight loss, as well as, diarrhea(Once daily), tolerating Tarceva well (150mg Po daily). 02/20/18: Feels Ok, C/O increased SOB X 1 week, worried about "Pneumothorax".. Has dry skin of fingers & nail changes, as well as, diarrhea thought to be related to Tarceva. CT Scan of chest revealed stable disease. He is relatively active. 05/13/18: Been tolerating Tarceva well. Right Chest pain increased past week, norco helps. CT Chest restaging prior to follow-up with Dr. Munoz. Perisistent thrush/mucocytis, increase water. 06/04/18: Feels Ok, continues to have chronic dyspnea (stable), diarrhea and skin/nails changes attributed to Tarceva. 08/01/18: Continues to tolerate tarceva well, hold weight, control pain on same regimen. He has had some "quesy" nausea feeling lately. been about two weeks. Also, episode elvated BP and chest pain, now resolved. AUdible wheezing today, chest xray ordered. 09/25/18: Ritesh was recently hositalized with GI blood loss anemia, EGD colonoscopy with mild/mod gastritis, PPI started. CT scan in hospital revealed new pulmonary lesions/nodules, concern for possible recurrence. Although sub centimeter too small to be diagnostic or biopsy. 10/28/18: Still occassional abdominal pain, weight loss, occassional dark stool although may be PO Iron. Hemoglobin stable. 12.19.18: Feeling good, no more black stools or bleeding noted. 01/16/19: Feels well, tolerating Tarceva well. CT Scan : new 4 mm new pulmonary nodule and enlargement of another nodule by 3 mm. 03/11/19: Feels well, tolerating Tarceva well. CT Scan: Minimal changes in few pulmonary nodules. 04/22/19: Feels Ok, reported severe diarrhea and skin irritation. Having increasing cough with green sputom 05/27/19: Feels Ok, less SOB, fully active, continues to have diarrhea and skin irritation. CT Scan : increased size of 3 pulmonary nodules by few mm, no new lesions. 06/25/19: Hands healing better after using Piroctone Elamine cream ( prescribed for his dog). C/O generalized weakness, SOB stable so is diarrhea. 08/01/19: C/O SOB & fatigue. Skin rash stable. 09/10/19: Tolerating Tagrisso well. Diarrhea controlled. 10/10/19: Tolerating Tagrisso well, diarrhea controlled, pain better controlled, skin changes related to prior Tarceva improved 11/06/19: Doing well, no new complaints. tolerating tagrisso well. 12/05/19: Feels well, tolerating Tagrisso well, has minimal diarrhea. 01/01/20: Pain has been increased recently. Increase in Long acting morphine ordered. Tolerating Tagrisso well. 01/30/20: Feels well, has stable diarrhea, controlled with Questran, has stable SOB, remains fully active 02/26/20-Tolerates tagrisso, he has night sweats and leg cramps occasionally, diarrhea controlled with 1 daily dose of questran. Pain controlled on current regimen 04/21/20: No biopsy performed as radiology performed Ultrasound and stated no abnormalities to biopsy.He is tearful and feeling depressed today. he has a known history of depression, although a few difficult situations at home making things harder. 07/07/20-Here today for acute visit because he hit his arm and tore open the skin. Denies F, s/s infection, pain or swelling in the arm. 07/12/20: CT Chest without change, no new concerns. MRI Brain without identified metastatic disease. Memory is still limited however his hypertension continue to be a problem and he is not compliant with anti-hypertensives. We will add losartan with his prior non-adherence to norvasc and lisinopril. 08/10/20: Feels Ok, tolerating Tagrisso well, has stable SOB & chest pains. 10/04/20-BLE swelling, pitting, worse by end of day, started over the last week, no other c/o, activity intolerance. 10/19/20: Feels well, C/O stable exertional dyspnea, had edema in both lower extremities > improved with Lasix 11/11/20: C/O diarrhea & increasing SOB 12/08/20: C/O SOB > better after Lasix, had reaction to 1st cycle of Cyramza 12/28/20; Feels Ok, tolerating Cyramza well, better with Prednisone, less SOB, inimal edema 01/28/21: CT scan reviewed - Stable (No new or enlarging areas of concern) 03/09/21-Pt here s/p cyramza cycle 8 and he cont on tagrisso oral daily. Last few weeks he has felt nauseated, noted that his HR is in the 70's, he called his [facility] and is being seen in Apr. He had 1st moderna but regrets getting it, has not felt right since and won't get any more. 03/22/21: C/O headache "head pressure" and blurred vision. Tolerated Cyramza well (HTN). 05/03/21: Feels Ok, C/O intermittent R upper chest pain & stable SOB. Tolerating Cyramza well. 06/10/21:Completed ordered cyramza, continues to struggle with oral thrush, expressed to patient daily fluconazole is not helping and likely a resistent component which can also be hard on liver. Patient has been encouraged to refrain from sugary empty calories for this to improve (Beer). He continues to drink Beer daily. 07/12/21: Feels Ok, has stable SOB, pain well controlled, tolerating Cyramza well. 08/23/21: C/O Increasing left upper chest pain, had to take more MS Contin > pain a bit better now > toleratinh Cyramza well. Review of Systems All systems: negative Constitutional: Reports as per HPI Past Medical History Past Medical History: Cancer, GERD/Reflux, Hypertension Additional Past Medical History / Comment(s): Adenocarcinoma of the lung; On oral chemo. home oxygen use @ 4L [place] ATC,increased SOB, sinus tachycardia (states resting heart rate is around 100-120 BPM) History of Any Multi-Drug Resistant Organisms: None Reported Past Surgical History: Adenoidectomy, Tonsillectomy Additional Past Surgical History / Comment(s): History of bronchoscopy. Past Anesthesia/Blood Transfusion Reactions: No Reported Reaction Past Psychological History: No Psychological Hx Reported Smoking Status: Never smoker Past Alcohol Use History: None Reported Additional Past Alcohol Use History / Comment(s): quit smoking 2013,smoked approx on and off since age 27,1ppd Past Drug Use History: None Reported - Past Family History Mother Family Medical History: COPD Medications and Allergies Home Medications Medication Instructions Recorded Confirmed Type Folic Acid 1 mg PO DAILY 07/15/17 09/29/21 History ondansetron HCL [Zofran] 4 mg PO QID PRN 09/17/18 09/29/21 History Diphenox-Atrop 2.5-0.025 mg 1 tab PO QID 03/05/20 09/29/21 History [Lomotil] HYDROcodone/APAP 10-325MG [[place] 1 tab PO Q6HR PRN 3 Days #12 tab 11/06/20 Rx 10-325] Albuterol Sulfate [Proair Hfa] 2 puff INHALATION RT-Q6H PRN 06/28/21 09/29/21 History Budesonide/Formoterol Fumarate 2 puff INHALATION RT-BID 06/28/21 09/29/21 History [Symbicort 160-4.5 Mcg Inhaler] Cholestyramine (with Sugar) 4 gm PO HS 06/28/21 09/29/21 History [Cholestyramine Packet] Clotrimazole 10 mg MUCOUS MEM TID PRN 06/28/21 09/29/21 History Hydrocortisone [Cortef] 20 mg PO BID 06/28/21 09/29/21 History Ipratropium-Albuterol Nebulize 3 ml INHALATION RT-Q6H PRN 06/28/21 09/29/21 History [Duoneb 0.5 mg-3 mg/3 ml Soln] Morphine Sulfate ER [Ms Contin] 30 mg PO TID 06/28/21 09/29/21 History Nystatin 100,000 Unit/ml Susp 4 ml PO QID 06/28/21 09/29/21 History [Mycostatin Oral Susp] predniSONE 10 mg PO BID PRN 06/28/21 09/29/21 History Osimertinib Mesylate [Tagrisso] 80 mg PO DAILY@199906/30/21 09/29/21 Rx Clindamycin Phosphate 1 applic TOPICAL DAILY PRN 09/29/21 09/29/21 History Hydrocortisone Oint 1 applic TOPICAL BID PRN 09/29/21 09/29/21 History [Hydrocortisone 2.5% Oint] Pantoprazole [Protonix] 40 mg PO BID 09/29/21 09/29/21 History Losartan [Cozaar] 50 mg PO HS 09/30/21 09/30/21 History Allergies Allergy/AdvReac Type Severity Reaction Status Date / Time latex Allergy itching Verified 09/29/21 21:54 eyes Physical Exam Vitals: Vital Signs Temp Pulse Pulse Resp BP BP Pulse Ox 09/30/21 15:43 106 H 09/30/21 15:31 110 H 09/30/21 13:00 97.6 F 89 18 173/100 98 09/30/21 11:38 95 09/30/21 11:30 97 09/30/21 07:36 92 09/30/21 07:26 95 98 09/30/21 04:50 98.1 F 88 20 176/107 99 09/30/21 02:00 88 20 09/29/21 23:40 98 09/29/21 23:29 98 09/29/21 23:28 96 09/29/21 23:00 98.3 F 101 H 20 169/100 98 09/29/21 22:04 91 18 153/91 99 Intake and Output 09/30/21 09/30/21 09/30/21 06:59 14:59 22:59 Intake Total 250 350 Output Total 900 Balance 250 -900 350 Intake: Intake, IV Titration 250 350 Amount Ampicillin-Sulbactam 3 gm 100 In Sodium Chloride 0.9% 100 ml @ 200 mls/hr IVPB Q6HR [facility] Rx#:[id number] Vancomycin 1,250 mg In 250 250 Sodium Chloride 0.9% 250 ml @ 125 mls/hr IVPB Q8H [facility] Rx#:[id number] Output: Urine 900 Other: Voiding Method Urinal # Voids 3 Weight 71.668 kg alert NAD THrush RLE Open inch size deep venous ulcer with granulation Left with two 1/2inch and just over a2 inch approx open sores, edema and eryth esteban HR Irreg Oxygen at baseline Results CBC & Chem 7: 09/29/21 18:22 09/29/21 18:22 Labs: Microbiology - Last 24 Hours (Table) 09/29/21 18:05 Blood Culture - Preliminary Blood No Growth after 24 hours 09/29/21 18:22 Gram Stain - Preliminary Leg - Left Wound Culture - Preliminary CT scan - chest: report reviewed Assessment and Plan (1) Venous ulcer of leg Current Visit: Yes Status: Acute Code(s): I83.009 - VARICOSE VEINS OF UNSP LOWER EXTREMITY W ULCER OF UNSP SITE; L97.909 - NON-PRS CHRONIC ULC UNSP PRT OF UNSP LOW LEG W UNSP SEVERITY SNOMED Code(s): 818393780 (2) Macrocytic anemia Narrative/Plan: Likely due to tagrisso Current Visit: Yes Status: Acute Code(s): D53.9 - NUTRITIONAL ANEMIA, UNSPECIFIED SNOMED Code(s): 37544333 (3) Cellulitis of left lower leg Narrative/Plan: Venous insuffiency - vanco and per primary team Current Visit: Yes Status: Acute Code(s): L03.116 - CELLULITIS OF LEFT LOWER LIMB SNOMED Code(s): 164133433 (4) EGFR-related lung cancer Narrative/Plan: Hold taggrisso till after improvement of acute hospitalization Current Visit: No Status: Acute Code(s): C34.90 - MALIGNANT NEOPLASM OF UNSP PART OF UNSP BRONCHUS OR LUNG SNOMED Code(s): 972427166 (5) Hypertension Narrative/Plan: Primary team to assist in medication for discharge Current Visit: No Status: Chronic Code(s): I10 - ESSENTIAL (PRIMARY) HYPERTENSION SNOMED Code(s): 64655244 Plan: CT chest reveals new old left sided rib fractures, will follow-upwith bone scan as outpatient to be seen in office within 3-4 weeks of discharge
[2021-09-30] MEDS: CHOLESTYRAMINE (WITH SUGAR) 4 GM PACKET PO SCH (21:36)
[2021-09-30] MEDS ORDERED: guaiFENesin-Coden 100-10MG/5ML 10 ML CUP PO PRN (22:00)
[2021-10-01] MEDS: VANCOMYCIN 1,250 MG in SODIUM CHLORIDE 0.9% 250 ML IVPB SCH ×2 (02:57→09:14)
[2021-10-01] MEDS: AMPICILLIN-SULBACTAM 3 GM in SODIUM CHLORIDE 0.9% 100 ML IVPB SCH ×2 (06:05→12:55)
[2021-10-01] MEDS: IPRATROPIUM-ALBUTEROL 3 ML NEB INHALATION PRN (07:32)
[2021-10-01] MEDS: SYMBICORT 160-4.5 MCG INHALER INHALATION SCH (07:33)
[2021-10-01] MEDS: NYSTATIN 100,000 UNIT/ML SUSP 500,000 UNIT/5 ML CUP PO SCH ×2 (07:51→12:55)
[2021-10-01] MEDS: PANTOPRAZOLE 40 MG TABLET PO SCH (07:51)
[2021-10-01] MEDS: FOLIC ACID 1 MG TAB PO SCH (07:51)
[2021-10-01] MEDS: HYDROCORTISONE 20 MG TAB PO SCH (07:51)
[2021-10-01] MEDS: DIPHENOX-ATROP 2.5-0.025 MG 1 EACH TAB PO SCH ×2 (07:51→12:55)
[2021-10-01] MEDS: MORPHINE SULFATE ER 15 MG TABLET PO SCH (07:51)
[2021-10-01] MEDS: HEPARIN SODIUM,PORCINE/PF 5,000 UNIT/0.5 ML SYRINGE SQ SCH (07:51)
[2021-10-01 08:56] LABS: HCT 41.1 % (39.0-53.0); HGB 13.2 gm/dL (13.0-17.5); MCH 33.9 pg (25.0-35.0); MCHC 32.1 g/dL (31.0-37.0); MCV 105.3 fL (80.0-100.0); Macrocytosis Moderate; Platelet Count 105 k/uL (150-450); RDW 14.5 % (11.5-15.5); WBC 5.3 k/uL (3.8-10.6)
[2021-10-01 08:57] LABS: African American GFR (CKD) >90 (>60 ml/min/1.73 sqM); Anion Gap 2 mmol/L; Blood Urea Nitrogen 14 mg/dL (9-20); Calcium 8.6 mg/dL (8.4-10.2); Carbon Dioxide 26 mmol/L (22-30); Chloride 107 mmol/L (98-107); Glucose 154 mg/dL (74-99); Non-African American GFR(CKD) >90 (>60 ml/min/1.73 sqM); Potassium 4.2 mmol/L (3.5-5.1); Sodium 135 mmol/L (137-145)
[2021-10-01] MEDS ORDERED: VANCOMYCIN TROUGH DUE 1 EACH MISC MISCELLANE ONE (09:00)
[2021-10-01] MEDS: HYDROcodone/APAP 10-325MG 1 EACH TAB PO PRN (09:14)
[2021-10-01] MEDS: COLLAGENASE 250 UNIT/GM OINTMENT 30 GM TUBE TOPICAL SCH (09:28)
[2021-10-01 12:34] VITALS: BP 170/98; PULSE 94; RESP 18; TEMP 97.9
--- NOTE | 2021-10-01 16:41 | P.DS ---
Providers Date of admission: 09/30/21 11:02 Expected date of discharge: 10/01/21 Attending physician: Bob Albert MD Consults: 09/30/21 16:17 Consult Physician Routine Consulting Provider: Bhupinder Winston Consult Reason/Comments: cancer Do you want consulting provider notified?: Yes Primary care physician: Masood Cheung Hospital Course: Discharge Diagnosis: Bilateral lower extremity venous stasis ulcers with fat layer exposure Cellulitis left lower extremity involving wound Thrombocytopenia, chronic Lung cancer Chronic steroid use Hypertension GERD Subacute left rib fractures. Hospital Course: Patient is a 56-year-old male stage IV lung. In the emergency department he underwent extensive evaluation. Left leg x-rays were unremarkable with laboratory evaluation remarkable for lactic acid 0.9 and WBC count 9.1. He was admitted and started on Vanco. Wound care was consulted he recommended continued outpatient follow-up as well as Santyl. He continued to progress well. He was seen by oncology. He was determined stable for discharge. He'll follow-up with oncology and 4 weeks for further testing, he will follow up with wound care next week, will take Bactrim twice daily for 5 days. Patient seen and examined at bedside. Feeling well. Wants to go home. All questions answered. He is aware that he should not submerge his legs stream water. Vital signs reviewed and stable. General: nontoxic, no distress, appears at stated age Derm: Multiple lesions to bilateral With fat exposure, erosions with some pressure which is decreased from yesterday, erythema in the left lower extremity is decreased, swelling in the left lower extremity has resolved. Head: atraumatic, normocephalic, symmetric Eyes: EOMI, no lid lag, anicteric sclera Mouth: no lip lesion, mucus membranes moist Cardiovascular: S1S2 reg, no murmur, positive posterior tibial pulse bilateral, Lungs: CTA bilateral, no rhonchi, no rales , no accessory muscle use Abdominal: soft, nontender to palpation, no guarding, no appreciable organomegaly Ext: no gross muscle atrophy, no edema, no contractures Neuro: CN II-XI grossly intact, no focal neuro deficits Psych: Alert, oriented, appropriate affect A total of 37 minutes of time were spent preparing this complex discharge summary. Patient was discharged on 10/01/21. Patient Condition at Discharge: Stable Plan - Discharge Summary Discharge Rx Participant: Yes New Discharge Prescriptions: New Sulfamethox-Tmp 800-160Mg [Bactrim DS 800-160 mg] 1 tab PO Q12HR #10 tab Continue Folic Acid 1 mg PO DAILY ondansetron HCL [Zofran] 4 mg PO QID PRN PRN Reason: Nausea Diphenox-Atrop 2.5-0.025 mg [Lomotil] 1 tab PO QID Budesonide/Formoterol Fumarate [Symbicort 160-4.5 Mcg Inhaler] 2 puff INHALATION RT-BID predniSONE 10 mg PO BID PRN PRN Reason: CHEMO DAYS Albuterol Sulfate [Proair Hfa] 2 puff INHALATION RT-Q6H PRN PRN Reason: Shortness Of Breath Nystatin 100,000 Unit/ml Susp [Mycostatin Oral Susp] 4 ml PO QID Morphine Sulfate ER [Ms Contin] 30 mg PO TID Clindamycin Phosphate 1 applic TOPICAL DAILY PRN PRN Reason: SKIN ISSUES Pantoprazole [Protonix] 40 mg PO BID Losartan [Cozaar] 50 mg PO HS HYDROcodone/APAP 10-325MG [[place] 10-325] 1 tab PO Q6HR PRN 3 Days #12 tab PRN Reason: Pain Hydrocortisone [Cortef] 20 mg PO BID Clotrimazole 10 mg MUCOUS MEM TID PRN PRN Reason: THRUSH Cholestyramine (with Sugar) [Cholestyramine Packet] 4 gm PO HS Ipratropium-Albuterol Nebulize [Duoneb 0.5 mg-3 mg/3 ml Soln] 3 ml INHALATION RT-Q6H PRN PRN Reason: Shortness Of Breath Osimertinib Mesylate [Tagrisso] 80 mg PO DAILY@1999 Hydrocortisone Oint [Hydrocortisone 2.5% Oint] 1 applic TOPICAL BID PRN PRN Reason: SKIN ISSUES Discharge Medication List Folic Acid 1 mg PO DAILY 07/15/17 [History] ondansetron HCL [Zofran] 4 mg PO QID PRN 09/17/18 [History] Diphenox-Atrop 2.5-0.025 mg [Lomotil] 1 tab PO QID 03/05/20 [History] HYDROcodone/APAP 10-325MG [[place] 10-325] 1 tab PO Q6HR PRN 3 Days #12 tab 11/06/20 [Rx] Albuterol Sulfate [Proair Hfa] 2 puff INHALATION RT-Q6H PRN 06/28/21 [History] Budesonide/Formoterol Fumarate [Symbicort 160-4.5 Mcg Inhaler] 2 puff INHALATION RT-BID 06/28/21 [History] Cholestyramine (with Sugar) [Cholestyramine Packet] 4 gm PO HS 06/28/21 [History] Clotrimazole 10 mg MUCOUS MEM TID PRN 06/28/21 [History] Hydrocortisone [Cortef] 20 mg PO BID 06/28/21 [History] Ipratropium-Albuterol Nebulize [Duoneb 0.5 mg-3 mg/3 ml Soln] 3 ml INHALATION RT-Q6H PRN 06/28/21 [History] Morphine Sulfate ER [Ms Contin] 30 mg PO TID 06/28/21 [History] Nystatin 100,000 Unit/ml Susp [Mycostatin Oral Susp] 4 ml PO QID 06/28/21 [History] predniSONE 10 mg PO BID PRN 06/28/21 [History] Osimertinib Mesylate [Tagrisso] 80 mg PO DAILY@199906/30/21 [Rx] Clindamycin Phosphate 1 applic TOPICAL DAILY PRN 09/29/21 [History] Hydrocortisone Oint [Hydrocortisone 2.5% Oint] 1 applic TOPICAL BID PRN 09/29/21 [History] Pantoprazole [Protonix] 40 mg PO BID 09/29/21 [History] Losartan [Cozaar] 50 mg PO HS 09/30/21 [History] Sulfamethox-Tmp 800-160Mg [Bactrim DS 800-160 mg] 1 tab PO Q12HR #10 tab 10/01/21 [Rx] Follow up Appointment(s)/Referral(s): [facility] [NON-STAFF] - 1 Week (Wound care center Patient needs to call on Sunday and set up appointment) Chung Loyd MD [STAFF PHYSICIAN] - 4 Weeks (Oncologist Office closed at time of discharge - patient needs to make follow-up appointment) Masood Cheung MD [Primary Care Provider] - 1-2 days (Pulmonology Office closed at time of discharge - patient needs to make follow-up appointment) Patient Instructions/Handouts: Sulfamethoxazole/Trimethoprim (By mouth), Debriding Agent (On the skin) Activity/Diet/Wound Care/Special Instructions: Activity: as tolerated Diet: Heart healthy (low fat, low salt) Wound Care: as per wound care center - Apply Santyl ointment to bilateral lower legs open wounds, cover with wet to dry dressing then ABD pad then wrap with kerlix and secure with paper tape daily Special Instructions: Do not submerge wounds- keep bandages clean and dry. May shower. Enjoy the sunshine!!! Discharge Disposition: HOME SELF-CARE
[2021-10-01] MEDS ORDERED: VANCOMYCIN 1,000 MG in SODIUM CHLORIDE 0.9% 250 ML IVPB SCH (18:00)
== END 2021-10-01 13:10 | disposition home or self-care (01) | DRG 603 ==
LOC: EC 12:59 → 6NMEDSUR 20:37 → 5NMEDONC 20:49 → OBSVTOIN 09-30 11:02
PROVIDERS: ADMIT Internal Medicine; ATTEND Internal Medicine
DX: L03.115 Cellulitis of right lower limb (principal); S22.42XA Multiple fractures of ribs, left side, initial encounter for closed fracture; L97.222 Non-pressure chronic ulcer of left calf with fat layer exposed; L97.212 Non-pressure chronic ulcer of right calf with fat layer exposed; I87.1 Compression of vein; B37.0 Candidal stomatitis; D84.9 Immunodeficiency, unspecified; C34.90 Malignant neoplasm of unspecified part of unspecified bronchus or lung; L03.116 Cellulitis of left lower limb; I50.9 Heart failure, unspecified; I83.018 Varicose veins of right lower extremity with ulcer other part of lower leg; I83.028 Varicose veins of left lower extremity with ulcer other part of lower leg; K21.9 Gastro-esophageal reflux disease without esophagitis; I87.8 Other specified disorders of veins; Z91.040 Latex allergy status; D50.0 Iron deficiency anemia secondary to blood loss (chronic); D53.9 Nutritional anemia, unspecified; D69.6 Thrombocytopenia, unspecified; I11.0 Hypertensive heart disease with heart failure; K29.70 Gastritis, unspecified, without bleeding; L98.492 Non-pressure chronic ulcer of skin of other sites with fat layer exposed; Z79.51 Long term (current) use of inhaled steroids; Z79.52 Long term (current) use of systemic steroids; Z79.899 Other long term (current) drug therapy; Z82.5 Family history of asthma and other chronic lower respiratory diseases; Z85.118 Personal history of other malignant neoplasm of bronchus and lung; Z87.891 Personal history of nicotine dependence; Z91.14 Patient's other noncompliance with medication regimen
CPT/HCPCS: 36415; 80048; 80053; 80202; 82607; 82746; 82747; 83605; 83880; 83921; 85025; 85027; 87040; 87070; 87077; 87186; 87205; 94640; 94760; 96365; 96366; 99285

== ENCOUNTER → 2021-09-29 | Outpatient (CLI) | payer OTHER ==
[2021-09-29 12:41] LABS: African American GFR (CKD) >90 (>60 ml/min/1.73 sqM); Blood Urea Nitrogen 11 mg/dL (9-20); Non-African American GFR(CKD) >90 (>60 ml/min/1.73 sqM)
--- NOTE | 2021-09-29 19:30 | CT ---
EXAMINATION TYPE: CT chest w con DATE OF EXAM: 09/29/2021 COMPARISON: CT dated 07/04/2021 HISTORY: lung CA CT DLP: 243.4 mGycm Automated exposure control for dose reduction was used. TECHNIQUE: CT scan of the chest is performed with IV Contrast, patient injected with 100 mL of Isovue 300. FINDINGS: LUNGS: Grossly stable right medial lower lobe nodule with spiculated margin measuring 12 mm. The left midlung zone nodule (image #24, series 4) is also stable measuring 9 mm. The more superior posterior left upper lobe nodule is unchanged measuring 12 mm. The remainder of the previously seen scattered bilateral pulmonary nodules are grossly stable. Persistent extensive pulmonary fibrotic changes and t hick pulmonary infiltration, lymphangitis carcinomatosis or chronic infection cannot be excluded. Ass ociated COPD changes. Patent trachea and main bronchi. Small right pleural effusion. MEDIASTINUM: Unchanged heart and mediastinal vessels. The pulmonary trunk measures 3.3 cm suggestive of pulmonary hypertension. No pericardial effusion. No pathologically enlarged lymph nodes in the [address]. OTHER: No gross upper abdomen abnormality. Newly seen suspected healing fractures of the anterior as pects of the left third, fourth, fifth and sixth ribs. Please correlate with history of interval trau ma. Further bone scan assessment can be considered. IMPRESSION: Newly seen suspected healing fractures of the anterior aspects of the left third, fourth, fifth and s ixth ribs, possibly related to interval trauma, please correlate clinically. Further bone scan assess ment can be considered. Otherwise grossly stable condition as detailed above.
== END | disposition home or self-care (01) ==
LOC: RADCTMAIN 11:41
PROVIDERS: ATTEND Internal Medicine Hematology & Oncology
DX: C34.81 Malignant neoplasm of overlapping sites of right bronchus and lung (principal)
CPT/HCPCS: 82565; 84520; 71260; 36415; Q9967

== ENCOUNTER → 2021-10-18 | Outpatient (CLI) | payer OTHER ==
--- NOTE | 2021-10-20 10:13 | US ---
EXAMINATION TYPE: US arterial LE single level DATE OF EXAM: 10/18/2021 10:55 AM CLINICAL HISTORY: I87.313 Chronic venous hypertension with ulcer of. Non-healing wounds bilateral low er legs x 2 months- wound center patient. Doppler Waveforms: Right: Predominantly triphasic Left: Multiphasic Ankle-Brachial Indices: Right: 1.24 Left: 1.23 Toe Brachial Indices: Right: 0.7 Left: 0.76 IMPRESSION: Normal study
== END | disposition home or self-care (01) ==
LOC: RADUSWWP 10:16
PROVIDERS: ATTEND Family Medicine
DX: I87.313 Chronic venous hypertension (idiopathic) with ulcer of bilateral lower extremity (principal)
CPT/HCPCS: 93922

== ENCOUNTER 2022-01-29 11:16 | Emergency (ER) | payer OTHER ==
[2022-01-29 11:28] VITALS: TEMP 99.5
[2022-01-29] MEDS ORDERED: ACETAMINOPHEN TAB 500 MG TAB PO STA (11:42)
[2022-01-29] MEDS ORDERED: LABETALOL 5 MG/ML VIAL MDV IVP STA (11:42)
--- NOTE | 2022-01-29 12:09 | CT ---
EXAMINATION TYPE: CT brain wo con DATE OF EXAM: 01/29/2022 HISTORY: Fever, weakness, sore throat, short of breath. History of lung cancer. CT DLP: 1133.4 mGycm. Automated Exposure Control for Dose Reduction was Utilized. TECHNIQUE: CT scan of the head is performed without contrast. COMPARISON: None. FINDINGS: There is no acute intracranial hemorrhage or midline shift identified. Ventricles and sul ci within normal limits in size for patient's age. There is mild low-attenuation in the posterior oc cipital white matter right greater than left which is nonspecific near axial image 39 for reference. Large mucous retention cyst or polyp occupies majority of the right maxillary sinus. Patchy opacifica tion of the ethmoid sinuses bilaterally. Globes are intact bilaterally. Mild calcified plaque distal internal carotid arteries bilaterally. IMPRESSION: No acute intracranial hemorrhage or midline shift. Acute on chronic paranasal sinus dise ase is felt present. Correlate clinically.
--- NOTE | 2022-01-29 12:12 | XR ---
EXAMINATION TYPE: XR chest 2V DATE OF EXAM: 01/29/2022 COMPARISON: Chest CT September 29, 2021 and older studies. HISTORY: History of lung cancer with weakness and fever with difficulty in breathing TECHNIQUE: Frontal and lateral views of the chest are obtained. FINDINGS: Background chronic emphysematous and pulmonary fibrotic changes bilaterally redemonstrated . Areas of increased opacity could reflect edema and/or developing acute infiltrates on background ch ronic changes. Chronic elevated left hemidiaphragm redemonstrated. The cardiac silhouette size is st able and mildly enlarged. The osseous structures are intact. IMPRESSION: Chronic changes and cardiomegaly with possible new areas of edema and/or infiltrate. Cor relate clinically.
[2022-01-29 12:53] LABS: Basophils # (A) 0.2 k/uL (0-0.2); Basophils % (A) 3 %; Eosinophils % (A) 1 %; HCT 43.3 % (39.0-53.0); HGB 14.8 gm/dL (13.0-17.5); Lymphocytes # (A) 1.1 k/uL (1.0-4.8); Lymphocytes % (A) 18 %; MCH 33.6 pg (25.0-35.0); MCHC 34.2 g/dL (31.0-37.0); MCV 98.4 fL (80.0-100.0); Mean Platelet Volume 9.4; Monocytes # (A) 0.6 k/uL (0-1.0); Monocytes % (A) 9 %; Neutrophils # (A) 4.3 k/uL (1.3-7.7); Neutrophils % (A) 67 %; Platelet Count 132 k/uL (150-450); RDW 12.7 % (11.5-15.5); WBC 6.3 k/uL (3.8-10.6)
[2022-01-29 13:12] LABS: ALT 37 U/L (4-49); African American GFR (CKD) >90 (>60 ml/min/1.73 sqM); Albumin 4.2 g/dL (3.5-5.0); Anion Gap 8 mmol/L; Blood Urea Nitrogen 16 mg/dL (9-20); Calcium 8.6 mg/dL (8.4-10.2); Carbon Dioxide 26 mmol/L (22-30); Chloride 92 mmol/L (98-107); Glucose 72 mg/dL (74-99); Non-African American GFR(CKD) 85 (>60 ml/min/1.73 sqM); Sodium 126 mmol/L (137-145); Total Bilirubin 0.6 mg/dL (0.2-1.3); Total Protein 6.9 g/dL (6.3-8.2)
[2022-01-29 13:15] LABS: AST 64 U/L (17-59); Alkaline Phosphatase 42 U/L (38-126); Potassium 4.9 mmol/L (3.5-5.1)
[2022-01-29] MEDS ORDERED: KETOROLAC 15 MG/ML 1 ML VIAL IVP STA (13:21)
[2022-01-29 13:22] VITALS: BP 138/93; PULSE 106; RESP 18
[2022-01-29 13:24] LABS: INR 0.8 (<1.2); Prothrombin Time 9.5 sec (9.0-12.0)
[2022-01-29 13:30] LABS: Partial Thromboplastin Time 19.8 sec (22.0-30.0)
--- NOTE | 2022-01-29 14:46 | ED ---
General Adult HPI - General Chief complaint: Shortness of Breath Stated complaint: SOB Time Seen by Provider: 01/29/22 11:25 Source: patient, EMS, RN notes reviewed Mode of arrival: EMS Limitations: no limitations - History of Present Illness Initial comments: 56-year-old male presents emergency Department chief complaint of bodyaches mild congestion shortness of breath. Patient states that he's primarily here because he is a headache which he typically does not have any. 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 Patient followed by oncology he is on Tagrisso and Cyranz. Patient's states he is very closely followed by oncology. Patient denies any nausea vomiting diarrhea constipation patient reports fever has not taken any recent Tylenol Motrin. Patient denies any prior kidney disease. Patient offers no complaints. - Related Data Home Medications Medication Instructions Recorded Confirmed Folic Acid 1 mg PO DAILY 07/15/17 09/29/21 ondansetron HCL [Zofran] 4 mg PO QID PRN 09/17/18 09/29/21 Diphenox-Atrop 2.5-0.025 mg 1 tab PO QID 03/05/20 09/29/21 [Lomotil] Albuterol Sulfate [Proair Hfa] 2 puff INHALATION RT-Q6H PRN 06/28/21 09/29/21 Budesonide/Formoterol Fumarate 2 puff INHALATION RT-BID 06/28/21 09/29/21 [Symbicort 160-4.5 Mcg Inhaler] Cholestyramine (with Sugar) 4 gm PO HS 06/28/21 09/29/21 [Cholestyramine Packet] Clotrimazole 10 mg MUCOUS MEM TID PRN 06/28/21 09/29/21 Hydrocortisone [Cortef] 20 mg PO BID 06/28/21 09/29/21 Ipratropium-Albuterol Nebulize 3 ml INHALATION RT-Q6H PRN 06/28/21 09/29/21 [Duoneb 0.5 mg-3 mg/3 ml Soln] Morphine Sulfate ER [Ms Contin] 30 mg PO TID 06/28/21 09/29/21 Nystatin 100,000 Unit/ml Susp 4 ml PO QID 06/28/21 09/29/21 [Mycostatin Oral Susp] predniSONE 10 mg PO BID PRN 06/28/21 09/29/21 Clindamycin Phosphate 1 applic TOPICAL DAILY PRN 09/29/21 09/29/21 Hydrocortisone Oint 1 applic TOPICAL BID PRN 09/29/21 09/29/21 [Hydrocortisone 2.5% Oint] Pantoprazole [Protonix] 40 mg PO BID 09/29/21 09/29/21 Losartan [Cozaar] 50 mg PO HS 09/30/21 09/30/21 Previous Rx's Medication Instructions Recorded HYDROcodone/APAP 10-325MG [[place] 1 tab PO Q6HR PRN 3 Days #12 tab 11/06/20 10-325] Osimertinib Mesylate [Tagrisso] 80 mg PO DAILY@199906/30/21 Sulfamethox-Tmp 800-160Mg [Bactrim 1 tab PO Q12HR #10 tab 10/01/21 DS 800-160 mg] Molnupiravir [Molnupiravir (Eua)] 800 mg PO BID #40 cap 01/29/22 Molnupiravir [Molnupiravir (Eua)] 800 mg PO BID #40 cap 01/29/22 Allergies Allergy/AdvReac Type Severity Reaction Status Date / Time latex Allergy itching Verified 01/29/22 11:25 eyes Review of Systems ROS Statement: Those systems with pertinent positive or pertinent negative responses have been documented in the HPI. ROS Other: All systems not noted in ROS Statement are negative. Past Medical History Past Medical History: Cancer, GERD/Reflux, Hypertension Additional Past Medical History / Comment(s): Adenocarcinoma of the lung; On oral chemo. home oxygen use @ 4L [place] ATC,increased SOB, sinus tachycardia (states resting heart rate is around 100-120 BPM) History of Any Multi-Drug Resistant Organisms: MRSA Date of last positivie culture/infection: 01/12/22 MDRO Source:: Right Leg Past Surgical History: Adenoidectomy, Tonsillectomy Additional Past Surgical History / Comment(s): History of bronchoscopy. Past Anesthesia/Blood Transfusion Reactions: No Reported Reaction Past Psychological History: No Psychological Hx Reported Smoking Status: Never smoker Past Alcohol Use History: None Reported Past Drug Use History: None Reported - Past Family History Mother Family Medical History: COPD General Exam Limitations: no limitations General appearance: alert, in no apparent distress Head exam: Present: atraumatic, normocephalic, normal inspection Eye exam: Present: normal appearance, PERRL, EOMI. Absent: scleral icterus, conjunctival injection, periorbital swelling ENT exam: Present: normal exam, normal oropharynx, mucous membranes moist Neck exam: Present: normal inspection. Absent: tenderness, meningismus, lymphadenopathy Respiratory exam: Present: normal lung sounds bilaterally. Absent: respiratory distress, wheezes, rales, rhonchi, stridor Cardiovascular Exam: Present: regular rate, normal rhythm, normal heart sounds. Absent: systolic murmur, diastolic murmur, rubs, gallop, clicks GI/Abdominal exam: Present: soft, normal bowel sounds. Absent: distended, tenderness, guarding, rebound, rigid Course Vital Signs 01/29/22 01/29/22 11:25 13:21 Temperature 99.5 F 99.5 F Pulse Rate 90 106 H Respiratory 20 18 Rate Blood Pressure 177/108 138/93 O2 Sat by Pulse 94 L 95 Oximetry Medical Decision Making - Medical Decision Making 56-year-old nephew are symptoms. Patient is COVID-19 positive. I did contact oncology discuss case with Dr. Merlos in which they recommended him stopping oral chemotherapy medication he is to be started on antiviral in which they requested Lagevrio this was sent to his pharmacy. Patient discussed fever control and return parameters patient was comfortable discharged. Had mild hyponatremia was given fluid bolus. - Lab Data Result diagrams: 01/29/22 12:40 01/29/22 12:40 Lab Results 01/29/22 01/29/22 01/29/22 Range/Units 12:30 12:30 12:40 WBC 6.3 (3.8-10.6) k/uL RBC 4.40 (4.30-5.90) m/uL Hgb 14.8 (13.0-17.5) gm/dL Hct 43.3 (39.0-53.0) % MCV 98.4 (80.0-100.0) fL MCH 33.6 (25.0-35.0) pg MCHC 34.2 (31.0-37.0) g/dL RDW 12.7 (11.5-15.5) % Plt Count 132 L (150-450) k/uL MPV 9.4 Neutrophils % 67 % Lymphocytes % 18 % Monocytes % 9 % Eosinophils % 1 % Basophils % 3 % Neutrophils # 4.3 (1.3-7.7) k/uL Lymphocytes # 1.1 (1.0-4.8) k/uL Monocytes # 0.6 (0-1.0) k/uL Eosinophils # 0.0 (0-0.7) k/uL Basophils # 0.2 (0-0.2) k/uL PT (9.0-12.0) sec INR (<1.2) APTT (22.0-30.0) sec Sodium (137-145) mmol/L Potassium (3.5-5.1) mmol/L Chloride (98-107) mmol/L Carbon Dioxide (22-30) mmol/L Anion Gap mmol/L BUN (9-20) mg/dL Creatinine (0.66-1.25) mg/dL Est GFR (CKD-EPI)AfAm (>60 ml/min/1.73 sqM) Est GFR (CKD-EPI)NonAf (>60 ml/min/1.73 sqM) Glucose (74-99) mg/dL Plasma Lactic Acid Dwayne (0.7-2.0) mmol/L Calcium (8.4-10.2) mg/dL Total Bilirubin (0.2-1.3) mg/dL AST (17-59) U/L ALT (4-49) U/L Alkaline Phosphatase (38-126) U/L Troponin I (0.000-0.034) ng/mL Total Protein (6.3-8.2) g/dL Albumin (3.5-5.0) g/dL Coronavirus (PCR) Detected A (Not Detectd) Influenza Type A RNA Not Detected (Not Detectd) Influenza Type B (PCR) Not Detected (Not Detectd) 01/29/22 01/29/22 01/29/22 Range/Units 12:40 12:40 12:40 WBC (3.8-10.6) k/uL RBC (4.30-5.90) m/uL Hgb (13.0-17.5) gm/dL Hct (39.0-53.0) % MCV (80.0-100.0) fL MCH (25.0-35.0) pg MCHC (31.0-37.0) g/dL RDW (11.5-15.5) % Plt Count (150-450) k/uL MPV Neutrophils % % Lymphocytes % % Monocytes % % Eosinophils % % Basophils % % Neutrophils # (1.3-7.7) k/uL Lymphocytes # (1.0-4.8) k/uL Monocytes # (0-1.0) k/uL Eosinophils # (0-0.7) k/uL Basophils # (0-0.2) k/uL PT 9.5 (9.0-12.0) sec INR 0.8 (<1.2) APTT 19.8 L (22.0-30.0) sec Sodium 126 L (137-145) mmol/L Potassium 4.9 (3.5-5.1) mmol/L Chloride 92 L (98-107) mmol/L Carbon Dioxide 26 (22-30) mmol/L Anion Gap 8 mmol/L BUN 16 (9-20) mg/dL Creatinine 0.99 (0.66-1.25) mg/dL Est GFR (CKD-EPI)AfAm >90 (>60 ml/min/1.73 sqM) Est GFR (CKD-EPI)NonAf 85 (>60 ml/min/1.73 sqM) Glucose 72 L (74-99) mg/dL Plasma Lactic Acid Dwayne 2.4 H* (0.7-2.0) mmol/L Calcium 8.6 (8.4-10.2) mg/dL Total Bilirubin 0.6 (0.2-1.3) mg/dL AST 64 H (17-59) U/L ALT 37 (4-49) U/L Alkaline Phosphatase 42 (38-126) U/L Troponin I (0.000-0.034) ng/mL Total Protein 6.9 (6.3-8.2) g/dL Albumin 4.2 (3.5-5.0) g/dL Coronavirus (PCR) (Not Detectd) Influenza Type A RNA (Not Detectd) Influenza Type B (PCR) (Not Detectd) 01/29/22 Range/Units 12:40 WBC (3.8-10.6) k/uL RBC (4.30-5.90) m/uL Hgb (13.0-17.5) gm/dL Hct (39.0-53.0) % MCV (80.0-100.0) fL MCH (25.0-35.0) pg MCHC (31.0-37.0) g/dL RDW (11.5-15.5) % Plt Count (150-450) k/uL MPV Neutrophils % % Lymphocytes % % Monocytes % % Eosinophils % % Basophils % % Neutrophils # (1.3-7.7) k/uL Lymphocytes # (1.0-4.8) k/uL Monocytes # (0-1.0) k/uL Eosinophils # (0-0.7) k/uL Basophils # (0-0.2) k/uL PT (9.0-12.0) sec INR (<1.2) APTT (22.0-30.0) sec Sodium (137-145) mmol/L Potassium (3.5-5.1) mmol/L Chloride (98-107) mmol/L Carbon Dioxide (22-30) mmol/L Anion Gap mmol/L BUN (9-20) mg/dL Creatinine (0.66-1.25) mg/dL Est GFR (CKD-EPI)AfAm (>60 ml/min/1.73 sqM) Est GFR (CKD-EPI)NonAf (>60 ml/min/1.73 sqM) Glucose (74-99) mg/dL Plasma Lactic Acid Dwayne (0.7-2.0) mmol/L Calcium (8.4-10.2) mg/dL Total Bilirubin (0.2-1.3) mg/dL AST (17-59) U/L ALT (4-49) U/L Alkaline Phosphatase (38-126) U/L Troponin I <0.012 (0.000-0.034) ng/mL Total Protein (6.3-8.2) g/dL Albumin (3.5-5.0) g/dL Coronavirus (PCR) (Not Detectd) Influenza Type A RNA (Not Detectd) Influenza Type B (PCR) (Not Detectd) Disposition Clinical Impression: COVID-19 Disposition: HOME SELF-CARE Condition: Stable Instructions (If sedation given, give patient instructions): COVID-19 (Coronavirus Disease 2019) (ED) Additional Instructions: Please return to the Emergency Department if symptoms worsen or any other concerns. Prescriptions: Molnupiravir [Molnupiravir (Eua)] 800 mg PO BID #40 cap Molnupiravir [Molnupiravir (Eua)] 800 mg PO BID #40 cap Is patient prescribed a controlled substance at d/c from ED?: No Referrals: Masood Cheung MD [Primary Care Provider] - 1-2 days Time of Disposition: 14:02
[2022-01-29] MEDS ORDERED: ALBUTEROL HFA INHALER INHALATION STA (15:17)
== END 2022-01-29 16:50 | disposition home or self-care (01) ==
LOC: EC 11:16
DX: U07.1 COVID-19 (principal); K21.9 Gastro-esophageal reflux disease without esophagitis; I10 Essential (primary) hypertension; Z91.040 Latex allergy status; Z79.1 Long term (current) use of non-steroidal anti-inflammatories (NSAID)
CPT/HCPCS: 99285; 36415; 94640; 93005; 80053; 83605; 84484; 85025; 85610; 85730; 87502; 87635; 71046; 70450; 96374; 96375; J1885

== ENCOUNTER 2022-02-15 08:06 | Inpatient (IN) | payer OTHER ==
--- NOTE | 2022-02-15 08:18 | ED ---
SOB HPI - General Stated Complaint: sob Time Seen by Provider: 02/15/22 08:06 Source: patient, EMS, RN notes reviewed, old records reviewed Mode of arrival: EMS - History of Present Illness Initial Comments: 56-year-old male to the emergency department by EMS with complaints of shortness of breath and exertional dyspnea for the past 2-3 days. He did recently get over a case of COVID-19 about 2 weeks ago. He denies any fevers chills sweats chest pain. Pulse ox 5 L of oxygen 95% at home. Of note his blood pressure was noted be elevated at 184/130. He denies any decrease in his appetite or fluid or food intake. He is scheduled for a chemo therapy treatment today. No other current complaints modifying factors patient states he is a nonsmoker MD Complaint: shortness of breath - Related Data Home Medications Medication Instructions Recorded Confirmed Folic Acid 1 mg PO DAILY 07/15/17 09/29/21 ondansetron HCL [Zofran] 4 mg PO QID PRN 09/17/18 09/29/21 Diphenox-Atrop 2.5-0.025 mg 1 tab PO QID 03/05/20 09/29/21 [Lomotil] Albuterol Sulfate [Proair Hfa] 2 puff INHALATION RT-Q6H PRN 06/28/21 09/29/21 Budesonide/Formoterol Fumarate 2 puff INHALATION RT-BID 06/28/21 09/29/21 [Symbicort 160-4.5 Mcg Inhaler] Cholestyramine (with Sugar) 4 gm PO HS 06/28/21 09/29/21 [Cholestyramine Packet] Clotrimazole 10 mg MUCOUS MEM TID PRN 06/28/21 09/29/21 Hydrocortisone [Cortef] 20 mg PO BID 06/28/21 09/29/21 Ipratropium-Albuterol Nebulize 3 ml INHALATION RT-Q6H PRN 06/28/21 09/29/21 [Duoneb 0.5 mg-3 mg/3 ml Soln] Morphine Sulfate ER [Ms Contin] 30 mg PO TID 06/28/21 09/29/21 Nystatin 100,000 Unit/ml Susp 4 ml PO QID 06/28/21 09/29/21 [Mycostatin Oral Susp] predniSONE 10 mg PO BID PRN 06/28/21 09/29/21 Clindamycin Phosphate 1 applic TOPICAL DAILY PRN 09/29/21 09/29/21 Hydrocortisone Oint 1 applic TOPICAL BID PRN 09/29/21 09/29/21 [Hydrocortisone 2.5% Oint] Pantoprazole [Protonix] 40 mg PO BID 09/29/21 09/29/21 Losartan [Cozaar] 50 mg PO HS 09/30/21 09/30/21 Previous Rx's Medication Instructions Recorded HYDROcodone/APAP 10-325MG [[place] 1 tab PO Q6HR PRN 3 Days #12 tab 11/06/20 10-325] Osimertinib Mesylate [Tagrisso] 80 mg PO DAILY@199906/30/21 Sulfamethox-Tmp 800-160Mg [Bactrim 1 tab PO Q12HR #10 tab 10/01/21 DS 800-160 mg] Molnupiravir [Molnupiravir (Eua)] 800 mg PO BID #40 cap 01/29/22 Molnupiravir [Molnupiravir (Eua)] 800 mg PO BID #40 cap 01/29/22 Molnupiravir [Molnupiravir (Eua)] 800 mg PO BID #40 cap 01/29/22 Allergies Allergy/AdvReac Type Severity Reaction Status Date / Time latex Allergy itching Verified 02/15/22 13:36 eyes Review of Systems ROS Statement: Those systems with pertinent positive or pertinent negative responses have been documented in the HPI. ROS Other: All systems not noted in ROS Statement are negative. Past Medical History Past Medical History: Cancer, GERD/Reflux, Hypertension Additional Past Medical History / Comment(s): Adenocarcinoma of the lung; On oral chemo. home oxygen use @ 4L [place] ATC,increased SOB, sinus tachycardia (states resting heart rate is around 100-120 BPM) History of Any Multi-Drug Resistant Organisms: MRSA Date of last positivie culture/infection: 01/12/22 MDRO Source:: Right Leg Past Surgical History: Adenoidectomy, Tonsillectomy Additional Past Surgical History / Comment(s): History of bronchoscopy. Past Anesthesia/Blood Transfusion Reactions: No Reported Reaction Past Psychological History: No Psychological Hx Reported Smoking Status: Never smoker Past Alcohol Use History: None Reported Past Drug Use History: None Reported - Past Family History Mother Family Medical History: COPD General Exam - General Exam Comments Initial Comments: This is a well-developed and thin appearing male who is awake alert oriented 4 General appearance: alert, anxious Head exam: Present: atraumatic, normocephalic, normal inspection Eye exam: Present: normal appearance, PERRL, EOMI. Absent: scleral icterus, conjunctival injection, periorbital swelling ENT exam: Present: mucous membranes dry (Evidence of oral thrush) Neck exam: Present: normal inspection. Absent: tenderness, meningismus, lymphadenopathy Respiratory exam: Present: decreased breath sounds. Absent: respiratory distress, wheezes, rales, rhonchi, stridor Cardiovascular Exam: Present: regular rate, normal rhythm, normal heart sounds. Absent: systolic murmur, diastolic murmur, rubs, gallop, clicks GI/Abdominal exam: Present: soft, normal bowel sounds. Absent: distended, tenderness, guarding, rebound, rigid Extremities exam: Present: normal inspection, full ROM, normal capillary refill. Absent: tenderness, pedal edema, joint swelling, calf tenderness Back exam: Present: normal inspection Neurological exam: Present: alert, oriented X3, CN II-XII intact Psychiatric exam: Present: normal affect, normal mood Skin exam: Present: warm, dry, intact, normal color. Absent: rash Course Vital Signs 02/15/22 02/15/22 08:13 11:57 Temperature 98 F 98.3 F Pulse Rate 113 H 99 Respiratory 18 20 Rate Blood Pressure 193/112 175/122 O2 Sat by Pulse 97 95 Oximetry - Reevaluation(s) Reevaluation #1: 02/15/22 13:42 Patient does have elevated blood pressure he is declining administration of IV medication at this time oral medication will be attempted to bring on the pressure. He states he always has some tachycardia. This did discuss this with Dr. Toussaint who was in the emergency department and saw the patient Medical Decision Making - Lab Data Result diagrams: 02/15/22 08:35 02/15/22 08:35 Lab Results 02/15/22 02/15/22 02/15/22 Range/Units 08:35 08:35 08:35 WBC 6.7 (3.8-10.6) k/uL RBC 4.37 (4.30-5.90) m/uL Hgb 14.5 (13.0-17.5) gm/dL Hct 42.4 (39.0-53.0) % MCV 96.9 (80.0-100.0) fL MCH 33.1 (25.0-35.0) pg MCHC 34.2 (31.0-37.0) g/dL RDW 13.4 (11.5-15.5) % Plt Count 122 L (150-450) k/uL MPV 8.4 Neutrophils % 80 % Lymphocytes % 14 % Monocytes % 4 % Eosinophils % 1 % Basophils % 0 % Neutrophils # 5.3 (1.3-7.7) k/uL Lymphocytes # 0.9 L (1.0-4.8) k/uL Monocytes # 0.3 (0-1.0) k/uL Eosinophils # 0.1 (0-0.7) k/uL Basophils # 0.0 (0-0.2) k/uL PT 10.0 (9.0-12.0) sec INR 0.9 (<1.2) APTT 22.3 (22.0-30.0) sec D-Dimer 0.83 H (<0.60) mg/L FEU Sodium 129 L (137-145) mmol/L Potassium 5.0 (3.5-5.1) mmol/L Chloride 98 (98-107) mmol/L Carbon Dioxide 27 (22-30) mmol/L Anion Gap 4 mmol/L BUN 17 (9-20) mg/dL Creatinine 0.66 (0.66-1.25) mg/dL Est GFR (CKD-EPI)AfAm >90 (>60 ml/min/1.73 sqM) Est GFR (CKD-EPI)NonAf >90 (>60 ml/min/1.73 sqM) Glucose 122 H (74-99) mg/dL Plasma Lactic Acid Dwayne (0.7-2.0) mmol/L Calcium 8.5 (8.4-10.2) mg/dL Magnesium 2.0 (1.6-2.3) mg/dL Total Bilirubin 0.6 (0.2-1.3) mg/dL AST 59 (17-59) U/L ALT 38 (4-49) U/L Alkaline Phosphatase 62 (38-126) U/L Troponin I (0.000-0.034) ng/mL NT-Pro-B Natriuret Pep pg/mL Total Protein 5.7 L (6.3-8.2) g/dL Albumin 3.3 L (3.5-5.0) g/dL Influenza Type A RNA (Not Detectd) Influenza Type B (PCR) (Not Detectd) 02/15/22 02/15/22 02/15/22 Range/Units 08:35 08:35 08:35 WBC (3.8-10.6) k/uL RBC (4.30-5.90) m/uL Hgb (13.0-17.5) gm/dL Hct (39.0-53.0) % MCV (80.0-100.0) fL MCH (25.0-35.0) pg MCHC (31.0-37.0) g/dL RDW (11.5-15.5) % Plt Count (150-450) k/uL MPV Neutrophils % % Lymphocytes % % Monocytes % % Eosinophils % % Basophils % % Neutrophils # (1.3-7.7) k/uL Lymphocytes # (1.0-4.8) k/uL Monocytes # (0-1.0) k/uL Eosinophils # (0-0.7) k/uL Basophils # (0-0.2) k/uL PT (9.0-12.0) sec INR (<1.2) APTT (22.0-30.0) sec D-Dimer (<0.60) mg/L FEU Sodium (137-145) mmol/L Potassium (3.5-5.1) mmol/L Chloride (98-107) mmol/L Carbon Dioxide (22-30) mmol/L Anion Gap mmol/L BUN (9-20) mg/dL Creatinine (0.66-1.25) mg/dL Est GFR (CKD-EPI)AfAm (>60 ml/min/1.73 sqM) Est GFR (CKD-EPI)NonAf (>60 ml/min/1.73 sqM) Glucose (74-99) mg/dL Plasma Lactic Acid Dwayne 1.6 (0.7-2.0) mmol/L Calcium (8.4-10.2) mg/dL Magnesium (1.6-2.3) mg/dL Total Bilirubin (0.2-1.3) mg/dL AST (17-59) U/L ALT (4-49) U/L Alkaline Phosphatase (38-126) U/L Troponin I 0.022 (0.000-0.034) ng/mL NT-Pro-B Natriuret Pep 316 pg/mL Total Protein (6.3-8.2) g/dL Albumin (3.5-5.0) g/dL Influenza Type A RNA (Not Detectd) Influenza Type B (PCR) (Not Detectd) 02/15/22 Range/Units 08:35 WBC (3.8-10.6) k/uL RBC (4.30-5.90) m/uL Hgb (13.0-17.5) gm/dL Hct (39.0-53.0) % MCV (80.0-100.0) fL MCH (25.0-35.0) pg MCHC (31.0-37.0) g/dL RDW (11.5-15.5) % Plt Count (150-450) k/uL MPV Neutrophils % % Lymphocytes % % Monocytes % % Eosinophils % % Basophils % % Neutrophils # (1.3-7.7) k/uL Lymphocytes # (1.0-4.8) k/uL Monocytes # (0-1.0) k/uL Eosinophils # (0-0.7) k/uL Basophils # (0-0.2) k/uL PT (9.0-12.0) sec INR (<1.2) APTT (22.0-30.0) sec D-Dimer (<0.60) mg/L FEU Sodium (137-145) mmol/L Potassium (3.5-5.1) mmol/L Chloride (98-107) mmol/L Carbon Dioxide (22-30) mmol/L Anion Gap mmol/L BUN (9-20) mg/dL Creatinine (0.66-1.25) mg/dL Est GFR (CKD-EPI)AfAm (>60 ml/min/1.73 sqM) Est GFR (CKD-EPI)NonAf (>60 ml/min/1.73 sqM) Glucose (74-99) mg/dL Plasma Lactic Acid Dwayne (0.7-2.0) mmol/L Calcium (8.4-10.2) mg/dL Magnesium (1.6-2.3) mg/dL Total Bilirubin (0.2-1.3) mg/dL AST (17-59) U/L ALT (4-49) U/L Alkaline Phosphatase (38-126) U/L Troponin I (0.000-0.034) ng/mL NT-Pro-B Natriuret Pep pg/mL Total Protein (6.3-8.2) g/dL Albumin (3.5-5.0) g/dL Influenza Type A RNA Not Detected (Not Detectd) Influenza Type B (PCR) Not Detected (Not Detectd) - Radiology Data Radiology results: image reviewed (I did review and interpret the imaging and report evidence of progression of disease emphysema no definitive infiltrate at this time please see complete report) Disposition Clinical Impression: Acute exacerbation of emphysema, Lung cancer, Weakness, Failure to thrive, Hypertension, Tachycardia Disposition: ADMITTED IP TO THIS HOSP Condition: Fair Referrals: Althea Jimenes MD [Primary Care Provider] - 1-2 days Decision Date: 02/15/22 Decision Time: 13:00
[2022-02-15 08:47] LABS: Basophils % (A) 0 %; Eosinophils # (A) 0.1 k/uL (0-0.7); Eosinophils % (A) 1 %; HCT 42.4 % (39.0-53.0); HGB 14.5 gm/dL (13.0-17.5); Lymphocytes # (A) 0.9 k/uL (1.0-4.8); Lymphocytes % (A) 14 %; MCH 33.1 pg (25.0-35.0); MCHC 34.2 g/dL (31.0-37.0); MCV 96.9 fL (80.0-100.0); Mean Platelet Volume 8.4; Monocytes # (A) 0.3 k/uL (0-1.0); Monocytes % (A) 4 %; Neutrophils # (A) 5.3 k/uL (1.3-7.7); Neutrophils % (A) 80 %; Platelet Count 122 k/uL (150-450); RBC 4.37 m/uL (4.30-5.90); RDW 13.4 % (11.5-15.5); WBC 6.7 k/uL (3.8-10.6)
[2022-02-15 09:09] LABS: ALT 38 U/L (4-49); African American GFR (CKD) >90 (>60 ml/min/1.73 sqM); Albumin 3.3 g/dL (3.5-5.0); Anion Gap 4 mmol/L; Blood Urea Nitrogen 17 mg/dL (9-20); Calcium 8.5 mg/dL (8.4-10.2); Carbon Dioxide 27 mmol/L (22-30); Chloride 98 mmol/L (98-107); Glucose 122 mg/dL (74-99); Non-African American GFR(CKD) >90 (>60 ml/min/1.73 sqM); Sodium 129 mmol/L (137-145); Total Bilirubin 0.6 mg/dL (0.2-1.3); Total Protein 5.7 g/dL (6.3-8.2)
[2022-02-15 09:11] LABS: AST 59 U/L (17-59); Alkaline Phosphatase 62 U/L (38-126)
--- NOTE | 2022-02-15 09:11 | XR ---
EXAMINATION TYPE: XR chest 2V DATE OF EXAM: 02/15/2022 COMPARISON: 02/09/2022 TECHNIQUE: PA and lateral views submitted. HISTORY: Shortness of breath FINDINGS: Extensive interstitial and patchy changes, unchanged from 01/29/2022. Residual infiltrate difficult t o exclude. Extensive fibrosis and postinfectious scarring not excluded. Left hemidiaphragm elevation compatible volume loss. Biapical pleural thickening. Arthropathy of the shoulders. IMPRESSION: 1. Bilateral infiltrates and left pleural effusion again noted. Findings of underlying COPD and pulmo nary fibrosis similar to prior exam.
[2022-02-15 09:17] LABS: INR 0.9 (<1.2); Partial Thromboplastin Time 22.3 sec (22.0-30.0)
--- NOTE | 2022-02-15 10:48 | CT ---
EXAMINATION TYPE: CT angio chest DATE OF EXAM: 02/15/2022 COMPARISON: Most recent chest CT September 29, 2021 and older studies HISTORY: SOB, elevated d-dimer, lung ca. Initially diagnosed end of 2017 CT DLP: 307.8 mGycm. Automated Exposure Control for Dose Reduction was Utilized. CONTRAST: CTA scan of the thorax is performed with IV Contrast, patient injected with 100 mL of Isovue 370, pul monary embolism protocol. MIP Images are created on CT scanner and reviewed. FINDINGS: LUNGS: Background moderate underlying chronic emphysematous and parenchymal fibrotic changes bilatera lly with some areas of pleural-based thickening and reticulation bilaterally is redemonstrated. Trace bibasilar pleural effusions redemonstrated. Right upper lung nodule or nodular consolidation measuri ng approximately 2.5 x 1.2 cm axial image 31 unchanged from most recent studies. There are adjacent a reas of groundglass opacity and slight nodularity prominent from prior studies including pleural-base d 1.6 x 0.9 cm nodule or nodular consolidation anteriorly axial image 36. Groundglass opacities exten ding towards the right hilum with superior hilar retraction redemonstrated. Groundglass opacities wit h nodularity in the right lower lung are redemonstrated. Slightly more prominent 9 mm posterior right lower lobe nodule axial image 81 is noted. There is growing spiculated central 2.4 x 1.6 cm right lo wer lobe nodule axial image 100. Slow growing spiculated 10 x 8 mm left upper lobe nodule laterally axial image 36 is noted. Focally a nterior scarring at this level redemonstrated. Stable 12 mm posterior left lower lobe nodule axial im age [address] Slow-growing posterior 1.8 x 1.4 cm left midlung nodule axial image 62. T here are areas of increase in groundglass opacity and septal prominence in the left lower lung noted from most recent CT. MEDIASTINUM: Suboptimal study with equal dense contrast in the thoracic aorta measuring up to 3.6 cm in size. Prominent main pulmonary artery suggesting underlying pulmonary artery hypertension. No con vincing CT evidence for acute pulmonary embolism. There are no new greater than 1 cm hilar or mediast inal lymph nodes. No pericardial effusion is seen. Heart size stable and upper limits of normal. Coronary artery calcifications are redemonstrated. Ascending aorta measures up to 3.6 cm in diameter axial image 27 on current study. OTHER: Slight scoliotic curvature redemonstrated. Mild multilevel spurring and disc space narrowing. No new adrenal masses. Healing or healed fractures of the anterior left third through fifth ribs rede monstrated. Healed fracture of the posterior left 12th rib coronal image 140 redemonstrated. IMPRESSION: 1. Suboptimal study but no CT evidence for acute pulmonary embolism. 2. Chronic emphysematous and pulmonary fibrotic changes redemonstrated. Continued neoplastic progress ion thought present. New areas of groundglass opacity consistent with edema in the bilateral lower alex ng suggesting fluid overload and/or possible CHF exacerbation. Correlate clinically. Developing acute infiltrates felt less likely but not excluded.
[2022-02-15] MEDS ORDERED: methylPREDNISolone SOD SUCCI 125 MG/2 ML VIAL IV STA (12:18)
[2022-02-15] MEDS ORDERED: hydrALAZINE HCL 20 MG/ML 1 ML VIAL IVP STA (12:31)
[2022-02-15] MEDS ORDERED: SODIUM CHLORIDE 0.9% 500 ML 500 ML IV STA (12:31)
[2022-02-15] MEDS ORDERED: NALOXONE 0.4 MG/ML 1 ML VIAL IVP PRN (13:45)
[2022-02-15] MEDS ORDERED: ACETAMINOPHEN TAB 325 MG TAB PO PRN (13:45)
[2022-02-15] MEDS ORDERED: predniSONE 10 MG TAB PO PRN (13:49)
[2022-02-15] MEDS ORDERED: ONDANSETRON 4 MG TAB PO PRN (13:49)
[2022-02-15] MEDS ORDERED: TRIAMCINOLONE ACET 0.1% OINTMENT 80 GM TUBE TOPICAL PRN (13:49)
[2022-02-15] MEDS: IPRATROPIUM-ALBUTEROL 3 ML NEB INHALATION SCH ×2 (14:44→19:50)
[2022-02-15] MEDS ORDERED: NIFEdipine XL 30 MG TAB.ER.24 PO SCH (16:00)
[2022-02-15] MEDS: FUROSEMIDE 20 MG TAB PO SCH (17:01)
[2022-02-15] MEDS: PANTOPRAZOLE 40 MG TABLET PO SCH (17:01)
[2022-02-15] MEDS: methylPREDNISolone SOD SUCCI 125 MG/2 ML VIAL IV SCH ×2 (17:02→23:49)
[2022-02-15] MEDS: CLOTRIMAZOLE TROCHE 10 MG TROCHE MUCOUS MEM SCH ×2 (17:02→20:50)
[2022-02-15] MEDS: DIPHENOX-ATROP 2.5-0.025 MG 1 EACH TAB PO SCH ×2 (17:08→20:50)
[2022-02-15] MEDS ORDERED: NON FORMULARY DRUG (Omeprazole 40 MG Capsule.Dr) PO SCH (17:30)
[2022-02-15] MEDS ORDERED: methylPREDNISolone SOD SUCCI 125 MG/2 ML VIAL IV SCH (18:00)
[2022-02-15] MEDS: SYMBICORT 160-4.5 MCG INHALER INHALATION SCH (19:51)
[2022-02-15] MEDS: LOSARTAN 50 MG TAB PO SCH (20:32)
[2022-02-15] MEDS: hydrALAZINE HCL 25 MG TAB PO SCH (20:32)
[2022-02-15] MEDS: MORPHINE SULFATE ER 15 MG TABLET PO SCH (20:32)
[2022-02-15] MEDS: HYDROcodone/APAP 10-325MG 1 EACH TAB PO PRN (20:33)
[2022-02-15] MEDS: POTASSIUM CHLORIDE ER 10 MEQ TAB.ER.PRT PO SCH (20:34)
[2022-02-15] MEDS ORDERED: OSIMERTINIB MESYLATE 80 MG PO SCH (21:00)
[2022-02-16] MEDS ORDERED: NIFEdipine XL 30 MG TAB.ER.24 PO STA (00:05)
--- NOTE | 2022-02-16 00:17 | P.HPIM ---
History of Present Illness H&P Date: 02/15/22 Chief Complaint: Shortness of breath Patient is a 56 for male with a known history of adenocarcinoma the lung on oral chemotherapy, on oxygen at 4 L when nasal cannula, GERD, hypertension and no prior history of smoking presents to ER with complaints of worsening shortness o f breath. He has been having symptoms last 1 week. Patient was diagnosed with metastatic adenocarcinoma and underwent bronchoscopy With Transbronchial Biopsy. Patient States that she had COVID 19 infection 2 weeks ago. Patient came to the hospital with shortness of breath which is worsening and arthritis and dyspnea and tachycardia. Patient was also having elevated blood pressure when he came to ER. Patient has been afebrile. Chest x-ray showed bilateral infiltrates and left pleural effusion again noted. Findings underlying COPD and pulmonary fibrosis similar to prior to exam. Laboratory data showed dialysis 6.7 hemoglobin 14.5 and platelets 122 d-dimer level was 0.83. CT angiogram of the chest was done. Showed suboptimal study but no CT evidence for acute PE. Chronic emphysematous Preeti pulmonary fibrotic changes redemonstrated. Continued with neoplastic progression thought present. No areas of groundglass opacity consistent with edema in the bilateral lower lung suggestive fluid overload and possible CHF exacerbation. Correlate clinically. Currently acute infiltrate and atelectasis likely but not excluded. An EKG showed sinus tachycardia. Patient states that he has always been tachycardic for several years. Laboratory data showed WBC 6.7 hemoglobin 14.5 and platelets 122 Sodium 129 potassium 5.0 chloride 98 right coronary was 27 BUN 17 and creatinine 0.66 and blood sugar is 122 and calcium 8.5 magnesium 2.0 3.3 AND INFLUENZA A AND B NOT DETECTED. Review of Systems Constitutional: Patient denies any fever or chills . Patient does have generalized weakness and fatigue. Abdomen: Patient denied nausea vomiting and diarrhea and abdominal pain. Cardiovascular: Patient denies any chest pain or short of breath no palpitations. Respiratory: Does have cough with whitish sputum production and shortness of breath Neurologic: Patient denied any numbness or tingling headache. Musculoskeletal: Patient denies any complaints of joint swelling or deformity. Skin: Negative Psychiatric: Negative Endocrine: No heat or cold intolerance. No recent weight gain. Genitourinary: No dysuria or hematuria. All other 14 point ROS negative except the above Past Medical History Past Medical History: Cancer, GERD/Reflux, Hypertension Additional Past Medical History / Comment(s): Adenocarcinoma of the lung; On oral chemo. home oxygen use @ 4L [place] ATC,increased SOB, sinus tachycardia (states resting heart rate is around 100-120 BPM) GIB History of Any Multi-Drug Resistant Organisms: MRSA Date of last positivie culture/infection: 01/12/22 MDRO Source:: Right Leg Past Surgical History: Adenoidectomy, Tonsillectomy Additional Past Surgical History / Comment(s): History of bronchoscopy. Talc plueraldias Past Anesthesia/Blood Transfusion Reactions: No Reported Reaction Past Psychological History: No Psychological Hx Reported Smoking Status: Never smoker Past Alcohol Use History: None Reported Additional Past Alcohol Use History / Comment(s): . Past Drug Use History: None Reported - Past Family History Mother Family Medical History: COPD, Hypertension Medications and Allergies Home Medications Medication Instructions Recorded Confirmed Type Folic Acid 1 mg PO DAILY 07/15/17 02/15/22 History ondansetron HCL [Zofran] 4 - 8 mg PO Q8H PRN 09/17/18 02/15/22 History Diphenox-Atrop 2.5-0.025 mg 1 tab PO QID 03/05/20 02/15/22 History [Lomotil] HYDROcodone/APAP 10-325MG [[place] 1 tab PO Q6HR PRN 3 Days #12 tab 11/06/20 02/15/22 Rx 10-325] Albuterol Sulfate [Proair Hfa] 2 puff INHALATION RT-Q6H PRN 06/28/21 02/15/22 History Budesonide/Formoterol Fumarate 2 puff INHALATION RT-BID 06/28/21 02/15/22 History [Symbicort 160-4.5 Mcg Inhaler] Cholestyramine (with Sugar) 4 gm PO HS 06/28/21 02/15/22 History [Cholestyramine Packet] Clotrimazole 10 mg MUCOUS MEM QID 06/28/21 02/15/22 History Hydrocortisone [Cortef] 20 mg PO BID 06/28/21 02/15/22 History Morphine Sulfate ER [Ms Contin] 45 mg PO DAILY 06/28/21 02/15/22 History Nystatin 100,000 Unit/ml Susp 4 ml PO QID 06/28/21 02/15/22 History [Mycostatin Oral Susp] predniSONE 10 mg PO BID PRN 06/28/21 02/15/22 History Clindamycin Phosphate 1 applic TOPICAL DAILY PRN 09/29/21 02/15/22 History Hydrocortisone Oint 1 applic TOPICAL BID PRN 09/29/21 02/15/22 History [Hydrocortisone 2.5% Oint] Pantoprazole [Protonix] 40 mg PO AC-BID 09/29/21 02/15/22 History Losartan [Cozaar] 50 mg PO BID 09/30/21 02/15/22 History Cholestyramine (with Sugar) 4 gm PO DAILY PRN 02/15/22 02/15/22 History [Cholestyramine Packet] Cyanocobalamin (Vitamin B-12) 2,000 mcg PO DAILY 02/15/22 02/15/22 History [Vitamin B-12] Fluconazole [Diflucan] 100 mg PO DAILY 02/15/22 02/15/22 History Furosemide [Lasix] 20 mg PO BID 02/15/22 02/15/22 History Morphine Sulfate ER [Ms Contin] 15 mg PO DAILY@1200 02/15/22 02/15/22 History Morphine Sulfate ER [Ms Contin] 30 mg PO HS 02/15/22 02/15/22 History Omeprazole [PriLOSEC] 40 mg PO AC-BID 02/15/22 02/15/22 History Osimertinib Mesylate [Tagrisso] 80 mg PO HS 02/15/22 02/15/22 History Potassium Chloride [Potassium 10 meq PO BID 02/15/22 02/15/22 History Chloride ER] dronabinoL [Marinol] 5 mg PO HS 02/15/22 02/15/22 History hydrALAZINE HCL [Apresoline] 25 mg PO BID 02/15/22 02/15/22 History rOPINIRole HCL [Requip] 0.5 mg PO HS 02/15/22 02/15/22 History Allergies Allergy/AdvReac Type Severity Reaction Status Date / Time latex Allergy itching Verified 02/15/22 13:36 eyes Physical Exam Vitals: Vital Signs Temp Pulse Pulse Resp BP BP Pulse Ox 02/15/22 15:27 97.5 F L 100 16 190/103 96 02/15/22 14:54 106 H 18 02/15/22 14:47 96 18 94 L 02/15/22 14:41 96 16 177/124 96 02/15/22 11:57 98.3 F 99 20 175/122 95 02/15/22 08:13 98 F 113 H 18 193/112 97 Intake and Output 02/15/22 02/15/22 02/15/22 06:59 14:59 22:59 Other: Weight 71.668 kg 71.668 kg PHYSICAL EXAMINATION: Patient is lying in the bed comfortably, mild distress, awake alert and oriented. Anxious. HEENT: Normocephalic. Neck is supple. Pupils reactive. Nostrils clear. Oral cavity is moist. Neck reveals no JVD, carotid bruits, or thyromegaly. CHEST EXAMINATION: Trachea is central. Symmetrical expansion. Bibasilar diminis hed sound and scattered rhonchi. CARDIAC: Normal S1, S2 with no gallops. No murmurs ABDOMEN: Soft. Bowel sounds normal. No organomegaly. No abdominal bruits. Extremities: reveal no edema. No clubbing or cyanosis Neurologically awake, alert, oriented x3 with well-coordinated movements. No focal deficits noted Skin: No rash or skin lesions. Psychiatric: Coperative. Nonsuicidal Musculoskeletal: No joint swelling or deformity. Normal range of motion. Results CBC & Chem 7: 02/16/22 06:33 02/16/22 06:33 Labs: Abnormal Lab Results - Last 24 Hours (Table) 02/15/22 02/15/22 02/15/22 Range/Units 08:35 08:35 08:35 Plt Count 122 L (150-450) k/uL Lymphocytes # 0.9 L (1.0-4.8) k/uL D-Dimer 0.83 H (<0.60) mg/L FEU Sodium 129 L (137-145) mmol/L Glucose 122 H (74-99) mg/dL Total Protein 5.7 L (6.3-8.2) g/dL Albumin 3.3 L (3.5-5.0) g/dL Thrombosis Risk Factor Assmnt - DVT/VTE Prophylaxis DVT/VTE Prophylaxis: Pharmacologic Prophylaxis ordered - Choose All That Apply Each Factor Represents 1 point: Age 41-60 years Thrombosis Risk Factor Assessment Total Risk Factor Score: 1 Thrombosis Risk Factor Assessment Level: Low Risk Assessment and Plan Assessment: Worsening shortness of breath multifactorial secondary to COPD , pneumonia, pleural effusion and progressed neoplastic process. Acute COPD exacerbation Bilateral pneumonia and left pleural effusion with interstitial edema. Progression of neoplastic process. Metastatic adenocarcinoma the lung. Hypertensive urgency Hyponatremia Recent history of Covid 19 infection about 2 weeks ago. GERD DVT prophylaxis with heparin subcu Plan: Patient will be continued on IV steroids and continued blood pressure medicati ons including losartan and Nifedipine was added. Continue to monitor blood pressure closely. Continue with Lasix and oxygen supplementation they titrated down to 4 L as per home regimen. Monitor sodium and electrolytes. Continue pain management and other home medications and follow closely. Pulmonary and oncology was consulted for evaluation. Prognosis is guarded at this time. Time with Patient: Greater than 30
[2022-02-16] MEDS: guaiFENesin-Coden 100-10MG/5ML 10 ML CUP PO PRN ×4 (00:22→11:15)
[2022-02-16] MEDS: HYDROcodone/APAP 10-325MG 1 EACH TAB PO PRN (04:33)
[2022-02-16] MEDS: PANTOPRAZOLE 40 MG TABLET PO SCH ×2 (06:18→18:20)
[2022-02-16] MEDS: methylPREDNISolone SOD SUCCI 125 MG/2 ML VIAL IV SCH ×4 (06:19→23:14)
[2022-02-16] MEDS: CHOLESTYRAMINE (WITH SUGAR) 4 GM PACKET PO SCH ×4 (06:19→20:09)
[2022-02-16] MEDS: IPRATROPIUM-ALBUTEROL 3 ML NEB INHALATION SCH ×4 (07:05→20:48)
[2022-02-16] MEDS: SYMBICORT 160-4.5 MCG INHALER INHALATION SCH ×2 (07:20→20:48)
[2022-02-16 07:40] LABS: Basophils % (A) 0 %; Eosinophils % (A) 0 %; HGB 14.2 gm/dL (13.0-17.5); Lymphocytes # (A) 0.6 k/uL (1.0-4.8); Lymphocytes % (A) 8 %; MCH 32.6 pg (25.0-35.0); MCV 98.8 fL (80.0-100.0); Mean Platelet Volume 8.7; Monocytes # (A) 0.3 k/uL (0-1.0); Monocytes % (A) 3 %; Neutrophils # (A) 6.6 k/uL (1.3-7.7); Neutrophils % (A) 88 %; Platelet Count 139 k/uL (150-450); RBC 4.35 m/uL (4.30-5.90); RDW 13.5 % (11.5-15.5); WBC 7.5 k/uL (3.8-10.6)
[2022-02-16 07:53] LABS: African American GFR (CKD) >90 (>60 ml/min/1.73 sqM); Anion Gap 4 mmol/L; Blood Urea Nitrogen 13 mg/dL (9-20); Calcium 8.6 mg/dL (8.4-10.2); Carbon Dioxide 28 mmol/L (22-30); Chloride 99 mmol/L (98-107); Glucose 196 mg/dL (74-99); Non-African American GFR(CKD) >90 (>60 ml/min/1.73 sqM); Potassium 3.8 mmol/L (3.5-5.1); Sodium 131 mmol/L (137-145)
[2022-02-16] MEDS ORDERED: MORPHINE SULFATE ER 15 MG TABLET PO SCH ×2 (09:00→12:00)
[2022-02-16] MEDS ORDERED: FOLIC ACID 1 MG TAB PO SCH (09:00)
[2022-02-16] MEDS: CLOTRIMAZOLE TROCHE 10 MG TROCHE MUCOUS MEM SCH ×4 (09:00→20:51)
[2022-02-16] MEDS ORDERED: NIFEdipine XL 30 MG TAB.ER.24 PO SCH (09:00)
[2022-02-16] MEDS: FUROSEMIDE 20 MG TAB PO SCH ×2 (09:00→09:07)
[2022-02-16] MEDS: LOSARTAN 50 MG TAB PO SCH (09:00)
[2022-02-16] MEDS ORDERED: CYANOCOBALAMIN 500 MCG TAB PO SCH (09:00)
[2022-02-16] MEDS: POTASSIUM CHLORIDE ER 10 MEQ TAB.ER.PRT PO SCH ×2 (09:01→20:09)
[2022-02-16] MEDS: DIPHENOX-ATROP 2.5-0.025 MG 1 EACH TAB PO SCH ×4 (09:02→20:52)
[2022-02-16] MEDS: hydrALAZINE HCL 25 MG TAB PO SCH ×3 (09:02→20:52)
[2022-02-16] MEDS: ENOXAPARIN 40 MG/0.4 ML SYRINGE SQ SCH ×2 (09:02→09:07)
--- NOTE | 2022-02-16 09:54 | P.CNPUL ---
History of Present Illness Consult date: 02/15/22 Reason for consult: dyspnea, cough, COPD, hypoxemia Chief complaint: shortness of breath cough and not feeling well for 2-3 day History of present illness: Patient is a 56-year-old male well-known to me has a history of chronic hypoxic respiratory failure and severe COPD, patient has metastatic adenocarcinoma diagnosed on transbronchial biopsy through lymphangitis spread several years ago has been on chemotherapy and tolerating well for detailed please see and refer to oncology notes and consultation. Patient has been on home oxygen 4-6 L nasal cannula along with bronchodilator he has a recent covert infection 2 weeks ago with multiple symptoms however respiratory status was stable at that time until current exacerbation on arrival patient was on 5 L oxygen saturation was 95% LAD pressure was high 184/130, chemo has been postponed as patient has been admitted into the hospital and has significant labs include thrombocytopenia with his platelet count 122, hyponatremia with sodium of 129, BUN/creatinine normal sugars weren't near-normal 122. Lactic acid is 1.6, BNP is 316. Influenza A and B was negative at chest x-ray showed bilateral infiltrate with small pleural effusion and baseline COPD and pulmonary fibrosis. Computed tomography scan of the chest unable to review hard copies however as per report severe emphysematous changes bilaterally along with fibrotic changes with reticulation. Small bilateral pleural effusion, right upper lobe 2.51.2 cm nodule unchanged from September computed tomography scan, 1.60.9 cm nodule slightly prominent. Groundglass continuation patchy in nature right hilum superior hilum. Groundglass nodularity in right lower lobe along with 0.9 cm posterior right lower lobe nodule. There is a growing 2.61.6 cm right lower lobe nodule seen which is spiculated. Slow growing spiculated 1 cm 0.8 cm left upper lobe nodule with a stable 1.2 cm posterior left lower lobe nodule and slow-growing posterior 1.81.4 cm left mid lung nodule with area of groundglass attenuation. Currently patient is being treated with pain medicine along with the scheduled dear nebs 4 times a day and continuation of blood pressure medicine with Solu- Medrol 60 mg IV every 6 and morphine sulfate 30 mg at bedtime and 45 mg in the a.m. patient is on Tagrisso so 80 mg using his own Review of Systems All systems: negative Past Medical History Past Medical History: Cancer, GERD/Reflux, Hypertension Additional Past Medical History / Comment(s): Adenocarcinoma of the lung; On oral chemo. home oxygen use @ 4L [place] ATC,increased SOB, sinus tachycardia (states resting heart rate is around 100-120 BPM) GIB History of Any Multi-Drug Resistant Organisms: MRSA Date of last positivie culture/infection: 01/12/22 MDRO Source:: Right Leg Past Surgical History: Adenoidectomy, Tonsillectomy Additional Past Surgical History / Comment(s): History of bronchoscopy. Talc plueraldias Past Anesthesia/Blood Transfusion Reactions: No Reported Reaction Past Psychological History: No Psychological Hx Reported Smoking Status: Never smoker Past Alcohol Use History: None Reported Additional Past Alcohol Use History / Comment(s): . Past Drug Use History: None Reported - Past Family History Mother Family Medical History: COPD, Hypertension Medications and Allergies Home Medications Medication Instructions Recorded Confirmed Type Folic Acid 1 mg PO DAILY 07/15/17 02/15/22 History ondansetron HCL [Zofran] 4 - 8 mg PO Q8H PRN 09/17/18 02/15/22 History Diphenox-Atrop 2.5-0.025 mg 1 tab PO QID 03/05/20 02/15/22 History [Lomotil] HYDROcodone/APAP 10-325MG [[place] 1 tab PO Q6HR PRN 3 Days #12 tab 11/06/20 02/15/22 Rx 10-325] Albuterol Sulfate [Proair Hfa] 2 puff INHALATION RT-Q6H PRN 06/28/21 02/15/22 History Budesonide/Formoterol Fumarate 2 puff INHALATION RT-BID 06/28/21 02/15/22 History [Symbicort 160-4.5 Mcg Inhaler] Cholestyramine (with Sugar) 4 gm PO HS 06/28/21 02/15/22 History [Cholestyramine Packet] Clotrimazole 10 mg MUCOUS MEM QID 06/28/21 02/15/22 History Hydrocortisone [Cortef] 20 mg PO BID 06/28/21 02/15/22 History Morphine Sulfate ER [Ms Contin] 45 mg PO DAILY 06/28/21 02/15/22 History Nystatin 100,000 Unit/ml Susp 4 ml PO QID 06/28/21 02/15/22 History [Mycostatin Oral Susp] predniSONE 10 mg PO BID PRN 06/28/21 02/15/22 History Clindamycin Phosphate 1 applic TOPICAL DAILY PRN 09/29/21 02/15/22 History Hydrocortisone Oint 1 applic TOPICAL BID PRN 09/29/21 02/15/22 History [Hydrocortisone 2.5% Oint] Pantoprazole [Protonix] 40 mg PO AC-BID 09/29/21 02/15/22 History Losartan [Cozaar] 50 mg PO BID 09/30/21 02/15/22 History Cholestyramine (with Sugar) 4 gm PO DAILY PRN 02/15/22 02/15/22 History [Cholestyramine Packet] Cyanocobalamin (Vitamin B-12) 2,000 mcg PO DAILY 02/15/22 02/15/22 History [Vitamin B-12] Fluconazole [Diflucan] 100 mg PO DAILY 02/15/22 02/15/22 History Furosemide [Lasix] 20 mg PO BID 02/15/22 02/15/22 History Morphine Sulfate ER [Ms Contin] 15 mg PO DAILY@1200 02/15/22 02/15/22 History Morphine Sulfate ER [Ms Contin] 30 mg PO HS 02/15/22 02/15/22 History Omeprazole [PriLOSEC] 40 mg PO AC-BID 02/15/22 02/15/22 History Osimertinib Mesylate [Tagrisso] 80 mg PO HS 02/15/22 02/15/22 History Potassium Chloride [Potassium 10 meq PO BID 02/15/22 02/15/22 History Chloride ER] dronabinoL [Marinol] 5 mg PO HS 02/15/22 02/15/22 History hydrALAZINE HCL [Apresoline] 25 mg PO BID 02/15/22 02/15/22 History rOPINIRole HCL [Requip] 0.5 mg PO HS 02/15/22 02/15/22 History Allergies Allergy/AdvReac Type Severity Reaction Status Date / Time latex Allergy itching Verified 02/15/22 13:36 eyes Physical Exam Vitals: Vital Signs Temp Pulse Pulse Resp BP BP Pulse Ox 02/15/22 15:27 97.5 F L 100 16 190/103 96 02/15/22 14:54 106 H 18 02/15/22 14:47 96 18 94 L 02/15/22 14:41 96 16 177/124 96 11/09/22 11:57 98.3 F 99 20 175/122 95 02/15/22 08:13 98 F 113 H 18 193/112 97 Intake and Output 02/15/22 02/15/22 02/15/22 06:59 14:59 22:59 Intake Total 358 Balance 358 Intake: Oral 358 Other: Weight 71.668 kg 71.668 kg - Constitutional General appearance: average body habitus, cooperative, disheveled, mild distress - EENT Eyes: PERRLA ENT: thrush Ears: bilateral: normal - Neck Carotids: bilateral: upstroke normal Thyroid: bilateral: normal size - Respiratory Respiratory: bilateral: rales, rhonchi, wheezing, prolonged expiration - Cardiovascular Rhythm: regular Heart sounds: normal: S1, S2 - Gastrointestinal General gastrointestinal: normal bowel sounds, soft - Integumentary Integumentary: normal turgor - Neurologic Neurologic: CNII-XII intact - Musculoskeletal Musculoskeletal: gait normal, generalized weakness, strength equal bilaterally - Psychiatric Psychiatric: A&O x's 3, appropriate affect, intact judgment & insight Results - Laboratory Findings CBC and BMP: 02/16/22 06:33 02/16/22 06:33 PT/INR, D-dimer PT 10.0 sec (9.0-12.0) 02/15/22 08:35 INR 0.9 (<1.2) 02/15/22 08:35 D-Dimer 0.83 mg/L FEU (<0.60) H 02/15/22 08:35 Abnormal lab findings: Abnormal Labs 02/15/22 02/15/22 02/15/22 08:35 08:35 08:35 Plt Count 122 L Lymphocytes # 0.9 L D-Dimer 0.83 H Sodium 129 L Glucose 122 H Total Protein 5.7 L Albumin 3.3 L - Diagnostic Findings Chest x-ray: report reviewed, image reviewed CT scan - chest: report reviewed (As noted above), image reviewed Assessment and Plan Assessment: Acute COPD exacerbation Bilateral pneumonia likely community-acquired versus atypical, versus fluid overload versus neoplasm cannot be ruled out Acute on chronic hypoxic respiratory failure, continue oxygen, supportive care Electrolyte imbalance with hyponatremia Stage IV adenocarcinoma on Biologics Multiple bilateral chronic with some progression nodules indicated above recurrence of neoplasm Hypertensive urgency Plan: Continue high-dose IV steroids Breathing treatments Continue antihypertensive agents If no improvements in then we'll add IV antibiotics Time with Patient: Greater than 30
--- NOTE | 2022-02-16 10:10 | P.PN ---
Subjective Progress Note Date: 02/16/22 Principal diagnosis: Bilateral pneumonia likely community-acquired versus atypical, versus fluid overload versus neoplasm cannot be ruled out Acute on chronic hypoxic respiratory failure, continue oxygen, supportive care Electrolyte imbalance with hyponatremia Stage IV adenocarcinoma on Biologics Multiple bilateral chronic with some progression nodules indicated above recurr ence of neoplasm 02/16/2022, patient seen eval examined during the rounds slightly more short of breath with increasing wheezing cough which is nonproductive complaining of retrosternal burning sensation and dysphagia also, suspected to have thrush with extension down. Blood pressure is still high on medications which includes losartan 50 mg 2 times a day and hydralazine 25 mg by mouth 2 times a day, blood pressure remains very high will change it to Diovan 360 milligrams daily and escalate hydralazine to 25 mg 3 times a day Will add IV Rocephin and Zithromax by mouth along with nystatin insertion site low and Diflucan IV Patient is a 56-year-old male well-known to me has a history of chronic hypoxic respiratory failure and severe COPD, patient has metastatic adenocarcinoma diagnosed on transbronchial biopsy through lymphangitis spread several years ago has been on chemotherapy and tolerating well for detailed please see and refer to oncology notes and consultation. Patient has been on home oxygen 4-6 L nasal cannula along with bronchodilator he has a recent covert infection 2 weeks ago with multiple symptoms however respiratory status was stable at that time until current exacerbation on arrival patient was on 5 L oxygen saturation was 95% LAD pressure was high 184/130, chemo has been postponed as patient has been admitted into the hospital and has significant labs include thrombocytopenia with his platelet count 122, hyponatremia with sodium of 129, BUN/creatinine normal sugars weren't near-normal 122. Lactic acid is 1.6, BNP is 316. Influenza A and B was negative at chest x-ray showed bilateral infiltrate with small pleural effusion and baseline COPD and pulmonary fibrosis. Computed tomography scan of the chest unable to review hard copies however as per report severe emphysematous changes bilaterally along with fibrotic changes with reticulation. Small bilateral pleural effusion, right upper lobe 2.51.2 cm nodule unchanged from September computed tomography scan, 1.60.9 cm nodule slightly prominent. Groundglass continuation patchy in nature right hilum superior hilum. Groundglass nodularity in right lower lobe along with 0.9 cm posterior right lower lobe nodule. There is a growing 2.61.6 cm right lower lobe nodule seen which is spiculated. Slow growing spiculated 1 cm 0.8 cm left upper lobe nodule with a stable 1.2 cm posterior left lower lobe nodule and slow-growing posterior 1.81.4 cm left mid lung nodule with area of groundglass attenuation. Currently patient is being treated with pain medicine along with the scheduled dear nebs 4 times a day and continuation of blood pressure medicine with Solu- Medrol 60 mg IV every 6 and morphine sulfate 30 mg at bedtime and 45 mg in the a.m. patient is on Tagrisso so 80 mg using his own Objective - Vital Signs Vital signs: Vital Signs Temp 97.8 F 02/16/22 00:00 Pulse 118 H 02/16/22 07:19 Resp 30 H 02/16/22 04:00 BP 195/94 02/16/22 04:00 Pulse Ox 90 L 02/16/22 07:10 FiO2 Intake & Output 02/15/22 02/16/22 02/16/22 18:59 06:59 18:59 Intake Total 358 Balance 358 Weight 71.668 kg Intake: Oral 358 Other: # Voids 2 - Exam - Constitutional General appearance: average body habitus, cooperative, disheveled, mild distress - EENT Eyes: PERRLA ENT: thrush Ears: bilateral: normal - Neck Carotids: bilateral: upstroke normal Thyroid: bilateral: normal size - Respiratory Respiratory: bilateral: rales, rhonchi, wheezing, prolonged expiration - Cardiovascular Rhythm: regular Heart sounds: normal: S1, S2 - Gastrointestinal General gastrointestinal: normal bowel sounds, soft - Integumentary Integumentary: normal turgor - Neurologic Neurologic: CNII-XII intact - Musculoskeletal Musculoskeletal: gait normal, generalized weakness, strength equal bilaterally - Psychiatric Psychiatric: A&O x's 3, appropriate affect, intact judgment & insight - Labs CBC & Chem 7: 02/16/22 06:33 02/16/22 06:33 Labs: Abnormal Lab Results - Last 24 Hours (Table) 02/16/22 02/16/22 Range/Units 06:33 06:33 Plt Count 139 L (150-450) k/uL Lymphocytes # 0.6 L (1.0-4.8) k/uL Sodium 131 L (137-145) mmol/L Creatinine 0.62 L (0.66-1.25) mg/dL Glucose 196 H (74-99) mg/dL Assessment and Plan Assessment: Acute COPD exacerbation Bilateral pneumonia likely community-acquired versus atypical, versus fluid overload versus neoplasm cannot be ruled out Acute on chronic hypoxic respiratory failure, continue oxygen, supportive care Oral as well as suspected tracheal and esophageal thrush Electrolyte imbalance with hyponatremia Stage IV adenocarcinoma on Biologics Multiple bilateral chronic with some progression nodules indicated above recurrence of neoplasm Hypertensive urgency Plan: Continue high-dose IV steroids Breathing treatments Adjusted antihypertensive agents, hydralazine 25 mg 3 times a day and Diovan 360 milligrams daily Diflucan IV along with the nystatin swish and swallow IV antibiotics Rocephin 1 g daily and azithromycin 500 mg daily Legionella urine antigen Time with Patient: Greater than 30
[2022-02-16] MEDS ORDERED: VALSARTAN 160 MG TAB PO SCH (11:00)
[2022-02-16] MEDS ORDERED: FLUCONAZOLE IN NACL,ISO-OSM 100 MG in SALINE 1 50ML.BAG IVPB SCH (11:00)
--- NOTE | 2022-02-16 11:30 | P.CONS ---
History of Present Illness - Reason for Consult Consult date: 02/16/22 Goals of care Requesting physician: Nick Toussaint - Chief Complaint Dyspnea - History of Present Illness The patient is a 56-year-old male with a past medical history significant for chronic hypoxic respiratory failure and severe COPD, patient has metastatic lung cancer and has been on chemotherapy and tolerating it well. He presented to the emergency department on 02/15/22 with complaints of worsening shortness of breath and exertional dyspnea. He denied any fevers, chills, sweats, or chest pain. Pulse ox 5 L of oxygen 95% at home. Of note his blood pressure was noted be elevated at 184/130. Patient has been on home oxygen 4-6 L nasal cannula along with bronchodilator. He had a recent COVID infection, 2 weeks ago, with multiple symptoms. Respiratory status was stable at that time until current exacerbation. Chest CT with no evidence of PE. However, it does redemonstrate chronic emphysematous and pulmonary fibrotic changes and continued neoplastic progr ession. New areas of opacity consistent with edema in the bilateral lower lung suggest fluid overload and/ or possible CHF exacerbation. Developing acute infiltrates can not be excluded. Review of Systems Constitutional: Reports as per HPI Past Medical History Past Medical History: Cancer, GERD/Reflux, Hypertension Additional Past Medical History / Comment(s): Adenocarcinoma of the lung; On oral chemo. home oxygen use @ 4L [place] ATC,increased SOB, sinus tachycardia (states resting heart rate is around 100-120 BPM) GIB History of Any Multi-Drug Resistant Organisms: MRSA Year Discovered:: 01/12/22 MDRO Source:: Right Leg Past Surgical History: Adenoidectomy, Tonsillectomy Additional Past Surgical History / Comment(s): History of bronchoscopy. Talc plueraldias Past Anesthesia/Blood Transfusion Reactions: No Reported Reaction Past Psychological History: No Psychological Hx Reported Smoking Status: Never smoker Past Alcohol Use History: None Reported Additional Past Alcohol Use History / Comment(s): . Past Drug Use History: None Reported - Past Family History Mother Family Medical History: COPD, Hypertension Medications and Allergies Home Medications Medication Instructions Recorded Confirmed Type Folic Acid 1 mg PO DAILY 07/15/17 02/15/22 History ondansetron HCL [Zofran] 4 - 8 mg PO Q8H PRN 09/17/18 02/15/22 History Diphenox-Atrop 2.5-0.025 mg 1 tab PO QID 03/05/20 02/15/22 History [Lomotil] HYDROcodone/APAP 10-325MG [[place] 1 tab PO Q6HR PRN 3 Days #12 tab 11/06/20 02/15/22 Rx 10-325] Albuterol Sulfate [Proair Hfa] 2 puff INHALATION RT-Q6H PRN 06/28/21 02/15/22 History Budesonide/Formoterol Fumarate 2 puff INHALATION RT-BID 06/28/21 02/15/22 History [Symbicort 160-4.5 Mcg Inhaler] Cholestyramine (with Sugar) 4 gm PO HS 06/28/21 02/15/22 History [Cholestyramine Packet] Clotrimazole 10 mg MUCOUS MEM QID 06/28/21 02/15/22 History Hydrocortisone [Cortef] 20 mg PO BID 06/28/21 02/15/22 History Morphine Sulfate ER [Ms Contin] 45 mg PO DAILY 06/28/21 02/15/22 History Nystatin 100,000 Unit/ml Susp 4 ml PO QID 06/28/21 02/15/22 History [Mycostatin Oral Susp] predniSONE 10 mg PO BID PRN 06/28/21 02/15/22 History Clindamycin Phosphate 1 applic TOPICAL DAILY PRN 09/29/21 02/15/22 History Hydrocortisone Oint 1 applic TOPICAL BID PRN 09/29/21 02/15/22 History [Hydrocortisone 2.5% Oint] Pantoprazole [Protonix] 40 mg PO AC-BID 09/29/21 02/15/22 History Losartan [Cozaar] 50 mg PO BID 09/30/21 02/15/22 History Cholestyramine (with Sugar) 4 gm PO DAILY PRN 02/15/22 02/15/22 History [Cholestyramine Packet] Cyanocobalamin (Vitamin B-12) 2,000 mcg PO DAILY 02/15/22 02/15/22 History [Vitamin B-12] Fluconazole [Diflucan] 100 mg PO DAILY 02/15/22 02/15/22 History Furosemide [Lasix] 20 mg PO BID 02/15/22 02/15/22 History Morphine Sulfate ER [Ms Contin] 15 mg PO DAILY@1200 02/15/22 02/15/22 History Morphine Sulfate ER [Ms Contin] 30 mg PO HS 02/15/22 02/15/22 History Omeprazole [PriLOSEC] 40 mg PO AC-BID 02/15/22 02/15/22 History Osimertinib Mesylate [Tagrisso] 80 mg PO HS 02/15/22 02/15/22 History Potassium Chloride [Potassium 10 meq PO BID 02/15/22 02/15/22 History Chloride ER] dronabinoL [Marinol] 5 mg PO HS 02/15/22 02/15/22 History hydrALAZINE HCL [Apresoline] 25 mg PO BID 02/15/22 02/15/22 History rOPINIRole HCL [Requip] 0.5 mg PO HS 02/15/22 02/15/22 History Allergies Allergy/AdvReac Type Severity Reaction Status Date / Time latex Allergy itching Verified 02/15/22 13:36 eyes Physical Exam Vitals: Vital Signs Temp Pulse Pulse Resp BP BP Pulse Ox 02/16/22 07:19 118 H 02/16/22 07:10 90 L 02/16/22 07:08 98 02/16/22 04:00 30 H 195/94 92 L 02/16/22 02:00 109 H 24 02/16/22 00:00 97.8 F 109 H 24 198/110 95 02/15/22 20:06 97 02/15/22 20:00 97.6 F 108 H 18 196/101 93 L 02/15/22 19:55 92 02/15/22 15:27 97.5 F L 100 16 190/103 96 02/15/22 14:54 106 H 18 02/15/22 14:47 96 18 94 L 02/15/22 14:41 96 16 177/124 96 02/15/22 11:57 98.3 F 99 20 175/122 95 Intake and Output 02/15/22 02/16/22 02/16/22 22:59 06:59 14:59 Intake Total 358 Balance 358 Intake: Oral 358 Other: # Voids 1 2 Weight 71.668 kg General: Chronically ill appearing. Appears to be in respiratory distress. HEENT: Head is atraumatic, normocephalic. Sclera are clear. Mucus membranes moist. CV: Tachycardic. S1 and S2. Peripheral pulses equal. 2/4 Lungs: Scattered rhonchi throughout. + dry cough. Respirations labored. On 5L [place]. Abdomen/GI: Soft. No guarding, rigidity, or abdominal tenderness. Musculoskeletal/ Extremities: NUNEZ, no joint deformity or swelling. No gross atrophy. + generalized weakness Vascular: Radial pulses equal. 2/4. No peripheral edema Skin: Warm and dry, Multiple bruises noted to upper extremities. Neurologic: Awake, alert and oriented times 3. CN II-XII grossly intact. No focal deficits. Psychiatric: Appropriate mood and affect. Results CBC & Chem 7: 02/16/22 06:33 02/16/22 06:33 Labs: Abnormal Lab Results - Last 24 Hours (Table) 02/16/22 02/16/22 Range/Units 06:33 06:33 Plt Count 139 L (150-450) k/uL Lymphocytes # 0.6 L (1.0-4.8) k/uL Sodium 131 L (137-145) mmol/L Creatinine 0.62 L (0.66-1.25) mg/dL Glucose 196 H (74-99) mg/dL Chest x-ray: report reviewed CT scan - chest: report reviewed Assessment and Plan Assessment: Social * Occupation - Unemployed/disability * Marital status - Single * Children/grandchildren - No children * Residence - Lives in a cabin without electricity * Who do you reside with - Patient lives alone, with he service dog * ETOH - No * Tobacco - Never smoked * Illicit drugs - No Spiritual/Cultural * A spiritual person - Yes * Islam - Hoahaoism * Belong to a particular spiritism - [facility] * Beliefs a source of comfort and strength - Yes * Denominational or cultural practices restrictions - No * EOL considerations/rituals -No Functional Assessment * Able to walk independently - Yes, although getting more difficult recently * Assistive devices - None * Able to use the bathroom independently - Yes * Continent - Yes * Require assistance bathing- No * Able to feed self - Yes * Who prepares meals - Patient * How many meals a day eaten - * What percentage of meals eaten daily - 2-3 * Able to clean house/do laundry - Yes * Transportation - Patient drives * Able to shop - Yes * Who manages medications - Patient * Who manages finances - Patient Psychological/Emotional * Dementia present - No * Insight and judgment - Intact * Depression - No * Suicidal thoughts - No * Good support system - Yes, spiritism and neighbors * Patients goals - prolonged survival * Frequent hospitalizations - No * Desire to keep coming back to the hospital for treatment - Yes Symptoms * Pain - 5/10 upper thorax pain. Continue Tylenol, MS Contin, and Sandy * Fatigue - Low energy, generalized weakness and fatigue, worse in last 24 hours * SOB - Yes, at rest. Continue symbicort, Duoneb, Solumedrol, Lasix, * Insomnia - No * N/V - No, continue Zofran * Anxiety - No * Depression - No * Confusion - No * Agitation - No * Hallucinations - No * Appetite/weight loss - Reports a good appetite - on a regular diet. Continue Marinol. Has trouble eating due to tachypnea * Dysphagia - No * Constipation - No * Incontinence - No, voiding per urinal * Itch - No * Cough - Yes, continue Robitussin * Sore throat - Yes, continue Mycelex lozenger Plan: Summary/Goals - The patient is sitting up in the bed. He has labored breathing with accessory muscle use and is coughing frequently. He has conversational dyspnea. Currently on 5L NC. He states his breathing is worse now than it ever has been. He did have COVID approximately two weeks ago. Patient is familiar with palliative care, he has utilized their services in the past. He has a good understanding of his underlying disease processes. He is anxious to talk to oncology for recommendations. When asked what his goals of care of, he shows a picture of his service dog and states "that is my only goal". He is hoping that his lungs will improve so he can get back to his baseline. Recommendations - Await oncology recommendations Advanced Directives - None on file Code Status - Full code Thank you for this consultation Latoya Pérez [facility] Palliative Care Spectralink [id number] Email: [email or web address] Time with Patient: Greater than 30
[2022-02-16] MEDS: carvediloL 6.25 MG TAB PO SCH ×2 (12:05→18:19)
[2022-02-16] MEDS: NYSTATIN 100,000 UNIT/ML SUSP 500,000 UNIT/5 ML CUP PO SCH ×3 (12:38→20:52)
[2022-02-16] MEDS: FUROSEMIDE 10 MG/ML 4 ML VIAL IV SCH ×2 (12:42→20:22)
[2022-02-16] MEDS ORDERED: LORazepam 1 MG/0.5 ML VIAL IV PRN ×2 (13:06→17:19)
[2022-02-16] MEDS ORDERED: HYDROmorphone 1 MG/ML 1 ML SYRINGE IVP PRN (13:34)
[2022-02-16 14:03] LABS: Glucose,Whole Blood 241 mg/dL (70-110)
[2022-02-16] MEDS ORDERED: LIDOCAINE 2% URO-JET JELLY 5 ML KIT URETHRAL ONE (14:15)
[2022-02-16 14:26] LABS: ABG Base Excess 6.9 mmol/L; ABG HCO3 32 mmol/L (21-25); ABG Oxygen Saturation 87.9 % (94-97); ABG PCO2 55 mmHg (35-45); ABG PH 7.38 (7.35-7.45); ABG PO2 60 mmHg (83-108); ABG TCO2 34 mmol/L (19-24); Allen Test Performed? Yes
--- NOTE | 2022-02-16 14:31 | XR ---
EXAMINATION TYPE: XR chest 1V portable DATE OF EXAM: 02/16/2022 COMPARISON: 02/15/2022 INDICATION: Respiratory distress TECHNIQUE: Single frontal view of the chest is obtained. FINDINGS: The heart size is normal. The pulmonary vasculature is prominent. Diffuse increased lung markings are present greater in the upper lung parker and along the left diaph ragm. Findings appear stable from earlier the IMPRESSION: 1. Diffuse increased lung markings upper lung parker and left base, stable from comparison.
--- NOTE | 2022-02-16 15:17 | P.CNPUL ---
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 Surprisingly the patient has done relatively better than expected over the years. Patient was admitted this time on 02/15/22, admitted to the regular medical floor with acute exacerbation of COPD, bilateral pneumonia, possible lymphangitic carcinomatosis, and he was seen by Dr. Cheung on consultation. Patient was treated with steroids, bronchodilators, antibiotics, however in the last few hours, his shortness of breath has become extremely more pronounced. The rapid response team evaluated the patient and the patient was in severe respiratory distress basically requiring immediate intubation based on his clinical status. I was notified about this patient to transfer to the ICU. I recommended immediate transfer and immediate intubation. However when the patient arrived to the ICU with his family at bedside, patient clearly refused to be intubated. He does not want to be intubated even if he codes he would like to have CPR but no intubation. This was explained over and over to the patient and he basically does not want to be intubated and a to what. Patient is agreeable to go on BiPAP which I will try. ABG on 100% FiO2 showed a pO2 of 60 pCO2 55 pH of 7.38. Upon my evaluation of the patient, patient is clearly in severe respiratory distress, and impending full respiratory failure requiring intubation but again the patient declined to be intubated. Chest x-ray from earlier today showed increased lung markings bilaterally. Especially in the upper lung parker and left base. WBC count is 7.5, hemoglobin is 14.2. D-dimer 0.83 done on admission BNP level is normal. Negative influenza A and influenza B screening, however the patient had COVID-19 infection 2 weeks ago supposedly. Since admission the patient has been on Solu-Medrol, he is also receiving morphine sulfate at bedtime, and he is on Tagrisso Review of Systems Cannot be obtained, patient is in severe respiratory distress Past Medical History Past Medical History: Cancer, GERD/Reflux, Hypertension Additional Past Medical History / Comment(s): Adenocarcinoma of the lung; On oral chemo. home oxygen use @ 4L [place] ATC,increased SOB, sinus tachycardia (states resting heart rate is around 100-120 BPM) GIB History of Any Multi-Drug Resistant Organisms: MRSA Date of last positivie culture/infection: 01/12/22 MDRO Source:: Right Leg Past Surgical History: Adenoidectomy, Tonsillectomy Additional Past Surgical History / Comment(s): History of bronchoscopy. Talc plueraldias Past Anesthesia/Blood Transfusion Reactions: No Reported Reaction Past Psychological History: No Psychological Hx Reported Smoking Status: Never smoker Past Alcohol Use History: None Reported Additional Past Alcohol Use History / Comment(s): . Past Drug Use History: None Reported - Past Family History Mother Family Medical History: COPD, Hypertension Medications and Allergies Home Medications Medication Instructions Recorded Confirmed Type Folic Acid 1 mg PO DAILY 07/15/17 02/15/22 History ondansetron HCL [Zofran] 4 - 8 mg PO Q8H PRN 09/17/18 02/15/22 History Diphenox-Atrop 2.5-0.025 mg 1 tab PO QID 03/05/20 02/15/22 History [Lomotil] HYDROcodone/APAP 10-325MG [[place] 1 tab PO Q6HR PRN 3 Days #12 tab 11/06/20 02/15/22 Rx 10-325] Albuterol Sulfate [Proair Hfa] 2 puff INHALATION RT-Q6H PRN 06/28/21 02/15/22 History Budesonide/Formoterol Fumarate 2 puff INHALATION RT-BID 06/28/21 02/15/22 History [Symbicort 160-4.5 Mcg Inhaler] Cholestyramine (with Sugar) 4 gm PO HS 06/28/21 02/15/22 History [Cholestyramine Packet] Clotrimazole 10 mg MUCOUS MEM QID 06/28/21 02/15/22 History Hydrocortisone [Cortef] 20 mg PO BID 06/28/21 02/15/22 History Morphine Sulfate ER [Ms Contin] 45 mg PO DAILY 06/28/21 02/15/22 History Nystatin 100,000 Unit/ml Susp 4 ml PO QID 06/28/21 02/15/22 History [Mycostatin Oral Susp] predniSONE 10 mg PO BID PRN 06/28/21 02/15/22 History Clindamycin Phosphate 1 applic TOPICAL DAILY PRN 09/29/21 02/15/22 History Hydrocortisone Oint 1 applic TOPICAL BID PRN 09/29/21 02/15/22 History [Hydrocortisone 2.5% Oint] Pantoprazole [Protonix] 40 mg PO AC-BID 09/29/21 02/15/22 History Losartan [Cozaar] 50 mg PO BID 09/30/21 02/15/22 History Cholestyramine (with Sugar) 4 gm PO DAILY PRN 02/15/22 02/15/22 History [Cholestyramine Packet] Cyanocobalamin (Vitamin B-12) 2,000 mcg PO DAILY 02/15/22 02/15/22 History [Vitamin B-12] Fluconazole [Diflucan] 100 mg PO DAILY 02/15/22 02/15/22 History Furosemide [Lasix] 20 mg PO BID 02/15/22 02/15/22 History Morphine Sulfate ER [Ms Contin] 15 mg PO DAILY@1200 02/15/22 02/15/22 History Morphine Sulfate ER [Ms Contin] 30 mg PO HS 02/15/22 02/15/22 History Omeprazole [PriLOSEC] 40 mg PO AC-BID 02/15/22 02/15/22 History Osimertinib Mesylate [Tagrisso] 80 mg PO HS 02/15/22 02/15/22 History Potassium Chloride [Potassium 10 meq PO BID 02/15/22 02/15/22 History Chloride ER] dronabinoL [Marinol] 5 mg PO HS 02/15/22 02/15/22 History hydrALAZINE HCL [Apresoline] 25 mg PO BID 02/15/22 02/15/22 History rOPINIRole HCL [Requip] 0.5 mg PO HS 02/15/22 02/15/22 History Allergies Allergy/AdvReac Type Severity Reaction Status Date / Time latex Allergy itching Verified 02/15/22 13:36 eyes Physical Exam Vitals: Vital Signs Temp Pulse Pulse Resp BP Pulse Ox 02/16/22 11:09 130 H 02/16/22 10:59 124 H 02/16/22 08:00 97.9 F 123 H 30 H 168/91 92 L 02/16/22 07:19 118 H 02/16/22 07:10 90 L 02/16/22 07:08 98 02/16/22 04:00 30 H 195/94 92 L 02/16/22 02:00 109 H 24 02/16/22 00:00 97.8 F 109 H 24 198/110 95 02/15/22 20:06 97 02/15/22 20:00 97.6 F 108 H 18 196/101 93 L 02/15/22 19:55 92 02/15/22 15:27 97.5 F L 100 16 190/103 96 Intake and Output 02/16/22 02/16/22 02/16/22 06:59 14:59 22:59 Other: # Voids 2 Physical Exam: Revealed a 56-year-old white male looks frail, chronically ill, in severe respiratory distress. Using accessory muscles and again having sign ificant difficulty breathing. Head: Atraumatic, normocephalic. HEENT:[Neck is supple.] [No neck masses.] [No thyromegaly.] [No JVD.] Chest: [Crackles and rhonchi and wheezes bilaterally. Cardiac Exam: Tachycardic, normal S1 and S2, no S3 gallop. No murmur. Abdomen: [Soft, nontender, no megaly, no rebound, no guarding, normal bowel sounds.] Extremities: [No clubbing, 2+ bipedal edema, no cyanosis.] Neurological Exam: Alert and oriented 3 no gross Focal deficits. Psychiatric: Anxious, flat affect, normal mental status otherwise. Skin: No rashes. Results - Laboratory Findings CBC and BMP: 02/16/22 06:33 02/16/22 06:33 ABG ABG pH 7.38 (7.35-7.45) 02/16/22 14:20 ABG pCO2 55 mmHg (35-45) H 02/16/22 14:20 ABG pO2 60 mmHg (83-108) L 02/16/22 14:20 ABG O2 Saturation 87.9 % (94-97) L 02/16/22 14:20 PT/INR, D-dimer PT 10.0 sec (9.0-12.0) 02/15/22 08:35 INR 0.9 (<1.2) 02/15/22 08:35 D-Dimer 0.83 mg/L FEU (<0.60) H 02/15/22 08:35 Abnormal lab findings: Abnormal Labs 02/15/22 02/15/22 02/15/22 08:35 08:35 08:35 Plt Count 122 L Lymphocytes # 0.9 L D-Dimer 0.83 H ABG pCO2 ABG pO2 ABG HCO3 ABG Total CO2 ABG O2 Saturation Sodium 129 L Creatinine Glucose 122 H POC Glucose (mg/dL) Total Protein 5.7 L Albumin 3.3 L 02/16/22 02/16/22 02/16/22 06:33 06:33 14:01 Plt Count 139 L Lymphocytes # 0.6 L D-Dimer ABG pCO2 ABG pO2 ABG HCO3 ABG Total CO2 ABG O2 Saturation Sodium 131 L Creatinine 0.62 L Glucose 196 H POC Glucose (mg/dL) 241 H Total Protein Albumin 02/16/22 14:20 Plt Count Lymphocytes # D-Dimer ABG pCO2 55 H ABG pO2 60 L ABG HCO3 32 H ABG Total CO2 34 H ABG O2 Saturation 87.9 L Sodium Creatinine Glucose POC Glucose (mg/dL) Total Protein Albumin - Diagnostic Findings Chest x-ray: image reviewed (As noted in HPI) Assessment and Plan Assessment: Impression: Acute on chronic hypoxic respiratory failure Chronic hypercapnic respiratory failure Stage IV pulmonary adenocarcinoma, 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 I also explained to the patient whether he agrees to intubation if he codes, patient clearly stated to me he does not want to be intubated tomorrow what. Family is aware and the family is at bedside. And family agrees with his decision Continue bronchodilators. We'll try patient on noninvasive pressure support ventilation with BiPAP. Continue IV Solu-Medrol. Continue antibiotics as ordered by his admitting implementation architect on admission. Prognosis is extremely poor Will continue to follow as long as he is in the ICU. Nurse will notify his implementation architect about his decision not to be intubated Time with Patient: Greater than 30
[2022-02-16] MEDS: MORPHINE SULFATE 4 MG/ML SYRINGE IVP PRN ×2 (15:27→20:21)
[2022-02-16] MEDS ORDERED: HYDROcodone/APAP 10-325MG 1 EACH TAB PO PRN (17:18)
--- NOTE | 2022-02-16 17:43 | P.CONS ---
History of Present Illness - Reason for Consult Consult date: 02/16/22 NSCLC Requesting physician: Karan Kim - Chief Complaint SOB - History of Present Illness Mr. Olivo is a very pleasant male patient of Dr. Chung Loyd diagnosed with non-small cell lung cancer in late 2016. He presented with progressive shortness of breath, right shoulder pain, 50 pound weight loss. Chest x-ray showed reticulonodular interstitial pattern, confirmed with CT, no definite mediastinal lymphadenopathy. Bronchoscopy Pathology revealed poorly differen tiated adenocarcinoma. Staging PET scan, bilateral lung involvement, no mediastinal disease or distant metastases. 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 He was started on chemotherapy, With objective improvement. He was switched to targeted agent erlotinib In mid 2017. He has continued on the same With the addition of cyramza 11/2020. He has been on the same with overall stable disease. He was was due to have his 30th treatment cyramza yesterday. He states he did not show up using wasn't feeling well. Covid end of Jan. When seen patient is very anxious, short of breath, he is requesting more oxygen. He is requesting something more for pain. CTA negative for PE. Chest x-ray showing a stable left pleural effusion, pulmonary fibrosis. Review of Systems 10 point ROS is neg except as stated in HPI Past Medical History Past Medical History: Cancer, GERD/Reflux, Hypertension Additional Past Medical History / Comment(s): Adenocarcinoma of the lung; On oral chemo. home oxygen use @ 4L [place] ATC,increased SOB, sinus tachycardia (states resting heart rate is around 100-120 BPM) GIB History of Any Multi-Drug Resistant Organisms: MRSA Year Discovered:: 01/12/22 MDRO Source:: Right Leg Past Surgical History: Adenoidectomy, Tonsillectomy Additional Past Surgical History / Comment(s): History of bronchoscopy. Talc plueraldias Past Anesthesia/Blood Transfusion Reactions: No Reported Reaction Past Psychological History: No Psychological Hx Reported Smoking Status: Never smoker Past Alcohol Use History: None Reported Additional Past Alcohol Use History / Comment(s): . Past Drug Use History: None Reported - Past Family History Mother Family Medical History: COPD, Hypertension Medications and Allergies Home Medications Medication Instructions Recorded Confirmed Type Folic Acid 1 mg PO DAILY 07/15/17 02/15/22 History ondansetron HCL [Zofran] 4 - 8 mg PO Q8H PRN 09/17/18 02/15/22 History Diphenox-Atrop 2.5-0.025 mg 1 tab PO QID 03/05/20 02/15/22 History [Lomotil] HYDROcodone/APAP 10-325MG [[place] 1 tab PO Q6HR PRN 3 Days #12 tab 11/06/20 02/15/22 Rx 10-325] Albuterol Sulfate [Proair Hfa] 2 puff INHALATION RT-Q6H PRN 06/28/21 02/15/22 History Budesonide/Formoterol Fumarate 2 puff INHALATION RT-BID 06/28/21 02/15/22 History [Symbicort 160-4.5 Mcg Inhaler] Cholestyramine (with Sugar) 4 gm PO HS 06/28/21 02/15/22 History [Cholestyramine Packet] Clotrimazole 10 mg MUCOUS MEM QID 06/28/21 02/15/22 History Hydrocortisone [Cortef] 20 mg PO BID 06/28/21 02/15/22 History Morphine Sulfate ER [Ms Contin] 45 mg PO DAILY 06/28/21 02/15/22 History Nystatin 100,000 Unit/ml Susp 4 ml PO QID 06/28/21 02/15/22 History [Mycostatin Oral Susp] predniSONE 10 mg PO BID PRN 06/28/21 02/15/22 History Clindamycin Phosphate 1 applic TOPICAL DAILY PRN 09/29/21 02/15/22 History Hydrocortisone Oint 1 applic TOPICAL BID PRN 09/29/21 02/15/22 History [Hydrocortisone 2.5% Oint] Pantoprazole [Protonix] 40 mg PO AC-BID 09/29/21 02/15/22 History Losartan [Cozaar] 50 mg PO BID 09/30/21 02/15/22 History Cholestyramine (with Sugar) 4 gm PO DAILY PRN 02/15/22 02/15/22 History [Cholestyramine Packet] Cyanocobalamin (Vitamin B-12) 2,000 mcg PO DAILY 02/15/22 02/15/22 History [Vitamin B-12] Fluconazole [Diflucan] 100 mg PO DAILY 02/15/22 02/15/22 History Furosemide [Lasix] 20 mg PO BID 02/15/22 02/15/22 History Morphine Sulfate ER [Ms Contin] 15 mg PO DAILY@1200 02/15/22 02/15/22 History Morphine Sulfate ER [Ms Contin] 30 mg PO HS 02/15/22 02/15/22 History Omeprazole [PriLOSEC] 40 mg PO AC-BID 02/15/22 02/15/22 History Osimertinib Mesylate [Tagrisso] 80 mg PO HS 02/15/22 02/15/22 History Potassium Chloride [Potassium 10 meq PO BID 02/15/22 02/15/22 History Chloride ER] dronabinoL [Marinol] 5 mg PO HS 02/15/22 02/15/22 History hydrALAZINE HCL [Apresoline] 25 mg PO BID 02/15/22 02/15/22 History rOPINIRole HCL [Requip] 0.5 mg PO HS 02/15/22 02/15/22 History Allergies Allergy/AdvReac Type Severity Reaction Status Date / Time latex Allergy itching Verified 02/15/22 13:36 eyes Physical Exam Vitals: Vital Signs Temp Pulse Pulse Resp BP BP Pulse Ox 02/16/22 07:19 118 H 02/16/22 07:10 90 L 02/16/22 07:08 98 02/16/22 04:00 30 H 195/94 92 L 02/16/22 02:00 109 H 24 02/16/22 00:00 97.8 F 109 H 24 198/110 95 02/15/22 20:06 97 02/15/22 20:00 97.6 F 108 H 18 196/101 93 L 02/15/22 19:55 92 02/15/22 15:27 97.5 F L 100 16 190/103 96 02/15/22 14:54 106 H 18 02/15/22 14:47 96 18 94 L 02/15/22 14:41 96 16 177/124 96 02/15/22 11:57 98.3 F 99 20 175/122 95 Intake and Output 02/15/22 02/16/22 02/16/22 22:59 06:59 14:59 Intake Total 358 Balance 358 Intake: Oral 358 Other: # Voids 1 2 Weight 71.668 kg - Constitutional General appearance: cooperative, disheveled, severe distress, thin - EENT Eyes: anicteric sclerae, EOMI ENT: hearing grossly normal - Neck Neck: no lymphadenopathy - Respiratory Respiratory: bilateral: diminished, wheezing - Cardiovascular Tachycardia Heart sounds: normal: S1, S2 Abnormal Heart Sounds: no systolic murmur, no diastolic murmur, no rub, no S3 Gallop, no S4 Gallop, no click, no other foot Peripheral Edema: bilateral: 1+, Pitting - Gastrointestinal General gastrointestinal: no absent bowel sounds, no decreased bowel sounds, no distended, no hepatomegaly, no hyperactive bowel sounds, normal bowel sounds, no organomegaly, no rigid, scaphoid, soft, no splenomegaly, no tenderness, no umbilical hernia, no ventral hernia - Neurologic Neurologic: CNII-XII intact - Musculoskeletal Musculoskeletal: strength equal bilaterally - Psychiatric Psychiatric: A&O x's 3, appropriate affect, intact judgment & insight Results CBC & Chem 7: 02/16/22 06:33 02/16/22 06:33 Labs: Abnormal Lab Results - Last 24 Hours (Table) 02/15/22 02/15/22 02/15/22 Range/Units 08:35 08:35 08:35 Plt Count 122 L (150-450) k/uL Lymphocytes # 0.9 L (1.0-4.8) k/uL D-Dimer 0.83 H (<0.60) mg/L FEU Sodium 129 L (137-145) mmol/L Creatinine (0.66-1.25) mg/dL Glucose 122 H (74-99) mg/dL Total Protein 5.7 L (6.3-8.2) g/dL Albumin 3.3 L (3.5-5.0) g/dL 02/16/22 02/16/22 Range/Units 06:33 06:33 Plt Count 139 L (150-450) k/uL Lymphocytes # 0.6 L (1.0-4.8) k/uL D-Dimer (<0.60) mg/L FEU Sodium 131 L (137-145) mmol/L Creatinine 0.62 L (0.66-1.25) mg/dL Glucose 196 H (74-99) mg/dL Total Protein (6.3-8.2) g/dL Albumin (3.5-5.0) g/dL Chest x-ray: report reviewed CT scan - chest: report reviewed Assessment and Plan (1) Acute exacerbation of emphysema Current Visit: Yes Status: Acute Priority: High Code(s): J43.9 - EMPHYSEMA, UNSPECIFIED SNOMED Code(s): 755336064 (2) EGFR-related lung cancer Current Visit: No Status: Chronic Priority: Medium Code(s): C34.90 - MALIGNANT NEOPLASM OF UNSP PART OF UNSP BRONCHUS OR LUNG SNOMED Code(s): 037421527 Plan: Patient is experiencing severe respiratory distress when seen. His oxygen is being increased. On return to the chart, later in the day, noted patient is now on the intensive care unit. Pulmonary consulted. CTA negative for PE. Chest x-ray showing stable left pleural effusion, pulmonary fibrosis, No significant change on today's chest x-ray. Osimertinib held. There is a risk for cardiotoxicity. Echo has been ordered. Severe anxiety. Antianxiety medication when necessary ordered. Frequency of when necessary pain medications adjusted
[2022-02-16] MEDS ORDERED: SODIUM CHLORIDE 0.9% 1,000 ML IV ONE (19:09)
[2022-02-16] MEDS ORDERED: SODIUM CHLORIDE 0.9% 1,000 ML IV SCH (19:15)
[2022-02-16] MEDS: PHENYLEPHRINE 40 MG in SODIUM CHLORIDE 0.9% 250 ML IV SCH (19:57)
[2022-02-16] MEDS: MORPHINE SULFATE ER 15 MG TABLET PO SCH (20:51)
[2022-02-16] MEDS ORDERED: AZITHROMYCIN 500 MG in SODIUM CHLORIDE 0.9% 250 ML IVPB SCH (21:00)
[2022-02-16] MEDS ORDERED: VASOPRESSIN 20 UNIT in SODIUM CHLORIDE 0.9% 50 ML IV SCH (21:45)
[2022-02-17] MEDS: LORazepam 1 MG/0.5 ML VIAL IV PRN ×3 (00:08→03:53)
[2022-02-17 00:10] VITALS: TEMP 99.7
[2022-02-17] MEDS: PHENYLEPHRINE 40 MG in SODIUM CHLORIDE 0.9% 250 ML IV SCH (01:15)
[2022-02-17] MEDS: MORPHINE SULFATE 4 MG/ML SYRINGE IVP PRN (01:28)
[2022-02-17] MEDS: MORPHINE SULFATE 4 MG/ML SYRINGE IV PRN ×2 (03:49→03:58)
[2022-02-17] MEDS ORDERED: SCOPOLAMINE 1 MG/72 HR PATCH TRANSDERM SCH (04:00)
[2022-02-17] MEDS ORDERED: MORPHINE SULFATE (100 MG/2 ML) 100 MG in SODIUM CHLORIDE 0.9% 100 ML IV SCH (04:00)
[2022-02-17 04:57] VITALS: BP 64/48; PULSE 37; RESP 0
[2022-02-17] MEDS: SYMBICORT 160-4.5 MCG INHALER INHALATION SCH (08:13)
[2022-02-17] MEDS: IPRATROPIUM-ALBUTEROL 3 ML NEB INHALATION SCH (08:14)
--- NOTE | 2022-02-21 11:08 | CDI ---
Documentation Clarification Form Date: 02/21/2022 10:44:39 AM From: Anat Avalos RN, CCDS Email: [email or web address] Admit Date: 02/15/2022 01:51:00 PM Patient Name: Ritesh Olivo Visit Number: [id number] Discharge Date: 02/17/2022 08:18:00 AM ATTENTION: The Clinical Documentation Specialists (CDI) and [facility] Coding Staff appreciate your assistance in clarifying documentation. Please respond to the clarification below the line at the bottom and electronically sign. The CDI & [facility] Coding staff will review the response and follow-up if needed. Please note: Queries are made part of the Legal Health Record. If you have any questions, please contact the author of this message via ITS. Dr. Nick Toussaint The H&P indicates a diagnosis of possible CHF exacerbation. Additional information regarding the type of CHF is requested. History/Risk Factors: COPD, adenocarcinoma of BL lungs with lymphangitis spread, currently on oral chemotherapy, recent Covid infection, home oxygen use, HTN Clinical Indicators: 2+ pedal edema 02/15 H&P: "no CT evidence for acute PE. Chronic emphysematous Massive pulmonary fibrotic changes re-demonstrated. Continued with neoplastic progression thought present. No areas of ground-glass opacity consistent with edema in the bilateral lower lung suggestive fluid overload and possible CHF exacerbation." 02/16 Consult: "New areas of opacity consistent with edema in the bilateral lower lung suggest fluid overload and/or possible CHF exacerbation." Pulse OX: 76-97% on oxygen 02/15 BNP: 316 02/15 EKG: ST 02/15 Chest X Ray: Bilateral infiltrates and left pleural effusion again noted. Findings of underlying COPD and pulmonary fibrosis similar to prior exam. 02/15 CTA chest: Chronic emphysematous and pulmonary fibrotic changes re- demonstrated. Continued neoplastic progression thought present. New areas of ground-glass opacity consistent with edema in the bilateral lower lung suggesting fluid overload and/or possible CHF exacerbation. Treatment: Duonebs QID, Coreg 6.25mg po on 02/16, Lasix 20mg po on 02/15, Lasix 40mg IVP Q12H 02/16, supplemental oxygen, IV Vasopressin 4.59 ml/hr on 02/16 In your professional opinion, can you please clarify the [acuity and type] of CHF if known? [ ] Acute Systolic Heart Failure (reduced EF) [ ] Acute on Chronic Systolic Heart Failure (reduced EF) [ ] Acute Diastolic Heart Failure (preserved EF) [ ] Acute on Chronic Diastolic Heart Failure (preserved EF) [ ] Acute Systolic & Diastolic Heart Failure [ ] Acute on Chronic Heart Failure Systolic & Diastolic Heart Failure [ ] Other, please specify [ x ] Unable to determine MTDD
== END 2022-02-17 08:18 | disposition expired | DRG 190 ==
LOC: EC 08:06 → SUPCPDRO 08:06 → 3SCARD 13:51 → 2SICU 02-16 14:25
PROVIDERS: ADMIT Internal Medicine; ATTEND Internal Medicine
PROC: 3E043XZ Introduction of Vasopressor into Central Vein, Percutaneous Approach (ICD-10-PCS; principal; 2022-02-16)
PROC: 5A09357 Assistance with Respiratory Ventilation, Less than 24 Consecutive Hours, Continuous Positive Airway Pressure (ICD-10-PCS; 2022-02-16)
DX: J43.9 Emphysema, unspecified (principal); J18.9 Pneumonia, unspecified organism; J96.21 Acute and chronic respiratory failure with hypoxia; J96.22 Acute and chronic respiratory failure with hypercapnia; E87.1 Hypo-osmolality and hyponatremia; J91.8 Pleural effusion in other conditions classified elsewhere; C77.1 Secondary and unspecified malignant neoplasm of intrathoracic lymph nodes; C34.12 Malignant neoplasm of upper lobe, left bronchus or lung; C34.32 Malignant neoplasm of lower lobe, left bronchus or lung; C34.2 Malignant neoplasm of middle lobe, bronchus or lung; B37.0 Candidal stomatitis; D69.6 Thrombocytopenia, unspecified; I16.0 Hypertensive urgency; J84.10 Pulmonary fibrosis, unspecified; M19.90 Unspecified osteoarthritis, unspecified site; I11.0 Hypertensive heart disease with heart failure; R13.10 Dysphagia, unspecified; R62.7 Adult failure to thrive; K21.9 Gastro-esophageal reflux disease without esophagitis; I50.9 Heart failure, unspecified; Z66 Do not resuscitate; Z51.5 Encounter for palliative care; Z79.51 Long term (current) use of inhaled steroids; Z79.899 Other long term (current) drug therapy; Z85.118 Personal history of other malignant neoplasm of bronchus and lung; Z86.16 Personal history of COVID-19; Z91.040 Latex allergy status; Z99.81 Dependence on supplemental oxygen; Z92.21 Personal history of antineoplastic chemotherapy
CPT/HCPCS: 36415; 36600; 71045; 71046; 71275; 80048; 80053; 82805; 83605; 83735; 83880; 84484; 85025; 85379; 85610; 85730; 87449; 87502; 93005; 94640; 94660; 96361; 96374; 99285